=== PATIENT | female | born 1955 | race Caucasian/White ===

== ENCOUNTER 2021-10-27 07:44 | Outpatient (CLI) | payer MEDICARE, OTHER, SELFPAY ==
--- NOTE | 2021-10-27 07:52 | MM_ITS ---
WS: [email or web address] BILATERAL SCREENING DIGITAL MAMMOGRAM WITH CAD HISTORY: SCREENING COMPARISON: 12/07/2017 and 09/30/2015 Bilateral CC and MLO views submitted. Computer aided detection analyzed. Breast composition: There are scattered areas of fibroglandular density. No suspicious masses, microc alcifications or architectural distortion. There are multiple bilateral stable nodules within each br east. Prior biopsy clip in the upper-outer quadrant of the RIGHT breast. MM/[place] [id number] IMPRESSION: BI-RADS: 2-Benign FOLLOW UP: 1 Year Follow-up
== END 2021-10-27 07:45 | disposition home or self-care (01) ==
PROVIDERS: Visit Provider Electrodiagnostic Medicine
DX: Z12.31 Encounter for screening mammogram for malignant neoplasm of breast (principal)
CPT/HCPCS: 77067

== ENCOUNTER 2023-01-19 09:41 | Outpatient (CLI) | payer MEDICARE, OTHER, SELFPAY ==
--- NOTE | 2023-01-19 09:55 | MM_ITS ---
WS: [email or web address] BILATERAL SCREENING DIGITAL TOMOSYNTHESIS MAMMOGRAM WITH CAD HISTORY: SCREENING COMPARISON: 10/27/2021, 12/07/2017 Bilateral CC and MLO views with tomosynthesis and synthetic mammography submitted. Computer aided det ection analyzed. Breast composition: There are scattered areas of fibroglandular density. No suspicious masses, microc alcifications or architectural distortion. Biopsy clip upper outer quadrant RIGHT breast. Stable scat tered nodules and asymmetries since 2018. No new mass. No distortion. MM/[place] [id number] IMPRESSION: BI-RADS: 2-Benign FOLLOW UP: 1 Year Follow-up
== END 2023-01-19 09:42 | disposition home or self-care (01) ==
PROVIDERS: PCP Electrodiagnostic Medicine; Visit Provider Electrodiagnostic Medicine
DX: Z12.31 Encounter for screening mammogram for malignant neoplasm of breast (principal)
CPT/HCPCS: 77063; 77067

== ENCOUNTER 2023-04-16 10:27 | Emergency (ER) | payer MEDICARE, OTHER, SELFPAY ==
[2023-04-16 10:32] VITALS: PULSE 91; RESP 20; TEMP 36.8; O2SAT 95
--- NOTE | 2023-04-16 10:34 | XRR_ITS ---
PROCEDURE INFORMATION: Exam: XR Chest Exam date and time: 04/16/2023 10:40 AM Age: 68 years old Clinical indication: Cough and dyspnea; Additional info: Dyspnea/cough TECHNIQUE: Imaging protocol: Radiologic exam of the chest. Views: 1 view. COMPARISON: No relevant prior studies available. FINDINGS: Lungs: There is a 10 mm nodule in right mid lung. There is mild ill-defined opacity in the right lower lung. Pleural spaces: There is no pleural effusion or pneumothorax. Heart/Mediastinum: The cardiac silhouette is within normal limits of size given AP technique. Bones/joints: Bones are unremarkable. XR/XR chest 1V portable [id number] IMPRESSION: 1. Ill-defined opacity in the right lower lung consistent with atelectasis or infection. 2. 10 mm right lung nodule. Probable calcified granuloma. Radiographic findings are equivocal. Recommend nonemergent follow-up chest CT.
--- NOTE | 2023-04-16 10:34 | ECG_ITS ---
[facility] Test Date: 2023-04-16 Pat Name: Sebastián Sparks Department: Room: Gender: Female Space Officer: : 1955 Requested By: Juan Miguel Hutchison Order Number: [id number] Reading MD: Dale Mata M.D. Measurements Intervals [place] Rate: 83 P: 43 NC: 166 QRS: 64 QRSD: 89 T: 19 QT: 330 QTc: 388 Interpretive Statements SINUS RHYTHM POSSIBLE RIGHT VENTRICULAR CONDUCTION DELAY [RSR (QR) IN V1/V2] NONSPECIFIC ST & T-WAVE ABNORMALITY No previous ECG available for comparison Electronically Signed On 04-16-2023 11:33:14 CDT by Dale Mata M.D. [id number]
--- NOTE | 2023-04-16 10:58 | ED_ITS ---
HPI - COVID General: Chief Complaint: COVID symptoms Stated Complaint: SOB, covid + Time Seen by Provider: 04/16/23 10:29 Source: patient Mode of arrival: ambulatory Triage information: Has fever, cough or shortness of breath . Exposure to COVID + person last 14 days History of Present Illness: 68-year-old female who presents to the emergency room after having a positive COVID test at home. After developing symptoms 4 days ago having had come in contact with a known COVID-positive patient. She has cough myalgias headache and some loose stools. Patient has a history of end-stage renal disease and is on peritoneal dialysis. MD complaint: known COVID positive and reported COVID exposure Prior covid testing: yes, results known COVID 19 common symptoms: positive fever(s), chills, cough, dyspnea, fatigue, body aches, nasal congestion and nausea; negative vomiting COVID 19 other sytmptoms: negative chest pain Onset (ago): day(s) (4) Severity: mild Pertinent comorbid conditions: hypertension and chronic kidney disease Treatment prior to arrival: none COVID Results: No Data to Display Review of Systems Const: Reports: fever(s), chills, body aches and fatigue ENMT: Reports: nasal congestion Card: Denies: chest pain, edema, dyspnea on exertion or orthopnea Resp: Reports: dyspnea GI: Reports: nausea; Denies: abdominal pain or vomiting Musc: Denies: neck pain or back pain Skin/Breast: Denies: rash or pruritus PFSH ED PFSH: Medical History Chronic kidney disease Diabetes Hypertension Surgical History H/O knee surgery (~2001) L knee Hx of dilation and curettage (~1979) Hx of tonsillectomy (~1979) Hx of tubal ligation (~1982) Family History Mother Diabetes Brother Diabetes Heart disease Denies family history of Colon cancer Ovarian cancer Hypercholesteremia Breast cancer Hypertension Uterine cancer Thyroid disease Stroke Physical Exam Const: GENERAL APPEARANCE: cooperative ORIENTATION/CONSCIOUSNESS: Yes awake, Yes oriented to person, Yes oriented to place and Yes oriented to time HENMT: COMMON NORMALS: normocephalic, atraumatic and hearing grossly normal bilaterally HEAD & SCALP: normocephalic and atraumatic Resp: COMMON NORMALS: normal respiratory effort, No retractions, No use of accessory muscles and clear to auscultation bilaterally AUSCULTATION: clear to auscultation bilaterally Cardio: COMMON NORMALS: regular rate, regular rhythm and No murmurs present (Cardio) RATE: regular rate RHYTHM: regular rhythm GI: COMMON NORMALS: Soft to palpation and No hepatosplenomegaly present AUSCULTATION: Yes normoactive bowel sounds PALPATION: Yes Soft to palpation, No Tenderness to palpation present (GI), No Guarding due to palpation present (GI) and Yes No hepatosplenomegaly present Extremity: COMMON NORMALS: normal to inspection, capillary refill normal, no clubbing, cyanosis or edema, no calf tenderness and no pedal edema Neuro: SENSORIUM/ORIENTATION: Yes oriented to person, Yes oriented to place and Yes oriented to time Skin: COMMON NORMALS: no rashes or lesions noted GENERAL SKIN EXAM: no rashes or lesions noted Course Vital Signs: Vital signs: Vital Signs Temperature 98.3 F 04/16/23 10:32 Pulse Rate 91 04/16/23 10:32 Respiratory Rate 20 H 04/16/23 10:32 Pulse Oximetry 95 04/16/23 10:32 Oxygen Delivery Me thod Room Air 04/16/23 10:32 MDM - COVID Medical Decision Making Chest x-ray shows changes consistent with COVID and patient's history of vital signs are stable. She is not a candidate for Paxlovid based on her renal function. Discharge patient home supportive cares use [id number] cough cold remedies as needed. Return if is worsening of symptoms. Medical Records I reviewed the patient's medical records. Lab Data I reviewed the patient's lab results. No Data to Display Discharge Plan Discharge Patient Disposition: Home Clinical Impression: COVID-19 Condition: Stable Prescriptions: No Action valrubicin [Valstar] 40 mg/mL solution intravesical alprazolam 0.25 mg tablet 0.25 mg PO BID lisinopril 10 mg tablet 10 mg PO DAILY tramadol 50 mg tablet 50 mg PO BID PRN chlorpheniramine-pseudoephed 8-120 mg capsule,extended release 12 hr PO loratadine [Claritin Liqui-Gel] 10 mg capsule 10 mg PO DAILY senna 8.6 mg capsule 17.2 mg PO BID metoprolol succinate 25 mg tablet extended release 24 hr 12.5 mg PO DAILY trazodone 50 mg tablet 25 mg PO DAILY citalopram 10 mg tablet 10 mg PO DAILY Discharge Orders: Discharge ED (Routine); Ordered 04/16/23 Ordered By: Juan Miguel Lance Referrals: Wili Gonzalez, [Primary Care Provider] - Discharge Diet: Usual diet Discharge Activity: Resume usual activity Patient Instructions: COVID-19 (Coronavirus Disease 2019) (ED), Opioid Safety, Pain Management Coding Level of Care Code ED Felt Machine Mechanic for Albina Gomez
[2023-04-16 11:00] VITALS: O2SAT 96
[2023-04-16] MEDS: hyDRALAzine 20 mg/mL INJ 1 mL 10 MG IM (11:31)
[2023-04-16 12:06] VITALS: BP 209/99
[2023-04-16 12:40] VITALS: BP 181/78; PULSE 88; RESP 22
== END 2023-04-16 12:49 | disposition home or self-care (01) ==
PROVIDERS: Emergency Provider Family Medicine; PCP Electrodiagnostic Medicine
DX: U07.1 COVID-19 (principal)
CPT/HCPCS: 71045; 93005; 96372; 99284; J0360

== ENCOUNTER 2024-04-24 15:14 | Oncology outpatient (recurring) (ONCR) | payer MEDICARE, OTHER, SELFPAY ==
--- OUTSIDE RECORDS SUMMARY | 2024-04-24 15:11 | XMS_ITS ---
Author Name Unknown Organization Unknown ALLERGIES AND ADVERSE REACTIONS No information ASSESSMENT No information CHIEF COMPLAINT No information MEDICATIONS No information OBJECTIVE DATA No information PHYSICAL EXAMINATION No information TREATMENT PLAN Planned Care Start Date Provider Encounter for Check-up [phone] [facility] PROBLEMS No information RESULTS No information REVIEW OF SYSTEMS No information SUBJECTIVE DATA No information VITAL SIGNS No information
[2024-04-24 16:43] LABS: Basophils # 0.1 10^3/uL (0.0-0.1); Basophils % 0.5 %; Eosinophils # 0.7 10^3/uL (0.0-0.8); Eosinophils % 4.8 %; Hematocrit 35.3 % (36-47); Mean Corpuscular Hemoglobin 30.3 pg (27-33); Mean Corpuscular Volume 94.6 fl (85-98); Monocytes % 7.4 %; Neutrophils # 9.75 10^3/uL (1.8-7.7); Neutrophils % 71.7 %; Nucleated Red Blood Cells % 0 %; Platelet Count 211 10^3/cmm (157-399); Red Blood Count 3.73 10^6/uL (3.85-5.65); Red Cell Distribution Width 13.4 % (12.1-15.1); White Blood Count 13.59 10^3/uL (3.29-11.43)
[2024-04-24 16:46] LABS: Erythrocyte Sedimentation Rate 30 mm/hr (0-15)
[2024-04-24 17:13] LABS: LAB Peripheral Smear Sent for Review
[2024-04-24 17:26] LABS: Alanine Aminotransferase 23 U/L (0-33); Albumin Level 3.3 g/dL (3.5-5.2); Alkaline Phosphatase 132 U/L (35-105); Anion Gap 15.9 (5-19); Aspartate Amino Transferase 22 U/L (0-32); C Reactive Protein 16.3 mg/L (0.0-4.9); Calcium 8.5 mg/dL (8.5-10.5); Carbon Dioxide 26 mmol/L (22-29); Chloride 99 mmol/L (98-107); Creatinine Clr Calc Pharmacy 12.8675; Glucose 91 mg/dL (65-115); Lactate Dehydrogenase 195 U/L (135-214); Osmolality Calculated 313 mOsm/kg (285-295); Potassium 3.9 mmol/L (3.5-5.1); Sodium 137 mmol/L (136-145); Thyroid Stimulating Hormone 1.98 uIU/mL (0.27-4.20); Total Bilirubin 0.2 mg/dL (0.15-1.2); Total Protein 6.3 g/dL (6.6-8.7); Vitamin B12 879 pg/mL (232-1245)
[2024-04-24 17:31] LABS: Blood Urea Nitrogen 95 mg/dL (8-23)
== END 2024-05-04 23:55 | disposition home or self-care (01) ==
PROVIDERS: PCP Electrodiagnostic Medicine; Visit Provider Internal Medicine Medical Oncology
DX: D72.829 Elevated white blood cell count, unspecified (principal); C88.4 Extranodal marginal zone B-cell lymphoma of mucosa-associated lymphoid tissue [MALT-lymphoma]; U07.1 COVID-19; R53.83 Other fatigue; Z53.9 Procedure and treatment not carried out, unspecified reason
CPT/HCPCS: 36415; 80053; 82607; 83615; 84443; 85025; 85651; 86140; 88374; 99205

== ENCOUNTER → 2024-06-20 09:08 | Outpatient (BNVA) | payer MEDICARE, OTHER, SELFPAY | PROVIDERS: PCP Electrodiagnostic Medicine; Referring Provider Electrodiagnostic Medicine; Visit Provider Specialist | DX: G25.2 Other specified forms of tremor (principal); G81.94 Hemiplegia, unspecified affecting left nondominant side; E11.22 Type 2 diabetes mellitus with diabetic chronic kidney disease; E11.40 Type 2 diabetes mellitus with diabetic neuropathy, unspecified; N18.9 Chronic kidney disease, unspecified | CPT/HCPCS: 99204 ==

== ENCOUNTER → 2024-06-24 08:06 | Outpatient (BNVA) | payer MEDICARE, OTHER, SELFPAY | PROVIDERS: PCP Electrodiagnostic Medicine; Visit Provider Podiatrist Foot & Ankle Surgery | DX: L60.3 Nail dystrophy (principal); G62.9 Polyneuropathy, unspecified; E11.42 Type 2 diabetes mellitus with diabetic polyneuropathy; Z79.4 Long term (current) use of insulin | CPT/HCPCS: 11721; 99203 ==

== ENCOUNTER 2024-07-25 10:44 | Oncology outpatient (recurring) (ONCR) | payer MEDICARE, OTHER, SELFPAY ==
--- NOTE | 2024-07-11 14:30 | MR_ITS ---
WS: [email or web address] MRI BRAIN WITHOUT CONTRAST HISTORY: G81.94 - Hemiplegia, unspecified affecting left nondomina... COMPARISON: None available. TECHNIQUE: Diffusion imaging, multiplanar T1, T2 and FLAIR imaging obtained. No evidence for acute infarct or hemorrhage. Queen-white matter differentiation is normal. Mild small vessel disease and mild atrophy. Well-circumscribed mass of intermediate signal centered a t the RIGHT cerebellopontine angle with significant contact on the RIGHT middle cerebellar peduncle a nd keith. Mass extends into the internal auditory canal. Mass measures 1.9 x 2.8 cm and extends over a length of 2.8 cm. No additional mass or mass effect. Ventricles are normal size. There is no hydrocephalus. Mild volume loss in the cerebellum. Dural venous sinuses and skull [place] demonstrate no abnormality on this unenhanced studies. Paranasal sinuses: Clear. Mastoid air cells: Fluid in the LEFT mastoid air cells. Calvarium and scalp: Intact. MR/MR head wo con* [id number] IMPRESSION: 1. No acute infarct or hemorrhage. 2. Intermediate signal, well-circumscribed soft tissue mass centered at the RI GHT cerebellopontine angle with mass effect upon the middle cerebellar peduncle and keith with extension into the IAC. Mass measures 1.9 x 2.8 x 2.8 cm. Favor acoustic schwannoma. Differential would also include meningioma or metastatic l esion. Recommend follow-up MRI brain with contrast. 3. Mild small vessel disease. No prior infarct.
--- NOTE | 2024-07-11 15:15 | MR_ITS ---
WS: [email or web address] MRA ANGIOGRAPHY [place] HISTORY: G81.94 - Hemiplegia, unspecified affecting left nondomina... COMPARISON: None available. TECHNIQUE: 3-D MR angiography is performed of the [place]. All images are reviewed including source images. Distal vertebral and basilar arteries are intact with no significant stenosis or plaque. Posterior ce rebral arteries are normal course and caliber. Posterior communicating arteries are both patent. Intracranial portion of the internal carotid arteries are normal course and caliber. Middle cerebral arteries are both patent. Subtle area of enhancement at the RIGHT MCA trifurcation extending into the sylvian fissure measures 3.2 mm. This is only seen on the 3D [id number] imaging and not on the p ost processed imaging. Potentially this could represent a small aneurysm or arterial loop. No paucity of vessels distally. Anterior cerebral arteries are normal. MR/MR angio head wo con [id number] IMPRESSION: 1. Suspicious but indeterminate for 3.2 mm aneurysm involving the RIGHT MCA tr ifurcation extending into the sylvian fissure. This is only seen on the 3D time -of-flight imaging. Recommend follow-up [place] CT angiogram. 2. No additional areas of stenosis.
--- NOTE | 2024-07-11 16:00 | USCV_ITS ---
Sebastián Sparks Age: 69 Gender: F : 1955 Exam Date: 07/11/2024 16:00 Ordering Phys: Mami Darby MD Technologist: SONIA Exam Location: [facility] [place] Indication: hemiplegia Risk Factors: Previous Vascular Surgery: Right Brachial BP: / Left Brachial BP: / Right Left Velocity (cm/s) Spectral Plaque Velocity (cm/s) Spectral Plaque Syst/Diast Broadening Syst/Diast Broadening 74.10/ 16.40 Prox CCA 67.00 / 16.40 97.00/ 20.60 Mid CCA 66.30 / 18.20 84.10/ 15.40 Distal CCA 77.60 / 17.00 60.40/ 17.20 Prox ICA 78.80 / 17.30 72.00/ 17.70 Mid ICA 102.70/ 19.40 73.00/ 18.60 Distal ICA 68.40 / 17.80 57.50 ECA 68.90 0.90 ICA/CCA 1.30 Antegrade Vertebral Antegrade 80.10/ 17.20 cm/s 41.60/ 12.10 cm/s Tri Subclavian Tri 85.90 139.0 0 CONCLUSIONS Right ICA stenosis <50%. Mild atheromatous plaque right carotid bulb/ICA. Left ICA stenosis <50%. Mild atheromatous plaque left carotid bulb/ICA. Normal antegrade Doppler flow noted in the right vertebral artery. Normal antegrade Doppler flow noted in the left vertebral artery. Taqueria Nuñez MD (Electronically Signed) Final Date: 12 July 2024 10:23 S
[2024-07-25 11:27] LABS: Basophils # 0.1 10^3/uL (0.0-0.1); Basophils % 0.5 %; Eosinophils # 0.6 10^3/uL (0.0-0.8); Eosinophils % 4.2 %; Hematocrit 34.6 % (36-47); Lymphocytes # 1.6 10^3/uL (0.8-4.8); Lymphocytes % 10.5 %; Mean Corpuscular HGB Conc 32.7 g/dL (30-55); Mean Corpuscular Volume 95.1 fl (85-98); Mean Platelet Volume 10.2 fL (7.4-10.4); Monocytes # 0.9 10^3/uL (0.2-0.9); Monocytes % 5.9 %; Neutrophils # 11.65 10^3/uL (1.8-7.7); Neutrophils % 78.4 %; Nucleated Red Blood Cells % 0 %; Platelet Count 194 10^3/cmm (157-399); Red Blood Count 3.64 10^6/uL (3.85-5.65); Red Cell Distribution Width 12.4 % (12.1-15.1); White Blood Count 14.86 10^3/uL (3.29-11.43)
[2024-07-25 11:38] LABS: Alanine Aminotransferase 37 U/L (0-33); Albumin Level 3.3 g/dL (3.5-5.2); Alkaline Phosphatase 165 U/L (35-105); Anion Gap 14.3 (5-19); Aspartate Amino Transferase 33 U/L (0-32); C Reactive Protein 17.2 mg/L (0.0-4.9); Calcium 8.6 mg/dL (8.5-10.5); Carbon Dioxide 26 mmol/L (22-29); Chloride 100 mmol/L (98-107); Creatinine Clr Calc Pharmacy 12.6039; Globulin 2.9 g/dL (1.3-4.6); Glucose 167 mg/dL (65-115); Osmolality Calculated 313 mOsm/kg (285-295); Potassium 4.3 mmol/L (3.5-5.1); Sodium 136 mmol/L (136-145); Total Bilirubin 0.3 mg/dL (0.15-1.2); Total Protein 6.2 g/dL (6.6-8.7)
[2024-07-25 11:42] LABS: Blood Urea Nitrogen 89 mg/dL (8-23)
[2024-07-25 11:45] LABS: Erythrocyte Sedimentation Rate 13 mm/hr (0-15)
== END 2024-08-03 23:59 | disposition home or self-care (01) ==
PROVIDERS: PCP Electrodiagnostic Medicine; Visit Provider Internal Medicine Medical Oncology
DX: D72.829 Elevated white blood cell count, unspecified; C88.41 Extranodal marginal zone B-cell lymphoma of mucosa-associated lymphoid tissue [MALT-lymphoma], in remission; I12.0 Hypertensive chronic kidney disease with stage 5 chronic kidney disease or end stage renal disease; E11.22 Type 2 diabetes mellitus with diabetic chronic kidney disease; N18.6 End stage renal disease; Z99.2 Dependence on renal dialysis; Z79.4 Long term (current) use of insulin; Z79.899 Other long term (current) drug therapy; Z53.9 Procedure and treatment not carried out, unspecified reason
CPT/HCPCS: 36415; 70544; 70551; 80053; 85025; 85651; 86140; 93880; 99214

== ENCOUNTER 2024-07-31 12:30 | Outpatient (CLI) | payer MEDICARE, OTHER, SELFPAY ==
--- NOTE | 2024-07-31 13:00 | MR_ITS ---
WS: [email or web address] MRI HEAD WITH CONTRAST WITH ATTENTION TO THE INTERNAL AUDITORY CANALS TECHNIQUE: Sagittal T1, T2 axial, T2 axial flair, axial susceptibility weighted imaging, axial diffus ion weighted images, and coronal T2 images were obtained. Pre and post T1 axial and post T1 coronal i mages. ADC and FSPGR images. Post gadolinium images with attention to the internal auditory canals. A xial fiesta imaging. 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 Enhancing lesion measures approximat caleb 1.9 x 2.8 x 2.8 cm. No significant underlying edema. Small vessel changes in the keith. Mass appea rs separate from the RIGHT 7th and 8th cranial nerves and extends along the clivus. 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 This extends anteriorly along the RIGHT middle cranial fos sa with dural thickening. Diffuse involvement of the RIGHT trigeminal nerve root and cisternal segmen t. This extends into Meckel's cave and along V2 into the cavernous sinus. Small amount of dural enhan cement extends anteriorly near foramen rotundum. Cavernous carotid artery is encased but remains varela nt. This also involves the proximal RIGHT PARCEL POST DELIVERY. Basilar artery is patent. LEFT mastoid effusion. No other significant changes compared to the recent noncontrast MRI MR/MR iac's wo/w con* [id number] IMPRESSION: 1. Again seen is the previously described RIGHT cerebellopontine angle enhanc ing mass most compatible with retroclival meningioma. Schwannoma less likely. T his approaches but spares the IAC. This extends anteriorly into Meckel's cave a nd the RIGHT cavernous sinus described above. 2. Significant mass effect on the RIGHT midbrain and keith although minimal if any underlying edema in the keith. 3. Small vessel changes in the keith. 4. LEFT mastoid effusion. 5. No other changes from the recent noncontrast MRI.
== END 2024-07-31 12:31 | disposition home or self-care (01) ==
LOC: RAD 12:31
PROVIDERS: PCP Electrodiagnostic Medicine; Visit Provider Specialist
DX: D33.3 Benign neoplasm of cranial nerves (principal); I67.89 Other cerebrovascular disease; H70.92 Unspecified mastoiditis, left ear; G81.94 Hemiplegia, unspecified affecting left nondominant side; G25.2 Other specified forms of tremor
CPT/HCPCS: 70553; A9577

== ENCOUNTER → 2024-08-15 14:21 | Outpatient (BNVA) | payer MEDICARE, OTHER, SELFPAY | PROVIDERS: PCP Electrodiagnostic Medicine; Visit Provider Specialist | DX: G25.2 Other specified forms of tremor (principal); G81.94 Hemiplegia, unspecified affecting left nondominant side; D33.3 Benign neoplasm of cranial nerves | CPT/HCPCS: 99213; 99214; 99215 ==

== ENCOUNTER 2024-09-11 09:24 | Oncology outpatient (recurring) (ONCR) | payer MEDICARE, OTHER, SELFPAY ==
[2024-09-11 10:37] LABS: Alanine Aminotransferase 27 U/L (0-33); Albumin Level 3.4 g/dL (3.5-5.2); Alkaline Phosphatase 148 U/L (35-105); Aspartate Amino Transferase 24 U/L (0-32); Blood Urea Nitrogen 73 mg/dL (8-23); Calcium 8.6 mg/dL (8.5-10.5); Carbon Dioxide 25 mmol/L (22-29); Chloride 102 mmol/L (98-107); Globulin 2.9 g/dL (1.3-4.6); Glucose 110 mg/dL (65-115); Osmolality Calculated 310 mOsm/kg (285-295); Sodium 139 mmol/L (136-145); Total Bilirubin 0.3 mg/dL (0.15-1.2); Total Protein 6.3 g/dL (6.6-8.7)
== END 2024-10-04 23:59 | disposition home or self-care (01) ==
LOC: ONCMED 09:24
PROVIDERS: Nurse Practitioner; PCP Electrodiagnostic Medicine; Visit Provider Internal Medicine Medical Oncology
DX: G81.94 Hemiplegia, unspecified affecting left nondominant side (principal); G25.2 Other specified forms of tremor; I67.89 Other cerebrovascular disease; I67.1 Cerebral aneurysm, nonruptured; D72.829 Elevated white blood cell count, unspecified; C88.4 Extranodal marginal zone B-cell lymphoma of mucosa-associated lymphoid tissue [MALT-lymphoma]; U07.1 COVID-19; R53.83 Other fatigue; Z53.9 Procedure and treatment not carried out, unspecified reason
CPT/HCPCS: 36415; 80053

== ENCOUNTER → 2024-09-25 10:40 | Outpatient (BNVA) | payer MEDICARE, OTHER, SELFPAY | PROVIDERS: PCP Electrodiagnostic Medicine; Visit Provider Podiatrist Foot & Ankle Surgery | DX: L60.3 Nail dystrophy (principal); G62.9 Polyneuropathy, unspecified; E11.42 Type 2 diabetes mellitus with diabetic polyneuropathy; Z79.4 Long term (current) use of insulin | CPT/HCPCS: 11721 ==

== ENCOUNTER 2024-10-31 12:45 | Oncology outpatient (recurring) (ONCR) | payer MEDICARE, OTHER, SELFPAY ==
[2024-10-31 13:22] LABS: Basophils # 0.1 10^3/uL (0.0-0.1); Basophils % 0.4 %; Eosinophils # 0.5 10^3/uL (0.0-0.8); Eosinophils % 3.8 %; Hematocrit 31.7 % (36-47); Lymphocytes # 1.5 10^3/uL (0.8-4.8); Lymphocytes % 10.9 %; Mean Corpuscular HGB Conc 32.5 g/dL (30-55); Mean Corpuscular Volume 95.5 fl (85-98); Mean Platelet Volume 9.7 fL (7.4-10.4); Monocytes # 0.9 10^3/uL (0.2-0.9); Monocytes % 6.4 %; Neutrophils # 10.64 10^3/uL (1.8-7.7); Nucleated Red Blood Cells % 0 %; Platelet Count 189 10^3/cmm (157-399); Red Blood Count 3.32 10^6/uL (3.85-5.65); Red Cell Distribution Width 12.4 % (12.1-15.1); White Blood Count 13.64 10^3/uL (3.29-11.43)
[2024-10-31 13:34] LABS: Alanine Aminotransferase 31 U/L (0-33); Albumin Level 3.1 g/dL (3.5-5.2); Alkaline Phosphatase 137 U/L (35-105); Anion Gap 16.8 (5-19); Aspartate Amino Transferase 26 U/L (0-32); C Reactive Protein 13.3 mg/L (0.0-4.9); Calcium 8.4 mg/dL (8.5-10.5); Carbon Dioxide 22 mmol/L (22-29); Chloride 99 mmol/L (98-107); Creatinine Clr Calc Pharmacy 11.3485; Globulin 3.1 g/dL (1.3-4.6); Glucose 240 mg/dL (65-115); Osmolality Calculated 312 mOsm/kg (285-295); Potassium 3.8 mmol/L (3.5-5.1); Sodium 134 mmol/L (136-145); Total Bilirubin 0.2 mg/dL (0.15-1.2); Total Protein 6.2 g/dL (6.6-8.7)
[2024-10-31 14:06] LABS: Blood Urea Nitrogen 85 mg/dL (8-23)
== END 2024-11-01 23:59 | disposition home or self-care (01) ==
PROVIDERS: Internal Medicine; PCP Electrodiagnostic Medicine; Visit Provider Internal Medicine Medical Oncology
DX: D72.829 Elevated white blood cell count, unspecified (principal); Z85.72 Personal history of non-Hodgkin lymphomas; Z87.891 Personal history of nicotine dependence; N18.6 End stage renal disease; Z99.2 Dependence on renal dialysis
CPT/HCPCS: 36415; 80053; 85025; 86140; 99214

== ENCOUNTER 2024-12-11 13:02 | Outpatient (CLI) | payer MEDICARE, OTHER, SELFPAY ==
--- NOTE | 2024-12-11 13:05 | CT_ITS ---
WS: [email or web address] CT ABDOMEN WITHOUT CONTRAST HISTORY: REDNESS, PAIN TO MIDLINE OF ABDOMEN AROUND PD CATHETER Contiguous single phase 5 mm axial imaging performed to the abdomen. Oral contrast not been provided. Coronal and sagittal reformats are submitted. All CT scans at [facility] use at least one of these dose optimization techniques: automated exposure control; mA and/or kV adjustment per patient size (includes targeted exams where dose is matched to clinical indication); or iterative reconstruction. IV CONTRAST: None Oral contrast: No DLP: 500.13 mGy.cm COMPARISON: 02/18/2013 Lower thorax: Lung bases are clear. Mild cardiomegaly. No hiatal hernia. Liver/biliary system: Normal size with no intrahepatic dilatation. Gallbladder: Normal. No gallstones or wall thickening. No pericholecystic fluid. Pancreas: Normal size pancreas and pancreatic duct. No adjacent inflammation. Spleen: Normal size spleen. No mass or infarct. Adrenal glands: Normal. Right kidney: Mild atrophy no obstruction. Left kidney: Mild atrophy no obstruction. Aorta: Mild atherosclerosis. Additional atherosclerotic plaque and calcification within the mesenteric arteries. Peritoneal dialysis catheter is noted within the left abdominal wall. No fluid around the catheter. The entry site into the peritoneal cavity was not included as only an abdomen CT was requested. Lymphadenopathy: None. Free fluid: None. GI tract: Stomach is markedly distended with food products. There is air closely associated with the wall of the stomach. There is air within the stomach but not definite pneumatosis. Several of the air foci are closely associated with the wall of the stomach. Perforation is not excluded. Abdominal wall: Partially visualized peritoneal dialysis catheter on the LEFT. Visualized osseous structures: Mild scoliosis and degenerative disc disease in the lumbar spine. CT/CT abdomen wo con [id number] IMPRESSION: 1. Intraperitoneal free air centered in the upper abdomen and towards the midl ine. Free air is closely associated with the stomach. Possibility of a gastric perforation should be considered if there is no additional explanation for the free air. 2. Peritoneal dialysis catheter enters the LEFT abdomen. The entry into the pe ritoneum is not included on this CT of the abdomen. Free air could potentially be related to manipulation of the peritoneal dialysis catheter. 3. No ascites. 4. Extensive vascular calcifications. Notified Silvia Atwood MD at 12/12/2024 9:08 AM. Unsuccessful attempt at cont acting Dr. Atwood at the number provided. I reached out to Mrs. Sparks at 10:10 a.m. to discuss her C5 T findings as I was unable to contact her physician. Mrs. Sparks is not experiencin g any increased abdominal pain or bloating. She has been eating since the CT ex amination. This air may all be due to peritoneal dialysis catheter manipulation . I have encouraged her to seek urgent care if abdominal symptoms become appare nt.
== END 2024-12-11 13:03 | disposition home or self-care (01) ==
LOC: RAD 13:02
PROVIDERS: PCP Electrodiagnostic Medicine; Visit Provider Internal Medicine Nephrology
DX: N18.6 End stage renal disease (principal); R93.5 Abnormal findings on diagnostic imaging of other abdominal regions, including retroperitoneum; Z96.89 Presence of other specified functional implants; I70.90 Unspecified atherosclerosis; I51.7 Cardiomegaly; N26.1 Atrophy of kidney (terminal); K55.1 Chronic vascular disorders of intestine; M41.86 Other forms of scoliosis, lumbar region; M51.369 Other intervertebral disc degeneration, lumbar region without mention of lumbar back pain or lower extremity pain
CPT/HCPCS: 74150

== ENCOUNTER → 2024-12-24 10:31 | Outpatient (BNVA) | payer MEDICARE, OTHER, SELFPAY | PROVIDERS: PCP Electrodiagnostic Medicine; Visit Provider Podiatrist Foot & Ankle Surgery | DX: E11.42 Type 2 diabetes mellitus with diabetic polyneuropathy (principal); L60.3 Nail dystrophy; G62.9 Polyneuropathy, unspecified; Z79.4 Long term (current) use of insulin | CPT/HCPCS: 11721 ==

== ENCOUNTER → 2025-01-15 14:01 | Outpatient (BNVA) | payer MEDICARE, OTHER, SELFPAY | PROVIDERS: PCP Electrodiagnostic Medicine; Visit Provider Specialist | DX: G25.2 Other specified forms of tremor (principal); D33.3 Benign neoplasm of cranial nerves; I67.1 Cerebral aneurysm, nonruptured; G81.94 Hemiplegia, unspecified affecting left nondominant side; G47.10 Hypersomnia, unspecified | CPT/HCPCS: 99214 ==

== ENCOUNTER 2025-01-30 07:45 | Oncology outpatient (recurring) (ONCR) | payer MEDICARE, OTHER, SELFPAY ==
[2025-01-29 13:11] LABS: Basophils # 0.1 10^3/uL (0.0-0.1); Basophils % 0.3 %; Eosinophils # 0.6 10^3/uL (0.0-0.8); Eosinophils % 3.7 %; Hematocrit 29.7 % (36-47); Lymphocytes # 1.4 10^3/uL (0.8-4.8); Mean Corpuscular Hemoglobin 30.5 pg (27-33); Mean Corpuscular Volume 95.5 fl (85-98); Mean Platelet Volume 9.9 fL (7.4-10.4); Monocytes # 1.1 10^3/uL (0.2-0.9); Monocytes % 7.2 %; Neutrophils # 11.97 10^3/uL (1.8-7.7); Neutrophils % 78.8 %; Nucleated Red Blood Cells % 0 %; Platelet Count 203 10^3/cmm (157-399); Red Blood Count 3.11 10^6/uL (3.85-5.65); Red Cell Distribution Width 13.1 % (12.1-15.1); White Blood Count 15.18 10^3/uL (3.29-11.43)
[2025-01-29 13:20] LABS: Erythrocyte Sedimentation Rate 36 mm/hr (0-15)
[2025-01-29 13:31] LABS: Alanine Aminotransferase 38 U/L (0-33); Albumin Level 3.1 g/dL (3.5-5.2); Alkaline Phosphatase 170 U/L (35-105); Aspartate Amino Transferase 29 U/L (0-32); C Reactive Protein 43.2 mg/L (0.0-4.9); Calcium 8.2 mg/dL (8.5-10.5); Carbon Dioxide 21 mmol/L (22-29); Chloride 100 mmol/L (98-107); Creatinine Clr Calc Pharmacy 10.5379; Globulin 3.1 g/dL (1.3-4.6); Glucose 172 mg/dL (65-115); Osmolality Calculated 314 mOsm/kg (285-295); Sodium 136 mmol/L (136-145); Total Bilirubin 0.2 mg/dL (0.15-1.2); Total Protein 6.2 g/dL (6.6-8.7)
[2025-01-29 13:34] LABS: Blood Urea Nitrogen 92 mg/dL (8-23)
[2025-01-29 14:39] LABS: Iron 77 ug/dL (37-145); Lactate Dehydrogenase 222 U/L (135-214); Total Iron Binding Capacity 154 mcg/dl; Unsaturated Iron Binding 77 ug/dL (112-347)
[2025-01-29 14:50] LABS: Vitamin B12 845 pg/mL (232-1245)
[2025-01-29 14:52] LABS: Ferritin 2008 ng/mL (15-150)
[2025-01-29 15:07] LABS: Folate Level > 20.0 ng/mL (4.8-37.3)
--- NOTE | 2025-01-30 07:45 | MR_ITS ---
WS: [email or web address] MRI HEAD WITH CONTRAST WITH ATTENTION TO THE INTERNAL AUDITORY CANALS TECHNIQUE: Sagittal T1, T2 axial, T2 axial flair, axial susceptibility weighted imaging, axial diffusion weighted images, and coronal T2 images were obtained. Pre and post T1 axial and post T1 coronal images. ADC and FSPGR images. Post gadolinium images with attention to the internal auditory canals. Axial fiesta imaging. 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 This is unchanged in appearance compared to previous. 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 This extends anteriorly along the RIGHT middle cranial fossa with dural thickening. Diffuse involvement of the RIGHT trigeminal nerve root and cisternal segment. Again seen is extension into Meckel's cave and along V2 into the cavernous sinus. Small amount of dural enhancement extends anteriorly near foramen rotundum as previously described. Cavernous carotid artery is encased but remains patent. This also involves the proximal RIGHT MATERIAL CREW SUPERVISOR. Basilar artery is patent. Small vessel changes in the keith. LEFT mastoid effusion. No restricted diffusion to suggest acute ischemia. MR/MR iac's wo/w con* [id number] IMPRESSION: 1. No significant changes in the previously described RIGHT CP angle retrocliv al meningioma. Schwannoma less likely as previously discussed. 2. Stable extension anteriorly into Meckel's cave and RIGHT cavernous sinus. 3. Persistent mass effect on the RIGHT midbrain and keith is unchanged. Only a small amount of underlying edema is unchanged. 4. LEFT mastoid effusion. 5. No other significant changes.
[2025-01-30] MEDS: gadobenate dimeglumine 20 mL vial IV (08:21)
--- NOTE | 2025-01-30 08:30 | MR_ITS ---
WS: [email or web address] MRA HEAD TECHNIQUE: Axial 3-D TOF images obtained with axial images and axial, sagittal, and coronal 2-D reformatted images. CLINICAL INFORMATION: R51.9 - Headache, unspecified COMPARISON: 07/11/2024 FINDINGS: Basilar artery is patent. Near persistent LEFT FISHING ACCESSORIES MAKER. Patent RIGHT posterior communicating artery. Normal vascularity to the FISHING ACCESSORIES MAKER territory bilaterally. Both ICAs are patent at the skull base. Normal vascularity to the ENRIQUE territory. Normal vascularity to the MCA territory bilaterally. No evidence of proximal flow-limiting stenosis. No evidence of RIGHT MCA trifurcation aneurysm today. Previously described area of lobulation was probably venous in etiology and not seen today MR/MR angio head wo con [id number] IMPRESSION: Unremarkable intracranial MRA
[2025-01-30 13:19] LABS: Leukemia Profile (BBPL) See Report
[2025-02-03 16:46] LABS: Erythropoietin 6.7 mIU/mL (2.6-18.5)
== END 2025-02-01 23:59 | disposition home or self-care (01) ==
LOC: RAD 01-31 → ONCMED 01-31 08:57
PROVIDERS: Internal Medicine; PCP Electrodiagnostic Medicine; Visit Provider Specialist
DX: R51.9 Headache, unspecified; D33.3 Benign neoplasm of cranial nerves; I67.1 Cerebral aneurysm, nonruptured; G25.2 Other specified forms of tremor; G81.94 Hemiplegia, unspecified affecting left nondominant side; R93.0 Abnormal findings on diagnostic imaging of skull and head, not elsewhere classified; H74.8X2 Other specified disorders of left middle ear and mastoid; Z53.9 Procedure and treatment not carried out, unspecified reason
CPT/HCPCS: 36415; 70544; 70553; 80053; 82607; 82668; 82728; 82746; 83010; 83540; 83550; 83615; 85025; 85651; 86140; 88184; 88185; 99213

== ENCOUNTER 2025-02-11 12:00 | Outpatient (CLI) | payer MEDICARE, OTHER, SELFPAY ==
--- NOTE | 2025-02-11 12:00 | MM_ITS ---
WS: [email or web address] BILATERAL 3D TOMOSYNTHESIS DIGITAL SCREENING MAMMOGRAPHY WITH CAD CLINICAL INFORMATION: SCREENING HISTORY: Screening mammogram. No current complaints. COMPARISON: 2022 TECHNIQUE: Bilateral CC and MLO views. FINDINGS: Scattered fibroglandular densities bilaterally. No suspicious focal mass, asymmetry, calcifications, or architectural distortion. No evidence of malignancy. Vascular calcification. Stable small ovoid nodule anterior RIGHT breast MM/MM scr tomosynthesis [id number] IMPRESSION: DENSITY: There are scattered areas of fibroglandular density. BI-RADS: 2 - Benign. FOLLOW UP: 1 Year Follow-up Recommend return to annual screening mammography.
== END 2025-02-11 12:01 | disposition home or self-care (01) ==
LOC: MOBLMAM 12:01
PROVIDERS: PCP Electrodiagnostic Medicine; Visit Provider Electrodiagnostic Medicine
DX: Z12.31 Encounter for screening mammogram for malignant neoplasm of breast (principal); R92.323 Mammographic fibroglandular density, bilateral breasts; R92.1 Mammographic calcification found on diagnostic imaging of breast; N63.10 Unspecified lump in the right breast, unspecified quadrant
CPT/HCPCS: 77063; 77067

== ENCOUNTER 2025-02-18 10:41 | Inpatient (IN) | payer MEDICARE, OTHER, SELFPAY ==
[2025-02-18] VITALS (14 sets, daily range): BP systolic 96–159; BP diastolic 70–111; PULSE 74–133; RESP 15–20; TEMP 36.6; O2SAT 94–100
--- NOTE | 2025-02-18 10:54 | ECG_ITS ---
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 Measurements Intervals [place] Rate: 126 P: 0 SC: 0 QRS: 53 QRSD: 102 T: 207 QT: 313 QTc: 454 Interpretive Statements ATRIAL FIBRILLATION WITH RAPID VENTRICULAR RESPONSE NONSPECIFIC T-WAVE ABNORMALITY Compared to ECG 04/16/2023 10:46:17 Sinus rhythm no longer present T-wave abnormality still present Electronically Signed On 02-20-2025 06:18:49 CDT by Nhi Lindsay M.D. [email or web address] [id number]
--- NOTE | 2025-02-18 11:02 | XRR_ITS ---
PROCEDURE INFORMATION: Exam: XR Chest Exam date and time: 02/18/2025 11:05 AM Age: 69 years old Clinical indication: Wheezing and other: Weakness TECHNIQUE: Imaging protocol: Radiologic exam of the chest. Views: 1 view. COMPARISON: 1. CR XR chest 2V* [id number] 10/23/2023 3:15 PM 2. CR (CHEST, ) 04/16/2023 10:40 AM FINDINGS: Lungs: Evidence of prior calcified granulomatous disease right lung, right hemithorax. No new focal infiltrates seen of the lungs. Slight probable atelectasis and/or infiltrate left lung base. Pleural spaces: Possible tiny left pleural effusion. No large or obvious pneumothorax seen. Heart/Mediastinum: Heart size appears enlarged, increased in size compared to the prior studies. Bones/joints: Degenerative changes spine. Other findings: Patient appears rotated slightly to the right. XR/XR chest 1V portable [id number] IMPRESSION: 1. Heart size appears enlarged, increased. 2. Possible tiny left pleural effusion with slight probable atelectasis and/or infiltrate left lung base.
--- NOTE | 2025-02-18 11:08 | ECG_ITS ---
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 Measurements Intervals [place] Rate: 111 P: 0 AL: 0 QRS: 43 QRSD: 103 T: 195 QT: 342 QTc: 466 Interpretive Statements ATRIAL FIBRILLATION WITH RAPID VENTRICULAR RESPONSE NONSPECIFIC ST & T-WAVE ABNORMALITY Compared to ECG 04/16/2023 10:46:17 Sinus rhythm no longer present T-wave abnormality still present Electronically Signed On 02-20-2025 06:18:03 CDT by Nhi Lindsay M.D. [email or web address] [id number]
--- NOTE | 2025-02-18 11:09 | W.ED.ARRPALP ---
HPI - Arrhythmia/Palpitations General: Chief Complaint: Arrhythmia/Palpitations Stated Complaint: high HR Time Seen by Provider: 02/18/25 11:01 Source: patient Mode of arrival: ambulatory Limitations: no limitations History of Present Illness: 69-year-old female who states that over the last week she been having some nausea vomiting along with generalized weakness. Patient states she had went to her PCP today and was in A-fib. She is in A-fib with RVR here as well this is new onset A-fib she denies any chest pains had some mild dyspnea. Associated symptoms: Reports nausea and vomiting Related Data Home Medications ?Medication ?Instructions ?Recorded ?Confirmed alprazolam 0.25 mg tablet 0.25 mg PO TID PRN Anxiety 07/12/21 02/18/25 tramadol 50 mg tablet 50 mg PO BID PRN Pain 07/12/21 02/18/25 calcitriol 0.25 mcg capsule 0.25 mcg PO DAILY 04/24/24 02/18/25 ferric citrate 210 mg iron tablet 210 mg PO TID 04/24/24 02/18/25 (Auryxia) loratadine 10 mg tablet 10 mg PO DAILY 04/24/24 02/18/25 atorvastatin 80 mg tablet 80 mg PO DAILY 06/20/24 02/18/25 insulin glargine 100 unit/mL (3 70 unit SUBCUT .at bedtime 06/20/24 02/18/25 mL) subcutaneous pen (Basaglar KwikPen U-100 Insulin) lactulose 10 gram/15 mL oral 30 - 60 ml PO BID PRN Constipation 07/25/24 02/18/25 solution lisinopril 40 mg tablet 40 mg PO QPM 07/25/24 02/18/25 fluticasone propionate 50 1 spray intranasal DAILY 08/15/24 02/18/25 mcg/actuation nasal spray,suspension metoprolol succinate 100 mg 100 mg PO DAILY 08/15/24 02/18/25 tablet,extended release 24 hr nifedipine 30 mg tablet,extended 30 mg PO DAILY 01/15/25 02/18/25 release 24 hr nystatin 100,000 unit/gram topical 1 applic topical BID 01/29/25 02/18/25 cream trazodone 150 mg tablet 150 mg PO QPM 01/29/25 02/18/25 gentamicin 0.1 % topical cream 1 applic topical DAILY after 02/17/25 02/18/25 cleaning site citalopram 40 mg tablet 40 mg PO DAILY 02/18/25 02/18/25 dorzolamide 22.3 mg-timolol 6.8 1 drp ophthalmic (eye) BID 02/18/25 02/18/25 mg/mL eye drops sennosides 8.6 mg tablet (Senokot) 17.2 mg PO BID 02/18/25 02/18/25 vit B,C-folic ac 800 mcg-zinc 12.5 1 tab PO DAILY 02/18/25 02/18/25 mg-selen-D3 2,000 unit-vit E tablet (RenaPlex-D) Allergies Allergy/AdvReac Type Severity Reaction Status Date / Time meperidine (From Demerol) Allergy rash/itchin Verified 02/17/25 14:53 g Sulfa (Sulfonamide Allergy itching Verified 02/17/25 14:53 Antibiotics) Review of Systems Const: Reports: fatigue; Denies: fever(s), chills, body aches or change in appetite Eyes: Denies: blurry vision or eye discomfort ENMT: Denies: throat pain or dental pain Card: Reports: palpitations and irregular heart rhythm; Denies: chest pain Resp: Reports: dyspnea GI: Reports: nausea and vomiting; Denies: abdominal pain or diarrhea : Denies: dysuria Musc: Denies: neck pain or back pain Skin/Breast: Denies: rash Neuro: Denies: headache(s) PFSH ED PFSH: Medical History Iron deficiency anemia Anxiety MALT lymphoma End stage renal disease Type 2 diabetes mellitus Hypertension Surgical History H/O knee surgery (~2001) L knee Hx of tubal ligation (~1982) Hx of dilation and curettage (~1979) Hx of tonsillectomy (~1979) Family History Mother Diabetes Brother Diabetes Heart disease Father Hodgkin lymphoma Pulmonary fibrosis Denies family history of Colon cancer Ovarian cancer Hypercholesteremia Breast cancer Hypertension Uterine cancer Thyroid disease Stroke Social History Smoking and tobacco/nicotine status: former use of tobacco/nicotine Quit status (tobacco/nicotine): has quit using Year quit tobacco: 1970 Former quit date comment: some social smoking dring teenage years Second hand smoke exposure: Yes Physical Exam Const: COMMON NORMALS: patient oriented x3 HENMT: COMMON NORMALS: normocephalic and atraumatic HEAD & SCALP: normocephalic and atraumatic Eye: COMMON NORMALS: Equal, round and reactive pupils present and EOMs intact bilaterally PUPIL: Yes Equal, round and reactive pupils present Neck/C-Spine: COMMON NORMALS: full ROM and supple Chest: COMMONS NORMALS: normal inspection of the chest Resp: COMMON NORMALS: normal respiratory effort, No retractions, No use of accessory muscles and clear to auscultation bilaterally AUSCULTATION: clear to auscultation bilaterally Cardio: RATE: tachycardic RHYTHM: abnormal rhythm irregularly irregular GI: COMMON NORMALS: Normal to inspection, nondistended, normoactive bowel sounds present, Soft to palpation, non-tender and no masses PALPATION: Yes Soft to palpation Extremity: COMMON NORMALS: normal to inspection and full ROM Neuro: COMMON NORMALS: patient oriented x3, moves all extremities and no focal motor deficits Psych: COMMON NORMALS: mental status grossly normal, Normal thought process present and cooperative THOUGHT PROCESS: Normal thought process present Skin: COMMON NORMALS: no rashes or lesions noted and no wounds GENERAL SKIN EXAM: no rashes or lesions noted Course Vital Signs: Vital signs: Vital Signs Temperature 97.9 F 02/18/25 10:51 Pulse Rate 107 H 02/18/25 14:15 Respiratory Rate 15 02/18/25 13:46 Blood Pressure 144/105 02/18/25 14:15 Pulse Oximetry 94 02/18/25 14:15 Oxygen Delivery Me thod Room Air 02/18/25 14:15 MDM - Arrhythmia/Palpitations Medical Decision Making Patient presents here with new onset A-fib with RVR she also had some vomiting history of chronic renal failure on peritoneal dialysis. CT does show a large pericardial effusion she has no signs of tamponade here we will get an echo spoke to hospitalist along with the program advisor will admit Medical Records I reviewed the patient's medical records. Lab Data I reviewed the patient's lab results. 02/18/25 11:06 02/18/25 11:06 Radiology Impressions Chest X-Ray 02/18/25 11:02 IMPRESSION: 1. Heart size appears enlarged, increased. 2. Possible tiny left pleural effusion with slight probable atelectasis and/or infiltrate left lung base. Abdomen/Pelvis CT 02/18/25 12:06 IMPRESSION: No acute findings in the abdomen or pelvis. Laboratory Results WBC 18.61 10^3/uL (3.29-11.43) H 02/18/25 11:06 RBC 3.04 10^6/uL (3.85-5.65) L 02/18/25 11:06 Hgb 9.50 g/dL (11.27-16.99) L 02/18/25 11:06 Hct 29.8 % (36-47) L 02/18/25 11:06 MCV 98.0 fl (85-98) 02/18/25 11:06 MCH 31.3 pg (27-33) 02/18/25 11:06 MCHC 31.9 g/dL (30-55) 02/18/25 11:06 RDW 12.7 % (12.1-15.1) 02/18/25 11:06 Plt Count 254 10^3/cmm (157-399) 02/18/25 11:06 MPV 10.1 fL (7.4-10.4) 02/18/25 11:06 Neut % (Auto) 88.9 % 02/18/25 11:06 Lymph % (Auto) 4.4 % 02/18/25 11:06 Swain % (Auto) 5.1 % 02/18/25 11:06 Eos % (Auto) 0.4 % 02/18/25 11:06 Baso % (Auto) 0.2 % 02/18/25 11:06 Neut # (Auto) 16.55 10^3/uL (1.8-7.7) H 02/18/25 11:06 Lymph # (Auto) 0.8 10^3/uL (0.8-4.8) 02/18/25 11:06 Swain # (Auto) 1.0 10^3/uL (0.2-0.9) H 02/18/25 11:06 Eos # (Auto) 0.1 10^3/uL (0.0-0.8) 02/18/25 11:06 Baso # (Auto) 0.0 10^3/uL (0.0-0.1) 02/18/25 11:06 Nucleated RBC % (auto) 0 % 02/18/25 11:06 Nucleated RBCs # 0.0 /100WBC 02/18/25 11:06 PT 14.60 SECONDS (12.1-14.9) 02/18/25 11:06 INR 1.06 (0.8-1.2) 02/18/25 11:06 D-Dimer Cancelled 02/18/25 11:06 Sodium 131 mmol/L (136-145) L 02/18/25 11:06 Potassium 4.8 mmol/L (3.5-5.1) 02/18/25 11:06 Chloride 95 mmol/L (98-107) L 02/18/25 11:06 Carbon Dioxide 20 mmol/L (22-29) L 02/18/25 11:06 Anion Gap 20.8 (5-19) H 02/18/25 11:06 BUN 112 mg/dL (8-23) H* 02/18/25 11:06 Creatinine 7.1 mg/dL (0.5-0.9) H* 02/18/25 11:06 GFR Calculation Not Reportable 02/18/25 11:06 Glucose 166 mg/dL (65-115) H 02/18/25 11:06 Calculated Osmolality 311 mOsm/kg (285-295) H 02/18/25 11:06 Calcium 8.2 mg/dL (8.5-10.5) L 02/18/25 11:06 Total Bilirubin 0.3 mg/dL (0.15-1.2) 02/18/25 11:06 AST 38 U/L (0-32) H 02/18/25 11:06 ALT 55 U/L (0-33) H 02/18/25 11:06 Alkaline Phosphatase 267 U/L (35-105) H 02/18/25 11:06 Troponin T Baseline 44 ng/L (0-10) H 02/18/25 11:06 Troponin T 120 Minute 38.66 ng/L (0-10) H 02/18/25 13:26 Delta Troponin T -5.34 ABS# (0-10) L 02/18/25 13:26 NT-Pro-B Natriuret Pep 3890 pg/mL (0-125) H 02/18/25 11:06 Total Protein 5.7 g/dL (6.6-8.7) L 02/18/25 11:06 Albumin 3.2 g/dL (3.5-5.2) L 02/18/25 11:06 Globulin 2.5 g/dL (1.3-4.6) 02/18/25 11:06 Urine Color Yellow (Yellow) 02/18/25 12:20 Urine Appearance Clear (CLEAR) 02/18/25 12:20 Urine pH 5.5 (5-7) 02/18/25 12:20 Ur Specific [place] 1.014 (1.005-1.030) 02/18/25 12:20 Urine Protein 3+ (Negative) A 02/18/25 12:20 Urine Glucose (UA) Trace (Normal) H 02/18/25 12:20 Urine Ketones Negative (Negative) 02/18/25 12:20 Urine Blood Negative (Negative) 02/18/25 12:20 Urine Nitrate Negative (Negative) 02/18/25 12:20 Urine Bilirubin Negative (Negative) 02/18/25 12:20 Urine Urobilinogen 0.2 mg/dL (Negative) 02/18/25 12:20 Ur Leukocyte Esterase Negative (Negative) 02/18/25 12:20 Urine RBC 0-2 /hpf (0-2) 02/18/25 12:20 Urine WBC 0-5 /hpf (0-5) 02/18/25 12:20 Ur Squamous Epith Cells 11-20 /hpf (0-5) H 02/18/25 12:20 Amorphous Sediment Not Reportable 02/18/25 12:20 Urine Bacteria None seen /hpf (NONE) 02/18/25 12:20 Hyaline Casts 3.71 /lpf 02/18/25 12:20 All radiology interpretation(s) finalized by discharge EKG Data EKG 1: I personally reviewed and interpreted this EKG as follows: EKG interpretation date: 02/18/25 EKG interpretation time: 10:54 Interpretation: afib with rvr hr [address] elevation qrs 102 qtc 388 Other EKG comments: Chest X-Ray 02/18/25 11:02 IMPRESSION: 1. Heart size appears enlarged, increased. 2. Possible tiny left pleural effusion with slight probable atelectasis and/or infiltrate left lung base. Abdomen/Pelvis CT 02/18/25 12:06 IMPRESSION: No acute findings in the abdomen or pelvis. EKG 2: I personally reviewed and interpreted this EKG as follows: EKG interpretation date: 02/18/25 EKG interpretation time: 14:30 Interpretation: afib rvr hr [address] elevation qrs 103 qtc 403 Other EKG comments: Chest X-Ray 02/18/25 11:02 IMPRESSION: 1. Heart size appears enlarged, increased. 2. Possible tiny left pleural effusion with slight probable atelectasis and/or infiltrate left lung base. Abdomen/Pelvis CT 02/18/25 12:06 IMPRESSION: No acute findings in the abdomen or pelvis. Critical Care Time Critical Care Time: Critical Care Time: Yes Total Critical Care Time: 50 Attestation: The high probability of a clinically significant, sudden or life threatening deterioration of the patient's cv system(s) required my full and direct attention, intervention and personal management. The critical care time is as shown. This time is in addition to time spent performing any reported procedures but includes the following: [x] Data and vital sign review and interpretation [x] Patient assessment, examination and intervention [x] Documentation [x] Medication orders and management Discharge Plan Discharge Patient Disposition: Admitted As Inpatient Clinical Impression: Atrial fibrillation with RVR, Pericardial effusion, Vomiting, Chronic renal failure Condition: Stable Coding Level of Care Code ED Printing Engineer for Albina Gomez
[2025-02-18 11:26] LABS: Basophils % 0.2 %; Eosinophils # 0.1 10^3/uL (0.0-0.8); Eosinophils % 0.4 %; Hematocrit 29.8 % (36-47); Lymphocytes # 0.8 10^3/uL (0.8-4.8); Lymphocytes % 4.4 %; Mean Corpuscular HGB Conc 31.9 g/dL (30-55); Mean Corpuscular Hemoglobin 31.3 pg (27-33); Mean Platelet Volume 10.1 fL (7.4-10.4); Monocytes % 5.1 %; Neutrophils # 16.55 10^3/uL (1.8-7.7); Neutrophils % 88.9 %; Nucleated Red Blood Cells % 0 %; Platelet Count 254 10^3/cmm (157-399); Red Blood Count 3.04 10^6/uL (3.85-5.65); Red Cell Distribution Width 12.7 % (12.1-15.1); White Blood Count 18.61 10^3/uL (3.29-11.43)
[2025-02-18] MEDS: amiodarone 150 MG/100 ML PREMIX 400 MG IV (11:31)
[2025-02-18 11:44] LABS: Troponin(5th) Baseline 44 ng/L (0-10)
[2025-02-18 11:55] LABS: Alanine Aminotransferase 55 U/L (0-33); Albumin Level 3.2 g/dL (3.5-5.2); Alkaline Phosphatase 267 U/L (35-105); Anion Gap 20.8 (5-19); Aspartate Amino Transferase 38 U/L (0-32); Calcium 8.2 mg/dL (8.5-10.5); Carbon Dioxide 20 mmol/L (22-29); Chloride 95 mmol/L (98-107); Globulin 2.5 g/dL (1.3-4.6); Glucose 166 mg/dL (65-115); Osmolality Calculated 311 mOsm/kg (285-295); Potassium 4.8 mmol/L (3.5-5.1); Sodium 131 mmol/L (136-145); Total Bilirubin 0.3 mg/dL (0.15-1.2); Total Protein 5.7 g/dL (6.6-8.7)
[2025-02-18 12:01] LABS: Blood Urea Nitrogen 112 mg/dL (8-23)
--- NOTE | 2025-02-18 12:06 | CT_ITS ---
WS: [id number] CT ABDOMEN PELVIS TECHNIQUE: Noncontrast CT of the abdomen and pelvis with coronal and sagittal reformatted images. CLINICAL INFORMATION: vomiting COMPARISON: None. DLP: 947.[address] scans at [facility] use at least one of these dose optimization techniques: automated exposure control; mA and/or kV adjustment per patient size (includes targeted exams where dose is matched to clinical indication); or iterative reconstruction. FINDINGS: Large pericardial effusion. Small LEFT pleural effusion. Slight bibasilar atelectasis. Calcified granuloma RIGHT lower lobe. Hepatomegaly. Splenic artery calcification. Normal GE junction. Fatty atrophy of the pancreas. Normal caliber abdominal aorta. Vascular calcification. Gallbladder is contracted. Diffuse body wall anasarca. Fat-containing umbilical hernia. Moderate spondylitic changes lumbar spine. Advanced disc space narrowing throughout the lumbar spine. Adrenal glands are normal. No hydronephrosis in either kidney. Peritoneal catheter. No fluid collections. CT/CT kidney stone [id number] IMPRESSION: No acute findings in the abdomen or pelvis.
[2025-02-18] MEDS: sodium chloride 0.9% 1,000 ML 999 ML IV (12:28)
--- NOTE | 2025-02-18 12:31 | PC.NURSE ---
pt c/o bilat shoulder pain rated 5/6, states left hurts more today, pt states this has been ongoing for 5 days. Daughter in room states the pain is new and not to be dismissed.
[2025-02-18 12:42] LABS: Bilirubin Urine Negative (Negative); Blood Urine Negative (Negative); Glucose Urine UA Trace (Normal); Ketones Urine Negative (Negative); Leukocyte Esterase Urine Negative (Negative); Nitrate Urine Negative (Negative); Protein Urine 3+ (Negative); Specific Gravity, Urine 1.014 (1.005-1.030); Urine Appearance Clear (CLEAR); Urine Color Yellow (Yellow); Urobilinogen Urine 0.2 mg/dL (Negative); pH Urine 5.5 (5-7)
[2025-02-18 12:56] LABS: Add Urine Microscopic? YES; Bacteria Urine None Seen /hpf; Hyaline Casts Urine 3.71 /lpf; RBC Urine 0-2 /hpf (0-2); WBC Urine 0-5 /hpf (0-5)
[2025-02-18 13:08] LABS: NT Pro B Type Natriuretic Pept 3890 pg/mL (0-125)
--- NOTE | 2025-02-18 13:08 | ECG_ITS ---
[facility] Date: 2025-02-18 Pat Name: Sebastián Sparks Department: Room: Gender: Female Last Model Maker: : 1955 Requested By: Tj Hollins Order Number: [id number] Reading MD: Nhi Lindsay M.D. Measurements Intervals [place] Rate: 101 P: 0 GA: 0 QRS: 59 QRSD: 109 T: 180 QT: 345 QTc: 448 Interpretive Statements ATRIAL FIBRILLATION WITH RAPID VENTRICULAR RESPONSE NONSPECIFIC ST & T-WAVE ABNORMALITY Compared to ECG 02/18/2025 12:35:36 No significant changes Electronically Signed On 02-20-2025 06:30:52 CDT by Nhi Lindsay M.D. [email or web address]
[2025-02-18 13:18] LABS: INR 1.06 (0.8-1.2)
[2025-02-18 13:54] LABS: Troponin 5 2HR 38.66 ng/L (0-10)
--- NOTE | 2025-02-18 13:58 | CT_ITS ---
WS: [id number] CT CHEST TECHNIQUE: Noncontrast CT of the chest with coronal and sagittal reformatted images. CLINICAL INFORMATION: ABNORMAL CT COMPARISON: CT chest 2013 DLP: 487.[address] scans at [facility] use at least one of these dose optimization techniques: automated exposure control; mA and/or kV adjustment per patient size (includes targeted exams where dose is matched to clinical indication); or iterative reconstruction. FINDINGS: Large pericardial effusion is new compared to 12/11/2024 tiny LEFT pleural effusion. No acute pulmonary infiltrates. Normal caliber thoracic aorta. Aortic calcification. Coronary calcification. Small RIGHT thyroid nodule. No mediastinal or hilar lymphadenopathy. No axillary lymphadenopathy. Moderate thor acic kyphosis with ankylosis. Splenic artery calcifications. Small esophageal hiatal hernia. Adrenal glands are normal. CT/CT chest wo con [id number] IMPRESSION: 1. Large pericardial effusion. This appears new since 12/11/2024. 2. Tiny LEFT pleural effusion. 3. Lungs are otherwise well aerated. 4. No other acute chest findings. Notified Tj Hollins MD at 02/18/2025 2:37 PM.
[2025-02-18 14:09] LABS: Troponin 5 2HR Delta -5.34 ABS# (0-10)
--- NOTE | 2025-02-18 14:35 | USCV_ITS ---
Sebastián Sparks Age: 69 Gender: F : 1955 Exam Date: 02/18/2025 15:44 Ordering Phys: Tj Hollins MD Technologist: SONIA [place] [facility] [place]ication: Pericardial Effusion BP: 150 / 77 HR: 66 Rhythm: Sinus Technical Quality: Adequate MEASUREMENTS (Male / Female) Normal Values 2D ECHO LV Diastolic Diameter PLAX 5.4 cm 4.2 - 5.9 / 3.9 - 5.3 cm IVS Diastolic Thickness 1.2 cm 0.6 - 1.0 / 0.6 - 0.9 cm IVS Systolic Thickness 1.4 cm LVPW Diastolic Thickness 2.0 cm 0.6 - 1.0 / 0.6 - 0.9 cm LVPW Systolic Thickness 1.6 cm LVOT Diameter 2.0 cm LV Ejection Fraction 2D Teich 55.3 % LV Ejection Fraction MOD 4C 51.3 % LV Ejection Fraction MOD 2C 46.2 % LV Ejection Fraction 2C AL 43.6 % LA Diameter 3.4 cm RA Systolic Volume 4C AL 65.7 ml RA Systolic Volume 4C MOD 64.0 ml LA Sys Volume AL 70.8 cm cubed LA Sys Volume Index AL 31.7 cm cubed/m squared Aorta at Sinotubular Diameter 2.3 cm M-MODE LA Ao Ratio MM 1.9 AV Cusp Separation MM 2.1 cm DOPPLER AV Peak Velocity 97.0 cm/s LVOT Peak Velocity 61.0 cm/s AV Area Cont Eq vti 2.9 cm squared AV Area Cont Eq pk 2.0 cm squared MV Peak Velocity 129.0 cm/s MV Area PHT 4.2 cm squared Mitral E to A Ratio 1.0 TR Peak Velocity 75.0 cm/s TR Peak Gradient 2.3 mmHg TV Peak E Velocity 88.0 cm/s PV Peak Velocity 85.0 cm/s FINDINGS Left Ventricle Mild diffuse hypokinesis of the left ventricle with an ejection fraction of 51%. Mild left ventricular hypertrophy. Grade I/IV diastolic dysfunction (abnormal relaxation filling pattern), normal to mildly elevated filling pressures. Normal systolic motion of the interventricular septum Right Ventricle Normal right ventricular size and systolic function. Right Atrium Partial systolic collapse of the right atrium.mildly increased right atrial size. Left Atrium Mildly increased left atrial size. Mitral Valve Thickened mitral valve. Trace mitral valve regurgitation. Aortic Valve Thickened aortic valve. Tricuspid Valve No gross abnormalities noted Pulmonic Valve No gross abnormalities noted Pericardium Moderate echo-free space posteriorly. Minimal to moderate echo- free space anteriorly. Aorta Normal size aortic root and proximal ascending aorta. IVC Inferior vena cava not visualized. CONCLUSIONS Features suggestive of small to moderate pericardial effusion Mild diffuse hypokinesis of the left ventricle with an ejection fraction of 51%. Mild left ventricular hypertrophy. Grade I/IV diastolic dysfunction (abnormal relaxation filling pattern), normal to mildly elevated filling pressures. Normal systolic motion of the interventricular septum. Mildly increased left atrial size. Thickened mitral valve. Trace mitral valve regurgitation. Thickened aortic valve. There are no intracardiac masses. No similar previous studies are available for comparison Dr Nhi Lindsay MD [facility] (Electronically Signed) Final Date: 18 February 2025 16:25 S
[2025-02-18 15:09] LABS: Erythrocyte Sedimentation Rate 22 mm/hr (0-15)
[2025-02-18 15:24] LABS: C Reactive Protein 124.5 mg/L (0.0-4.9)
[2025-02-18 15:31] LABS: Procalcitonin 0.32 ng/mL (0-0.5)
--- NOTE | 2025-02-18 16:04 | PM.HP ---
Providers/Chief Complaint Admitting Physician: Nhi Lindsay MD Primary Care Provider: Wili Gonzalez DO Chief Complaint: high HR History of Present Illness Sebastián Sparks is a 69 year old female with a past medical history of end-stage renal disease on peritoneal dialysis, patient still reports urinating, type 2 diabetes, denies a history of atrial fibrillation, history of chronic leukocytosis, history of retroclival meningioma, CKD, history of brain aneurysm, history of MALT lymphoma who presents to [facility] due to shortness of breath, nausea, vomiting, palpitations. Currently patient is alert oriented x 3, following all commands, she reports shortness of breath with exertion, no chest pain, does report palpitations report generalized weakness, reports episodes of nausea and vomiting, or shortness of breath has been persisting for the last few days, denies a history of atrial fibrillation, in the emergency room she was found to be in A-fib with RVR, placed on amiodarone drip, currently on amiodarone drip at 1 -In the emergency room she did develop episode of hypotension blood pressure 96/70 -Currently blood pressure 145/102 -She is alert oriented x 3, following all commands -She is on room air, but is complaining of shortness of breath - Workup in the emergency room shows WBC count of 18.61, neutrophilic leukocytosis, with transaminitis, CRP 124.5 CT of the abdomen showed large pericardial effusion, followed up with chest CT which shows large pericardial effusion, which appears new since prior CT scan -Stat echocardiogram has been ordered -Patient tells me that she had bacterial peritonitis a few months ago, which was diagnosed at [facility], she denies being hospitalized, her PD catheter was not changed out according to patient, she received oral antibiotics and peritoneal antibiotic through peritoneal dialysis catheter, and she completed the antibiotics about a month ago Review of Systems Const: Reports: chills, fatigue and malaise Card: Denies: chest pain Resp: Reports: dyspnea GI: Reports: nausea and vomiting; Denies: abdominal pain Medications/Allergies Home Medications ?Medication ?Instructions ?Recorded ?Confirmed ?Last Taken ?Type alprazolam 0.25 mg tablet 0.25 mg PO TID PRN Anxiety 07/12/21 02/18/25 Unknown History tramadol 50 mg tablet 50 mg PO BID PRN Pain 07/12/21 02/18/25 Unknown History calcitriol 0.25 mcg capsule 0.25 mcg PO DAILY 04/24/24 02/18/25 02/18/25 History ferric citrate 210 mg iron tablet 210 mg PO TID 04/24/24 02/18/25 02/18/25 History (Auryxia) loratadine 10 mg tablet 10 mg PO DAILY 04/24/24 02/18/25 02/18/25 History atorvastatin 80 mg tablet 80 mg PO DAILY 06/20/24 02/18/25 02/18/25 History insulin glargine 100 unit/mL (3 70 unit SUBCUT .at bedtime 06/20/24 02/18/25 02/17/25 History mL) subcutaneous pen (Basaglar KwikPen U-100 Insulin) lactulose 10 gram/15 mL oral 30 - 60 ml PO BID PRN Constipation 07/25/24 02/18/25 Unknown History solution lisinopril 40 mg tablet 40 mg PO QPM 07/25/24 02/18/25 02/17/25 History fluticasone propionate 50 1 spray intranasal DAILY 08/15/24 02/18/25 02/18/25 History mcg/actuation nasal spray,suspension metoprolol succinate 100 mg 100 mg PO DAILY 08/15/24 02/18/25 02/18/25 History tablet,extended release 24 hr nifedipine 30 mg tablet,extended 30 mg PO DAILY 01/15/25 02/18/25 02/17/25 History release 24 hr nystatin 100,000 unit/gram topical 1 applic topical BID 01/29/25 02/18/25 02/18/25 History cream trazodone 150 mg tablet 150 mg PO QPM 01/29/25 02/18/25 02/17/25 History gentamicin 0.1 % topical cream 1 applic topical DAILY after 02/17/25 02/18/25 Unknown History cleaning site citalopram 40 mg tablet 40 mg PO DAILY 02/18/25 02/18/25 02/18/25 History dorzolamide 22.3 mg-timolol 6.8 1 drp ophthalmic (eye) BID 02/18/25 02/18/25 02/18/25 History mg/mL eye drops sennosides 8.6 mg tablet (Senokot) 17.2 mg PO BID 02/18/25 02/18/25 02/18/25 History vit B,C-folic ac 800 mcg-zinc 12.5 1 tab PO DAILY 02/18/25 02/18/25 02/18/25 History mg-selen-D3 2,000 unit-vit E tablet (RenaPlex-D) Allergies Allergy/AdvReac Type Severity Reaction Status Date / Time meperidine (From Demerol) Allergy rash/itchin Verified 02/17/25 14:53 g Sulfa (Sulfonamide Allergy itching Verified 02/17/25 14:53 Antibiotics) PFSH Acute PFSH: Medical History Iron deficiency anemia Anxiety MALT lymphoma End stage renal disease Type 2 diabetes mellitus Hypertension Surgical History H/O knee surgery (~2001) L knee Hx of tubal ligation (~1982) Hx of dilation and curettage (~1979) Hx of tonsillectomy (~1979) Family History Mother Diabetes Brother Diabetes Heart disease Father Hodgkin lymphoma Pulmonary fibrosis Denies family history of Colon cancer Ovarian cancer Hypercholesteremia Breast cancer Hypertension Uterine cancer Thyroid disease Stroke Social History Smoking and tobacco/nicotine status: former use of tobacco/nicotine Quit status (tobacco/nicotine): has quit using Year quit tobacco: 1970 Former quit date comment: some social smoking dring teenage years Second hand smoke exposure: Yes Vitals/I&O/Wt Last Vital Signs Temp 97.9 F 02/18/25 10:51 Pulse 74 02/18/25 15:00 Resp 15 02/18/25 13:46 BP 159/105 02/18/25 15:00 Pulse Ox 99 02/18/25 15:00 O2 Del Method Room Air 02/18/25 15:00 02/18/25 02/18/25 02/18/25 06:59 14:59 22:59 Intake Total 100 / 100 1000 / 1100 Balance 100 / 100 1000 / 1100 Weight last 48 hrs Weight 105.233 kg Physical Exam Const: COMMON NORMALS: no acute distress and patient oriented x3 HENMT: COMMON NORMALS: normocephalic HEAD & SCALP: normocephalic Eye: COMMON NORMALS: Equal, round and reactive pupils present Neck/C-Spine: COMMON NORMALS: no JVD Resp: COMMON NORMALS: normal respiratory effort, No retractions, No use of accessory muscles and clear to auscultation bilaterally AUSCULTATION: crackles and wheezes Cardio: COMMON NORMALS: no JVD, regular rate, regular rhythm, S1 normal heart sound present and S2 normal heart sound present RATE: regular rate RHYTHM: regular rhythm HEART SOUNDS: S1 normal heart sound present and S2 normal heart sound present GI: COMMON NORMALS: Normal to inspection, nondistended, normoactive bowel sounds present, Soft to palpation and non-tender Extremity: COMMON NORMALS: no calf tenderness NARRATIVE EXTREMITY EXAM: 1+ pitting edema Neuro: COMMON NORMALS: patient oriented x3, CN's II-XII intact bilaterally and moves all extremities Psych: COMMON NORMALS: mental status grossly normal Data 02/18/25 11:06 02/18/25 11:06 A&P Assessment and plan (1) Atrial fibrillation with RVR: (2) Pericardial effusion: (3) Leukocytosis: (4) Diastolic CHF: (5) Acute bacterial peritonitis: Plan Shortness of breath -Currently not requiring oxygen - Etiology - Multifactorial - Concerns for pericardial effusion - Concerns for diastolic CHF -A-fib with RVR - CT chest without contrast CT/CT chest wo con [id number] IMPRESSION: 1. Large pericardial effusion. This appears new since 12/11/2024. 2. Tiny LEFT pleural effusion. 3. Lungs are otherwise well aerated. 4. No other acute chest findings. Plan - Order D-dimer, venous ultrasound bilateral extremities - Cardiac echocardiogram pending, cardiology consulted for pericardial effusion, - 1 dose IV Lasix - Will start PD dialysis tonight - Patient might require switch over to hemodialysis based on clinical progress Atrial fibrillation with rapid ventricular response - Continue amiodarone drip - CHADS2 Vasc 4 - Start heparin drip Large pericardial effusion - Seen on CT chest and abdomen - Cardiac echo ordered -Cardiology consulted - Moved to ICU Recent history of bacterial peritonitis - Will obtain peritoneal studies - Given elevated CRP, leukocytosis will start on broad-spectrum antibiotics vancomycin, Zosyn - Monitor clinical status closely Acute on chronic leukocytosis - Could be from pericardial effusion, - Could be from bacterial peritonitis - Follow blood cultures - Follow-up peritoneal cultures Transaminitis, monitor Peritoneal dialysis - Nephrology consulted for PD dialysis Acute on chronic anemia - Will monitor closely - Recent iron studies show iron at 77, ferritin 2007 Type 2 diabetes mellitus, moderate dose sliding scale Full code Lovenox for DVT prophylaxis PDMP PDMP Reviewed: Not Reviewed Attestations Medical Necessity Statement*: Patient requires hospitalization, inpatient, greater than 2 midnights, for A-fib with RVR, shortness of breath, concern for pericardial effusion, concern for bacterial peritonitis, diastolic CHF, fluid overload Diagnoses Atrial fibrillation with RVR I48.91 Pericardial effusion I31.39 Leukocytosis D72.829 Diastolic CHF I50.30 Acute bacterial peritonitis K65.9
--- NOTE | 2025-02-18 16:25 | PC.NURSE ---
Patient arrived to ICU at approximately 1620.
--- NOTE | 2025-02-18 16:27 | PM.CONSULT ---
Providers/Reason For Consult Consulting Physician/Specialty*: saul pearce md/ telenephrology Reason for Consult*: ESRD care Requesting Physician: Dr Daniel Cabrera Attending Physician: Nhi Lindsay MD Primary Care Provider: Wili Gonzalez DO History of Present Illness History of Present Illness Sebastián Sparks is a 69 year old female 69-year-old woman admitted w/ a fib in RVR she has h/o : 1. a MALT lymphoma of the descending colon and for iron deficiency anemia. 2. ESRD on CCPD for over a year 3. hypertension 4. type 2 diabetes, 5. COVID 19 virus infection in April 2023. Following that illness there was further decline in her renal function, progressing to end-stage renal disease. As of November 2023 she began home peritoneal dialysis. 6. obesity 7. 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 Followed by Dr. Darby. Pt presents from doctors office where she c/on/v, weakness, palpitations, weakness, WERNER, orthopnea the last 4 nights and has slept in her recliner. In the ER she was sfound to have a fib w/ RVR and she was started on amiodarone. renal is called for ESRD care Review of Systems Narrative: Weak short of breath nausea vomiting palpitations. No edema no diarrhea no constipation. Poor appetite. Positive headaches lightheaded. Medications/Allergies Home Medications ?Medication ?Instructions ?Recorded ?Confirmed ?Last Taken ?Type alprazolam 0.25 mg tablet 0.25 mg PO TID PRN Anxiety 07/12/21 02/18/25 Unknown History tramadol 50 mg tablet 50 mg PO BID PRN Pain 07/12/21 02/18/25 Unknown History calcitriol 0.25 mcg capsule 0.25 mcg PO DAILY 04/24/24 02/18/25 02/18/25 History ferric citrate 210 mg iron tablet 210 mg PO TID 04/24/24 02/18/25 02/18/25 History (Auryxia) loratadine 10 mg tablet 10 mg PO DAILY 04/24/24 02/18/25 02/18/25 History atorvastatin 80 mg tablet 80 mg PO DAILY 06/20/24 02/18/25 02/18/25 History insulin glargine 100 unit/mL (3 70 unit SUBCUT .at bedtime 06/20/24 02/18/25 02/17/25 History mL) subcutaneous pen (Basaglar KwikPen U-100 Insulin) lactulose 10 gram/15 mL oral 30 - 60 ml PO BID PRN Constipation 07/25/24 02/18/25 Unknown History solution lisinopril 40 mg tablet 40 mg PO QPM 07/25/24 02/18/25 02/17/25 History fluticasone propionate 50 1 spray intranasal DAILY 08/15/24 02/18/25 02/18/25 History mcg/actuation nasal spray,suspension metoprolol succinate 100 mg 100 mg PO DAILY 08/15/24 02/18/25 02/18/25 History tablet,extended release 24 hr nifedipine 30 mg tablet,extended 30 mg PO DAILY 01/15/25 02/18/25 02/17/25 History release 24 hr nystatin 100,000 unit/gram topical 1 applic topical BID 01/29/25 02/18/25 02/18/25 History cream trazodone 150 mg tablet 150 mg PO QPM 01/29/25 02/18/25 02/17/25 History gentamicin 0.1 % topical cream 1 applic topical DAILY after 02/17/25 02/18/25 Unknown History cleaning site citalopram 40 mg tablet 40 mg PO DAILY 02/18/25 02/18/25 02/18/25 History dorzolamide 22.3 mg-timolol 6.8 1 drp ophthalmic (eye) BID 02/18/25 02/18/25 02/18/25 History mg/mL eye drops sennosides 8.6 mg tablet (Senokot) 17.2 mg PO BID 02/18/25 02/18/25 02/18/25 History vit B,C-folic ac 800 mcg-zinc 12.5 1 tab PO DAILY 02/18/25 02/18/25 02/18/25 History mg-selen-D3 2,000 unit-vit E tablet (RenaPlex-D) Allergies Allergy/AdvReac Type Severity Reaction Status Date / Time meperidine (From Demerol) Allergy rash/itchin Verified 02/17/25 14:53 g Sulfa (Sulfonamide Allergy itching Verified 02/17/25 14:53 Antibiotics) Current Medications Generic Name Dose Route Start Last Admin Trade Name Freq PRN Reason Stop Dose Admin Amiodarone HCl/Dextrose 360 mg in 200 mls @ 0 mls/hr 02/18/25 11:09 02/18/25 13:17 Nexterone IV 1 mg/min .Q0M TEJINDER 33.33 mls/hr Protocol Administration Per Protocol PFSH Acute PFSH: Medical History Iron deficiency anemia Anxiety MALT lymphoma End stage renal disease Type 2 diabetes mellitus Hypertension Surgical History H/O knee surgery (~2001) L knee Hx of tubal ligation (~1982) Hx of dilation and curettage (~1979) Hx of tonsillectomy (~1979) Family History Mother Diabetes Brother Diabetes Heart disease Father Hodgkin lymphoma Pulmonary fibrosis Denies family history of Colon cancer Ovarian cancer Hypercholesteremia Breast cancer Hypertension Uterine cancer Thyroid disease Stroke Social History Smoking and tobacco/nicotine status: former use of tobacco/nicotine Quit status (tobacco/nicotine): has quit using Year quit tobacco: 1970 Former quit date comment: some social smoking dring teenage years Second hand smoke exposure: Yes Vitals/I&O/Wt Last Vital Signs Temp 97.9 F 02/18/25 10:51 Pulse 75 02/18/25 16:22 Resp 15 02/18/25 13:46 BP 145/102 02/18/25 16:22 Pulse Ox 97 02/18/25 16:22 O2 Del Method Room Air 02/18/25 15:00 02/18/25 02/18/25 02/18/25 06:59 14:59 22:59 Intake Total 100 / 100 1000 / 1100 Balance 100 / 100 1000 / 1100 Weight last 48 hrs Weight 105.233 kg Physical Exam Narrative: Patient seen and examined using audiovisual equipment with the aid of a nurse. The patient is lying in bed no apparent distress. Vital signs noted blood pressure elevated heart rate controlled on amiodarone. HEENT normocephalic atraumatic. Neck is supple. Lungs clear to auscultation. Heart irregular with systolic murmur positive S1-S2. Abdomen soft positive bowel sounds. Positive peritoneal dialysis catheter clean dry and intact. Extremities no edema. Neuro awake alert oriented x 3. Data 02/18/25 11:06 02/18/25 11:06 A&P Assessment and plan (1) ESRD (end stage renal disease) on dialysis: 69-year-old lady history of MALT lymphoma that was treated by resection, obesity hypertension diabetes. Developed COVID over a year ago and then developed ESRD. The patient also has a brain tumor. The patient is here now with new onset A-fib with RVR. 1. Cardiology for A-fib 2. Diabetic control. 3. Hypertension monitor with better heart rate control. 4. ESRD the patient is on a cycler for what appears like 9 hours at night she says with low glucose dialysate. We do not have a cycle here. While she is here we will do dialysis 5 exchanes a day low 2.5% gluc, 2l fills We will check PD cell count and fluid for possible infection 6. anemia eval 7. check phos, vit d and pth The patient was seen and examined using A/V equipment with the aid of a nurse. The patient consented to peritoneal dialysis onto telehealth. Plan See above. PDMP PDMP Reviewed: Not Reviewed Consult Attestations Medical Necessity Statement: End-stage renal disease new onset A-fib with RVR, diabetes hypertension Time Spent in Patient Care: Greater than 35 minutes (>than 50% of time spent in counselling and/or direct pt care on unit). Coding Level of Care Code Acute Code for Chg Fwd Diagnoses ESRD (end stage renal disease) on dialysis N18.6; Z99.2
[2025-02-18 16:29] LABS: Lactic Sepsis W/Reflex 0.9 mmol/L (0.5-2.2)
--- NOTE | 2025-02-18 16:34 | USR_ITS ---
PROCEDURE INFORMATION: Exam: US Duplex Lower Extremity Veins, Bilateral Exam date and time: 02/18/2025 5:34 PM Age: 69 years old Clinical indication: Pain; Leg, lower; Bilateral; Additional info: Swelling TECHNIQUE: Imaging protocol: Real-time duplex ultrasound of the bilateral extremities with 2-D dejesus scale, color Doppler flow and spectral waveform analysis including responses to compression and other maneuvers (when performed) with image documentation. Complete exam focused on the lower extremity veins. COMPARISON: CT kidney stone [id number] 02/18/2025 1:52 PM FINDINGS: Limitations: Heavy Equipment Service Technician reports a technically limited study due to pain tolerance and body habitus. Right deep veins: Unremarkable. The common femoral, femoral, proximal profunda femoral and popliteal veins are patent without thrombus. Normal Doppler waveforms. Normal compressibility and/or augmentation response. Left deep veins: Unremarkable. The common femoral, femoral, proximal profunda femoral and popliteal veins are patent without thrombus. Normal Doppler waveforms. Normal compressibility and/or augmentation response. Superficial veins: Greater saphenous veins at the saphenofemoral junctions are patent bilaterally without thrombus. Soft tissues: Subcutaneous edema [place]. US/[place] [id number] IMPRESSION: No evidence of deep vein thrombosis.
[2025-02-18 17:05] LABS: D Dimer 4.21 ug/mLFEU (0-0.59)
[2025-02-18 18:07] LABS: Uric Acid 8.4 mg/dL (2.4-5.7)
--- NOTE | 2025-02-18 18:13 | PM.CONSULT ---
Providers/Reason For Consult Consulting Physician/Specialty*: MEIR Lindsay MD/cardiology Reason for Consult*: Patient with pericardial effusion, atrial fibrillation rapid ventricular rate, chronic kidney disease, on dialysis Attending Physician: Nhi Lindsay MD Primary Care Provider: Wili Gonzalez DO History of Present Illness History of Present Illness Sebastián Sparks is a 69 year old female with a history of hypertension, diabetes, chronic kidney disease, on peritoneal dialysis, presenting with complaints of nausea vomiting and shortness of breath. She was found to be in atrial fibrillation rapid ventricular rate. She also was found to have pericardial effusion by CT scan. Cardiology consult is requested for further cardiac evaluation and recommendations. This patient apparently has been in her baseline state of health up until 2 days ago when she started having some nausea and vomiting. The symptoms gradually got worse. She also started getting more short of breath. For these reasons, she was brought to the emergency room. She might have had a cough. No fever or chills. She had some vague abdominal discomfort. No other complaints. She has no previous history for any cardiac illness. No history for any cardiac arrhythmia. Never had any congestive heart failure. She has been on peritoneal dialysis for the last 1 year. Her kidney failure, as per the patient, was secondary to diabetes and hypertension She has no history for any CVA or peripheral artery disease. No history for any liver disease or bleeding disorders. Denies any history of smoking abuse or alcohol abuse. 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 Review of Systems Narrative: CONSTITUTIONAL: No fever or chills. EYES: No blurring of vision or other visual disturbances lately. ENT: No hoarseness of voice, auditory disturbances or sore throat. CARDIOVASCULAR: As mentioned above. RESPIRATORY: As mentioned above GASTROINTESTINAL: No hematemesis or melena. GENITOURINARY: As mentioned above INTEGUMENTARY: No skin rashes or history of skin cancer. NEURO: No transient ischemic attacks or amaurosis. PSYCHIATRIC: No history of psychosis or major depression. HEMATOLOGIC: Chronic anemia ENDOCRINE: No history of polyuria or polydipsia. MUSCULOSKELETAL: No recent joint pain or swelling. ALLERGY/IMMUNOLOGY: As mentioned above. Medications/Allergies Home Medications ?Medication ?Instructions ?Recorded ?Confirmed ?Last Taken ?Type alprazolam 0.25 mg tablet 0.25 mg PO TID PRN Anxiety 07/12/21 02/18/25 Unknown History tramadol 50 mg tablet 50 mg PO BID PRN Pain 07/12/21 02/18/25 Unknown History calcitriol 0.25 mcg capsule 0.25 mcg PO DAILY 04/24/24 02/18/25 02/18/25 History ferric citrate 210 mg iron tablet 210 mg PO TID 04/24/24 02/18/25 02/18/25 History (Auryxia) loratadine 10 mg tablet 10 mg PO DAILY 04/24/24 02/18/25 02/18/25 History atorvastatin 80 mg tablet 80 mg PO DAILY 06/20/24 02/18/25 02/18/25 History insulin glargine 100 unit/mL (3 70 unit SUBCUT .at bedtime 06/20/24 02/18/25 02/17/25 History mL) subcutaneous pen (Basaglar KwikPen U-100 Insulin) lactulose 10 gram/15 mL oral 30 - 60 ml PO BID PRN Constipation 07/25/24 02/18/25 Unknown History solution lisinopril 40 mg tablet 40 mg PO QPM 07/25/24 02/18/25 02/17/25 History fluticasone propionate 50 1 spray intranasal DAILY 08/15/24 02/18/25 02/18/25 History mcg/actuation nasal spray,suspension metoprolol succinate 100 mg 100 mg PO DAILY 08/15/24 02/18/25 02/18/25 History tablet,extended release 24 hr nifedipine 30 mg tablet,extended 30 mg PO DAILY 01/15/25 02/18/25 02/17/25 History release 24 hr nystatin 100,000 unit/gram topical 1 applic topical BID 01/29/25 02/18/25 02/18/25 History cream trazodone 150 mg tablet 150 mg PO QPM 01/29/25 02/18/25 02/17/25 History gentamicin 0.1 % topical cream 1 applic topical DAILY after 02/17/25 02/18/25 Unknown History cleaning site citalopram 40 mg tablet 40 mg PO DAILY 02/18/25 02/18/25 02/18/25 History dorzolamide 22.3 mg-timolol 6.8 1 drp ophthalmic (eye) BID 06/02/18/25 02/18/25 History mg/mL eye drops sennosides 8.6 mg tablet (Senokot) 17.2 mg PO BID 02/18/25 02/18/25 02/18/25 History vit B,C-folic ac 800 mcg-zinc 12.5 1 tab PO DAILY 02/18/25 02/18/25 02/18/25 History mg-selen-D3 2,000 unit-vit E tablet (RenaPlex-D) Allergies Allergy/AdvReac Type Severity Reaction Status Date / Time meperidine (From Demerol) Allergy rash/itchin Verified 02/17/25 14:53 g Sulfa (Sulfonamide Allergy itching Verified 02/17/25 14:53 Antibiotics) Current Medications Generic Name Dose Route Start Last Admin Trade Name Freq PRN Reason Stop Dose Admin Amiodarone HCl/Dextrose 360 mg in 200 mls @ 0 mls/hr 02/18/25 11:09 02/18/25 13:17 Nexterone IV 1 mg/min .Q0M TEJINDER 33.33 mls/hr Protocol Administration Per Protocol PFSH Acute PFSH: Medical History Iron deficiency anemia Anxiety MALT lymphoma End stage renal disease Type 2 diabetes mellitus Hypertension Surgical History H/O knee surgery (~2001) L knee Hx of tubal ligation (~1982) Hx of dilation and curettage (~1979) Hx of tonsillectomy (~1979) Family History Mother Diabetes Brother Diabetes Heart disease Father Hodgkin lymphoma Pulmonary fibrosis Denies family history of Colon cancer Ovarian cancer Hypercholesteremia Breast cancer Hypertension Uterine cancer Thyroid disease Stroke Social History Smoking and tobacco/nicotine status: former use of tobacco/nicotine Quit status (tobacco/nicotine): has quit using Year quit tobacco: 1970 Former quit date comment: some social smoking dring teenage years Second hand smoke exposure: Yes Vitals/I&O/Wt Last Vital Signs Temp 97.9 F 02/18/25 10:51 Pulse 75 02/18/25 16:22 Resp 15 02/18/25 13:46 BP 145/102 02/18/25 16:22 Pulse Ox 97 02/18/25 16:22 O2 Del Method Room Air 02/18/25 15:00 02/18/25 02/18/25 02/18/25 06:59 14:59 22:59 Intake Total 100 / 100 1000 / 1100 Balance 100 / 100 1000 / 1100 Weight last 48 hrs Weight 232 lb Physical Exam Narrative: GENERAL: The patient is alert and oriented times three. Not in any acute distress. Moderately obese HEENT: Mild pallor with no icterus or lymphadenopathy.Oral cavity: There are no mucous membrane lesions. NECK: Trachea appears to be central. No masses noted. No JVD or thyromegaly appreciated. RESPIRATORY: Chest is symmetrical. No intercostals muscle retraction or any accessory muscle activation. There is no chest wall tenderness. Breath sounds are heard bilaterally. No rales or rhonchi heard. No evidence of any consolidation. BREASTS: Deferred. HEART: The heart sounds are normal. No S3 or S4. No significant murmurs. No pericardial rub ABDOMEN: No vessel pulsations or distention. No tenderness. No organomegaly appreciated. Bowel sounds are normally heard. : Deferred. RECTAL: Deferred. LYMPHATIC: No lymphadenopathy noted in the neck. EXTREMITIES: 1+ edema with no cyanosis. MUSCULOSKELETAL: No acute joint deformities or swelling SKIN: There are no significant rashes or ecchymosis NEUROPSYCHIATRIC: The patient is alert and oriented x3. Appears to be in a good mood. No tremors or rigidity noted. Data 02/19/25 03:37 02/19/25 03:37 Other Labs: Laboratory Last Values WBC 18.61 10^3/uL (3.29-11.43) H 02/18/25 11:06 RBC 3.04 10^6/uL (3.85-5.65) L 02/18/25 11:06 Hgb 9.50 g/dL (11.27-16.99) L 02/18/25 11:06 Hct 29.8 % (36-47) L 02/18/25 11:06 MCV 98.0 fl (85-98) 02/18/25 11:06 MCH 31.3 pg (27-33) 02/18/25 11:06 MCHC 31.9 g/dL (30-55) 02/18/25 11:06 RDW 12.7 % (12.1-15.1) 02/18/25 11:06 Plt Count 254 10^3/cmm (157-399) 02/18/25 11:06 MPV 10.1 fL (7.4-10.4) 02/18/25 11:06 Neut % (Auto) 88.9 % 02/18/25 11:06 Lymph % (Auto) 4.4 % 02/18/25 11:06 Cannon % (Auto) 5.1 % 02/18/25 11:06 Eos % (Auto) 0.4 % 02/18/25 11:06 Baso % (Auto) 0.2 % 02/18/25 11:06 Neut # (Auto) 16.55 10^3/uL (1.8-7.7) H 02/18/25 11:06 Lymph # (Auto) 0.8 10^3/uL (0.8-4.8) 02/18/25 11:06 Cannon # (Auto) 1.0 10^3/uL (0.2-0.9) H 02/18/25 11:06 Eos # (Auto) 0.1 10^3/uL (0.0-0.8) 02/18/25 11:06 Baso # (Auto) 0.0 10^3/uL (0.0-0.1) 02/18/25 11:06 Nucleated RBC % (auto) 0 % 02/18/25 11:06 Nucleated RBCs # 0.0 /100WBC 02/18/25 11:06 ESR 22 mm/hr (0-15) H 02/18/25 11:06 PT 14.60 SECONDS (12.1-14.9) 02/18/25 11:06 INR 1.06 (0.8-1.2) 02/18/25 11:06 D-Dimer 4.21 ug/mLFEU (0-0.59) H 02/18/25 11:06 D-Dimer Cancelled 02/18/25 11:06 Sodium 131 mmol/L (136-145) L 02/18/25 11:06 Potassium 4.8 mmol/L (3.5-5.1) 02/18/25 11:06 Chloride 95 mmol/L (98-107) L 02/18/25 11:06 Carbon Dioxide 20 mmol/L (22-29) L 02/18/25 11:06 Anion Gap 20.8 (5-19) H 02/18/25 11:06 BUN 112 mg/dL (8-23) H* 02/18/25 11:06 Creatinine 7.1 mg/dL (0.5-0.9) H* 02/18/25 11:06 GFR Calculation Not Reportable 02/18/25 11:06 Glucose 166 mg/dL (65-115) H 02/18/25 11:06 Calculated Osmolality 311 mOsm/kg (285-295) H 02/18/25 11:06 Lactic Acid 0.9 mmol/L (0.5-2.2) 02/18/25 15:37 Uric Acid 8.4 mg/dL (2.4-5.7) H 02/18/25 11:06 Calcium 8.2 mg/dL (8.5-10.5) L 02/18/25 11:06 Total Bilirubin 0.3 mg/dL (0.15-1.2) 02/18/25 11:06 AST 38 U/L (0-32) H 02/18/25 11:06 ALT 55 U/L (0-33) H 02/18/25 11:06 Alkaline Phosphatase 267 U/L (35-105) H 02/18/25 11:06 Troponin T Baseline 44 ng/L (0-10) H 02/18/25 11:06 Troponin T 120 Minute 38.66 ng/L (0-10) H 02/18/25 13:26 Delta Troponin T -5.34 ABS# (0-10) L 02/18/25 13:26 C-Reactive Protein 124.5 mg/L (0.0-4.9) H 02/18/25 13:24 NT-Pro-B Natriuret Pep 3890 pg/mL (0-125) H 02/18/25 11:06 Total Protein 5.7 g/dL (6.6-8.7) L 02/18/25 11:06 Albumin 3.2 g/dL (3.5-5.2) L 02/18/25 11:06 Globulin 2.5 g/dL (1.3-4.6) 02/18/25 11:06 Procalcitonin 0.32 ng/mL (0-0.5) 02/18/25 13:24 Urine Color Yellow (Yellow) 02/18/25 12:20 Urine Appearance Clear (CLEAR) 02/18/25 12:20 Urine pH 5.5 (5-7) 02/18/25 12:20 Ur Specific [place] 1.014 (1.005-1.030) 02/18/25 12:20 Urine Protein 3+ (Negative) A 02/18/25 12:20 Urine Glucose (UA) Trace (Normal) H 02/18/25 12:20 Urine Ketones Negative (Negative) 02/18/25 12:20 Urine Blood Negative (Negative) 02/18/25 12:20 Urine Nitrate Negative (Negative) 02/18/25 12:20 Urine Bilirubin Negative (Negative) 02/18/25 12:20 Urine Urobilinogen 0.2 mg/dL (Negative) 02/18/25 12:20 Ur Leukocyte Esterase Negative (Negative) 02/18/25 12:20 Urine RBC 0-2 /hpf (0-2) 02/18/25 12:20 Urine WBC 0-5 /hpf (0-5) 02/18/25 12:20 Ur Squamous Epith Cells 11-20 /hpf (0-5) H 02/18/25 12:20 Amorphous Sediment Not Reportable 02/18/25 12:20 Urine Bacteria None seen /hpf (NONE) 02/18/25 12:20 Hyaline Casts 3.71 /lpf 02/18/25 12:20 Other data: Echocardiogram from today Features suggestive of small to moderate pericardial effusion Mild diffuse hypokinesis of the left ventricle with an ejection fraction of 51%. Mild left ventricular hypertrophy. Grade I/IV diastolic dysfunction (abnormal relaxation filling pattern), normal to mildly elevated filling pressures. Normal systolic motion of the interventricular septum. Mildly increased left atrial size. Thickened mitral valve. Trace mitral valve regurgitation. Thickened aortic valve. There are no intracardiac masses. No similar previous studies are available for comparison A&P Assessment and plan (1) Atrial fibrillation with RVR: patient was started on IV amiodarone. Currently she converted to sinus rhythm. May continue on the amiodarone for the time being. Switch to p.o. amiodarone 4 mg twice daily, once IV infusion is completed (2) Diastolic CHF: the equipment service associate to adjust her peritoneal dialysis to extract more fluid (3) Pericardial effusion: the pericardial effusion is small to moderate at this time. this need to be monitored closely by optimizing the dialysis and heart failure, I am hoping that this may improve Plan based on the patient clinical progress, further recommendations will be made. We may consider doing a Myocardial perfusion imaging to evaluate for any underlying coronary ischemia. Thank you for the opportunity to evaluate this patient and make these recommendations PDMP PDMP Reviewed: Not Reviewed Consult Attestations Medical Necessity Statement: patient requires continued hospital stay for close monitoring and further management Coding Level of Care Code 98590 Diagnoses Atrial fibrillation with RVR I48.91 Acute diastolic congestive heart failure I50.31 Heart failure chronicity: acute Pericardial effusion I31.39
[2025-02-18] MEDS: FUROsemide 10 mg/mL SDV 4mL 40 MG IVP (18:14)
[2025-02-18] MEDS: heparin drip 25,000 UNIT/500 ML PREMIX 29 UNIT IV (18:20)
[2025-02-18] MEDS: heparin 5,000 unit/mL INJ 1 mL IVP (18:36)
[2025-02-18 19:23] LABS: Glucose Point of Care 124 mg/dL (70-110)
[2025-02-18] MEDS: vancomycin 2,000 MG/400 ML PIGGYBACK 200 MG IV (19:26)
[2025-02-18] MEDS: trazodone 150 mg Tablet PO (19:26)
[2025-02-18] MEDS: piperacillin-tazobactam 3.375 GM in sodium chloride 0.9% (plus) 50 ML IV (19:26)
[2025-02-18 19:32] LABS: Troponin 5 6HR 37.35 ng/L (0-10)
[2025-02-18 19:34] LABS: Troponin 5 6HR Delta -6.65 ng/L (0-12)
--- NOTE | 2025-02-18 20:28 | PHA.VACGOAL ---
Vancomycin Goal - Goal Vancomycin Goal:: 15-20 mg/L Vancomycin Indication:: Other (bacterial peritonitis) - Therapy Current therapy:: Pip/Tazo Day of therpy:: Day [1]of [] . Actual body weight (kg): 111.402 kg - Data Labs: WBC 18.61 10^3/uL (3.29-11.43) H 02/18/25 11:06 RBC 3.04 10^6/uL (3.85-5.65) L 02/18/25 11:06 Hgb 9.50 g/dL (11.27-16.99) L 02/18/25 11:06 Hct 29.8 % (36-47) L 02/18/25 11:06 MCV 98.0 fl (85-98) 02/18/25 11:06 MCH 31.3 pg (27-33) 02/18/25 11:06 MCHC 31.9 g/dL (30-55) 02/18/25 11:06 RDW 12.7 % (12.1-15.1) 02/18/25 11:06 Sodium 131 mmol/L (136-145) L 02/18/25 11:06 Potassium 4.8 mmol/L (3.5-5.1) 02/18/25 11:06 Chloride 95 mmol/L (98-107) L 02/18/25 11:06 Carbon Dioxide 20 mmol/L (22-29) L 02/18/25 11:06 Anion Gap 20.8 (5-19) H 02/18/25 11:06 BUN 112 mg/dL (8-23) H* 02/18/25 11:06 Creatinine 7.1 mg/dL (0.5-0.9) H* 02/18/25 11:06 GFR Calculation Not Reportable 02/18/25 11:06 Treatment plan:: new consult Regimen:: New start vancomycin for bacterial peritonitis. No prior vancomycin history of found. Patient is on peritoneal dialysis. Load dose of 2000 mg ordered.
[2025-02-18] MEDS: lisinopril 20 mg Tablet 40 MG PO (20:33)
[2025-02-18] MEDS: TRAMadol 50 mg Tablet PO (20:36)
[2025-02-18] MEDS: dorzolamide/timolol Op Soln 10 mL Btl 1 DROP EYE-BOTH (20:36)
[2025-02-19] VITALS (162 sets, daily range): BP systolic 111–199; BP diastolic 58–135; PULSE 60–99; RESP 15–32; TEMP 36.1; O2SAT 89–100; BMI 43.0
[2025-02-19] MEDS: Dianeal low Ca w/2.5% dex 2,000 mL Bag 2000 ML INTRAPERIT ×6 (01:07→21:40)
[2025-02-19 01:19] LABS: Partial Thromboplastin Time 134.5 SECONDS (23.9-36.7)
[2025-02-19 04:13] LABS: Basophils # 0.1 10^3/uL (0.0-0.1); Basophils % 0.3 %; Eosinophils # 0.4 10^3/uL (0.0-0.8); Eosinophils % 2.4 %; Hematocrit 28.6 % (36-47); Lymphocytes # 1.3 10^3/uL (0.8-4.8); Lymphocytes % 7.6 %; Mean Corpuscular HGB Conc 32.5 g/dL (30-55); Mean Corpuscular Hemoglobin 31.2 pg (27-33); Mean Platelet Volume 10.5 fL (7.4-10.4); Monocytes # 1.7 10^3/uL (0.2-0.9); Monocytes % 9.7 %; Neutrophils # 13.89 10^3/uL (1.8-7.7); Nucleated Red Blood Cells % 0 %; Platelet Count 237 10^3/cmm (157-399); Red Blood Count 2.98 10^6/uL (3.85-5.65); Red Cell Distribution Width 12.7 % (12.1-15.1); White Blood Count 17.58 10^3/uL (3.29-11.43)
[2025-02-19 04:40] LABS: Alanine Aminotransferase 45 U/L (0-33); Albumin Level 2.7 g/dL (3.5-5.2); Alkaline Phosphatase 236 U/L (35-105); Anion Gap 23.5 (5-19); Aspartate Amino Transferase 27 U/L (0-32); Calcium 8.4 mg/dL (8.5-10.5); Carbon Dioxide 18 mmol/L (22-29); Chloride 98 mmol/L (98-107); Globulin 3.5 g/dL (1.3-4.6); Glucose 166 mg/dL (65-115); Iron 31 ug/dL (37-145); Magnesium 2.8 mg/dL (1.7-2.3); Osmolality Calculated 319 mOsm/kg (285-295); Percent Saturation 23.4 % (20-50); Phosphorus 6.3 mg/dL (2.5-4.5); Potassium 3.5 mmol/L (3.5-5.1); Sodium 136 mmol/L (136-145); Total Bilirubin 0.3 mg/dL (0.15-1.2); Total Iron Binding Capacity 132 mcg/dl; Total Protein 6.2 g/dL (6.6-8.7); Unsaturated Iron Binding 101 ug/dL (112-347)
[2025-02-19 04:48] LABS: Blood Urea Nitrogen 107 mg/dL (8-23)
[2025-02-19 04:51] LABS: 25 Hydroxy Vitamin D 50 ng/mL (30-100)
[2025-02-19 05:01] LABS: Ferritin 2754 ng/mL (15-150)
[2025-02-19 05:42] LABS: Calcium 8.1 mg/dL (8.5-10.5); Parathyroid Hormone 194.9 pg/mL (15-65)
[2025-02-19] MEDS: piperacillin-tazobactam 3.375 GM in sodium chloride 0.9% (plus) 50 ML IV ×2 (05:57→17:45)
--- NOTE | 2025-02-19 07:34 | P.PN_ITS ---
Subjective 2 Subjective: feels better. no n/v/f/c/cp/steele/d Medications: Reviewed: Yes Medication Review Details: Current Medications Atorvastatin Calcium (Atorvastatin 40 Mg Tablet) 80 mg PO DAILY [facility] Calcitriol (Calcitriol 0.25 Mcg Capsule) 0.25 mcg PO DAILY [facility] Citalopram Hydrobromide (Citalopram 20 Mg Tablet) 40 mg PO DAILY [facility] Dorzolamide/Timolol (Dorzolamide/Timolol Op Soln 10 Ml Btl) 1 drop EYE-BOTH BID [facility] Last Admin: 02/18/25 20:36 Dose: 1 drop Glucagon (Glucagon 1 Mg/Ml Kit 1 Ml) 1 mg IM ONCE PRN; Protocol PRN Reason: Adult Acute Hypoglycemia Nursing Prot. Heparin Sodium (Porcine) (Heparin 5,000 Unit/Ml Inj 1 Ml) 0 unit IVP PRN PRN; Protocol PRN Reason: Heparin Weight Based Protocol -Subsequent Bolus Amiodarone HCl/Dextrose (Nexterone) 360 mg in 200 mls @ 0 mls/hr IV .Q0M [facility]; Protocol Last Admin: 02/18/25 19:51 Dose: 0.5 mg/min, 16.67 mls/hr Dextrose (D5w) 500 mls @ 0 mls/hr IV ONCE PRN; Protocol PRN Reason: Adult Acute Hypoglycemia Prot Dextrose (D10w) 125 mls @ 750 mls/hr IV PRN PRN; Protocol PRN Reason: Adult Acute Hypoglycemia Nursing Protocol Dextrose (D10w) 250 mls @ 1,000 mls/hr IV PRN PRN; Protocol PRN Reason: Adult Acute Hypoglycemia Nursing Protocol Piperacillin Sod/Tazobactam (Sod 3.375 gm/ Sodium Chloride) 50 mls @ 12.5 mls/hr IV Q12H [facility] Last Admin: 02/19/25 05:57 Dose: 12.5 mls/hr Heparin Sodium/Sodium Chloride (Heparin Drip) 25,000 unit in 500 mls @ 0 mls/hr IV CONT [facility]; Protocol Last Titration: 02/19/25 01:51 Dose: 10.93 unit/kg/hr, 23 mls/hr Insulin Human Lispro (Insulin Lispro 100 Unit/1 Ml) 0 unit SUBCUT TIDWM [facility]; Protocol Last Admin: 02/18/25 19:27 Dose: Not Given Peritoneal Dialysis Solution (Dianeal Low Ca W/2.5% Dex 2,000 Ml Bag) 2,000 ml INTRAPERIT 5XD TEJINDER Last Admin: 02/19/25 05:57 Dose: 2,000 ml Peritoneal Dialysis Solution (Dianeal Low Ca W/2.5% Dex 2,000 Ml Bag) 2,000 ml INTRAPERIT 5XD TEJINDER Tramadol HCl (Tramadol 50 Mg Tablet) 50 mg PO BID PRN PRN Reason: PAIN Last Admin: 02/18/25 20:36 Dose: 50 mg Trazodone HCl (Trazodone 150 Mg Tablet) 150 mg PO QPM [facility] Last Admin: 02/18/25 19:26 Dose: 150 mg Vancomycin HCl (Vancomycin 1,000 Mg Sdv (Pharmacy Mix)) 0 mg XX PRN PRN PRN Reason: Pharmacy to Dose Vitals/I&O/Wt Last Vital Signs Temp 97.9 F 02/18/25 10:51 Pulse 75 02/18/25 16:22 Resp 15 02/18/25 13:46 BP 145/102 02/18/25 16:22 Pulse Ox 97 02/18/25 16:22 O2 Del Method Room Air 02/18/25 15:00 02/18/25 02/19/25 02/19/25 22:59 06:59 14:59 Intake Total 1600 / 1700 267.983 / 1967.983 Balance 1600 / 1700 267.983 / 1967.983 Weight last 48 hrs Weight 110.223 kg Weight 111.402 kg Weight 105.233 kg Physical Exam 2 Narrative: Patient seen and examined using audiovisual equipment with the aid of a nurse. The patient is lying in bed no apparent distress. Vital signs noted blood pressure elevated heart rate controlled on amiodarone. HEENT normocephalic atraumatic. Neck is supple. Lungs cdull bases. Heart -regular with systolic murmur positive S1-S2. Abdomen soft positive bowel sounds. Positive peritoneal dialysis catheter clean dry and intact. Extremities no edema. Neuro awake alert oriented x 3. Data 02/19/25 03:37 02/19/25 03:37 Micro: Microbiology 02/18/25 18:34 Blood Culture - Preliminary Blood SPECIMEN COLLECTED 02/18/25 18:37 Blood Culture - Preliminary Blood SPECIMEN COLLECTED A&P Assessment and plan (1) ESRD (end stage renal disease) on dialysis: 69-year-old lady history of MALT lymphoma that was treated by resection, obesity hypertension diabetes. Developed COVID over a year ago and then developed ESRD. The patient also has a brain tumor. The patient is here now with new onset A- fib with RVR. 1. Cardiology for A-fib 2. pericardial effusion- will be more aggressive w/ PD. we need to get in touch w/ Dr Atwood and see if pt is doing adequate PD at home. try to get her dialysis kt/v. if pericardial effusin persists- then consider changing her to HD 2. Diabetic control. 3. Hypertension monitor with better heart rate control. add amlodipine. -attempt to remove more fluids w/ PD 4. ESRD the patient is on a cycler for what appears like 9 hours at night she says with low glucose dialysate. We do not have a cycle here. While she is here we will do dialysis 5 exchanes a day low 2.5% gluc, 2l fills We will check PD cell count and fluid for possible infection 6. anemia - high ferritin. start epo 7. start a phos binder normal vit d and pth good for esrd- dec calcitriol The patient was seen and examined using A/V equipment with the aid of a nurse. The patient consented to peritoneal dialysis onto telehealth. Plan See above. PDMP PDMP Reviewed: Not Reviewed Attestations 2 Medical Necessity Statement*: needs more aggressive dialysis Time Spent in Patient Care: Greater than 35 minutes (>than 50% of time spent in counselling and/or direct pt care on unit) . Coding Level of Care Code Acute Code for Chg Fwd Diagnoses ESRD (end stage renal disease) on dialysis N18.6; Z99.2
[2025-02-19 07:46] LABS: Glucose Point of Care 188 mg/dL (70-110)
[2025-02-19 08:10] LABS: Mononuclear #, Pertinoneal Fl 0.008 10^3/uL; Polynuclear # Cells, Perit 0.001 10^3/uL; RBC Pertioneal Fluid 0 10^3/uL; WBC Peritoneal Fluid 9 /uL
[2025-02-19] MEDS: citalopram 20 mg Tablet 40 MG PO (08:12)
[2025-02-19] MEDS: atorvastatin 40 mg Tablet 80 MG PO (08:12)
[2025-02-19] MEDS: amlodipine 5 mg Tablet PO (08:12)
[2025-02-19] MEDS: epoetin alfa-epbx 10,000 unit/ml SDV (ESRD) 10000 UNIT SUBCUT (08:12)
[2025-02-19] MEDS: FUROsemide 40 mg Tablet PO ×2 (08:12→16:04)
[2025-02-19] MEDS: TRAMadol 50 mg Tablet PO ×2 (08:15→16:27)
[2025-02-19] MEDS: dorzolamide/timolol Op Soln 10 mL Btl 1 DROP EYE-BOTH ×2 (08:19→17:12)
[2025-02-19] MEDS: insulin lispro 100 unit/1 mL SUBCUT ×3 (08:20→17:45)
[2025-02-19 08:59] LABS: CENTROMERE B ANTIBODY <1.0 NEG AI (<1.0 NEG); JO-1 ANTIBODY <1.0 NEG AI (<1.0 NEG); RNP ANTIBODY <1.0 NEG AI (<1.0 NEG); SCL-70 ANTIBODY <1.0 NEG AI (<1.0 NEG); SJOGREN'S ANTIBODY (SS-A) <1.0 NEG AI (<1.0 NEG); SM ANTIBODY <1.0 NEG AI (<1.0 NEG); SS-B <1.0 NEG AI (<1.0 NEG)
[2025-02-19 09:07] LABS: Albumin Peritoneal Fluid 0.2 g/dL; LDH Peritoneal Fluid < 10.0 U/L; Total Protein Peritoneal Fluid < 0.2 g/dL
[2025-02-19 09:08] LABS: Color, Peritoneal Fluid Pale Yellow (Pale Yellow)
[2025-02-19 09:09] LABS: Appearance, Peritoneal Fluid Hazy (Clear); Cyto Order Verification No Order
--- NOTE | 2025-02-19 09:32 | P.PN_ITS ---
Subjective 2 Subjective: Patient is feeling okay. Stays in the sinus rhythm. Still on IV amiodarone No chest pain or chest tightness. No orthopnea PND. Continues on the peritoneal dialysis. Responding to IV Lasix Medications: Medication Review Details: Current Medications Amlodipine Besylate (Amlodipine 5 Mg Tablet) 5 mg PO DAILY [facility] Last Admin: 02/19/25 08:12 Dose: 5 mg Atorvastatin Calcium (Atorvastatin 40 Mg Tablet) 80 mg PO DAILY [facility] Last Admin: 02/19/25 08:12 Dose: 80 mg Calcitriol (Calcitriol 0.25 Mcg Capsule) 0.25 mcg PO QMWF [facility] Citalopram Hydrobromide (Citalopram 20 Mg Tablet) 40 mg PO DAILY [facility] Last Admin: 02/19/25 08:12 Dose: 40 mg Dorzolamide/Timolol (Dorzolamide/Timolol Op Soln 10 Ml Btl) 1 drop EYE-BOTH BID [facility] Last Admin: 02/19/25 08:19 Dose: 1 drop Furosemide (Furosemide 40 Mg Tablet) 40 mg PO BID@08,16 [facility] Last Admin: 02/19/25 08:12 Dose: 40 mg Glucagon (Glucagon 1 Mg/Ml Kit 1 Ml) 1 mg IM ONCE PRN; Protocol PRN Reason: Adult Acute Hypoglycemia Nursing Prot. Heparin Sodium (Porcine) (Heparin 5,000 Unit/Ml Inj 1 Ml) 0 unit IVP PRN PRN; Protocol PRN Reason: Heparin Weight Based Protocol -Subsequent Bolus Amiodarone HCl/Dextrose (Nexterone) 360 mg in 200 mls @ 0 mls/hr IV .Q0M [facility]; Protocol Last Admin: 02/19/25 08:09 Dose: 0.5 mg/min, 16.67 mls/hr Dextrose (D5w) 500 mls @ 0 mls/hr IV ONCE PRN; Protocol PRN Reason: Adult Acute Hypoglycemia Prot Dextrose (D10w) 125 mls @ 750 mls/hr IV PRN PRN; Protocol PRN Reason: Adult Acute Hypoglycemia Nursing Protocol Dextrose (D10w) 250 mls @ 1,000 mls/hr IV PRN PRN; Protocol PRN Reason: Adult Acute Hypoglycemia Nursing Protocol Piperacillin Sod/Tazobactam (Sod 3.375 gm/ Sodium Chloride) 50 mls @ 12.5 mls/hr IV Q12H [facility] Last Admin: 02/19/25 05:57 Dose: 12.5 mls/hr Heparin Sodium/Sodium Chloride (Heparin Drip) 25,000 unit in 500 mls @ 0 mls/hr IV CONT [facility]; Protocol Last Titration: 02/19/25 01:51 Dose: 10.93 unit/kg/hr, 23 mls/hr Insulin Human Lispro (Insulin Lispro 100 Unit/1 Ml) 0 unit SUBCUT TIDWM [facility]; Protocol Last Admin: 02/19/25 08:20 Dose: 6 unit Peritoneal Dialysis Solution (Dianeal Low Ca W/2.5% Dex 2,000 Ml Bag) 2,000 ml INTRAPERIT 5XD [facility] Last Admin: 02/19/25 05:57 Dose: 2,000 ml Peritoneal Dialysis Solution (Dianeal Low Ca W/2.5% Dex 2,000 Ml Bag) 2,000 ml INTRAPERIT 5XD [facility] Tramadol HCl (Tramadol 50 Mg Tablet) 50 mg PO BID PRN PRN Reason: PAIN Last Admin: 02/19/25 08:15 Dose: 50 mg Trazodone HCl (Trazodone 150 Mg Tablet) 150 mg PO QPM [facility] Last Admin: 02/18/25 19:26 Dose: 150 mg Vancomycin HCl (Vancomycin 1,000 Mg Sdv (Pharmacy Mix)) 0 mg XX PRN PRN PRN Reason: Pharmacy to Dose Vitals/I&O/Wt Last Vital Signs Temp 97.9 F 02/18/25 10:51 Pulse 75 02/18/25 16:22 Resp 15 02/18/25 13:46 BP 145/102 02/18/25 16:22 Pulse Ox 97 02/18/25 16:22 O2 Del Method Room Air 02/18/25 15:00 02/18/25 02/19/25 02/19/25 22:59 06:59 14:59 Intake Total 1600 / 1700 267.983 / 1967.983 200 / 200 Balance 1600 / 1700 267.983 / 1967.983 200 / 200 Weight last 48 hrs Weight 243 lb Weight 245 lb 9.6 oz Weight 232 lb Physical Exam 2 Narrative: GENERAL: The patient is alert and oriented times three. Not in any acute distress. Moderately obese HEENT: Mild pallor with no icterus or lymphadenopathy.Oral cavity: There are no mucous membrane lesions. NECK: Trachea appears to be central. No masses noted. No JVD or thyromegaly appreciated. RESPIRATORY: Chest is symmetrical. No intercostals muscle retraction or any accessory muscle activation. There is no chest wall tenderness. Breath sounds are heard bilaterally. No rales or rhonchi heard. No evidence of any consolidation. BREASTS: Deferred. HEART: The heart sounds are normal. No S3 or S4. No significant murmurs. No pericardial rub ABDOMEN: No vessel pulsations or distention. No tenderness. No organomegaly appreciated. Bowel sounds are normally heard. : Deferred. RECTAL: Deferred. LYMPHATIC: No lymphadenopathy noted in the neck. EXTREMITIES: 1+ edema with no cyanosis. MUSCULOSKELETAL: No acute joint deformities or swelling SKIN: There are no significant rashes or ecchymosis NEUROPSYCHIATRIC: The patient is alert and oriented x3. Appears to be in a good mood. No tremors or rigidity noted. Data 02/20/25 06:27 02/19/25 03:37 Micro: Microbiology 02/18/25 18:34 Blood Culture - Preliminary Blood SPECIMEN COLLECTED 02/18/25 18:37 Blood Culture - Preliminary Blood SPECIMEN COLLECTED A&P Assessment and plan (1) Atrial fibrillation with RVR: May be started on amiodarone 400 mg p.o. twice daily Discontinue the IV amiodarone once the 1gm is completed Continue on your current medications (2) Diastolic CHF: Seems to be responding to the diuresis and the dialysis (3) Pericardial effusion: Will continue on the current measures. Follow-up echocardiogram next week Plan Myocardial perfusion imaging tomorrow Continue on the other current medications. Based on the clinical progress, further recommendations will be made PDMP PDMP Reviewed: Not Reviewed Attestations 2 Medical Necessity Statement*: Patient requires continued hospital stay for close monitoring and further management Coding Level of Care Code 15240 Diagnoses Atrial fibrillation with RVR I48.91 Acute diastolic congestive heart failure I50.31 Heart failure chronicity: acute Pericardial effusion I31.39
[2025-02-19] MEDS: amiodarone 200 mg Tablet 400 MG PO ×2 (10:01→17:12)
[2025-02-19] MEDS: metoprolol succinate ER (24 HR) 100 mg Tablet PO (10:21)
[2025-02-19 12:03] LABS: Glucose Point of Care 204 mg/dL (70-110)
--- NOTE | 2025-02-19 12:43 | P.PN_ITS ---
Subjective 2 Subjective: Patient was seen this morning, she is alert oriented x 3, following all commands, she is converted to normal sinus rhythm, on amiodarone drip, on heparin drip, she does report shortness of breath, is on room air, does report edema she received peritoneal dialysis last night, no abdominal pain, no fevers, no chills, no chest discomfort, spoke to patient, spoke to the patient's family Vitals/I&O/Wt Last Vital Signs Temp 96.9 F L 02/19/25 10:25 Pulse 67 02/19/25 12:10 Resp 26 H 02/19/25 12:10 BP 137/110 02/19/25 12:15 Pulse Ox 96 02/19/25 12:10 O2 Del Method Room Air 02/18/25 15:00 02/18/25 02/19/25 02/19/25 22:59 06:59 14:59 Intake Total 1600 / 1700 267.983 / 1967.983 667.867 / 667.867 Balance 1600 / 1700 267.983 / 1967.983 667.867 / 667.867 Weight last 48 hrs Weight 110.223 kg Weight 111.402 kg Weight 105.233 kg Physical Exam 2 Const: COMMON NORMALS: no acute distress and patient oriented x3 Resp: COMMON NORMALS: normal respiratory effort, No retractions and No use of accessory muscles AUSCULTATION: crackles and wheezes Cardio: COMMON NORMALS: regular rate, regular rhythm, S1 normal heart sound present and S2 normal heart sound present RATE: regular rate RHYTHM: r egular rhythm HEART SOUNDS: S1 normal heart sound present and S2 normal heart sound present GI: COMMON NORMALS: Normal to inspection, nondistended, normoactive bowel sounds present and non-tender Extremity: NARRATIVE EXTREMITY EXAM: 1+ edema Neuro: COMMON NORMALS: patient oriented x3 Psych: COMMON NORMALS: mental status grossly normal Data 02/19/25 03:37 02/19/25 03:37 Micro: Microbiology 02/18/25 18:34 Blood Culture - Preliminary Blood SPECIMEN COLLECTED 02/18/25 18:37 Blood Culture - Preliminary Blood SPECIMEN COLLECTED A&P Assessment and plan (1) Atrial fibrillation with RVR: (2) Pericardial effusion: (3) Leukocytosis: (4) Diastolic CHF: (5) Acute bacterial peritonitis: Plan Shortness of breath -Currently not requiring oxygen - Etiology - Multifactorial - Concerns for pericardial effusion - Concerns for diastolic CHF -A-fib with RVR - CT chest without contrast CT/CT chest wo con [id number] IMPRESSION: 1. Large pericardial effusion. This appears new since 12/11/2024. 2. Tiny LEFT pleural effusion. 3. Lungs are otherwise well aerated. 4. No other acute chest findings. Cardiac echo CONCLUSIONS Features suggestive of small to moderate pericardial effusion Mild diffuse hypokinesis of the left ventricle with an ejection fraction of 51%. Mild left ventricular hypertrophy. Grade I/IV diastolic dysfunction (abnormal relaxation filling pattern), normal to mildly elevated filling pressures. Normal systolic motion of the interventricular septum. Mildly increased left atrial size. Thickened mitral valve. Trace mitral valve regurgitation. Thickened aortic valve. There are no intracardiac masses. No similar previous studies are available for comparison Plan - Order D-dimer 4.21 venous ultrasound bilateral extremities negative for DVT - Cardiac echocardiogram pending, cardiology consulted for pericardial effusion, - Lasix 40 twice daily - Achieving PD dialysis - Patient might require switch over to hemodialysis based on clinical progress Atrial fibrillation with rapid ventricular response -Converted to normal sinus rhythm - De-escalate to p.o. amiodarone - CHADS2 Vasc 4 - Start heparin drip Large pericardial effusion - Seen on CT chest and abdomen - Cardiac echo CONCLUSIONS Features suggestive of small to moderate pericardial effusion Mild diffuse hypokinesis of the left ventricle with an ejection fraction of 51%. Mild left ventricular hypertrophy. Grade I/IV diastolic dysfunction (abnormal relaxation filling pattern), normal to mildly elevated filling pressures. Normal systolic motion of the interventricular septum. Mildly increased left atrial size. Thickened mitral valve. Trace mitral valve regurgitation. Thickened aortic valve. There are no intracardiac masses. No similar previous studies are available for comparison Etiology potentially related to uremia Plan -Cardiology consulted - Moved to cardiac stepdown unit Recent history of bacterial peritonitis - Will obtain peritoneal studies, so far pending - Given elevated CRP, leukocytosis will start on broad-spectrum antibiotics vancomycin, Zosyn - Monitor clinical status closely Acute on chronic leukocytosis - Could be from pericardial effusion, - Could be from bacterial peritonitis - Follow blood cultures - Follow-up peritoneal cultures Transaminitis, monitor Peritoneal dialysis - Nephrology consulted for PD dialysis Acute on chronic anemia - Will monitor closely - Recent iron studies show iron at 77, ferritin 2007 Type 2 diabetes mellitus, moderate dose sliding scale Full code Heparin for DVT prophylaxis Plan for today peritoneal dialysis, continue heparin drip, continue IV antibiotics, de-escalate off amiodarone drip, moved to cardiac stepdown unit PDMP PDMP Reviewed: Not Reviewed Attestations 2 Medical Necessity Statement*: Patient requires hospitalization for pericardial effusion, fluid overload, requiring PD dialysis, concerns for peritonitis, leukocytosis Diagnoses Atrial fibrillation with RVR I48.91 Pericardial effusion I31.39 Leukocytosis D72.829 Acute diastolic congestive heart failure I50.31 Heart failure chronicity: acute Acute bacterial peritonitis K65.9
[2025-02-19 13:25] LABS: COMPLEMENT COMPONENT C3C 124 mg/dL (83-193); COMPLEMENT COMPONENT C4C 32 mg/dL (15-57); COMPLEMENT, TOTAL (CH50) 60 U/mL (31-60)
[2025-02-19] MEDS: calcitriol 0.25 mcg Capsule PO (14:05)
[2025-02-19 15:14] LABS: Pathology Referral Yes
[2025-02-19 15:36] LABS: ANA SCREEN, IFA NEGATIVE (NEGATIVE)
[2025-02-19] MEDS: heparin drip 25,000 UNIT/500 ML PREMIX 17 UNIT IV (16:05)
[2025-02-19 16:28] LABS: Partial Thromboplastin Time 60.7 SECONDS (23.9-36.7)
[2025-02-19 17:05] LABS: Glucose Point of Care 182 mg/dL (70-110)
[2025-02-19] MEDS: trazodone 150 mg Tablet PO (17:12)
[2025-02-19 17:22] LABS: Vancomycin Trough 19.1 ug/mL (10-15)
[2025-02-19] MEDS: lisinopril 20 mg Tablet 40 MG PO (21:40)
[2025-02-19 23:43] LABS: Partial Thromboplastin Time 53.7 SECONDS (23.9-36.7)
[2025-02-20] VITALS (94 sets, daily range): BP systolic 127–216; BP diastolic 59–159; PULSE 61–108; RESP 13–37; TEMP 36.5–37; O2SAT 88–100
--- NOTE | 2025-02-20 | ECG_ITS ---
[facility]: 2025-02[facility]20 Pat Name: Sebastián Sparks Department: Room: ICU10 Gender: Female [employer] Officer: : 1955 Requested By: Nhi Lindsay Order Number: [id number] Vasu MD: Nhi Lindsay M.D. Interpretive Statements Lung unchanged pre/post procedure; Intraprocedure shortess of breath; Symptoms resoled by discharge PROCEDURE: At the baseline, the EKG revealed normal sinus rhythm with a nonspecific T wave. The baseline heart was 74 bpm with a blood pressue of 143/77 mm of Hg Lexiscan was infused over a period of 20 seconds. A total of 0.4 milligrams of Lexiscan was infused. The stress phase was continued for a total of 5 minutes. Heart rate at the end of the stress phase was 81 bpm with a blood pressure 157/69 mm of Hg. The EKG at the peak infusion revealed no significant changes. Sestamibi was injected 20 seconds after the Lexiscan infusion. Heart rate at the end of the recovery phase was 82 bpm with a blood pressure of 153/73 mm of Hg. CONCLUSION: 1. No significant EKG changes with the LexiScan infusion 2. No LexiScan induced chest pain or cardiac arrhythmia 3. Normal blood pressure and heart rate response 4. Sestamibi/sestamibi perfusion scan pending; see separate report. Electronically Signed On 02-23-2025 21:36:47 CDT by Nhi Lindsay M.D. [email or web address]
[2025-02-20] MEDS: TRAMadol 50 mg Tablet PO ×3 (03:36→21:37)
[2025-02-20] MEDS: piperacillin-tazobactam 3.375 GM in sodium chloride 0.9% (plus) 50 ML IV ×2 (05:57→19:45)
[2025-02-20] MEDS: Dianeal low Ca w/2.5% dex 2,000 mL Bag 2000 ML INTRAPERIT ×4 (05:59→22:28)
[2025-02-20 06:36] LABS: Basophils # 0.1 10^3/uL (0.0-0.1); Basophils % 0.4 %; Eosinophils # 0.6 10^3/uL (0.0-0.8); Eosinophils % 3.6 %; Lymphocytes % 6.8 %; Mean Corpuscular HGB Conc 32.5 g/dL (30-55); Mean Corpuscular Hemoglobin 31.2 pg (27-33); Mean Corpuscular Volume 95.9 fl (85-98); Mean Platelet Volume 10.1 fL (7.4-10.4); Monocytes # 1.5 10^3/uL (0.2-0.9); Monocytes % 9.8 %; Neutrophils # 12.03 10^3/uL (1.8-7.7); Neutrophils % 78.9 %; Nucleated Red Blood Cells % 0 %; Platelet Count 229 10^3/cmm (157-399); Red Blood Count 2.92 10^6/uL (3.85-5.65); Red Cell Distribution Width 12.7 % (12.1-15.1); White Blood Count 15.24 10^3/uL (3.29-11.43)
--- NOTE | 2025-02-20 06:43 | NMCV_ITS ---
NM loretta perf SPECT r/s* [id number] Sebastián Sparks Age: 69 Gender: F : 1955 Exam Date: 02/20/2025 07:43 Ordering Phys: Nhi Lindsay MD ([email or web address]) Technologist: BURKE Finch Exam Location: [facility] Indications: cp STRESS TEST Please see separate stress test report in [facility] for full findings IMAGE PROTOCOL Rest/Stress 1 Lexiscan Day Radiopharmaceutical Dose (mCi) Administration Site Administered by Rest: Tc-99m 10.8 IV Wen Isaacs OBJECT ORIENTED DEVELOPER Sestamibi Stress:Tc-99m 32.8 IV Wen De La Cruzgle, OBJECT ORIENTED DEVELOPER Sestamibi Rest: 20-Feb-2025 60 Discovery 630 Stress: 20-Feb-2025 30 Discovery 630 0.4mg Lexiscan. Supine position only as patient was unable to lay prone. SPECT RESULTS Technical Quality: Good Raw Data Analysis: Normal Image Corrections: No attenuation or motion correction applied Summed Stress Score: 0 Summed Rest Score: 0 Summed Difference Score: 0 PERFUSION FINDINGS Uniform myocardial tracer uptake with no significant perfusion abnormalities FUNCTIONAL RESULTS (calculated via Gated SPECT) Stress Image LV EF (%): 67 Stress EDV (mL):114 TID: 1.18 Stress ESV (mL):38 FUNCTIONAL FINDINGS: Segmental wall motion analysis revealing no gross wall motion abnormalities IMPRESSIONS 1. Myocardial perfusion imaging revealing uniform myocardial tracer uptake with no significant Perfusion abnormalities 2. Normal LV ejection fraction of 67%. 3. LV wall motion analysis revealing no gross wall motion abnormalities. 4. Normal LV volume. Low probability for coronary ischemia, based on the above findings No similar previous studies are available for comparison Dr Nhi Lindsay MD [facility] (Electronically Signed) Final Date: 20 February 2025 12:26 S
[2025-02-20 06:52] LABS: Alanine Aminotransferase 62 U/L (0-33); Albumin Level 2.8 g/dL (3.5-5.2); Alkaline Phosphatase 235 U/L (35-105); Anion Gap 19.8 (5-19); Aspartate Amino Transferase 42 U/L (0-32); Calcium 8.2 mg/dL (8.5-10.5); Carbon Dioxide 23 mmol/L (22-29); Chloride 96 mmol/L (98-107); Globulin 3.1 g/dL (1.3-4.6); Glucose 139 mg/dL (65-115); Magnesium 2.3 mg/dL (1.7-2.3); Osmolality Calculated 311 mOsm/kg (285-295); Phosphorus 6.2 mg/dL (2.5-4.5); Potassium 3.8 mmol/L (3.5-5.1); Sodium 135 mmol/L (136-145); Total Bilirubin 0.2 mg/dL (0.15-1.2); Total Protein 5.9 g/dL (6.6-8.7)
[2025-02-20 06:53] LABS: Vancomycin Random 16.3 ug/mL (20.0-40.0)
[2025-02-20 06:57] LABS: Partial Thromboplastin Time 72.9 SECONDS (23.9-36.7)
[2025-02-20 07:04] LABS: Blood Urea Nitrogen 94 mg/dL (8-23)
[2025-02-20] MEDS: amiodarone 200 mg Tablet 400 MG PO ×2 (07:48→17:06)
[2025-02-20] MEDS: citalopram 20 mg Tablet 40 MG PO (07:48)
[2025-02-20] MEDS: amlodipine 5 mg Tablet PO (07:49)
[2025-02-20] MEDS: ondansetron 2 mg/ML SDV 2 mL 4 MG IVP (08:23)
[2025-02-20] MEDS: regadenoson 0.4 Mg/5 ml Syringe IVP (08:29)
[2025-02-20] MEDS: FUROsemide 40 mg Tablet PO ×2 (09:29→17:06)
[2025-02-20] MEDS: metoprolol succinate ER (24 HR) 100 mg Tablet PO (09:29)
[2025-02-20] MEDS: dorzolamide/timolol Op Soln 10 mL Btl 1 DROP EYE-BOTH ×2 (09:29→17:17)
[2025-02-20] MEDS: atorvastatin 40 mg Tablet 80 MG PO (09:29)
[2025-02-20] MEDS: insulin lispro 100 unit/1 mL SUBCUT ×3 (09:31→18:25)
[2025-02-20 09:37] LABS: Glucose Point of Care 178 mg/dL (70-110)
[2025-02-20] MEDS: ALPRAZolam 0.5 mg Tablet 0.25 MG PO (11:15)
[2025-02-20 12:00] LABS: Glucose Point of Care 157 mg/dL (70-110)
[2025-02-20 12:46] LABS: Partial Thromboplastin Time 59.5 SECONDS (23.9-36.7)
--- NOTE | 2025-02-20 13:00 | PM.PN ---
Subjective Subjective: seen and examined. no n/v/f/c/steele/d/sob/cp Medications: Reviewed: Yes Medication Review Details: Current Medications Alprazolam (Alprazolam 0.5 Mg Tablet) 0.25 mg PO TID PRN PRN Reason: ANXIETY Last Admin: 02/20/25 11:15 Dose: 0.25 mg Aminophylline (Aminophylline 25 Mg/Ml Sdv 20 Ml) 25 mg IVP Q2M PRN PRN Reason: see dose instructions Stop: 02/21/25 06:47 Amiodarone HCl (Amiodarone 200 Mg Tablet) 400 mg PO BID [facility] Last Admin: 02/20/25 07:48 Dose: 400 mg Amlodipine Besylate (Amlodipine 5 Mg Tablet) 5 mg PO DAILY [facility] Last Admin: 02/20/25 07:49 Dose: 5 mg Atorvastatin Calcium (Atorvastatin 40 Mg Tablet) 80 mg PO DAILY [facility] Last Admin: 02/20/25 09:29 Dose: 80 mg Calcitriol (Calcitriol 0.25 Mcg Capsule) 0.25 mcg PO QMWF [facility] Last Admin: 02/19/25 14:05 Dose: 0.25 mcg Citalopram Hydrobromide (Citalopram 20 Mg Tablet) 40 mg PO DAILY [facility] Last Admin: 02/20/25 07:48 Dose: 40 mg Clonidine HCl (Clonidine 0.1 Mg/24 Hr Patch) 0.1 patch TRANSDERMA Q12H [facility] Dorzolamide/Timolol (Dorzolamide/Timolol Op Soln 10 Ml Btl) 1 drop EYE-BOTH BID [facility] Last Admin: 02/20/25 09:29 Dose: 1 drop Furosemide (Furosemide 40 Mg Tablet) 40 mg PO BID@08,16 [facility] Last Admin: 02/20/25 09:29 Dose: 40 mg Glucagon (Glucagon 1 Mg/Ml Kit 1 Ml) 1 mg IM ONCE PRN; Protocol PRN Reason: Adult Acute Hypoglycemia Nursing Prot. Heparin Sodium (Porcine) (Heparin 5,000 Unit/Ml Inj 1 Ml) 0 unit IVP PRN PRN; Protocol PRN Reason: Heparin Weight Based Protocol -Subsequent Bolus Dextrose (D5w) 500 mls @ 0 mls/hr IV ONCE PRN; Protocol PRN Reason: Adult Acute Hypoglycemia Prot Dextrose (D10w) 125 mls @ 750 mls/hr IV PRN PRN; Protocol PRN Reason: Adult Acute Hypoglycemia Nursing Protocol Dextrose (D10w) 250 mls @ 1,000 mls/hr IV PRN PRN; Protocol PRN Reason: Adult Acute Hypoglycemia Nursing Protocol Piperacillin Sod/Tazobactam (Sod 3.375 gm/ Sodium Chloride) 50 mls @ 12.5 mls/hr IV Q12H [facility] Last Admin: 02/20/25 05:57 Dose: 12.5 mls/hr Heparin Sodium/Sodium Chloride (Heparin Drip) 25,000 unit in 500 mls @ 0 mls/hr IV CONT TEJINDER; Protocol Last Titration: 02/20/25 00:13 Dose: 9.03 unit/kg/hr, 19 mls/hr Insulin Human Lispro (Insulin Lispro 100 Unit/1 Ml) 0 unit SUBCUT TIDWM [facility]; Protocol Last Admin: 02/20/25 12:26 Dose: 2 unit Lisinopril (Lisinopril 20 Mg Tablet) 40 mg PO QPM [facility] Last Admin: 02/19/25 21:40 Dose: 40 mg Metoprolol Succinate (Metoprolol Succinate Er (24 Hr) 100 Mg Tablet) 100 mg PO DAILY [facility] Last Admin: 02/20/25 09:29 Dose: 100 mg Nitroglycerin (Nitroglycerin 0.4 Mg Sublingual Tablet) 0.4 mg SUBLINGUAL Q5M PRN PRN Reason: CHEST PAIN Stop: 02/21/25 06:47 Ondansetron HCl (Ondansetron 2 Mg/Ml Sdv 2 Ml) 4 mg IVP Q2M PRN PRN Reason: NAUSEA Last Admin: 02/20/25 08:23 Dose: 4 mg Peritoneal Dialysis Solution (Dianeal Low Ca W/2.5% Dex 2,000 Ml Bag) 2,000 ml INTRAPERIT 5XD [facility] Last Admin: 02/20/25 11:30 Dose: 2,000 ml Tramadol HCl (Tramadol 50 Mg Tablet) 50 mg PO TID PRN PRN Reason: PAIN Last Admin: 02/20/25 11:29 Dose: 50 mg Trazodone HCl (Trazodone 150 Mg Tablet) 150 mg PO QPM [facility] Last Admin: 02/19/25 17:12 Dose: 150 mg Vancomycin HCl (Vancomycin 1,000 Mg Sdv (Pharmacy Mix)) 0 mg XX PRN PRN PRN Reason: Pharmacy to Dose Vitals/I&O/Wt Last Vital Signs Temp 97.9 F 02/20/25 04:15 Pulse 72 02/20/25 12:00 Resp 20 H 02/20/25 12:00 BP 149/70 02/20/25 12:00 Pulse Ox 96 02/20/25 12:00 O2 Del Method Room Air 02/18/25 15:00 02/19/25 02/20/25 02/20/25 22:59 06:59 14:59 Intake Total 121.15 / 1109.589 171.267 / 1280.856 Output Total 300 / 300 Balance -178.85 / 809.589 171.267 / 980.856 Weight last 48 hrs Weight 110.223 kg Weight 111.402 kg Physical Exam Narrative: Patient seen and examined using audiovisual equipment with the aid of a nurse. The patient is lying in bed no apparent distress. Vital signs noted blood pressure and HT stable. HEENT normocephalic atraumatic. Neck is supple. Lungs good air movement b/l. Heart -regular with systolic murmur positive S1-S2. Abdomen soft positive bowel sounds. Positive peritoneal dialysis catheter clean dry and intact. Extremities no edema. Neuro awake alert oriented x 3. 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 Developed COVID over a year ago and then developed ESRD. The patient also has a brain tumor. The patient is here now with new onset A-fib with RVR. 1. Cardiology appreciated- she converted from a fib to NSR 2. pericardial effusion- will be more aggressive w/ PD. -I discussed w/ Dr Atwood -pt has a good kt/v on PD. she and the pt want to attempt to stay on PD -cont current CAPD- 5 exchanges a day of 2.5% glu, 2l fill 3. Diabetic control. 4. Hypertension monitor on current meds and NSR 5. anemia - high ferritin. start epo 7. start a phos binder normal vit d and pth good for esrd- dec calcitriol discharge as per PMD The patient was seen and examined using A/V equipment with the aid of a nurse. The patient consented to peritoneal dialysis onto telehealth. Plan See above. PDMP PDMP Reviewed: Not Reviewed Attestations Medical Necessity Statement*: a fib now nsr Time Spent in Patient Care: 16 - 35 minutes (>than 50% of time spent in counselling and/or direct pt care on unit). Coding Level of Care Code Acute Code for Chg Fwd Diagnoses ESRD (end stage renal disease) on dialysis N18.6; Z99.2
[2025-02-20] MEDS: cloNIDine 0.1 mg/24 hr Patch 0.1 PATCH TRANSDERMA (14:02)
[2025-02-20 14:24] LABS: THYROID PEROXIDASE ANTIBODIES 1 IU/mL (<9)
--- NOTE | 2025-02-20 16:49 | P.PN_ITS ---
Subjective 2 Subjective: Patient was seen this morning, she is come back from her stress test, denies any chest pain, palpitations, lightheadedness, dizziness, no nausea, no vomiting Vitals/I&O/Wt Last Vital Signs Temp 97.9 F 02/20/25 04:15 Pulse 72 02/20/25 15:00 Resp 28 H 02/20/25 15:00 BP 145/95 02/20/25 15:00 Pulse Ox 97 02/20/25 15:00 O2 Del Method Room Air 02/18/25 15:00 02/20/25 02/20/25 02/20/25 06:59 14:59 22:59 Intake Total 171.267 / 1280.856 240 / 240 Balance 171.267 / 980.856 240 / 240 Weight last 48 hrs Weight 110.223 kg Physical Exam 2 Const: COMMON NORMALS: no acute distress and patient oriented x3 Resp: COMMON NORMALS: normal respiratory effort, No retractions and No use of accessory muscles AUSCULTATION: crackles Cardio: COMMON NORMALS: regular rate, regular rhythm, S1 normal heart sound present and S2 normal heart sound present RATE: regular rate RHYTHM: r egular rhythm HEART SOUNDS: S1 normal heart sound present and S2 normal heart sound present GI: COMMON NORMALS: Normal to inspection, nondistended, normoactive bowel sounds present and non-tender Extremity: NARRATIVE EXTREMITY EXAM: 1+ edema Neuro: COMMON NORMALS: patient oriented x3 Psych: COMMON NORMALS: mental status grossly normal Data 02/20/25 06:27 02/20/25 06:27 Micro: Microbiology 02/19/25 00:15 Gram Stain - Final Peritoneal Fluid Body Fluid Culture - Preliminary 02/18/25 18:34 Blood Culture - Preliminary Blood NEGATIVE TO DATE 02/18/25 18:37 Blood Culture - Preliminary Blood NEGATIVE TO DATE A&P Assessment and plan (1) Atrial fibrillation with RVR: (2) Pericardial effusion: (3) Leukocytosis: (4) Diastolic CHF: (5) Acute bacterial peritonitis: Plan Shortness of breath -Currently not requiring oxygen - Etiology - Multifactorial - Concerns for pericardial effusion - Concerns for diastolic CHF -A-fib with RVR - CT chest without contrast CT/CT chest wo con [id number] IMPRESSION: 1. Large pericardial effusion. This appears new since 12/11/2024. 2. Tiny LEFT pleural effusion. 3. Lungs are otherwise well aerated. 4. No other acute chest findings. Cardiac echo CONCLUSIONS Features suggestive of small to moderate pericardial effusion Mild diffuse hypokinesis of the left ventricle with an ejection fraction of 51%. Mild left ventricular hypertrophy. Grade I/IV diastolic dysfunction (abnormal relaxation filling pattern), normal to mildly elevated filling pressures. Normal systolic motion of the interventricular septum. Mildly increased left atrial size. Thickened mitral valve. Trace mitral valve regurgitation. Thickened aortic valve. There are no intracardiac masses. No similar previous studies are available for comparison Plan - Order D-dimer 4.21 venous ultrasound bilateral extremities negative for DVT - Lasix 40 twice daily - Receiving PD dialysis - Patient might require switch over to hemodialysis based on clinical progress Atrial fibrillation with rapid ventricular response -Converted to normal sinus rhythm - De-escalate to p.o. amiodarone - CHADS2 Vasc 4 - Continue heparin drip - Status post stress test today IMPRESSIONS 1. Myocardial perfusion imaging revealing uniform myocardial tracer uptake with no significant Perfusion abnormalities 2. Normal LV ejection fraction of 67%. 3. LV wall motion analysis revealing no gross wall motion abnormalities. 4. Normal LV volume. Low probability for coronary ischemia, based on the above findings No similar previous studies are available for comparison Large pericardial effusion - Seen on CT chest and abdomen - Cardiac echo CONCLUSIONS Features suggestive of small to moderate pericardial effusion Mild diffuse hypokinesis of the left ventricle with an ejection fraction of 51%. Mild left ventricular hypertrophy. Grade I/IV diastolic dysfunction (abnormal relaxation filling pattern), normal to mildly elevated filling pressures. Normal systolic motion of the interventricular septum. Mildly increased left atrial size. Thickened mitral valve. Trace mitral valve regurgitation. Thickened aortic valve. There are no intracardiac masses. No similar previous studies are available for comparison Etiology potentially related to uremia Plan -Cardiology consulted - Moved to cardiac stepdown unit Recent history of bacterial peritonitis - Will obtain peritoneal studies, so far pending, Gram stain no organisms - Given elevated CRP, leukocytosis will start on broad-spectrum antibiotics vancomycin, Zosyn - Monitor clinical status closely Acute on chronic leukocytosis - Could be from pericardial effusion, - Could be from bacterial peritonitis - Follow blood cultures - Follow-up peritoneal cultures Transaminitis, monitor Peritoneal dialysis - Nephrology consulted for PD dialysis Acute on chronic anemia - Will monitor closely - Recent iron studies show iron at 77, ferritin 2007 Type 2 diabetes mellitus, moderate dose sliding scale Full code Heparin for DVT prophylaxis Plan for today peritoneal dialysis follow-up after stress test, continue IV antibiotics, continue p.o. amiodarone, PT OT continue peritoneal dialysis plan discharge in next 24 to 48 hours PDMP PDMP Reviewed: Not Reviewed Attestations 2 Medical Necessity Statement*: Patient requires hospitalization for concerns for recent history of bacterial peritonitis, fluid overload Diagnoses Atrial fibrillation with RVR I48.91 Pericardial effusion I31.39 Leukocytosis D72.829 Acute diastolic congestive heart failure I50.31 Heart failure chronicity: acute Acute bacterial peritonitis K65.9
[2025-02-20] MEDS: VANCOMYCIN ADD-Vantage 1,000 MG in 0.9% NaCl ADD-Vantage 250 ML 250 MG IV (17:05)
[2025-02-20] MEDS: lisinopril 20 mg Tablet 40 MG PO (17:06)
[2025-02-20] MEDS: heparin drip 25,000 UNIT/500 ML PREMIX 19 UNIT IV (17:06)
[2025-02-20] MEDS: trazodone 150 mg Tablet PO (17:06)
[2025-02-20 17:21] LABS: Glucose Point of Care 168 mg/dL (70-110)
[2025-02-20 18:55] LABS: Partial Thromboplastin Time 44.8 SECONDS (23.9-36.7)
--- NOTE | 2025-02-20 20:19 | PM.PN ---
Subjective Subjective: Patient is feeling better. Still has diffuse shortness of breath with activities. Had a Myocardial perfusion imaging today. She was found to have low probability for coronary ischemia Medications: Medication Review Details: Current Medications Alprazolam (Alprazolam 0.5 Mg Tablet) 0.25 mg PO TID PRN PRN Reason: ANXIETY Last Admin: 02/20/25 11:15 Dose: 0.25 mg Aminophylline (Aminophylline 25 Mg/Ml Sdv 20 Ml) 25 mg IVP Q2M PRN PRN Reason: see dose instructions Stop: 02/21/25 06:47 Amiodarone HCl (Amiodarone 200 Mg Tablet) 400 mg PO BID [facility] Last Admin: 02/20/25 17:06 Dose: 400 mg Amlodipine Besylate (Amlodipine 5 Mg Tablet) 5 mg PO DAILY [facility] Last Admin: 02/20/25 07:49 Dose: 5 mg Atorvastatin Calcium (Atorvastatin 40 Mg Tablet) 80 mg PO DAILY [facility] Last Admin: 02/20/25 09:29 Dose: 80 mg Calcitriol (Calcitriol 0.25 Mcg Capsule) 0.25 mcg PO QMWF [facility] Last Admin: 02/19/25 14:05 Dose: 0.25 mcg Citalopram Hydrobromide (Citalopram 20 Mg Tablet) 40 mg PO DAILY [facility] Last Admin: 02/20/25 07:48 Dose: 40 mg Clonidine HCl (Clonidine 0.1 Mg/24 Hr Patch) 0.1 patch TRANSDERMA Q12H [facility] Last Admin: 02/20/25 14:02 Dose: 0.1 patch Dorzolamide/Timolol (Dorzolamide/Timolol Op Soln 10 Ml Btl) 1 drop EYE-BOTH BID [facility] Last Admin: 02/20/25 17:17 Dose: 1 drop Furosemide (Furosemide 40 Mg Tablet) 40 mg PO BID@08,16 [facility] Last Admin: 02/20/25 17:06 Dose: 40 mg Glucagon (Glucagon 1 Mg/Ml Kit 1 Ml) 1 mg IM ONCE PRN; Protocol PRN Reason: Adult Acute Hypoglycemia Nursing Prot. Heparin Sodium (Porcine) (Heparin 5,000 Unit/Ml Inj 1 Ml) 0 unit IVP PRN PRN; Protocol PRN Reason: Heparin Weight Based Protocol -Subsequent Bolus Dextrose (D5w) 500 mls @ 0 mls/hr IV ONCE PRN; Protocol PRN Reason: Adult Acute Hypoglycemia Prot Dextrose (D10w) 125 mls @ 750 mls/hr IV PRN PRN; Protocol PRN Reason: Adult Acute Hypoglycemia Nursing Protocol Dextrose (D10w) 250 mls @ 1,000 mls/hr IV PRN PRN; Protocol PRN Reason: Adult Acute Hypoglycemia Nursing Protocol Piperacillin Sod/Tazobactam (Sod 3.375 gm/ Sodium Chloride) 50 mls @ 12.5 mls/hr IV Q12H [facility] Last Admin: 02/20/25 19:45 Dose: 12.5 mls/hr Heparin Sodium/Sodium Chloride (Heparin Drip) 25,000 unit in 500 mls @ 0 mls/hr IV CONT [facility]; Protocol Last Titration: 02/20/25 19:46 Dose: 10.93 unit/kg/hr, 23 mls/hr Insulin Human Lispro (Insulin Lispro 100 Unit/1 Ml) 0 unit SUBCUT TIDWM [facility]; Protocol Last Admin: 02/20/25 18:25 Dose: 4 unit Lisinopril (Lisinopril 20 Mg Tablet) 40 mg PO QPM [facility] Last Admin: 02/20/25 17:06 Dose: 40 mg Metoprolol Succinate (Metoprolol Succinate Er (24 Hr) 100 Mg Tablet) 100 mg PO DAILY [facility] Last Admin: 02/20/25 09:29 Dose: 100 mg Nitroglycerin (Nitroglycerin 0.4 Mg Sublingual Tablet) 0.4 mg SUBLINGUAL Q5M PRN PRN Reason: CHEST PAIN Stop: 02/21/25 06:47 Ondansetron HCl (Ondansetron 2 Mg/Ml Sdv 2 Ml) 4 mg IVP Q2M PRN PRN Reason: NAUSEA Last Admin: 02/20/25 08:23 Dose: 4 mg Peritoneal Dialysis Solution (Dianeal Low Ca W/2.5% Dex 2,000 Ml Bag) 2,000 ml INTRAPERIT 5XD [facility] Last Admin: 02/20/25 17:10 Dose: 2,000 ml Tramadol HCl (Tramadol 50 Mg Tablet) 50 mg PO TID PRN PRN Reason: PAIN Last Admin: 02/20/25 11:29 Dose: 50 mg Trazodone HCl (Trazodone 150 Mg Tablet) 150 mg PO QPM [facility] Last Admin: 02/20/25 17:06 Dose: 150 mg Vancomycin HCl (Vancomycin 1,000 Mg Sdv (Pharmacy Mix)) 0 mg XX PRN PRN PRN Reason: Pharmacy to Dose Vitals/I&O/Wt Last Vital Signs Temp 97.9 F 02/20/25 04:15 Pulse 74 02/20/25 18:00 Resp 23 H 02/20/25 18:00 BP 154/67 02/20/25 17:30 Pulse Ox 95 02/20/25 18:00 O2 Del Method Room Air 02/18/25 15:00 02/20/25 02/20/25 02/20/25 06:59 14:59 22:59 Intake Total 171.267 / 1280.856 290 / 290 621.450 / 911.450 Balance 171.267 / 980.856 290 / 290 621.450 / 911.450 Weight last 48 hrs Weight 243 lb Physical Exam Narrative: GENERAL: The patient is alert and oriented times three. Not in any acute distress. Moderately obese HEENT: Mild pallor with no icterus or lymphadenopathy.Oral cavity: There are no mucous membrane lesions. NECK: Trachea appears to be central. No masses noted. No JVD or thyromegaly appreciated. RESPIRATORY: Chest is symmetrical. No intercostals muscle retraction or any accessory muscle activation. There is no chest wall tenderness. Breath sounds are heard bilaterally. No rales or rhonchi heard. No evidence of any consolidation. BREASTS: Deferred. HEART: The heart sounds are normal. No S3 or S4. No significant murmurs. No pericardial rub ABDOMEN: No vessel pulsations or distention. No tenderness. No organomegaly appreciated. Bowel sounds are normally heard. : Deferred. RECTAL: Deferred. LYMPHATIC: No lymphadenopathy noted in the neck. EXTREMITIES: 1+ edema with no cyanosis. MUSCULOSKELETAL: No acute joint deformities or swelling SKIN: There are no significant rashes or ecchymosis NEUROPSYCHIATRIC: The patient is alert and oriented x3. Appears to be in a good mood. No tremors or rigidity noted. Data 02/20/25 06:27 02/20/25 06:27 Other Labs: Laboratory Last Values WBC 15.24 10^3/uL (3.29-11.43) H 02/20/25 06:27 RBC 2.92 10^6/uL (3.85-5.65) L 02/20/25 06:27 Hgb 9.10 g/dL (11.27-16.99) L 02/20/25 06:27 Hct 28.0 % (36-47) L 02/20/25 06: MCV 95.9 fl (85-98) 02/20/25 06:27 MCH 31.2 pg (27-33) 02/20/25 06: MCHC 32.5 g/dL (30-55) 02/20/25 06: RDW 12.7 % (12.1-15.1) 02/20/25 06:27 Plt Count 229 10^3/cmm (157-399) 02/20/25 06:27 MPV 10.1 fL (7.4-10.4) 02/20/25 06: Neut % (Auto) 78.9 % 02/20/25 06: Lymph % (Auto) 6.8 % 02/20/25 06:27 [place] % (Auto) 9.8 % 02/20/25 06:27 Eos % (Auto) 3.6 % 02/20/25 06:27 Baso % (Auto) 0.4 % 02/20/25 06:27 Neut # (Auto) 12.03 10^3/uL (1.8-7.7) H 02/20/25 06:27 Lymph # (Auto) 1.0 10^3/uL (0.8-4.8) 02/20/25 06:27 [place] # (Auto) 1.5 10^3/uL (0.2-0.9) H 02/20/25 06:27 Eos # (Auto) 0.6 10^3/uL (0.0-0.8) 02/20/25 06:27 Baso # (Auto) 0.1 10^3/uL (0.0-0.1) 02/20/25 06:27 Nucleated RBC % (auto) 0 % 02/20/25 06:27 Total Counted Cancelled 02/19/25 00:15 Nucleated RBCs # 0.0 /100WBC 02/20/25 06:27 ESR 22 mm/hr (0-15) H 02/18/25 11:06 PT 14.60 SECONDS (12.1-14.9) 02/18/25 11:06 INR 1.06 (0.8-1.2) 02/18/25 11:06 APTT 44.8 SECONDS (23.9-36.7) H 02/20/25 18:23 D-Dimer 4.21 ug/mLFEU (0-0.59) H 02/18/25 11:06 D-Dimer Cancelled 02/18/25 11:06 Sodium 135 mmol/L (136-145) L 02/20/25 06:27 Potassium 3.8 mmol/L (3.5-5.1) 02/20/25 06:27 Chloride 96 mmol/L (98-107) L 02/20/25 06:27 Carbon Dioxide 23 mmol/L (22-29) 02/20/25 06:27 Anion Gap 19.8 (5-19) H 02/20/25 06:27 BUN 94 mg/dL (8-23) H* 02/20/25 06:27 Creatinine 6.1 mg/dL (0.5-0.9) H* 02/20/25 06:27 GFR Calculation Not Reportable 02/20/25 06:27 Glucose 139 mg/dL (65-115) H 02/20/25 06:27 POC Glucose 168 mg/dL (70-110) H 02/20/25 17:17 Calculated Osmolality 311 mOsm/kg (285-295) H 02/20/25 06:27 Lactic Acid 0.9 mmol/L (0.5-2.2) 02/18/25 15:37 Uric Acid 8.4 mg/dL (2.4-5.7) H 02/18/25 11:06 Calcium 8.2 mg/dL (8.5-10.5) L 02/20/25 06:27 Phosphorus 6.2 mg/dL (2.5-4.5) H 02/20/25 06:27 Magnesium 2.3 mg/dL (1.7-2.3) 02/20/25 06:27 Iron 31 ug/dL (37-145) L 02/19/25 03:37 TIBC 132 mcg/dl 02/19/25 03:37 % Saturation 23.4 % (20-50) 02/19/25 03:37 Unsat Iron Binding 101 ug/dL (112-347) L 02/19/25 03:37 Ferritin 2754 ng/mL (15-150) H 02/19/25 03:37 Total Bilirubin 0.2 mg/dL (0.15-1.2) 02/20/25 06:27 AST 42 U/L (0-32) H 02/20/25 06:27 ALT 62 U/L (0-33) H 02/20/25 06:27 Alkaline Phosphatase 235 U/L (35-105) H 02/20/25 06:27 Troponin T Baseline 44 ng/L (0-10) H 02/18/25 11:06 Troponin T 120 Minute 38.66 ng/L (0-10) H 02/18/25 13:26 Delta Troponin T -5.34 ABS# (0-10) L 02/18/25 13:26 Troponin T Hi Sens 6Hr 37.35 ng/L (0-10) H 02/18/25 18:34 Troponin T Hi Sens 6Hr Delta -6.65 ng/L (0-12) L 02/18/25 18:34 C-Reactive Protein 124.5 mg/L (0.0-4.9) H 02/18/25 13:24 NT-Pro-B Natriuret Pep 3890 pg/mL (0-125) H 02/18/25 11:06 Total Protein 5.9 g/dL (6.6-8.7) L 02/20/25 06:27 Albumin 2.8 g/dL (3.5-5.2) L 02/20/25 06:27 Globulin 3.1 g/dL (1.3-4.6) 02/20/25 06:27 25-OH Vitamin D Total 50 ng/mL (30-100) 02/19/25 03:37 Procalcitonin 0.32 ng/mL (0-0.5) 02/18/25 13:24 PTH Intact 194.9 pg/mL (15-65) H 02/19/25 03:37 Calcium (PTH Intact) 8.1 mg/dL (8.5-10.5) L 02/19/25 03:37 Urine Color Yellow (Yellow) 02/18/25 12:20 Urine Appearance Clear (CLEAR) 02/18/25 12:20 Urine pH 5.5 (5-7) 02/18/25 12:20 Ur Specific [place] 1.014 (1.005-1.030) 02/18/25 12:20 Urine Protein 3+ (Negative) A 02/18/25 12:20 Urine Glucose (UA) Trace (Normal) H 02/18/25 12:20 Urine Ketones Negative (Negative) 02/18/25 12:20 Urine Blood Negative (Negative) 02/18/25 12:20 Urine Nitrate Negative (Negative) 02/18/25 12:20 Urine Bilirubin Negative (Negative) 02/18/25 12:20 Urine Urobilinogen 0.2 mg/dL (Negative) 02/18/25 12:20 Ur Leukocyte Esterase Negative (Negative) 02/18/25 12:20 Urine RBC 0-2 /hpf (0-2) 02/18/25 12:20 Urine WBC 0-5 /hpf (0-5) 02/18/25 12:20 Ur Squamous Epith Cells 11-20 /hpf (0-5) H 02/18/25 12:20 Amorphous Sediment Not Reportable 02/18/25 12:20 Urine Bacteria None seen /hpf (NONE) 02/18/25 12:20 Hyaline Casts 3.71 /lpf 02/18/25 12:20 Peritoneal Color Pale yellow (Pale Yellow) 02/19/25 00:15 Peritoneal Appearance Hazy (Clear) 02/19/25 00:15 Peritoneal pH 7.0 02/19/25 00:15 Peritoneal WBC 9 /uL 02/19/25 00:15 Peritoneal RBC 0 10^3/uL 02/19/25 00:15 Periton Mononu # Auto 0.008 10^3/uL 02/19/25 00:15 Mononuclear WBCs % 88.800 % 02/19/25 00:15 Polynuclear WBCs % 11.200 % 02/19/25 00:15 Perit Polynuc WBCs # 0.001 10^3/uL 02/19/25 00:15 Peritoneal Diff Commnt Yes 02/19/25 00:15 Peritoneal Tot Protein < 0.2 g/dL 02/19/25 00:15 Peritoneal Albumin 0.2 g/dL 02/19/25 00:15 Peritoneal LDH < 10.0 U/L 02/19/25 00:15 Peritoneal Glucose 553.0 mg/dL 02/19/25 00:15 Pleural Color Cancelled 02/19/25 00:15 Pleural Appearance Cancelled 02/19/25 00:15 Pleural WBC Cancelled 02/19/25 00:15 Pleural RBC Cancelled 02/19/25 00:15 Pleural Other Cells Cancelled 02/19/25 00:15 Pleural Polynuclear % Cancelled 02/19/25 00:15 Pleural Mononuclear % Cancelled 02/19/25 00:15 Vancomycin Trough 19.1 ug/mL (10-15) H 02/19/25 16:53 Random Vancomycin 16.3 ug/mL (20.0-40.0) L 02/20/25 06:27 JEFF IFA Animal Tis Res Negative (NEGATIVE) 02/18/25 15:37 PETER-1 Antibody <1.0 neg AI (<1.0 NEG) 02/18/25 15:37 SS-A Antibody <1.0 neg AI (<1.0 NEG) 02/18/25 15:37 SS-B Antibody <1.0 neg AI (<1.0 NEG) 02/18/25 15:37 Sm (Cook) Antibody <1.0 neg AI (<1.0 NEG) 02/18/25 15:37 DESIZING MACHINE BACK TENDER Antibody <1.0 neg AI (<1.0 NEG) 02/18/25 15:37 Scl-70 Antibody <1.0 neg AI (<1.0 NEG) 02/18/25 15:37 Centromere B Antibody <1.0 neg AI (<1.0 NEG) 02/18/25 15:37 Thyroid Peroxidase Ab 1 IU/mL (<9) 02/18/25 15:37 Complement C3c 124 mg/dL (83-193) 02/18/25 15:37 Complement C4c 32 mg/dL (15-57) 02/18/25 15:37 CH50 Classical Pathway 60 U/mL (31-60) 02/18/25 15:37 Path Cons w/Slide Cancelled 02/19/25 00:15 Micro: Microbiology 02/19/25 00:15 Gram Stain - Final Peritoneal Fluid Body Fluid Culture - Preliminary 02/18/25 18:34 Blood Culture - Preliminary Blood NEGATIVE TO DATE 02/18/25 18:37 Blood Culture - Preliminary Blood NEGATIVE TO DATE A&P Assessment and plan (1) Atrial fibrillation with RVR: Patient may be continued in the p.o. amiodarone 400 mg p.o. twice daily for a week followed by 400 mg p.o. daily for a week followed by 200 mg p.o. daily. (2) Diastolic CHF: Seems to be responding to the diuresis and the dialysis. I may give the Lasix IV. Lasix 40 mg IV every 12 hours and potassium 20 mEq p.o. twice daily (3) Pericardial effusion: Will continue on the current measures. Follow-up echocardiogram next week Plan The results of the Myocardial perfusion imaging at its implication were discussed with the patient. At this point, the patient will require any further investigations. Continue the amiodarone as mentioned above Also need to discuss about long-term oral anticoagulation PDMP PDMP Reviewed: Not Reviewed Attestations Medical Necessity Statement*: Deferred to the primary Coding Level of Care Code Acute Code for [facility] Diagnoses Atrial fibrillation with RVR I48.91 Acute diastolic congestive heart failure I50.31 Heart failure chronicity: acute Pericardial effusion I31.39
[2025-02-20] MEDS: potassium chloride ER 20 mEq Tablet PO (20:49)
[2025-02-20] MEDS: FUROsemide 10 mg/mL SDV 4mL 40 MG IVP (20:50)
--- NOTE | 2025-02-20 21:32 | PC.NURSE ---
Transfer Transferred patient to [facility] room 266. Nurse Amaris to bedside. All belongings taken with patient and patient transported on 2 L NC. Patient voicing no complaints at this time.
[2025-02-20 22:21] LABS: Glucose Point of Care 205 mg/dL (70-110)
[2025-02-21 01:12] LABS: Basophils # 0.1 10^3/uL (0.0-0.1); Basophils % 0.3 %; Eosinophils # 0.4 10^3/uL (0.0-0.8); Eosinophils % 2.3 %; Lymphocytes # 1.2 10^3/uL (0.8-4.8); Lymphocytes % 6.8 %; Mean Corpuscular HGB Conc 32.5 g/dL (30-55); Mean Corpuscular Hemoglobin 30.7 pg (27-33); Mean Corpuscular Volume 94.6 fl (85-98); Mean Platelet Volume 9.6 fL (7.4-10.4); Monocytes # 1.4 10^3/uL (0.2-0.9); Monocytes % 8.1 %; Neutrophils # 14.14 10^3/uL (1.8-7.7); Neutrophils % 81.7 %; Nucleated Red Blood Cells % 0 %; Platelet Count 244 10^3/cmm (157-399); Red Blood Count 2.96 10^6/uL (3.85-5.65); Red Cell Distribution Width 12.7 % (12.1-15.1); White Blood Count 17.31 10^3/uL (3.29-11.43)
[2025-02-21 01:27] LABS: Partial Thromboplastin Time 63.2 SECONDS (23.9-36.7)
[2025-02-21 01:34] LABS: Alanine Aminotransferase 57 U/L (0-33); Albumin Level 2.7 g/dL (3.5-5.2); Alkaline Phosphatase 231 U/L (35-105); Anion Gap 17.7 (5-19); Aspartate Amino Transferase 36 U/L (0-32); Blood Urea Nitrogen 77 mg/dL (8-23); Calcium 8.2 mg/dL (8.5-10.5); Carbon Dioxide 23 mmol/L (22-29); Chloride 95 mmol/L (98-107); Globulin 3.3 g/dL (1.3-4.6); Glucose 216 mg/dL (65-115); Magnesium 2.3 mg/dL (1.7-2.3); Osmolality Calculated 304 mOsm/kg (285-295); Phosphorus 5.9 mg/dL (2.5-4.5); Potassium 3.7 mmol/L (3.5-5.1); Sodium 132 mmol/L (136-145); Total Bilirubin 0.3 mg/dL (0.15-1.2)
[2025-02-21 01:42] VITALS: BP 125/80; PULSE 105; RESP 17; TEMP 36.9; O2SAT 95
--- NOTE | 2025-02-21 01:55 | PC.NURSE ---
Heparin Patient's heparin drip titration at approximately 1930 on 02/20 corrected in MAR by this nurse. Change in MAR reflects rate at time of transfer.
--- NOTE | 2025-02-21 02:06 | PC.NURSE ---
during report ICU nurse stated that pt hep gtt is set at 19ml/hr, when pt arrived on the floor pump for hep gtt is set at 19ml/hr. PTT drawn at 0102 and result was 63.2 and per protocol no change. when this nurse is documenting on NOV, nurse noticed that prior entry showed pt gtt rate was 23ml/hr. this nurse spoke with the ICU nurse to verify and ICU nurse verified that rate should have been changed. current rate now remains at 19 ml/hr. Dr. Duncan notified and this nurse instructed to follow protocol.
--- NOTE | 2025-02-21 02:37 | PC.NURSE ---
pt dwell time for HD is 4 hours. last HD admin was 2230 hence 0230 HD is drained. MAR shows that next HD admin is not until 0600. catapres patch due to be changed at 0200 but none available and tom says blocked by pharmacy. nurse will contact pharmacy in AM to change time and send patches up
[2025-02-21 04:56] VITALS: BP 164/82; PULSE 76; RESP 18; TEMP 36.6; O2SAT 96
[2025-02-21] MEDS: Dianeal low Ca w/2.5% dex 2,000 mL Bag 2000 ML INTRAPERIT ×5 (05:58→22:13)
[2025-02-21] MEDS: piperacillin-tazobactam 3.375 GM in sodium chloride 0.9% (plus) 50 ML IV ×2 (05:58→17:10)
[2025-02-21 06:38] LABS: Glucose Point of Care 233 mg/dL (70-110)
[2025-02-21 07:26] VITALS: BP 177/81; PULSE 74; RESP 17; TEMP 36.5; O2SAT 97
[2025-02-21 07:33] LABS: Partial Thromboplastin Time 74.5 SECONDS (23.9-36.7)
[2025-02-21] MEDS: amiodarone 200 mg Tablet 400 MG PO ×2 (07:48→17:09)
[2025-02-21] MEDS: atorvastatin 40 mg Tablet 80 MG PO (07:48)
[2025-02-21] MEDS: FUROsemide 10 mg/mL SDV 4mL 40 MG IVP ×2 (07:48→09:00)
[2025-02-21] MEDS: insulin lispro 100 unit/1 mL SUBCUT ×3 (07:48→17:09)
[2025-02-21] MEDS: TRAMadol 50 mg Tablet PO ×2 (07:48→17:09)
[2025-02-21] MEDS: citalopram 20 mg Tablet 40 MG PO (07:49)
[2025-02-21] MEDS: metoprolol succinate ER (24 HR) 100 mg Tablet PO (07:49)
[2025-02-21] MEDS: amlodipine 5 mg Tablet PO (07:49)
--- NOTE | 2025-02-21 08:00 | P.PN_ITS ---
Subjective 2 Subjective: seen and examined. feels better. dec nausea, sob. she is in NSR. no cp no steele no diarrhea Medications: Reviewed: Yes Medication Review Details: Current Medications Alprazolam (Alprazolam 0.5 Mg Tablet) 0.25 mg PO TID PRN PRN Reason: ANXIETY Last Admin: 02/20/25 11:15 Dose: 0.25 mg Amiodarone HCl (Amiodarone 200 Mg Tablet) 400 mg PO BID REPLACED BY [facility] Last Admin: 02/21/25 07:48 Dose: 400 mg Amlodipine Besylate (Amlodipine 5 Mg Tablet) 5 mg PO DAILY REPLACED BY [facility] Last Admin: 02/21/25 07:49 Dose: 5 mg Atorvastatin Calcium (Atorvastatin 40 Mg Tablet) 80 mg PO DAILY REPLACED BY [facility] Last Admin: 02/21/25 07:48 Dose: 80 mg Calcitriol (Calcitriol 0.25 Mcg Capsule) 0.25 mcg PO QMWF REPLACED BY [facility] Last Admin: 02/19/25 14:05 Dose: 0.25 mcg Citalopram Hydrobromide (Citalopram 20 Mg Tablet) 40 mg PO DAILY REPLACED BY [facility] Last Admin: 02/21/25 07:49 Dose: 40 mg Clonidine HCl (Clonidine 0.1 Mg/24 Hr Patch) 0.1 patch TRANSDERMA Th REPLACED BY [facility] Dorzolamide/Timolol (Dorzolamide/Timolol Op Soln 10 Ml Btl) 1 drop EYE-BOTH BID REPLACED BY [facility] Last Admin: 02/20/25 17:17 Dose: 1 drop Furosemide (Furosemide 10 Mg/Ml Sdv 4ml) 40 mg IVP Q12H REPLACED BY [facility] Last Admin: 02/21/25 07:48 Dose: 40 mg Glucagon (Glucagon 1 Mg/Ml Kit 1 Ml) 1 mg IM ONCE PRN; Protocol PRN Reason: Adult Acute Hypoglycemia Nursing Prot. Heparin Sodium (Porcine) (Heparin 5,000 Unit/Ml Inj 1 Ml) 0 unit IVP PRN PRN; Protocol PRN Reason: Heparin Weight Based Protocol -Subsequent Bolus Dextrose (D5w) 500 mls @ 0 mls/hr IV ONCE PRN; Protocol PRN Reason: Adult Acute Hypoglycemia Prot Dextrose (D10w) 125 mls @ 750 mls/hr IV PRN PRN; Protocol PRN Reason: Adult Acute Hypoglycemia Nursing Protocol Dextrose (D10w) 250 mls @ 1,000 mls/hr IV PRN PRN; Protocol PRN Reason: Adult Acute Hypoglycemia Nursing Protocol Piperacillin Sod/Tazobactam (Sod 3.375 gm/ Sodium Chloride) 50 mls @ 12.5 mls/hr IV Q12H REPLACED BY [facility] Last Admin: 02/21/25 05:58 Dose: 12.5 mls/hr Heparin Sodium/Sodium Chloride (Heparin Drip) 25,000 unit in 500 mls @ 0 mls/hr IV CONT REPLACED BY [facility]; Protocol Last Titration: 02/21/25 07:43 Dose: 9.03 unit/kg/hr, 19 mls/hr Insulin Human Lispro (Insulin Lispro 100 Unit/1 Ml) 0 unit SUBCUT TIDWM REPLACED BY [facility]; Protocol Last Admin: 02/21/25 07:48 Dose: 8 unit Lisinopril (Lisinopril 20 Mg Tablet) 40 mg PO QPM REPLACED BY [facility] Last Admin: 02/20/25 17:06 Dose: 40 mg Metoprolol Succinate (Metoprolol Succinate Er (24 Hr) 100 Mg Tablet) 100 mg PO DAILY REPLACED BY [facility] Last Admin: 02/21/25 07:49 Dose: 100 mg Ondansetron HCl (Ondansetron 2 Mg/Ml Sdv 2 Ml) 4 mg IVP Q2M PRN PRN Reason: NAUSEA Last Admin: 02/20/25 08:23 Dose: 4 mg Peritoneal Dialysis Solution (Dianeal Low Ca W/2.5% Dex 2,000 Ml Bag) 2,000 ml INTRAPERIT 5XD REPLACED BY [facility] Last Admin: 02/21/25 05:58 Dose: 2,000 ml Tramadol HCl (Tramadol 50 Mg Tablet) 50 mg PO TID PRN PRN Reason: PAIN Last Admin: 02/21/25 07:48 Dose: 50 mg Trazodone HCl (Trazodone 150 Mg Tablet) 150 mg PO QPM REPLACED BY [facility] Last Admin: 02/20/25 17:06 Dose: 150 mg Vancomycin HCl (Vancomycin 1,000 Mg Sdv (Pharmacy Mix)) 0 mg XX PRN PRN PRN Reason: Pharmacy to Dose Vitals/I&O/Wt Last Vital Signs Temp 97.7 F 02/21/25 07:26 Pulse 74 02/21/25 07:26 Resp 17 02/21/25 07:26 BP 177/81 02/21/25 07:26 Pulse Ox 97 02/21/25 07:26 O2 Del Method Nasal Cannula 02/21/25 07:26 O2 Flow Rate 1 02/21/25 07:01 02/20/25 02/21/25 02/21/25 22:59 06:59 14:59 Intake Total 2861.450 / 3151.450 2390.067 / 5541.517 126.983 / 126.983 Output Total 2750 / 2750 2700 / 5450 Balance 111.450 / 401.450 -309.933 / 91.517 126.983 / 126.983 Weight last 48 hrs Weight 124.284 kg Weight 124.284 kg Physical Exam 2 Narrative: Patient seen and examined using audiovisual equipment with the aid of a nurse. The patient is lying in bed no apparent distress. Vital signs noted blood pressure and HR stable. HEENT normocephalic atraumatic. Neck is supple. Lungs good air movement b/l. Heart -regular with systolic murmur positive S1-S2. Abdomen soft positive bowel sounds. Positive peritoneal dialysis catheter clean dry and intact. Extremities 1+ b/l edema. Neuro awake alert oriented x 3. 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 Developed COVID over a year ago and then developed ESRD. The patient also has a brain tumor. The patient is here now with new onset A- fib with RVR. 1. Cardiology appreciated- she converted from a fib to NSR- continue amiodarone 2. pericardial effusion- continue aggressive CAPD. -I discussed w/ Dr Atwood -pt has a good kt/v on PD. she and the pt want to attempt to stay on PD -cont current CAPD- 5 exchanges a day of 2.5% glu, 2l fill 3. Diabetic control. 4. Hypertension monitor on current meds and fluid removal w/ dialysis. increase furosemide 5. anemia - high ferritin. contt epo 7. inc phos binder normal vit d and pth good for esrd- low dose calcitriol discharge as per PMD The patient was seen and examined using A/V equipment with the aid of a nurse. The patient consented to peritoneal dialysis onto telehealth. Plan See above. PDMP PDMP Reviewed: Not Reviewed Attestations 2 Medical Necessity Statement*: per hospitalist Time Spent in Patient Care: 16 - 35 minutes (>than 50% of time sp ent in counselling and/or direct pt care on unit) . Coding Level of Care Code Acute Code for [facility] Diagnoses ESRD (end stage renal disease) on dialysis N18.6; Z99.2
[2025-02-21] MEDS: dorzolamide/timolol Op Soln 10 mL Btl 1 DROP EYE-BOTH ×2 (09:00→17:09)
--- NOTE | 2025-02-21 09:31 | P.PN_ITS ---
Subjective 2 Subjective: Patient is doing okay. The shortness of breath is improving. No chest pain or palpitations. No fever or chills. Medications: Medication Review Details: Current Medications Alprazolam (Alprazolam 0.5 Mg Tablet) 0.25 mg PO TID PRN PRN Reason: ANXIETY Last Admin: 02/20/25 11:15 Dose: 0.25 mg Amiodarone HCl (Amiodarone 200 Mg Tablet) 400 mg PO BID [facility] Last Admin: 02/21/25 07:48 Dose: 400 mg Amlodipine Besylate (Amlodipine 5 Mg Tablet) 5 mg PO DAILY [facility] Last Admin: 02/21/25 07:49 Dose: 5 mg Atorvastatin Calcium (Atorvastatin 40 Mg Tablet) 80 mg PO DAILY [facility] Last Admin: 02/21/25 07:48 Dose: 80 mg Calcitriol (Calcitriol 0.25 Mcg Capsule) 0.25 mcg PO QMWF [facility] Last Admin: 02/19/25 14:05 Dose: 0.25 mcg Citalopram Hydrobromide (Citalopram 20 Mg Tablet) 40 mg PO DAILY [facility] Last Admin: 02/21/25 07:49 Dose: 40 mg Clonidine HCl (Clonidine 0.1 Mg/24 Hr Patch) 0.1 patch TRANSDERMA Th [facility] Dorzolamide/Timolol (Dorzolamide/Timolol Op Soln 10 Ml Btl) 1 drop EYE-BOTH BID [facility] Last Admin: 02/21/25 09:00 Dose: 1 drop Furosemide (Furosemide 10 Mg/Ml Sdv 4ml) 80 mg IVP BID@0900,2100 [facility] Glucagon (Glucagon 1 Mg/Ml Kit 1 Ml) 1 mg IM ONCE PRN; Protocol PRN Reason: Adult Acute Hypoglycemia Nursing Prot. Heparin Sodium (Porcine) (Heparin 5,000 Unit/Ml Inj 1 Ml) 0 unit IVP PRN PRN; Protocol PRN Reason: Heparin Weight Based Protocol -Subsequent Bolus Dextrose (D5w) 500 mls @ 0 mls/hr IV ONCE PRN; Protocol PRN Reason: Adult Acute Hypoglycemia Prot Dextrose (D10w) 125 mls @ 750 mls/hr IV PRN PRN; Protocol PRN Reason: Adult Acute Hypoglycemia Nursing Protocol Dextrose (D10w) 250 mls @ 1,000 mls/hr IV PRN PRN; Protocol PRN Reason: Adult Acute Hypoglycemia Nursing Protocol Piperacillin Sod/Tazobactam (Sod 3.375 gm/ Sodium Chloride) 50 mls @ 12.5 mls/hr IV Q12H [facility] Last Admin: 02/21/25 05:58 Dose: 12.5 mls/hr Heparin Sodium/Sodium Chloride (Heparin Drip) 25,000 unit in 500 mls @ 0 mls/hr IV CONT [facility]; Protocol Last Titration: 02/21/25 07:43 Dose: 9.03 unit/kg/hr, 19 mls/hr Insulin Human Lispro (Insulin Lispro 100 Unit/1 Ml) 0 unit SUBCUT TIDWM TEJINDER; Protocol Last Admin: 02/21/25 07:48 Dose: 8 unit Lisinopril (Lisinopril 20 Mg Tablet) 40 mg PO QPM [facility] Last Admin: 02/20/25 17:06 Dose: 40 mg Metoprolol Succinate (Metoprolol Succinate Er (24 Hr) 100 Mg Tablet) 100 mg PO DAILY [facility] Last Admin: 02/21/25 07:49 Dose: 100 mg Ondansetron HCl (Ondansetron 2 Mg/Ml Sdv 2 Ml) 4 mg IVP Q2M PRN PRN Reason: NAUSEA Last Admin: 02/20/25 08:23 Dose: 4 mg Peritoneal Dialysis Solution (Dianeal Low Ca W/2.5% Dex 2,000 Ml Bag) 2,000 ml INTRAPERIT 5XD TEJINDER Last Admin: 02/21/25 05:58 Dose: 2,000 ml Peritoneal Dialysis Solution (Dianeal Low Ca W/2.5% Dex 2,000 Ml Bag) 2,000 ml INTRAPERIT 5XD TEJINDER Tramadol HCl (Tramadol 50 Mg Tablet) 50 mg PO TID PRN PRN Reason: PAIN Last Admin: 02/21/25 07:48 Dose: 50 mg Trazodone HCl (Trazodone 150 Mg Tablet) 150 mg PO QPM [facility] Last Admin: 02/20/25 17:06 Dose: 150 mg Vancomycin HCl (Vancomycin 1,000 Mg Sdv (Pharmacy Mix)) 0 mg XX PRN PRN PRN Reason: Pharmacy to Dose Vitals/I&O/Wt Last Vital Signs Temp 97.7 F 02/21/25 07:26 Pulse 74 02/21/25 07:26 Resp 17 02/21/25 07:26 BP 177/81 02/21/25 07:26 Pulse Ox 97 06/20/25 07:26 O2 Del Method Nasal Cannula 02/21/25 07:26 O2 Flow Rate 1 02/21/25 07:01 02/20/25 02/21/25 02/21/25 22:59 06:59 14:59 Intake Total 2861.450 / 3151.450 2390.067 / 5541.517 366.983 / 366.983 Output Total 2750 / 2750 2700 / 5450 Balance 111.450 / 401.450 -309.933 / 91.517 366.983 / 366.983 Weight last 48 hrs Weight 274 lb Weight 274 lb Physical Exam 2 Narrative: GENERAL: The patient is alert and oriented times three. Not in any acute distress. Moderately obese HEENT: Mild pallor with no icterus or lymphadenopathy.Oral cavity: There are no mucous membrane lesions. NECK: Trachea appears to be central. No masses noted. No JVD or thyromegaly appreciated. RESPIRATORY: Chest is symmetrical. No intercostals muscle retraction or any accessory muscle activation. There is no chest wall tenderness. Breath sounds are heard bilaterally. No rales or rhonchi heard. No evidence of any consolidation. BREASTS: Deferred. HEART: The heart sounds are normal. No S3 or S4. No significant murmurs. No pericardial rub ABDOMEN: No vessel pulsations or distention. No tenderness. No organomegaly appreciated. Bowel sounds are normally heard. : Deferred. RECTAL: Deferred. LYMPHATIC: No lymphadenopathy noted in the neck. EXTREMITIES: 1+ edema with no cyanosis. MUSCULOSKELETAL: No acute joint deformities or swelling SKIN: There are no significant rashes or ecchymosis NEUROPSYCHIATRIC: The patient is alert and oriented x3. Appears to be in a good mood. No tremors or rigidity noted. Data 02/21/25 01:02 02/21/25 01:02 Other Labs: Laboratory Last Values WBC 17.31 10^3/uL (3.29-11.43) H 02/21/25 01:02 RBC 2.96 10^6/uL (3.85-5.65) L 02/21/25 01:02 Hgb 9.10 g/dL (11.27-16.99) L 02/21/25 01:02 Hct 28.0 % (36-47) L 02/21/25 01:02 MCV 94.6 fl (85-98) 02/21/25 01:02 MCH 30.7 pg (27-33) 02/21/25 01:02 MCHC 32.5 g/dL (30-55) 02/21/25 01:02 RDW 12.7 % (12.1-15.1) 02/21/25 01:02 Plt Count 244 10^3/cmm (157-399) 02/21/25 01:02 MPV 9.6 fL (7.4-10.4) 02/21/25 01:02 Neut % (Auto) 81.7 % 02/21/25 01:02 Lymph % (Auto) 6.8 % 02/21/25 01:02 [place] % (Auto) 8.1 % 02/21/25 01:02 Eos % (Auto) 2.3 % 02/21/25 01:02 Baso % (Auto) 0.3 % 02/21/25 01:02 Neut # (Auto) 14.14 10^3/uL (1.8-7.7) H 02/21/25 01:02 Lymph # (Auto) 1.2 10^3/uL (0.8-4.8) 02/21/25 01:02 [place] # (Auto) 1.4 10^3/uL (0.2-0.9) H 02/21/25 01:02 Eos # (Auto) 0.4 10^3/uL (0.0-0.8) 02/21/25 01:02 Baso # (Auto) 0.1 10^3/uL (0.0-0.1) 02/21/25 01:02 Nucleated RBC % (auto) 0 % 02/21/25 01:02 Total Counted Cancelled 02/19/25 00:15 Nucleated RBCs # 0.0 /100WBC 02/21/25 01:02 ESR 22 mm/hr (0-15) H 02/18/25 11:06 PT 14.60 SECONDS (12.1-14.9) 02/18/25 11:06 INR 1.06 (0.8-1.2) 02/18/25 11:06 APTT 52.4 SECONDS (23.9-36.7) H 02/21/25 13:26 D-Dimer 4.21 ug/mLFEU (0-0.59) H 02/18/25 11:06 D-Dimer Cancelled 02/18/25 11:06 Sodium 132 mmol/L (136-145) L 02/21/25 01:02 Potassium 3.7 mmol/L (3.5-5.1) 02/21/25 01:02 Chloride 95 mmol/L (98-107) L 02/21/25 01:02 Carbon Dioxide 23 mmol/L (22-29) 02/21/25 01:02 Anion Gap 17.7 (5-19) 02/21/25 01:02 BUN 77 mg/dL (8-23) H 02/21/25 01:02 Creatinine 5.8 mg/dL (0.5-0.9) H* 02/21/25 01:02 GFR Calculation Not Reportable 02/21/25 01:02 Glucose 216 mg/dL (65-115) H 02/21/25 01:02 POC Glucose 229 mg/dL (70-110) H 02/21/25 12:53 Calculated Osmolality 304 mOsm/kg (285-295) H 02/21/25 01:02 Lactic Acid 0.9 mmol/L (0.5-2.2) 02/18/25 15:37 Uric Acid 8.4 mg/dL (2.4-5.7) H 02/18/25 11:06 Calcium 8.2 mg/dL (8.5-10.5) L 02/21/25 01:02 Phosphorus 5.9 mg/dL (2.5-4.5) H 02/21/25 01:02 Magnesium 2.3 mg/dL (1.7-2.3) 02/21/25 01:02 Iron 31 ug/dL (37-145) L 02/19/25 03:37 TIBC 132 mcg/dl 02/19/25 03:37 % Saturation 23.4 % (20-50) 02/19/25 03:37 Unsat Iron Binding 101 ug/dL (112-347) L 02/19/25 03:37 Ferritin 2754 ng/mL (15-150) H 02/19/25 03:37 Total Bilirubin 0.3 mg/dL (0.15-1.2) 02/21/25 01:02 AST 36 U/L (0-32) H 02/21/25 01:02 ALT 57 U/L (0-33) H 02/21/25 01:02 Alkaline Phosphatase 231 U/L (35-105) H 02/21/25 01:02 Troponin T Baseline 44 ng/L (0-10) H 02/18/25 11:06 Troponin T 120 Minute 38.66 ng/L (0-10) H 02/18/25 13:26 Delta Troponin T -5.34 ABS# (0-10) L 02/18/25 13:26 Troponin T Hi Sens 6Hr 37.35 ng/L (0-10) H 02/18/25 18:34 Troponin T Hi Sens 6Hr Delta -6.65 ng/L (0-12) L 02/18/25 18:34 C-Reactive Protein 124.5 mg/L (0.0-4.9) H 02/18/25 13:24 NT-Pro-B Natriuret Pep 3890 pg/mL (0-125) H 02/18/25 11:06 Total Protein 6.0 g/dL (6.6-8.7) L 02/21/25 01:02 Albumin 2.7 g/dL (3.5-5.2) L 02/21/25 01:02 Globulin 3.3 g/dL (1.3-4.6) 02/21/25 01:02 25-OH Vitamin D Total 50 ng/mL (30-100) 02/19/25 03:37 Procalcitonin 0.32 ng/mL (0-0.5) 02/18/25 13:24 PTH Intact 194.9 pg/mL (15-65) H 02/19/25 03:37 Calcium (PTH Intact) 8.1 mg/dL (8.5-10.5) L 02/19/25 03:37 Urine Color Yellow (Yellow) 02/18/25 12:20 Urine Appearance Clear (CLEAR) 02/18/25 12:20 Urine pH 5.5 (5-7) 02/18/25 12:20 Ur Specific [place] 1.014 (1.005-1.030) 02/18/25 12:20 Urine Protein 3+ (Negative) A 02/18/25 12:20 Urine Glucose (UA) Trace (Normal) H 02/18/25 12:20 Urine Ketones Negative (Negative) 02/18/25 12:20 Urine Blood Negative (Negative) 02/18/25 12:20 Urine Nitrate Negative (Negative) 02/18/25 12:20 Urine Bilirubin Negative (Negative) 02/18/25 12:20 Urine Urobilinogen 0.2 mg/dL (Negative) 02/18/25 12:20 Ur Leukocyte Esterase Negative (Negative) 02/18/25 12:20 Urine RBC 0-2 /hpf (0-2) 02/18/25 12:20 Urine WBC 0-5 /hpf (0-5) 02/18/25 12:20 Ur Squamous Epith Cells 11-20 /hpf (0-5) H 02/18/25 12:20 Amorphous Sediment Not Reportable 02/18/25 12:20 Urine Bacteria None seen /hpf (NONE) 02/18/25 12:20 Hyaline Casts 3.71 /lpf 02/18/25 12:20 Peritoneal Color Pale yellow (Pale Yellow) 02/19/25 00:15 Peritoneal Appearance Hazy (Clear) 02/19/25 00:15 Peritoneal pH 7.0 02/19/25 00:15 Peritoneal WBC 9 /uL 02/19/25 00:15 Peritoneal RBC 0 10^3/uL 02/19/25 00:15 Periton Mononu # Auto 0.008 10^3/uL 02/19/25 00:15 Mononuclear WBCs % 88.800 % 02/19/25 00:15 Polynuclear WBCs % 11.200 % 02/19/25 00:15 Perit Polynuc WBCs # 0.001 10^3/uL 02/19/25 00:15 Peritoneal Diff Commnt Yes 02/19/25 00:15 Peritoneal Tot Protein < 0.2 g/dL 02/19/25 00:15 Peritoneal Albumin 0.2 g/dL 02/19/25 00:15 Peritoneal LDH < 10.0 U/L 02/19/25 00:15 Peritoneal Glucose 553.0 mg/dL 02/19/25 00:15 Pleural Color Cancelled 02/19/25 00:15 Pleural Appearance Cancelled 02/19/25 00:15 Pleural WBC Cancelled 02/19/25 00:15 Pleural RBC Cancelled 02/19/25 00:15 Pleural Other Cells Cancelled 02/19/25 00:15 Pleural Polynuclear % Cancelled 02/19/25 00:15 Pleural Mononuclear % Cancelled 02/19/25 00:15 Vancomycin Trough 19.8 ug/mL (10-15) H 02/21/25 14:41 Random Vancomycin 16.3 ug/mL (20.0-40.0) L 02/20/25 06:27 JEFF IFA Animal Tis Res Negative (NEGATIVE) 02/18/25 15:37 PETER-1 Antibody <1.0 neg AI (<1.0 NEG) 02/18/25 15:37 SS-A Antibody <1.0 neg AI (<1.0 NEG) 02/18/25 15:37 SS-B Antibody <1.0 neg AI (<1.0 NEG) 02/18/25 15:37 Sm (Cook) Antibody <1.0 neg AI (<1.0 NEG) 02/18/25 15:37 COVER STITCH MACHINE OPERATOR Antibody <1.0 neg AI (<1.0 NEG) 02/18/25 15:37 Scl-70 Antibody <1.0 neg AI (<1.0 NEG) 02/18/25 15:37 Centromere B Antibody <1.0 neg AI (<1.0 NEG) 02/18/25 15:37 Thyroid Peroxidase Ab 1 IU/mL (<9) 02/18/25 15:37 Complement C3c 124 mg/dL (83-193) 02/18/25 15:37 Complement C4c 32 mg/dL (15-57) 02/18/25 15:37 CH50 Classical Pathway 60 U/mL (31-60) 02/18/25 15:37 Path Cons w/Slide Cancelled 02/19/25 00:15 Micro: Microbiology 02/19/25 00:15 Gram Stain - Final Peritoneal Fluid Body Fluid Culture - Preliminary A&P Assessment and plan (1) ESRD (end stage renal disease) on dialysis: (2) Atrial fibrillation with RVR: Patient may be continued in the p.o. amiodarone 400 mg p.o. twice daily for a week followed by 400 mg p.o. daily for a week followed by 200 mg p.o. daily. Will do a repeat EKG today to evaluate the QT Patient also need a baseline PFT as an outpatient mainly to evaluate for the baseline diffusion capacity Discussed with patient about the need for long-term oral anticoagulation. Patient understands the risks and benefits. She is agreeable. Discussed with Dr. Cabrera. may be started on Coumadin today (3) Diastolic CHF: Seems to be responding to the diuresis and the dialysis. I may give the Lasix IV. Lasix 40 mg IV every 12 hours and potassium 20 mEq p.o. twice daily. May continue on the current management (4) Pericardial effusion: Will continue on the current measures. Follow-up echocardiogram next week Plan Please arrange for outpatient echo, to follow-up on the pericardial effusion Also need to arrange for pro time management as outpatient. Appointment at [facility] to be seen 1 week by the nurse practitioner I may see her in the office in 1 month PDMP PDMP Reviewed: Not Reviewed Attestations 2 Medical Necessity Statement*: Disposition as per the primary Coding Level of Care Code 90345 Diagnoses ESRD (end stage renal disease) on dialysis N18.6; Z99.2 Atrial fibrillation with RVR I48.91 Acute diastolic congestive heart failure I50.31 Heart failure chronicity: acute Pericardial effusion I31.39
--- NOTE | 2025-02-21 10:17 | PC.NURSE ---
Pt hooked up to PD, draining at this time.
--- NOTE | 2025-02-21 10:27 | PC.SOCIAL ---
IMM Updated Updated pt on IMM. no questions voiced. Provided pt a copy. Initialed, dated, & timed a copy & placed in chart.
[2025-02-21 10:34] LABS: Glucose Point of Care 218 mg/dL (70-110)
[2025-02-21 11:20] VITALS: BP 140/73; PULSE 93; RESP 16; TEMP 36.4; O2SAT 93
[2025-02-21 12:56] LABS: Glucose Point of Care 229 mg/dL (70-110)
[2025-02-21 13:43] LABS: Partial Thromboplastin Time 52.4 SECONDS (23.9-36.7)
[2025-02-21] MEDS: calcitriol 0.25 mcg Capsule PO (14:02)
--- NOTE | 2025-02-21 14:10 | PC.NURSE ---
Pt hooked up to PD, draining at this time
[2025-02-21] MEDS: warfarin 5 mg Tablet PO (14:19)
[2025-02-21] MEDS: cyclobenzaprine 10 mg Tablet 5 MG PO (14:20)
--- NOTE | 2025-02-21 14:53 | P.PN_ITS ---
Subjective 2 Subjective: Patient was seen this morning, currently alert oriented x 3, following all commands, denies any fevers, no chills, no cough, her shortness of breath is improving, we discussed anticoagulation on Coumadin, given her chronic kidney disease on peritoneal dialysis, discussed risks and benefits, she voiced understanding, all questions answered, she is in agreement, patient is receiving inpatient peritoneal dialysis, continue IV diuresis, discussed once her peritoneal cultures are -48 hours will likely discontinue antibiotics as I think that the likelihood of her having spontaneous bacterial peritonitis fairly unlikely Vitals/I&O/Wt Last Vital Signs Temp 97.6 F 02/21/25 11:20 Pulse 93 02/21/25 11:20 Resp 16 02/21/25 11:20 BP 140/73 02/21/25 11:20 Pulse Ox 93 02/21/25 11:20 O2 Del Method Room Air 02/21/25 11:20 O2 Flow Rate 1 02/21/25 07:01 02/20/25 02/21/25 02/21/25 22:59 06:59 14:59 Intake Total 2861.450 / 3151.450 2390.067 / 5541.517 4476.983 / 4476.983 Output Total 2750 / 2750 2700 / 5450 5400 / 5400 Balance 111.450 / 401.450 -309.933 / 91.517 -923.017 / -923.017 Weight last 48 hrs Weight 124.284 kg Weight 124.284 kg Physical Exam 2 Const: COMMON NORMALS: no acute distress and patient oriented x3 Resp: COMMON NORMALS: normal respiratory effort, No retractions and No use of accessory muscles AUSCULTATION: crackles and wheezes Cardio: COMMON NORMALS: regular rate, regular rhythm, S1 normal heart sound present and S2 normal heart sound present RATE: regular rate RHYTHM: r egular rhythm HEART SOUNDS: S1 normal heart sound present and S2 normal heart sound present GI: COMMON NORMALS: Normal to inspection, nondistended, normoactive bowel sounds present and non-tender Extremity: COMMON NORMALS: no pedal edema Neuro: COMMON NORMALS: patient oriented x3 Psych: COMMON NORMALS: mental status grossly normal Data 02/21/25 01:02 02/21/25 01:02 Micro: Microbiology 02/19/25 00:15 Gram Stain - Final Peritoneal Fluid Body Fluid Culture - Preliminary A&P Assessment and plan (1) Atrial fibrillation with RVR: (2) Pericardial effusion: (3) Leukocytosis: (4) Diastolic CHF: (5) Acute bacterial peritonitis: Plan Shortness of breath -Currently not requiring oxygen - Etiology - Multifactorial - Concerns for pericardial effusion, not hemodynamically significant - Concerns for diastolic CHF, fluid overloaded receiving inpatient peritoneal dialysis -A-fib with RVR, converted to normal sinus rhythm - CT chest without contrast CT/CT chest wo con [id number] IMPRESSION: 1. Large pericardial effusion. This appears new since 12/11/2024. 2. Tiny LEFT pleural effusion. 3. Lungs are otherwise well aerated. 4. No other acute chest findings. Cardiac echo CONCLUSIONS Features suggestive of small to moderate pericardial effusion Mild diffuse hypokinesis of the left ventricle with an ejection fraction of 51%. Mild left ventricular hypertrophy. Grade I/IV diastolic dysfunction (abnormal relaxation filling pattern), normal to mildly elevated filling pressures. Normal systolic motion of the interventricular septum. Mildly increased left atrial size. Thickened mitral valve. Trace mitral valve regurgitation. Thickened aortic valve. There are no intracardiac masses. No similar previous studies are available for comparison Plan - Order D-dimer 4.21 venous ultrasound bilateral extremities negative for DVT - Continue IV Lasix - Receiving PD dialysis, 5 exchanges a day for 2.5 - Patient might require switch over to hemodialysis based on clinical progress Atrial fibrillation with rapid ventricular response -Converted to normal sinus rhythm - De-escalate to p.o. amiodarone - CHADS2 Vasc 4 - Discussed Coumadin, patient is in agreement will start Coumadin as inpatient - Status post stress test today IMPRESSIONS 1. Myocardial perfusion imaging revealing uniform myocardial tracer uptake with no significant Perfusion abnormalities 2. Normal LV ejection fraction of 67%. 3. LV wall motion analysis revealing no gross wall motion abnormalities. 4. Normal LV volume. Low probability for coronary ischemia, based on the above findings No similar previous studies are available for comparison Large pericardial effusion - Seen on CT chest and abdomen - Cardiac echo CONCLUSIONS Features suggestive of small to moderate pericardial effusion Mild diffuse hypokinesis of the left ventricle with an ejection fraction of 51%. Mild left ventricular hypertrophy. Grade I/IV diastolic dysfunction (abnormal relaxation filling pattern), normal to mildly elevated filling pressures. Normal systolic motion of the interventricular septum. Mildly increased left atrial size. Thickened mitral valve. Trace mitral valve regurgitation. Thickened aortic valve. There are no intracardiac masses. No similar previous studies are available for comparison Etiology potentially related to uremia Plan -Cardiology consulted - Moved to cardiac stepdown unit Recent history of bacterial peritonitis - Will obtain peritoneal studies, so farculture negative 24 hours, Gram stain no organisms - Given elevated CRP, leukocytosis will start on broad-spectrum antibiotics vancomycin, Zosyn - Monitor clinical status closely Acute on chronic leukocytosis - Could be from pericardial effusion, - Could be from bacterial peritonitis - Follow blood cultures - Follow-up peritoneal cultures Transaminitis, monitor Peritoneal dialysis - Nephrology consulted for PD dialysis Acute on chronic anemia - Will monitor closely - Recent iron studies show iron at 77, ferritin 2007 Type 2 diabetes mellitus, moderate dose sliding scale Full code Heparin for DVT prophylaxis Plan for today peritoneal dialysis, iv lasix, iv abx PDMP PDMP Reviewed: Not Reviewed Attestations 2 Medical Necessity Statement*: Patient requires hospitalization for fluid overload requiring inpatient PD Diagnoses Atrial fibrillation with RVR I48.91 Pericardial effusion I31.39 Leukocytosis D72.829 Acute diastolic congestive heart failure I50.31 Heart failure chronicity: acute Acute bacterial peritonitis K65.9
[2025-02-21 15:05] LABS: Vancomycin Trough 19.8 ug/mL (10-15)
[2025-02-21 15:38] VITALS: BP 153/80; PULSE 69; RESP 16; TEMP 36.4; O2SAT 91
--- NOTE | 2025-02-21 16:12 | ECG_ITS ---
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 Measurements Intervals [place] Rate: 69 P: 9 PA: 155 QRS: 47 QRSD: 112 T: 97 QT: 371 QTc: 398 Interpretive Statements SINUS RHYTHM MODERATE INTRAVENTRICULAR CONDUCTION DELAY [110+ ms QRS DURATION] NONSPECIFIC ST & T-WAVE ABNORMALITY Compared to ECG 02/18/2025 14:30:51 Intraventricular conduction delay now present Atrial fibrillation no longer present T-wave abnormality still present Electronically Signed On 02-23-2025 19:38:32 CDT by Sean Schroeder M.D. [email or web address]
[2025-02-21 16:48] LABS: Glucose Point of Care 207 mg/dL (70-110)
[2025-02-21] MEDS: lisinopril 20 mg Tablet 40 MG PO (17:09)
[2025-02-21] MEDS: trazodone 150 mg Tablet PO (17:09)
[2025-02-21] MEDS: polyethylene glycol 3350 Pkt 17 gm PO (18:03)
[2025-02-21] MEDS: sennosides-docusate Tablet 2 TAB PO (18:03)
--- NOTE | 2025-02-21 18:08 | PC.NURSE ---
PD started, pt now draining.
[2025-02-21 19:30] VITALS: BP 185/82; PULSE 77; RESP 18; TEMP 36.6; O2SAT 94
[2025-02-21] MEDS: FUROsemide 10 mg/mL SDV 4mL 80 MG IVP (20:26)
[2025-02-21 20:53] LABS: Glucose Point of Care 283 mg/dL (70-110)
[2025-02-21] MEDS: heparin 5,000 unit/mL INJ 1 mL 5000 UNIT SUBCUT (22:12)
[2025-02-22] VITALS: BP 149/78; PULSE 69; RESP 16; TEMP 36.7; O2SAT 93
[2025-02-22] MEDS: TRAMadol 50 mg Tablet PO ×2 (03:53→20:47)
[2025-02-22] MEDS: cyclobenzaprine 10 mg Tablet 5 MG PO (03:53)
[2025-02-22 04:00] VITALS: BP 146/81; PULSE 70; RESP 16; TEMP 36.7; O2SAT 96
[2025-02-22 04:37] LABS: Basophils # 0.1 10^3/uL (0.0-0.1); Basophils % 0.6 %; Eosinophils # 0.7 10^3/uL (0.0-0.8); Eosinophils % 4.6 %; Hematocrit 32.8 % (36-47); Lymphocytes # 1.1 10^3/uL (0.8-4.8); Lymphocytes % 7.8 %; Mean Corpuscular HGB Conc 29.9 g/dL (30-55); Mean Corpuscular Hemoglobin 30.8 pg (27-33); Mean Corpuscular Volume 103.1 fl (85-98); Mean Platelet Volume 9.9 fL (7.4-10.4); Monocytes # 1.4 10^3/uL (0.2-0.9); Monocytes % 9.8 %; Neutrophils % 76.3 %; Nucleated Red Blood Cells % 0 %; Platelet Count 188 10^3/cmm (157-399); Red Blood Count 3.18 10^6/uL (3.85-5.65); Red Cell Distribution Width 12.4 % (12.1-15.1); White Blood Count 14.05 10^3/uL (3.29-11.43)
[2025-02-22 04:50] LABS: INR 0.98 (0.8-1.2)
[2025-02-22 04:58] LABS: Alanine Aminotransferase 56 U/L (0-33); Albumin Level 2.6 g/dL (3.5-5.2); Alkaline Phosphatase 231 U/L (35-105); Aspartate Amino Transferase 37 U/L (0-32); Blood Urea Nitrogen 71 mg/dL (8-23); Calcium 8.2 mg/dL (8.5-10.5); Carbon Dioxide 23 mmol/L (22-29); Chloride 93 mmol/L (98-107); Globulin 3.6 g/dL (1.3-4.6); Glucose 175 mg/dL (65-115); Osmolality Calculated 297 mOsm/kg (285-295); Phosphorus 5.5 mg/dL (2.5-4.5); Sodium 131 mmol/L (136-145); Total Bilirubin 0.4 mg/dL (0.15-1.2); Total Protein 6.2 g/dL (6.6-8.7)
[2025-02-22] MEDS: piperacillin-tazobactam 3.375 GM in sodium chloride 0.9% (plus) 50 ML IV (05:50)
[2025-02-22] MEDS: Dianeal low Ca w/2.5% dex 2,000 mL Bag 2000 ML INTRAPERIT ×5 (05:52→22:12)
[2025-02-22 06:46] LABS: Glucose Point of Care 205 mg/dL (70-110)
[2025-02-22] MEDS: FUROsemide 10 mg/mL SDV 4mL 80 MG IVP ×2 (07:35→20:47)
[2025-02-22] MEDS: insulin lispro 100 unit/1 mL SUBCUT ×3 (07:35→17:22)
[2025-02-22] MEDS: amlodipine 5 mg Tablet PO (07:36)
[2025-02-22] MEDS: amiodarone 200 mg Tablet 400 MG PO ×2 (07:36→17:22)
[2025-02-22] MEDS: citalopram 20 mg Tablet 40 MG PO (07:36)
[2025-02-22] MEDS: atorvastatin 40 mg Tablet 80 MG PO (07:36)
[2025-02-22] MEDS: sennosides-docusate Tablet 2 TAB PO ×2 (07:36→17:23)
[2025-02-22] MEDS: metoprolol succinate ER (24 HR) 100 mg Tablet PO (07:36)
[2025-02-22] MEDS: dorzolamide/timolol Op Soln 10 mL Btl 1 DROP EYE-BOTH ×2 (07:37→17:23)
[2025-02-22] MEDS: polyethylene glycol 3350 Pkt 17 gm PO ×2 (07:37→17:23)
[2025-02-22 07:41] VITALS: BP 137/79; PULSE 75; RESP 17; TEMP 36.6; O2SAT 91
--- NOTE | 2025-02-22 10:08 | PM.PN ---
Subjective Subjective: The patient was seen and examined. The patient states that she still gets orthopnea and dyspnea has back pain while laying straight. She states she is feeling better with dialysis however is not on 100%. She is diuresing with PD. Medications: Reviewed: Yes Medication Review Details: Current Medications Alprazolam (Alprazolam 0.5 Mg Tablet) 0.25 mg PO TID PRN PRN Reason: ANXIETY Last Admin: 02/20/25 11:15 Dose: 0.25 mg Amiodarone HCl (Amiodarone 200 Mg Tablet) 400 mg PO BID [facility] Last Admin: 02/22/25 07:36 Dose: 400 mg Amlodipine Besylate (Amlodipine 5 Mg Tablet) 5 mg PO DAILY [facility] Last Admin: 02/22/25 07:36 Dose: 5 mg Atorvastatin Calcium (Atorvastatin 40 Mg Tablet) 80 mg PO DAILY [facility] Last Admin: 02/22/25 07:36 Dose: 80 mg Calcitriol (Calcitriol 0.25 Mcg Capsule) 0.25 mcg PO QMWF [facility] Last Admin: 02/21/25 14:02 Dose: 0.25 mcg Citalopram Hydrobromide (Citalopram 20 Mg Tablet) 40 mg PO DAILY [facility] Last Admin: 02/22/25 07:36 Dose: 40 mg Clonidine HCl (Clonidine 0.1 Mg/24 Hr Patch) 0.1 patch TRANSDERMA Th [facility] Cyclobenzaprine HCl (Cyclobenzaprine 10 Mg Tablet) 5 mg PO TID PRN PRN Reason: MUSCLE SPASMS Last Admin: 02/22/25 03:53 Dose: 5 mg Dorzolamide/Timolol (Dorzolamide/Timolol Op Soln 10 Ml Btl) 1 drop EYE-BOTH BID [facility] Last Admin: 02/22/25 07:37 Dose: 1 drop Furosemide (Furosemide 10 Mg/Ml Sdv 4ml) 80 mg IVP BID@0900,2100 [facility] Last Admin: 02/22/25 07:35 Dose: 80 mg Glucagon (Glucagon 1 Mg/Ml Kit 1 Ml) 1 mg IM ONCE PRN; Protocol PRN Reason: Adult Acute Hypoglycemia Nursing Prot. Heparin Sodium (Porcine) (Heparin 5,000 Unit/Ml Inj 1 Ml) 5,000 unit SUBCUT Q12H [facility] Last Admin: 02/21/25 22:12 Dose: 5,000 unit Dextrose (D5w) 500 mls @ 0 mls/hr IV ONCE PRN; Protocol PRN Reason: Adult Acute Hypoglycemia Prot Dextrose (D10w) 125 mls @ 750 mls/hr IV PRN PRN; Protocol PRN Reason: Adult Acute Hypoglycemia Nursing Protocol Dextrose (D10w) 250 mls @ 1,000 mls/hr IV PRN PRN; Protocol PRN Reason: Adult Acute Hypoglycemia Nursing Protocol Insulin Human Lispro (Insulin Lispro 100 Unit/1 Ml) 0 unit SUBCUT TIDWM [facility]; Protocol Last Admin: 02/22/25 07:35 Dose: 6 unit Lactulose (Lactulose Oral Liq 20 Gm/30 Ml Udc) 20 gm PO Q12H PRN PRN Reason: constipation Lisinopril (Lisinopril 20 Mg Tablet) 40 mg PO QPM [facility] Last Admin: 02/21/25 17:09 Dose: 40 mg Metoprolol Succinate (Metoprolol Succinate Er (24 Hr) 100 Mg Tablet) 100 mg PO DAILY [facility] Last Admin: 02/22/25 07:36 Dose: 100 mg Ondansetron HCl (Ondansetron 2 Mg/Ml Sdv 2 Ml) 4 mg IVP Q2M PRN PRN Reason: NAUSEA Last Admin: 02/20/25 08:23 Dose: 4 mg Peritoneal Dialysis Solution (Dianeal Low Ca W/2.5% Dex 2,000 Ml Bag) 2,000 ml INTRAPERIT 5XD [facility] Last Admin: 02/22/25 10:07 Dose: 2,000 ml Polyethylene Glycol (Polyethylene Glycol 3350 Pkt 17 Gm) 17 gm PO BID [facility] Last Admin: 02/22/25 07:37 Dose: 17 gm Senna/Docusate Sodium (Sennosides-Docusate Tablet) 2 tab PO BID [facility] Last Admin: 02/22/25 07:36 Dose: 2 tab Tramadol HCl (Tramadol 50 Mg Tablet) 50 mg PO TID PRN PRN Reason: PAIN Last Admin: 02/22/25 03:53 Dose: 50 mg Trazodone HCl (Trazodone 150 Mg Tablet) 150 mg PO QPM [facility] Last Admin: 02/21/25 17:09 Dose: 150 mg Warfarin Sodium (Warfarin 5 Mg Tablet) 5 mg PO DAILY@1400 [facility] Last Admin: 02/21/25 14:19 Dose: 5 mg Vitals/I&O/Wt Last Vital Signs Temp 97.8 F 02/22/25 07:41 Pulse 75 02/22/25 07:41 Resp 17 02/22/25 07:41 BP 137/79 02/22/25 07:41 Pulse Ox 91 02/22/25 07:41 O2 Del Method Room Air 02/22/25 07:41 O2 Flow Rate 1 02/21/25 07:01 02/21/25 02/22/25 02/22/25 22:59 06:59 14:59 Intake Total 3112.283 / 7589.266 300 / 7889.266 110 / 110 Output Total 2700 / 8100 Balance 412.283 / -510.734 300 / -210.734 110 / 110 Weight last 48 hrs Weight 109.497 kg Weight 124.284 kg Weight 124.284 kg Physical Exam Narrative: Patient seen and examined using audiovisual equipment with the aid of a nurse. The patient is sitting comfortably in the chair no apparent distress. Vital signs noted blood pressure and HR stable. HEENT normocephalic atraumatic. Neck is supple. Lungs good air movement b/l. Heart -regular with systolic murmur positive S1-S2. Abdomen soft positive bowel sounds. Positive peritoneal dialysis catheter clean dry and intact. Extremities 1+ b/l edema. Neuro awake alert oriented x 3. 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 Developed COVID over a year ago and then developed ESRD. The patient also has a brain tumor. The patient is here now with new onset A-fib with RVR. 1. Cardiology appreciated- she converted from a fib to NSR- continue amiodarone 2. pericardial effusion- continue aggressive CAPD. -I discussed w/ Dr Atwood -pt has a good kt/v on PD. she and the pt want to attempt to stay on PD -cont current CAPD- 5 exchanges a day of 2.5% glu, 2l fill Would repeat cardiac echo tomorrow or in a couple days to look for improvement in the infusion 3. Diabetic control. 4. Hypertension improved with current medications and dialysis. 5. anemia - high ferritin. cont epo 6. Phosphorus improved from 6.3 on admission to 5.5. Continue binders and dialysis. normal vit d and pth good for esrd- low dose calcitriol discharge as per PMD The patient was seen and examined using A/V equipment with the aid of a nurse. The patient consented to peritoneal dialysis onto telehealth. Plan See above. PDMP PDMP Reviewed: Not Reviewed Attestations Medical Necessity Statement*: Pericardial effusion ESRD continue daily PD. Time Spent in Patient Care: 16 - 35 minutes (>than 50% of time spent in counselling and/or direct pt care on unit). Coding Level of Care Code Acute Code for Chg Fwd Diagnoses ESRD (end stage renal disease) on dialysis N18.6; Z99.2
[2025-02-22] MEDS: heparin 5,000 unit/mL INJ 1 mL 5000 UNIT SUBCUT (10:21)
--- NOTE | 2025-02-22 10:28 | PC.NURSE ---
Stool sent for OB at this time.
[2025-02-22 11:03] LABS: Glucose Point of Care 198 mg/dL (70-110)
[2025-02-22] MEDS: pantoprazole 40 mg SDV IVP ×2 (11:54→22:13)
[2025-02-22] MEDS: sucralfate 1 gm/10 mL Oral Liq UDC PO ×3 (11:54→22:13)
[2025-02-22 12:29] VITALS: BP 130/77; PULSE 65; RESP 18; TEMP 36.4; O2SAT 95
[2025-02-22 13:14] LABS: Hematocrit 31.2 % (36-47)
[2025-02-22] MEDS: warfarin 5 mg Tablet PO (14:32)
--- NOTE | 2025-02-22 14:50 | P.PN_ITS ---
Subjective 2 Subjective: Patient was seen this morning, oriented x 3, following she is sitting up on the commode, she is having bowel movements, nurses report 1 episode of black tarry bowel movement, she denies a history of GI bleeds, no fevers, chills, she is still short of breath but improving her edema is improving, Vitals/I&O/Wt Last Vital Signs Temp 97.6 F 02/22/25 12:29 Pulse 65 02/22/25 12:29 Resp 18 02/22/25 12:29 BP 130/77 02/22/25 12:29 Pulse Ox 95 02/22/25 12:29 O2 Del Method Room Air 02/22/25 07:41 O2 Flow Rate 1 02/21/25 07:01 02/21/25 02/22/25 02/22/25 22:59 06:59 14:59 Intake Total 3112.283 / 7589.266 300 / 7889.266 2470 / 2470 Output Total 2700 / 8100 2100 / 2100 Balance 412.283 / -510.734 300 / -210.734 370 / 370 Weight last 48 hrs Weight 109.497 kg Weight 124.284 kg Weight 124.284 kg Physical Exam 2 Const: COMMON NORMALS: no acute distress and patient oriented x3 Resp: COMMON NORMALS: normal respiratory effort, No retractions and No use of accessory muscles AUSCULTATION: wheezes Cardio: COMMON NORMALS: regular rate, regular rhythm, S1 normal heart sound present and S2 normal heart sound present RATE: regular rate RHYTHM: r egular rhythm HEART SOUNDS: S1 normal heart sound present and S2 normal heart sound present GI: COMMON NORMALS: Normal to inspection, nondistended, normoactive bowel sounds present and non-tender Extremity: OTHER: 1+ edema, anasarca Neuro: COMMON NORMALS: patient oriented x3 Psych: COMMON NORMALS: mental status grossly normal Data 02/22/25 12:15 02/22/25 04:20 Micro: Microbiology 02/19/25 00:15 Gram Stain - Final Peritoneal Fluid Body Fluid Culture - Final 02/22/25 10:15 Occult Blood (FIT) - Final Stool Routine Collection A&P Assessment and plan (1) Atrial fibrillation with RVR: (2) Pericardial effusion: (3) Leukocytosis: (4) Diastolic CHF: (5) Acute bacterial peritonitis: Plan Shortness of breath -Currently not requiring oxygen - Etiology - Multifactorial - Concerns for pericardial effusion, not hemodynamically significant - Concerns for diastolic CHF, fluid overloaded receiving inpatient peritoneal dialysis -A-fib with RVR, converted to normal sinus rhythm - CT chest without contrast CT/CT chest wo con [id number] IMPRESSION: 1. Large pericardial effusion. This appears new since 12/11/2024. 2. Tiny LEFT pleural effusion. 3. Lungs are otherwise well aerated. 4. No other acute chest findings. Cardiac echo CONCLUSIONS Features suggestive of small to moderate pericardial effusion Mild diffuse hypokinesis of the left ventricle with an ejection fraction of 51%. Mild left ventricular hypertrophy. Grade I/IV diastolic dysfunction (abnormal relaxation filling pattern), normal to mildly elevated filling pressures. Normal systolic motion of the interventricular septum. Mildly increased left atrial size. Thickened mitral valve. Trace mitral valve regurgitation. Thickened aortic valve. There are no intracardiac masses. No similar previous studies are available for comparison Plan - Order D-dimer 4.21 venous ultrasound bilateral extremities negative for DVT - Continue IV Lasix 80 twice daily - Receiving PD dialysis, 5 exchanges a day for 2.5 - Patient might require switch over to hemodialysis based on clinical progress Atrial fibrillation with rapid ventricular response -Converted to normal sinus rhythm - De-escalate to p.o. amiodarone - CHADS2 Vasc 4 - Discussed Coumadin, patient is in agreement will start Coumadin as inpatient - Status post stress test today IMPRESSIONS 1. Myocardial perfusion imaging revealing uniform myocardial tracer uptake with no significant Perfusion abnormalities 2. Normal LV ejection fraction of 67%. 3. LV wall motion analysis revealing no gross wall motion abnormalities. 4. Normal LV volume. Low probability for coronary ischemia, based on the above findings No similar previous studies are available for comparison Large pericardial effusion - Seen on CT chest and abdomen - Cardiac echo CONCLUSIONS Features suggestive of small to moderate pericardial effusion Mild diffuse hypokinesis of the left ventricle with an ejection fraction of 51%. Mild left ventricular hypertrophy. Grade I/IV diastolic dysfunction (abnormal relaxation filling pattern), normal to mildly elevated filling pressures. Normal systolic motion of the interventricular septum. Mildly increased left atrial size. Thickened mitral valve. Trace mitral valve regurgitation. Thickened aortic valve. There are no intracardiac masses. No similar previous studies are available for comparison Etiology potentially related to uremia Plan -Cardiology consulted - Moved to cardiac stepdown unit Recent history of bacterial peritonitis - Will obtain peritoneal studies, so farculture negative 24 hours, Gram stain no organisms - Given elevated CRP, leukocytosis, peritoneal cultures negative, stopped IV antibiotics - Monitor clinical status closely Acute on chronic leukocytosis - Could be from pericardial effusion, - Could be from bacterial peritonitis, cultures negative, unlikely - Follow blood cultures - Follow-up peritoneal cultures Transaminitis, monitor Peritoneal dialysis - Nephrology consulted for PD dialysis Acute on chronic anemia - Will monitor closely - Recent iron studies show iron at 77, ferritin 2007 Type 2 diabetes mellitus, moderate dose sliding scale Acute on chronic anemia - Hemoccult stool positive - Is on Coumadin - INR 0.90 - Protonix, Carafate - Monitor hemoglobin every 6 hours Full code Heparin for DVT prophylaxis currently on hold, SCDs get off Plan for today peritoneal dialysis, iv lasix, iv abx discontinued PDMP PDMP Reviewed: Not Reviewed Attestations 2 Medical Necessity Statement*: Patient requires hospitalization for shortness of breath, fluid overload, requiring inpatient PD dialysis, multiple exchanges, IV Lasix Diagnoses Atrial fibrillation with RVR I48.91 Pericardial effusion I31.39 Leukocytosis D72.829 Acute diastolic congestive heart failure I50.31 Heart failure chronicity: acute Acute bacterial peritonitis K65.9
[2025-02-22 15:38] LABS: Glucose Point of Care 289 mg/dL (70-110)
[2025-02-22] MEDS: lisinopril 20 mg Tablet 40 MG PO (17:22)
[2025-02-22] MEDS: trazodone 150 mg Tablet PO (17:22)
--- NOTE | 2025-02-22 17:43 | P.PN_ITS ---
Subjective 2 Subjective: I saw this patient today, reviewed progress overnight, current vitals, lab data and medications. Clinically she feels better, no symptoms of angina or any active heart failure. Overall she is euvolemic Her A-fib heart rate is better controlled, with heart rate in the 60s to 70s. Vitals are stable otherwise Of note nurses report black stool earlier this morning. Noted patient is on Coumadin which was started recently as an anticoagulation for atrial fibrillation. Medications: Medication Review Details: Medication reviewed and adjusted. Vitals/I&O/Wt Last Vital Signs Temp 97.6 F 02/22/25 12:29 Pulse 65 02/22/25 12:29 Resp 18 02/22/25 12:29 BP 130/77 02/22/25 12:29 Pulse Ox 95 02/22/25 12:29 O2 Del Method Room Air 02/22/25 07:41 O2 Flow Rate 1 02/21/25 07:01 02/22/25 02/22/25 02/22/25 06:59 14:59 22:59 Intake Total 300 / 7889.266 4470 / 4470 Output Total 4600 / 4600 300 / 4900 Balance 300 / -210.734 -130 / -130 -300 / -430 Weight last 48 hrs Weight 241 lb 6.4 oz Weight 274 lb Weight 274 lb Physical Exam 2 Const: OTHER: Resting comfortably. Not in any respiratory distress. HENMT: OTHER: Unremarkable. Eye: OTHER: Normal Resp: OTHER: Good air entry bilaterally with mild rales at the bases. Cardio: OTHER: Atrial fibrillation rate controlled. Normal 1st and 2nd heart sounds. Mild systolic murmur at the apex. GI: OTHER: Mild tenderness over the abdominal likely secondary to regular PD. No signs suggestive of acute peritonitis. Bowel sounds audible Skin: OTHER: Warm and dry Data 02/22/25 12:15 02/22/25 04:20 Micro: Microbiology 02/19/25 00:15 Gram Stain - Final Peritoneal Fluid Body Fluid Culture - Final 02/22/25 10:15 Occult Blood (FIT) - Final Stool Routine Collection A&P Assessment and plan (1) Atrial fibrillation with RVR: 69-year-old female patient with chronic renal failure on peritoneal dialysis and with atrial fibrillation currently controlled rate. Vitals are stable. Overall stable cardiovascular status. Noted patient was recently started on warfarin as anticoagulation for atrial fibrillation. However last night/early this morning patient noted to have black stools. Hemodynamically she is stable. Her hemoglobin is also stable however considering this melena and especially overall high bleeding risk in the setting of CRF I am going to hold warfarin for now. Also reduce the dose of amiodarone to 400 mg once a day as atrial fibrillation rate is in the 60s to 70s. Discussed with the hospitalist with her current status and adjustment of management plan (2) End stage renal disease: (3) Hypertension: PDMP PDMP Reviewed: Not Reviewed Attestations 2 Medical Necessity Statement*: CRF, atrial fibrillation, hypertension Coding Level of Care Code 12011 Diagnoses Atrial fibrillation with RVR I48.91 End stage renal disease N18.6 Hypertension I10 Time Spent (min) 20
[2025-02-22 18:07] VITALS: BP 110/80; PULSE 97; RESP 18; TEMP 36.8; O2SAT 94
[2025-02-22 18:10] LABS: Hematocrit 30.6 % (36-47)
--- NOTE | 2025-02-22 18:15 | ECG_ITS ---
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 Measurements Intervals [place] Rate: 70 P: 35 SC: 185 QRS: 56 QRSD: 116 T: 94 QT: 379 QTc: 411 Interpretive Statements SINUS RHYTHM MODERATE INTRAVENTRICULAR CONDUCTION DELAY [110+ ms QRS DURATION] NONSPECIFIC ST & T-WAVE ABNORMALITY Compared to ECG 02/21/2025 18:19:51 No significant changes Electronically Signed On 02-23-2025 19:20:54 CDT by Sean Schroeder M.D. [id number]
--- NOTE | 2025-02-22 18:18 | PC.NURSE ---
Pt noted to have increased PAC's on telemetry. Dr. Cabrera advised. New orders received for EKG and troponin series ordered.
[2025-02-22 19:07] LABS: Troponin(5th) Baseline 33 ng/L (0-10)
[2025-02-22 19:29] LABS: DNA AB (DS) CRITHIDIA,IFA NEGATIVE (NEGATIVE)
--- NOTE | 2025-02-22 20:20 | ECG_ITS ---
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 Measurements Intervals [place] Rate: 72 P: 44 MO: 183 QRS: 72 QRSD: 107 T: 67 QT: 373 QTc: 410 Interpretive Statements SINUS RHYTHM NONSPECIFIC T-WAVE ABNORMALITY Compared to ECG 02/22/2025 18:18:23 Intraventricular conduction delay no longer present T-wave abnormality still present Electronically Signed On 02-23-2025 19:34:06 CDT by Sean Schroeder M.D. [email or web address]
[2025-02-22 20:54] LABS: Glucose Point of Care 233 mg/dL (70-110)
[2025-02-22 20:58] LABS: Troponin 5 2HR 32.55 ng/L (0-10)
[2025-02-22 21:00] LABS: Troponin 5 2HR Delta -0.45 ABS# (0-10)
[2025-02-22 21:11] VITALS: BP 173/71; PULSE 72; RESP 16; TEMP 36.6; O2SAT 94
--- NOTE | 2025-02-23 00:15 | ECG_ITS ---
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 Measurements Intervals [place] Rate: 102 P: 0 [place]: 0 QRS: 71 QRSD: 108 T: 0 QT: 319 QTc: 417 Interpretive Statements ATRIAL FIBRILLATION WITH RAPID VENTRICULAR RESPONSE NONSPECIFIC ST & T-WAVE ABNORMALITY ABNORMAL RHYTHM ECG Compared to ECG 02/22/2025 20:20:52 Sinus rhythm no longer present T-wave abnormality still present Electronically Signed On 02-23-2025 19:33:27 CDT by Sean Schroeder M.D. [email or web address]
[2025-02-23 00:53] VITALS: BP 149/72; PULSE 69; RESP 16; TEMP 36.7; O2SAT 93
--- NOTE | 2025-02-23 01:25 | PC.NURSE ---
I let the provider know about the EKG change, The EKG reads afib rvr at a rate of 102, the patient is currently bouncing between sinus rhythm with P waves, and Afib, I also let her know about the patients resulted troponins. . Provider said continue to monitor, no new orders at this time. Care ongoing.
[2025-02-23 01:43] LABS: Hematocrit 35.6 % (36-47)
[2025-02-23 03:54] LABS: Basophils # 0.1 10^3/uL (0.0-0.1); Basophils % 0.4 %; Eosinophils # 0.7 10^3/uL (0.0-0.8); Eosinophils % 4.8 %; Hematocrit 28.9 % (36-47); Lymphocytes % 7.7 %; Mean Corpuscular HGB Conc 32.5 g/dL (30-55); Mean Corpuscular Hemoglobin 31.4 pg (27-33); Mean Corpuscular Volume 96.7 fl (85-98); Mean Platelet Volume 9.8 fL (7.4-10.4); Monocytes # 1.3 10^3/uL (0.2-0.9); Monocytes % 9.9 %; Neutrophils # 10.37 10^3/uL (1.8-7.7); Neutrophils % 76.3 %; Nucleated Red Blood Cells % 0 %; Platelet Count 231 10^3/cmm (157-399); Red Blood Count 2.99 10^6/uL (3.85-5.65); Red Cell Distribution Width 12.3 % (12.1-15.1); White Blood Count 13.58 10^3/uL (3.29-11.43)
[2025-02-23 04:18] LABS: Alanine Aminotransferase 59 U/L (0-33); Albumin Level 2.7 g/dL (3.5-5.2); Alkaline Phosphatase 212 U/L (35-105); Anion Gap 19.7 (5-19); Aspartate Amino Transferase 39 U/L (0-32); Blood Urea Nitrogen 67 mg/dL (8-23); Calcium 7.9 mg/dL (8.5-10.5); Carbon Dioxide 23 mmol/L (22-29); Chloride 95 mmol/L (98-107); Globulin 3.1 g/dL (1.3-4.6); Glucose 185 mg/dL (65-115); Magnesium 1.9 mg/dL (1.7-2.3); Osmolality Calculated 302 mOsm/kg (285-295); Phosphorus 5.4 mg/dL (2.5-4.5); Potassium 3.7 mmol/L (3.5-5.1); Sodium 134 mmol/L (136-145); Total Bilirubin 0.3 mg/dL (0.15-1.2); Total Protein 5.8 g/dL (6.6-8.7)
[2025-02-23 05:51] VITALS: BP 144/78; PULSE 72; RESP 15; TEMP 36.6; O2SAT 94
[2025-02-23] MEDS: sucralfate 1 gm/10 mL Oral Liq UDC PO ×2 (06:06→11:01)
[2025-02-23] MEDS: Dianeal low Ca w/2.5% dex 2,000 mL Bag 2000 ML INTRAPERIT ×2 (06:06→09:58)
[2025-02-23 06:45] LABS: Glucose Point of Care 180 mg/dL (70-110)
[2025-02-23 07:53] VITALS: BP 158/82; PULSE 72; RESP 16; TEMP 36.7; O2SAT 95
[2025-02-23] MEDS: amiodarone 200 mg Tablet 400 MG PO (09:22)
[2025-02-23] MEDS: insulin lispro 100 unit/1 mL SUBCUT ×2 (09:22→12:19)
[2025-02-23] MEDS: metoprolol succinate ER (24 HR) 100 mg Tablet PO (09:22)
[2025-02-23] MEDS: FUROsemide 10 mg/mL SDV 4mL 80 MG IVP (09:23)
[2025-02-23] MEDS: citalopram 20 mg Tablet 40 MG PO (09:23)
[2025-02-23] MEDS: atorvastatin 40 mg Tablet 80 MG PO (09:23)
[2025-02-23] MEDS: amlodipine 5 mg Tablet PO (09:23)
[2025-02-23] MEDS: dorzolamide/timolol Op Soln 10 mL Btl 1 DROP EYE-BOTH (09:26)
--- NOTE | 2025-02-23 09:48 | P.PN_ITS ---
Subjective 2 Subjective: chest pain. no n/v/steele/d/fevers. + swelling Medications: Reviewed: Yes Medication Review Details: Current Medications Alprazolam (Alprazolam 0.5 Mg Tablet) 0.25 mg PO TID PRN PRN Reason: ANXIETY Last Admin: 02/20/25 11:15 Dose: 0.25 mg Amiodarone HCl (Amiodarone 200 Mg Tablet) 400 mg PO DAILY [facility] Last Admin: 02/23/25 09:22 Dose: 400 mg Amlodipine Besylate (Amlodipine 5 Mg Tablet) 5 mg PO DAILY [facility] Last Admin: 02/23/25 09:23 Dose: 5 mg Atorvastatin Calcium (Atorvastatin 40 Mg Tablet) 80 mg PO DAILY [facility] Last Admin: 02/23/25 09:23 Dose: 80 mg Calcitriol (Calcitriol 0.25 Mcg Capsule) 0.25 mcg PO QMWF [facility] Last Admin: 02/21/25 14:02 Dose: 0.25 mcg Citalopram Hydrobromide (Citalopram 20 Mg Tablet) 40 mg PO DAILY [facility] Last Admin: 02/23/25 09:23 Dose: 40 mg Clonidine HCl (Clonidine 0.1 Mg/24 Hr Patch) 0.1 patch TRANSDERMA Th [facility] Cyclobenzaprine HCl (Cyclobenzaprine 10 Mg Tablet) 5 mg PO TID PRN PRN Reason: MUSCLE SPASMS Last Admin: 02/22/25 03:53 Dose: 5 mg Dorzolamide/Timolol (Dorzolamide/Timolol Op Soln 10 Ml Btl) 1 drop EYE-BOTH BID [facility] Last Admin: 02/23/25 09:26 Dose: 1 drop Furosemide (Furosemide 10 Mg/Ml Sdv 4ml) 80 mg IVP BID@0900,2100 [facility] Last Admin: 02/23/25 09:23 Dose: 80 mg Glucagon (Glucagon 1 Mg/Ml Kit 1 Ml) 1 mg IM ONCE PRN; Protocol PRN Reason: Adult Acute Hypoglycemia Nursing Prot. Dextrose (D5w) 500 mls @ 0 mls/hr IV ONCE PRN; Protocol PRN Reason: Adult Acute Hypoglycemia Prot Dextrose (D10w) 125 mls @ 750 mls/hr IV PRN PRN; Protocol PRN Reason: Adult Acute Hypoglycemia Nursing Protocol Dextrose (D10w) 250 mls @ 1,000 mls/hr IV PRN PRN; Protocol PRN Reason: Adult Acute Hypoglycemia Nursing Protocol Insulin Human Lispro (Insulin Lispro 100 Unit/1 Ml) 0 unit SUBCUT TIDWM TEJINDER; Protocol Last Admin: 02/23/25 09:22 Dose: 4 unit Lactulose (Lactulose Oral Liq 20 Gm/30 Ml Udc) 20 gm PO Q12H PRN PRN Reason: constipation Lisinopril (Lisinopril 20 Mg Tablet) 40 mg PO QPM [facility] Last Admin: 02/22/25 17:22 Dose: 40 mg Metoprolol Succinate (Metoprolol Succinate Er (24 Hr) 100 Mg Tablet) 100 mg PO DAILY [facility] Last Admin: 02/23/25 09:22 Dose: 100 mg Ondansetron HCl (Ondansetron 2 Mg/Ml Sdv 2 Ml) 4 mg IVP Q2M PRN PRN Reason: NAUSEA Last Admin: 02/20/25 08:23 Dose: 4 mg Pantoprazole Sodium (Pantoprazole 40 Mg Sdv) 40 mg IVP Q12H [facility] Last Admin: 02/22/25 22:13 Dose: 40 mg Peritoneal Dialysis Solution (Dianeal Low Ca W/2.5% Dex 2,000 Ml Bag) 2,000 ml INTRAPERIT 5XD [facility] Last Admin: 02/23/25 06:06 Dose: 2,000 ml Peritoneal Dialysis Solution (Dianeal Low Ca W/2.5% Dex 2,000 Ml Bag) 2,000 ml INTRAPERIT 5XD [facility] Last Admin: 02/22/25 22:24 Dose: Not Given Polyethylene Glycol (Polyethylene Glycol 3350 Pkt 17 Gm) 17 gm PO BID [facility] Last Admin: 02/23/25 09:24 Dose: Not Given Senna/Docusate Sodium (Sennosides-Docusate Tablet) 2 tab PO BID [facility] Last Admin: 02/23/25 09:24 Dose: Not Given Sucralfate (Sucralfate 1 Gm/10 Ml Oral Liq Udc) 1 gm PO Q6H [facility] Last Admin: 02/23/25 06:06 Dose: 1 gm Tramadol HCl (Tramadol 50 Mg Tablet) 50 mg PO TID PRN PRN Reason: PAIN Last Admin: 02/22/25 20:47 Dose: 50 mg Trazodone HCl (Trazodone 150 Mg Tablet) 150 mg PO QPM [facility] Last Admin: 02/22/25 17:22 Dose: 150 mg Vitals/I&O/Wt Last Vital Signs Temp 98.0 F 02/23/25 07:53 Pulse 72 02/23/25 07:53 Resp 16 02/23/25 07:53 BP 158/82 02/23/25 07:53 Pulse Ox 95 02/23/25 07:53 O2 Del Method Room Air 02/23/25 07:53 O2 Flow Rate 1 02/21/25 07:01 02/22/25 02/23/25 02/23/25 22:59 06:59 14:59 Intake Total 1999 / 6469 240 / 240 Output Total 3400 / 8000 400 / 8400 150 / 150 Balance -1400 / -1530 -400 / -1930 90 / 90 Weight last 48 hrs Weight 109.316 kg Weight 109.497 kg Physical Exam 2 Narrative: Patient seen and examined using audiovisual equipment with the aid of a nurse. The patient is sitting comfortably in the chair no apparent distress. Vital signs noted blood pressure and HR stable. HEENT normocephalic atraumatic. Neck is supple. Lungs good air movement b/l. Heart -regular with systolic murmur positive S1-S2. Abdomen soft positive bowel sounds. Positive peritoneal dialysis catheter clean dry and intact. Extremities 1+ b/l edema. Neuro awake alert oriented x 3. 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 Developed COVID over a year ago and then developed ESRD. The patient also has a brain tumor. The patient is here now with new onset A- fib with RVR. 1. Cardiology appreciated- she converted from a fib to NSR- continue amiodarone replete k 2. pericardial effusion- continue aggressive CAPD. -I discussed w/ Dr Atwood -pt has a good kt/v on PD. she and the pt want to attempt to stay on PD -cont current CAPD- 5 exchanges a day of 2.5% glu, 2l fill Would repeat cardiac echo to look for improvement in the infusion 3. Diabetic control. 4. Hypertension improving with current medications and dialysis. 5. anemia - high ferritin. cont epo 6. Phosphorus improved from 6.3 on admission to 5.4. Continue binders and dialysis. normal vit d and pth good for esrd- low dose calcitriol discussed in detail w/ Dr Daniel Cabrera, her hospitalist The patient was seen and examined using A/V equipment with the aid of a nurse. The patient consented to peritoneal dialysis onto telehealth. Plan See above. PDMP PDMP Reviewed: Not Reviewed Attestations 2 Medical Necessity Statement*: as per hospitalist Time Spent in Patient Care: 16 - 35 minutes (>than 50% of time sp ent in counselling and/or direct pt care on unit) . Coding Level of Care Code Acute Code for Chg Fwd Diagnoses ESRD (end stage renal disease) on dialysis N18.6; Z99.2
--- NOTE | 2025-02-23 10:11 | USCV_ITS ---
Sebastián Sparks Age: 69 Gender: F : 1955 Exam Date: 02/23/2025 11:20 Ordering Phys: Terrence Cabrera MD Technologist: SONIA [place]am Location: [facility] [place] Indication: Pericardial Effusion BP: 158 / 82 HR: Rhythm: Sinus Technical Quality: Adequate MEASUREMENTS (Male / Female) Normal Values 2D ECHO LV Diastolic Diameter PLAX 4.8 cm 4.2 - 5.9 / 3.9 - 5.3 cm IVS Diastolic Thickness 1.4 cm 0.6 - 1.0 / 0.6 - 0.9 cm IVS Systolic Thickness 2.2 cm LVPW Diastolic Thickness 1.1 cm 0.6 - 1.0 / 0.6 - 0.9 cm LVPW Systolic Thickness 2.1 cm LVOT Diameter 2.0 cm LV Ejection Fraction 2D Teich 51.6 % LV Ejection Fraction MOD 4C 53.6 % LV Ejection Fraction MOD 2C 52.7 % LV Ejection Fraction 2C AL 53.7 % LA Diameter 3.5 cm RA Systolic Volume 4C AL 66.0 ml RA Systolic Volume 4C MOD 63.2 ml LA Sys Volume AL 53.9 cm cubed LA Sys Volume Index AL 23.8 cm cubed/m squared Aorta at Sinotubular Diameter 2.8 cm IVC Diameter 2.0 cm M-MODE LA Ao Ratio MM 1.9 AV Cusp Separation MM 1.7 cm FINDINGS Left Ventricle Mild left ventricle concentric hypertrophy. Mild global hypokinesis with mildly reduced LV systolic function. Estimated LVEF 50% Right Ventricle Right Atrium Left Atrium Dilated left atrium Mitral Valve Aortic Valve Tricuspid Valve Pulmonic Valve Pericardium Aorta Normal size aortic root and proximal ascending aorta. IVC Moderate size pericardial effusion in the inferior and inferoposterior surface. Small pericardial effusion around anterior surface. CONCLUSIONS Limited echo to assess LV function and pericardial effusion. Mild global hypokinesis of left ventricle. Estimated LVEF mildly reduced at 50%. Moderate size pericardial effusion around inferior and inferoposterior surface. Small pericardial effusion around anterior surface. Compared to echocardiogram last week there is no significant change in the status of pericardial effusion. Sean Schroeder MD (Electronically Signed) Final Date: 23 February 2025 12:41 S
--- NOTE | 2025-02-23 10:11 | USR_ITS ---
PROCEDURE INFORMATION: Exam: US Duplex Bilateral Lower Extremity Arteries Exam date and time: 02/23/2025 11:34 AM Age: 69 years old Clinical indication: Pain; Leg, lower; Bilateral; Additional info: [place], TECHNIQUE: Imaging protocol: Real-time ultrasound scan of the arteries of the bilateral lower extremities with 2-D dejesus scale, color Doppler flow and spectral waveform analysis. Images documented and saved. COMPARISON: [place] [id number] 02/18/2025 5:34 PM FINDINGS: Right common femoral artery: No occlusion or significant stenosis. Normal waveform. Right superficial femoral artery: No occlusion or significant stenosis. Normal waveform. Right popliteal artery: No occlusion or significant stenosis. Normal waveform. Right calf/foot arteries: No occlusion or significant stenosis in the visualized arteries. Normal waveforms. Dorsalis pedis artery is patent with an elevated PSV of 200 cm/sec suggesting a degree of stenosis.. Left common femoral artery: No occlusion or significant stenosis. Normal waveform. Left superficial femoral artery: No occlusion or significant stenosis. Normal waveform. Left popliteal artery: No occlusion or significant stenosis. Normal waveform. Left calf/foot arteries: No occlusion or significant stenosis in the visualized arteries. Normal waveforms. Dorsalis pedis artery is patent. US/[place] [id number] IMPRESSION: No occlusion. No significant stenosis based on PSV measurements except in the right dorsalis pedis artery.
--- NOTE | 2025-02-23 10:56 | PM.DCS ---
Discharge Providers Date of Admission: 02/18/25 14:48 Date of Discharge: February 23, 2025 Attending Provider at Admission: Terrence Cabrera MD Attending Provider at Discharge: Terrence Cabrera MD Primary Care Provider: Wili Gonzalez DO Diagnoses at Discharge Discharge Diagnosis (1) ESRD (end stage renal disease) on dialysis: Status: Acute Reason for Visit Reason for Visit: high HR Hospital Course Hospital Course Sebastián Sparks is a 69 year old female with a past medical history of end-stage renal disease on peritoneal dialysis, patient still reports urinating, type 2 diabetes, denies a history of atrial fibrillation, history of chronic leukocytosis, history of retroclival meningioma, CKD, history of brain aneurysm, history of MALT lymphoma who presents to [facility] due to shortness of breath, nausea, vomiting, palpitations. Currently patient is alert oriented x 3, following all commands, she reports shortness of breath with exertion, no chest pain, does report palpitations report generalized weakness, reports episodes of nausea and vomiting, or shortness of breath has been persisting for the last few days, denies a history of atrial fibrillation, in the emergency room she was found to be in A-fib with RVR, placed on amiodarone drip, currently on amiodarone drip at 1 -In the emergency room she did develop episode of hypotension blood pressure 96/70 -Currently blood pressure 145/102 -She is alert oriented x 3, following all commands -She is on room air, but is complaining of shortness of breath - Workup in the emergency room shows WBC count of 18.61, neutrophilic leukocytosis, with transaminitis, CRP 124.5 CT of the abdomen showed large pericardial effusion, followed up with chest CT which shows large pericardial effusion, which appears new since prior CT scan -Stat echocardiogram has been ordered -Patient tells me that she had bacterial peritonitis a few months ago, which was diagnosed at [facility] dialysis, she denies being hospitalized, her PD catheter was not changed out according to patient, she received oral antibiotics and peritoneal antibiotic through peritoneal dialysis catheter, and she completed the antibiotics about a month ago Patient was admitted to [facility] for shortness of breath, required ICU admission, cardiology and nephrology consultation Shortness of breath - Multifactorial - Concerns for pericardial effusion, however on cardiac echo not hemodynamically significant - Concerns for diastolic CHF, fluid overloaded receiving inpatient peritoneal dialysis -A-fib with RVR, converted to normal sinus rhythm - CT chest without contrast CT/CT chest wo con [id number] IMPRESSION: 1. Large pericardial effusion. This appears new since 12/11/2024. 2. Tiny LEFT pleural effusion. 3. Lungs are otherwise well aerated. 4. No other acute chest findings. Cardiac echo CONCLUSIONS Features suggestive of small to moderate pericardial effusion Mild diffuse hypokinesis of the left ventricle with an ejection fraction of 51%. Mild left ventricular hypertrophy. Grade I/IV diastolic dysfunction (abnormal relaxation filling pattern), normal to mildly elevated filling pressures. Normal systolic motion of the interventricular septum. Mildly increased left atrial size. Thickened mitral valve. Trace mitral valve regurgitation. Thickened aortic valve. There are no intracardiac masses. No similar previous studies are available for comparison Plan - Order D-dimer 4.21 venous ultrasound bilateral extremities negative for DVT - Continue IV Lasix 80 twice daily - Receiving PD dialysis, 5 exchanges a day, during her hospitalization - Patient overall clinically improved with inpatient PD dialysis - Will be discharged with resumption of her outpatient dialysis regimen Atrial fibrillation with rapid ventricular response -Managed with IV amiodarone -Converted to normal sinus rhythm - De-escalate to p.o. amiodarone - CHADS2 Vasc 4 - Discussed Coumadin, patient is in agreement will start Coumadin as inpatient, managed with Coumadin as inpatient, however hospitalization was complicated with acute anemia hemoglobin down to 9.1 with Hemoccult positive stools, thus however Coumadin was discontinued due to development of anemia -Discussed risk and benefits of all options with patient, shared decision making, she voiced understanding, all consents are, agreed to proceed - Status post stress test IMPRESSIONS 1. Myocardial perfusion imaging revealing uniform myocardial tracer uptake with no significant Perfusion abnormalities 2. Normal LV ejection fraction of 67%. 3. LV wall motion analysis revealing no gross wall motion abnormalities. 4. Normal LV volume. Low probability for coronary ischemia, based on the above findings No similar previous studies are available for comparison - Follow-up with cardiology as outpatient - If any stroke symptoms please immediately call 9 11 Large pericardial effusion - Seen on CT chest and abdomen - Cardiac echo CONCLUSIONS Features suggestive of small to moderate pericardial effusion Mild diffuse hypokinesis of the left ventricle with an ejection fraction of 51%. Mild left ventricular hypertrophy. Grade I/IV diastolic dysfunction (abnormal relaxation filling pattern), normal to mildly elevated filling pressures. Normal systolic motion of the interventricular septum. Mildly increased left atrial size. Thickened mitral valve. Trace mitral valve regurgitation. Thickened aortic valve. There are no intracardiac masses. No similar previous studies are available for comparison Etiology potentially related to uremia -Cardiology consulted -Monitored in the ICU, moved to cardiac stepdown unit overall clinically improved, then to medical floors -CONCLUSIONS Limited echo to assess LV function and pericardial effusion. Mild global hypokinesis of left ventricle. Estimated LVEF mildly reduced at 50%. Moderate size pericardial effusion around inferior and inferoposterior surface. Small pericardial effusion around anterior surface. Compared to echocardiogram last week there is no significant change in the status of pericardial effusion. - Plan on medical management, follow cardiology Recent history of bacterial peritonitis, initially managed with IV antibiotics - Will obtain peritoneal studies, so farculture negative 48 hours, Gram stain no organisms - Given elevated CRP, leukocytosis, peritoneal cultures negative, stopped IV antibiotics - Monitor clinical status closely as outpatient Acute on chronic leukocytosis - Could be from pericardial effusion, - Could be from bacterial peritonitis, cultures negative, unlikely - Follow blood cultures, so far no growth - Follow-up peritoneal cultures, so far no growth Transaminitis, monitor Peritoneal dialysis - As outpatient Acute on chronic anemia - Will monitor closely - Recent iron studies show iron at 77, ferritin 2007 Type 2 diabetes mellitus, moderate dose sliding scale Acute on chronic anemia, hemoglobin down to 9.4 - Hemoccult stool positive - Is on Coumadin - INR 0.90 - Protonix, Carafate - Discussed with patient the risk and benefits of anticoagulant therapy, after discussing risk benefits of all options, she voiced understanding, all consents are, agreed to hold Coumadin for now # Follow-up with cardiology as outpatient, decision if and when to resume anticoagulant therapy - Follow-up with general surgery in 1 month for consideration of EGD and colonoscopy - Discharged with Protonix, Carafate -Please monitor your blood sugars closely -Monitor your blood sugars 3 times daily as after meals -Please record your blood sugars, and a blood sugar log -For your NovoLog -Please inject blood sugar after meals based on sliding scale provided -Do not inject insulin if you do not eat as hypoglycemia kills -This is a NovoLog sliding scale -Insulin sliding ?fingerstick? Insulin ?141-180?0 units/sq 181-220?2 units/sq ?221-260?4 units/sq ?261-300 6 units/sq ?301-350?8 units/sq ?351-400 10 units/sq ?401-450?12 units/sq >450? 14units/sq -If your blood sugar is greater than 500 go to the emergency room -If your blood sugar is less than 60 or at anytime you feel lightheaded or dizzy or diaphoretic or have chest palpitations check your blood sugar, and eat a hard candy or drink orange juice and go immediately to the emergency room -Remember hypoglycemia kills, so if his blood sugar is less than 60 we have to increase it by taking in a sugary meal such as a hard candy or orange juice and go to the emergency room -If you have any questions please call us where here to help - For your anemia please monitor hemoglobin as outpatient through primary care, hemoglobin on discharge 9.4 - If any recurrent bloody black stools please come back to the emergency room - I have set up a follow-up appointment with general surgery in 1 month - For your pericardial effusion, please follow-up with cardiology in the next few weeks - If you have chest pain or shortness of breath go to emergency room - Follow-up with nephrology - For your atrial fibrillation, please use amiodarone as prescribed, use metoprolol as prescribed - If you develop any strokelike symptoms please immediately call 911 Physical Exam Const: COMMON NORMALS: no acute distress and patient oriented x3 Eye: COMMON NORMALS: Equal, round and reactive pupils present PUPIL: Yes Equal, round and reactive pupils present Resp: COMMON NORMALS: normal respiratory effort, No retractions, No use of accessory muscles and clear to auscultation bilaterally AUSCULTATION: clear to auscultation bilaterally Cardio: COMMON NORMALS: regular rate, regular rhythm, S1 normal heart sound present and S2 normal heart sound present RATE: regular rate RHYTHM: regular rhythm HEART SOUNDS: S1 normal heart sound present and S2 normal heart sound present GI: COMMON NORMALS: Normal to inspection, nondistended, normoactive bowel sounds present and non-tender Extremity: COMMON NORMALS: no pedal edema Neuro: COMMON NORMALS: patient oriented x3, CN's II-XII intact bilaterally and moves all extremities Psych: COMMON NORMALS: mental status grossly normal Discharge Data Studies Completed and Pending Completed Studies During Hospitalization Category Date Time Status CT abdomen renal stone [CT kidney stone [id number]] Stat Cat Scan 02/18/25 12:[address] chest wo con [id number] Stat Cat Scan 02/18/25 13:58 Completed Cardiac Stress Test MIBI [Sestamibi Stress Test Request Exams 02/20/25 06:43 Draft ] Routine XR chest 1V portable [id number] Stat Exams 02/18/25 11:02 Completed NM loretta perf SPECT r/s* [id number] Routine Nuc Med 02/20/25 06:43 [place] [id number] Stat Ultrasound 02/18/25 16:34 Completed CV. echo complete* [id number] Stat Ultrasound 02/18/25 14:35 Completed Pending at discharge Category Date Time Status Amylase, Peritoneal Fluid Routine Lab 02/18/25 16:24 Received Blood Culture Stat Lab 02/18/25 18:34 Results Body Fluid Culture & GS Stat Lab 02/18/25 14:50 Uncollected Complete Blood Count w/Auto AM LABS Lab 02/24/25 04:00 Ordered Complete Blood Count w/Auto AM LABS Lab 02/24/25 04:00 Ordered Complete Blood Count w/Auto AM LABS Lab 02/25/25 04:00 Ordered Complete Blood Count w/Auto AM LABS Lab 02/26/25 04:00 Ordered Comprehensive Metabolic Panel AM LABS Lab 02/24/25 04:00 Ordered Glucose Pericardial Fluid Routine Lab 02/18/25 14:50 Uncollected LDH Pericardial Fluid Routine Lab 02/18/25 14:50 Uncollected Magnesium AM LABS Lab 02/24/25 04:00 Ordered Pericardial Fluid Analysis Routine Lab 02/18/25 14:50 Uncollected Pericardial Fluid Total Prot Routine Lab 02/18/25 14:50 Uncollected Phosphorus AM LABS Lab 02/24/25 04:00 Ordered Prothrombin Time INR AM LABS Lab 02/24/25 04:00 Ordered pH Pericardial Fluid Routine Lab 02/18/25 14:50 Uncollected CV. echo limited [id number] Routine Ultrasound 02/23/25 10:11 Ordered US arterial duplex lower extremity bilat [CV arterial Ultrasound 02/23/25 10:11 [place] [id number]] Stat Radiology Impressions Chest X-Ray 02/18/25 11:02 IMPRESSION: 1. Heart size appears enlarged, increased. 2. Possible tiny left pleural effusion with slight probable atelectasis and/or infiltrate left lung base. Abdomen/Pelvis CT 02/18/25 12:06 IMPRESSION: No acute findings in the abdomen or pelvis. Chest CT 02/18/25 13:58 IMPRESSION: 1. Large pericardial effusion. This appears new since 12/11/2024. 2. Tiny LEFT pleural effusion. 3. Lungs are otherwise well aerated. 4. No other acute chest findings. Notified Tj Hollins MD at 02/18/2025 2:37 PM. Venous Duplex 02/18/25 16:34 IMPRESSION: No evidence of deep vein thrombosis. Laboratory Results WBC 13.58 10^3/uL (3.29-11.43) H 02/23/25 03:39 RBC 2.99 10^6/uL (3.85-5.65) L 02/23/25 03:39 Hgb 9.40 g/dL (11.27-16.99) L 02/23/25 03:39 Hct 28.9 % (36-47) L 02/23/25 03:39 MCV 96.7 fl (85-98) D 02/23/25 03:39 MCH 31.4 pg (27-33) 02/23/25 03:39 MCHC 32.5 g/dL (30-55) D 02/23/25 03:39 RDW 12.3 % (12.1-15.1) 02/23/25 03:39 Plt Count 231 10^3/cmm (157-399) 02/23/25 03:39 MPV 9.8 fL (7.4-10.4) 02/23/25 03:39 Neut % (Auto) 76.3 % 02/23/25 03:39 Lymph % (Auto) 7.7 % 02/23/25 03:39 [place] % (Auto) 9.9 % 02/23/25 03:39 Eos % (Auto) 4.8 % 02/23/25 03:39 Baso % (Auto) 0.4 % 02/23/25 03:39 Neut # (Auto) 10.37 10^3/uL (1.8-7.7) H 02/23/25 03:39 Lymph # (Auto) 1.0 10^3/uL (0.8-4.8) 02/23/25 03:39 [place] # (Auto) 1.3 10^3/uL (0.2-0.9) H 02/23/25 03:39 Eos # (Auto) 0.7 10^3/uL (0.0-0.8) 02/23/25 03:39 Baso # (Auto) 0.1 10^3/uL (0.0-0.1) 02/23/25 03:39 Nucleated RBC % (auto) 0 % 02/23/25 03:39 Total Counted Cancelled 02/19/25 00:15 Nucleated RBCs # 0.0 /100WBC 02/23/25 03:39 ESR 22 mm/hr (0-15) H 02/18/25 11:06 PT 15.00 SECONDS (12.1-14.9) H 02/23/25 03:39 INR 1.10 (0.8-1.2) 02/23/25 03:39 APTT 52.4 SECONDS (23.9-36.7) H 02/21/25 13:26 D-Dimer 4.21 ug/mLFEU (0-0.59) H 02/18/25 11:06 D-Dimer Cancelled 02/18/25 11:06 Sodium 134 mmol/L (136-145) L 02/23/25 03:39 Potassium 3.7 mmol/L (3.5-5.1) 02/23/25 03:39 Chloride 95 mmol/L (98-107) L 02/23/25 03:39 Carbon Dioxide 23 mmol/L (22-29) 02/23/25 03:39 Anion Gap 19.7 (5-19) H 02/23/25 03:39 BUN 67 mg/dL (8-23) H 02/23/25 03:39 Creatinine 5.8 mg/dL (0.5-0.9) H* 02/23/25 03:39 GFR Calculation Not Reportable 02/23/25 03:39 Glucose 185 mg/dL (65-115) H 02/23/25 03:39 POC Glucose 180 mg/dL (70-110) H 02/23/25 06:31 Calculated Osmolality 302 mOsm/kg (285-295) H 02/23/25 03:39 Lactic Acid 0.9 mmol/L (0.5-2.2) 02/18/25 15:37 Uric Acid 8.4 mg/dL (2.4-5.7) H 02/18/25 11:06 Calcium 7.9 mg/dL (8.5-10.5) L 02/23/25 03:39 Phosphorus 5.4 mg/dL (2.5-4.5) H 02/23/25 03:39 Magnesium 1.9 mg/dL (1.7-2.3) 02/23/25 03:39 Iron 31 ug/dL (37-145) L 02/19/25 03:37 TIBC 132 mcg/dl 02/19/25 03:37 % Saturation 23.4 % (20-50) 02/19/25 03:37 Unsat Iron Binding 101 ug/dL (112-347) L 02/19/25 03:37 Ferritin 2754 ng/mL (15-150) H 02/19/25 03:37 Total Bilirubin 0.3 mg/dL (0.15-1.2) 02/23/25 03:39 AST 39 U/L (0-32) H 02/23/25 03:39 ALT 59 U/L (0-33) H 02/23/25 03:39 Alkaline Phosphatase 212 U/L (35-105) H 02/23/25 03:39 Troponin T Baseline 33 ng/L (0-10) H 02/22/25 18:34 Troponin T 120 Minute 32.55 ng/L (0-10) H 02/22/25 20:35 Delta Troponin T -0.45 ABS# (0-10) L 02/22/25 20:35 Troponin T Hi Sens 6Hr 32.50 ng/L (0-10) H 02/23/25 00:48 Troponin T Hi Sens 6Hr Delta -0.50 ng/L (0-12) L 02/23/25 00:48 C-Reactive Protein 124.5 mg/L (0.0-4.9) H 02/18/25 13:24 NT-Pro-B Natriuret Pep 3890 pg/mL (0-125) H 02/18/25 11:06 Total Protein 5.8 g/dL (6.6-8.7) L 02/23/25 03:39 Albumin 2.7 g/dL (3.5-5.2) L 02/23/25 03:39 Globulin 3.1 g/dL (1.3-4.6) 02/23/25 03:39 25-OH Vitamin D Total 50 ng/mL (30-100) 02/19/25 03:37 Procalcitonin 0.32 ng/mL (0-0.5) 02/18/25 13:24 PTH Intact 194.9 pg/mL (15-65) H 02/19/25 03:37 Calcium (PTH Intact) 8.1 mg/dL (8.5-10.5) L 02/19/25 03:37 Urine Color Yellow (Yellow) 02/18/25 12:20 Urine Appearance Clear (CLEAR) 02/18/25 12:20 Urine pH 5.5 (5-7) 02/18/25 12:20 Ur Specific [place] 1.014 (1.005-1.030) 02/18/25 12:20 Urine Protein 3+ (Negative) A 02/18/25 12:20 Urine Glucose (UA) Trace (Normal) H 02/18/25 12:20 Urine Ketones Negative (Negative) 02/18/25 12:20 Urine Blood Negative (Negative) 02/18/25 12:20 Urine Nitrate Negative (Negative) 02/18/25 12:20 Urine Bilirubin Negative (Negative) 02/18/25 12:20 Urine Urobilinogen 0.2 mg/dL (Negative) 02/18/25 12:20 Ur Leukocyte Esterase Negative (Negative) 02/18/25 12:20 Urine RBC 0-2 /hpf (0-2) 02/18/25 12:20 Urine WBC 0-5 /hpf (0-5) 02/18/25 12:20 Ur Squamous Epith Cells 11-20 /hpf (0-5) H 02/18/25 12:20 Amorphous Sediment Not Reportable 02/18/25 12:20 Urine Bacteria None seen /hpf (NONE) 02/18/25 12:20 Hyaline Casts 3.71 /lpf 02/18/25 12:20 Peritoneal Color Pale yellow (Pale Yellow) 02/19/25 00:15 Peritoneal Appearance Hazy (Clear) 02/19/25 00:15 Peritoneal pH 7.0 02/19/25 00:15 Peritoneal WBC 9 /uL 02/19/25 00:15 Peritoneal RBC 0 10^3/uL 02/19/25 00:15 Periton Mononu # Auto 0.008 10^3/uL 02/19/25 00:15 Mononuclear WBCs % 88.800 % 02/19/25 00:15 Polynuclear WBCs % 11.200 % 02/19/25 00:15 Perit Polynuc WBCs # 0.001 10^3/uL 02/19/25 00:15 Peritoneal Diff Commnt Yes 02/19/25 00:15 Peritoneal Tot Protein < 0.2 g/dL 02/19/25 00:15 Peritoneal Albumin 0.2 g/dL 02/19/25 00:15 Peritoneal LDH < 10.0 U/L 02/19/25 00:15 Peritoneal Glucose 553.0 mg/dL 02/19/25 00:15 Pleural Color Cancelled 02/19/25 00:15 Pleural Appearance Cancelled 02/19/25 00:15 Pleural WBC Cancelled 02/19/25 00:15 Pleural RBC Cancelled 02/19/25 00:15 Pleural Other Cells Cancelled 02/19/25 00:15 Pleural Polynuclear % Cancelled 02/19/25 00:15 Pleural Mononuclear % Cancelled 02/19/25 00:15 Vancomycin Trough 19.8 ug/mL (10-15) H 02/21/25 14:41 Random Vancomycin 16.3 ug/mL (20.0-40.0) L 02/20/25 06:27 JEFF IFA Animal Tis Res Negative (NEGATIVE) 02/18/25 15:37 PETER-1 Antibody <1.0 neg AI (<1.0 NEG) 02/18/25 15:37 SS-A Antibody <1.0 neg AI (<1.0 NEG) 02/18/25 15:37 SS-B Antibody <1.0 neg AI (<1.0 NEG) 02/18/25 15:37 Sm (Cook) Antibody <1.0 neg AI (<1.0 NEG) 02/18/25 15:37 LOIN PULLER Antibody <1.0 neg AI (<1.0 NEG) 02/18/25 15:37 Scl-70 Antibody <1.0 neg AI (<1.0 NEG) 02/18/25 15:37 Anti-ds DNA IgG (Crith) Negative (NEGATIVE) 02/18/25 15:37 Centromere B Antibody <1.0 neg AI (<1.0 NEG) 02/18/25 15:37 Thyroid Peroxidase Ab 1 IU/mL (<9) 02/18/25 15:37 Complement C3c 124 mg/dL (83-193) 02/18/25 15:37 Complement C4c 32 mg/dL (15-57) 02/18/25 15:37 CH50 Classical Pathway 60 U/mL (31-60) 02/18/25 15:37 Path Cons w/Slide Cancelled 02/19/25 00:15 Vitals Last Vital Signs Temp 98.0 F 02/23/25 07:53 Pulse 72 02/23/25 07:53 Resp 16 02/23/25 07:53 BP 158/82 02/23/25 07:53 Pulse Ox 95 02/23/25 07:53 O2 Del Method Room Air 02/23/25 07:53 O2 Flow Rate 1 02/21/25 07:01 Discharge Plan Discharge Patient Disposition: Home Health Service Condition: Stable Prescriptions: New amiodarone [Pacerone] 200 mg Tablet See Rx Instructions .ROUTE .COMPLEX 30 Days Qty: 37 0RF Rx Instructions: 400 mg orally(2tabs) for 7 days, then 1 tab daily clonidine 0.1 mg/24 hr Patch Weekly 1 patch transdermal .weekly 30 Days Qty: 4 0RF insulin aspart U-100 [Novolog FlexPen U-100 Insulin] 100 unit/mL (3 mL) insulin pen See Rx Instructions .ROUTE .COMPLEX Qty: 15 0RF Rx Instructions: Inject, subcut, 3 times daily, after meals, based on low dose insulin sliding scale pantoprazole [Protonix] 40 mg tablet,delayed release (DR/EC) 40 mg PO BID 30 Days Qty: 60 0RF sucralfate [Carafate] 1 gram tablet 1 g PO BID 28 Days Qty: 56 0RF Continued alprazolam 0.25 mg tablet 0.25 mg PO TID PRN (Reason: Anxiety) tramadol 50 mg tablet 50 mg PO BID PRN (Reason: Pain) atorvastatin 80 mg tablet 80 mg PO DAILY loratadine 10 mg tablet 10 mg PO DAILY Auryxia 210 mg iron tablet 210 mg PO TID Rx Instructions: administer with a meal calcitriol 0.25 mcg capsule 0.25 mcg PO DAILY lactulose 10 gram/15 mL solution 30 - 60 ml PO BID PRN (Reason: Constipation) lisinopril 40 mg tablet 40 mg PO QPM metoprolol succinate 100 mg tablet extended release 24 hr 100 mg PO DAILY fluticasone propionate 50 mcg/actuation spray,suspension 1 spray intranasal DAILY trazodone 150 mg tablet 150 mg PO QPM nystatin 100,000 unit/gram cream 1 applic topical BID gentamicin 0.1 % cream 1 applic topical DAILY sennosides [Senokot] 8.6 mg Tablet 17.2 mg PO BID citalopram 40 mg tablet 40 mg PO DAILY dorzolamide-timolol 22.3-6.8 mg/mL drops 1 drp ophthalmic (eye) BID RenaPlex-D 800 mcg-12.5 mg -2,000 unit tablet 1 tab PO DAILY Changed insulin glargine [Basaglar KwikPen U-100 Insulin] 100 unit/mL (3 mL) insulin pen 10 unit SUBCUT DAILY 30 Days Qty: 15 0RF Discontinued nifedipine 30 mg tablet extended release 24hr 30 mg PO DAILY Discharge Orders: Discharge Order (Routine); Ordered 02/23/25 Ordered By: Terrence Cabrera Other Ambulatory Orders: DME: Commode (Order) Location: None Selected Ordered By: Terrence Cabrera DME: Miscellaneous (Order) Location: None Selected Ordered By: Terrence Cabrera DME: Wheelchair (Order) Location: None Selected Ordered By: Terrence Cabrera Referrals: [facility] [Outside] Rao Amaral MD [Physician, General Surgery] - 1 month Referral Note: egd and colonoscopy We have notified your physician's clinic of the need for a follow-up appointment to be scheduled. If you have not heard from them within the next 2 business days, please call them directly. Nhi Lindsay MD [Physician, Cardiology] - 2 weeks Referral Note: We have notified your physician's clinic of the need for a follow-up appointment to be scheduled. If you have not heard from them within the next 2 business days, please call them directly. Wili Gonzalez DO [Primary Care Provider, Family Practice] - 7-10 days Referral Note: Please call your PCP tomorrow to set up an appointment to see him within the next 7-10 days. Discharge Diet: Cardiac Discharge Activity: Resume usual activity Patient Instructions: Clonidine (By mouth), Sucralfate (By mouth) (Carafate), Amiodarone (By mouth) (Cordarone, Pacerone), Pantoprazole (By mouth) (Protonix), Insulin Aspart, Recombinant (By injection) (Novolog, Novolog..., A-fib (Atrial Fibrillation) (DC), Pericardial Effusion (DC), End Stage Kidney Disease (DC), Opioid Safety Activity Restrictions/Additional Instructions: -Please monitor your blood sugars closely -Monitor your blood sugars 3 times daily as after meals -Please record your blood sugars, and a blood sugar log -For your NovoLog -Please inject blood sugar after meals based on sliding scale provided -Do not inject insulin if you do not eat as hypoglycemia kills -This is a NovoLog sliding scale -Insulin sliding ?fingerstick? Insulin ?141-180?0 units/sq 181-220?2 units/sq ?221-260?4 units/sq ?261-300 6 units/sq ?301-350?8 units/sq ?351-400 10 units/sq ?401-450?12 units/sq >450? 14units/sq -If your blood sugar is greater than 500 go to the emergency room -If your blood sugar is less than 60 or at anytime you feel lightheaded or dizzy or diaphoretic or have chest palpitations check your blood sugar, and eat a hard candy or drink orange juice and go immediately to the emergency room -Remember hypoglycemia kills, so if his blood sugar is less than 60 we have to increase it by taking in a sugary meal such as a hard candy or orange juice and go to the emergency room -If you have any questions please call us where here to help - For your anemia please monitor hemoglobin as outpatient through primary care, hemoglobin on discharge 9.4 - If any recurrent bloody black stools please come back to the emergency room - I have set up a follow-up appointment with general surgery in 1 month - For your pericardial effusion, please follow-up with cardiology in the next few weeks - If you have chest pain or shortness of breath go to emergency room - Follow-up with nephrology - For your atrial fibrillation, please use amiodarone as prescribed, use metoprolol as prescribed - If you develop any strokelike symptoms please immediately call 911 Discharge Attestations Time Spent in Discharge Care*: greater than 30 min Quality Metrics Clinical Quality Measures [ No reported AMI, CVA or VTE this stay] Coding Level of Care Code 95887 Total time (in minutes) for Discharge: 45 Diagnoses ESRD (end stage renal disease) on dialysis N18.6; Z99.2
[2025-02-23] MEDS: potassium chloride ER 20 mEq Tablet PO (11:01)
[2025-02-23] MEDS: pantoprazole 40 mg SDV IVP (11:01)
[2025-02-23 11:31] VITALS: BP 130/67; PULSE 94; RESP 17; TEMP 36.4; O2SAT 95
[2025-02-23 12:12] LABS: Glucose Point of Care 274 mg/dL (70-110)
[2025-02-23 14:51] VITALS: BP 130/67; PULSE 94; RESP 17; TEMP 36.4; O2SAT 95
[2025-02-25 15:10] LABS: Amylase, Peritoneal Fluid <10 U/L
== END 2025-02-23 14:52 | disposition home health service (06) | DRG 314 ==
LOC: ER 14:56 → ICU 15:29 → MEDSURG 02-20 21:24
PROVIDERS: Internal Medicine; Internal Medicine Nephrology; Admitting Provider Family Medicine; Emergency Provider Emergency Medicine; PCP Electrodiagnostic Medicine; Visit Provider Family Medicine
DX: I31.39 Other pericardial effusion (noninflammatory) (principal); I50.31 Acute diastolic (congestive) heart failure; N18.6 End stage renal disease; I13.2 Hypertensive heart and chronic kidney disease with heart failure and with stage 5 chronic kidney disease, or end stage renal disease; C88.41 Extranodal marginal zone B-cell lymphoma of mucosa-associated lymphoid tissue [MALT-lymphoma], in remission; Z68.41 Body mass index [BMI] 40.0-44.9, adult; I48.91 Unspecified atrial fibrillation; E11.22 Type 2 diabetes mellitus with diabetic chronic kidney disease; F41.9 Anxiety disorder, unspecified; I95.9 Hypotension, unspecified; E66.9 Obesity, unspecified; Z99.2 Dependence on renal dialysis; Z79.4 Long term (current) use of insulin; Z79.891 Long term (current) use of opiate analgesic; Z87.891 Personal history of nicotine dependence; Z86.16 Personal history of COVID-19
CPT/HCPCS: 36415; 36416; 71045; 71250; 74176; 78452; 80053; 80202; 80503; 81001; 82042; 82150; 82274; 82306; 82310; 82728; 82945; 82962; 83540; 83550; 83605; 83615; 83735; 83880; 83970; 83986; 84100; 84145; 84157; 84484; 84550; 85014; 85018; 85025; 85378; 85610; 85651; 85730; 86140; 86160; 86162; 86235; 86255; 86376; 87040; 87070; 87075; 87205; 89050; 93005; 93017; 93306; 93308; 93925; 93970; 96365; 96372; 96374; 97110; 97116; 97163; 97530; 99214; 99285; A9500; J0283; J1644; J1815; J1938; J2405; J2470; J2543; J2785; J3370; J3372; J7030; J7050; J9999; Q3014; Q5105

== ENCOUNTER → 2025-02-25 10:22 | Outpatient (BNVA) | payer MEDICARE, OTHER, SELFPAY | PROVIDERS: PCP Electrodiagnostic Medicine; Visit Provider Podiatrist Foot & Ankle Surgery | DX: E11.42 Type 2 diabetes mellitus with diabetic polyneuropathy (principal); L60.3 Nail dystrophy; L84 Corns and callosities; G62.9 Polyneuropathy, unspecified; Z79.4 Long term (current) use of insulin | CPT/HCPCS: 11055; 11721 ==

== ENCOUNTER 2025-02-27 12:18 | Outpatient (CLI) | payer MEDICARE, OTHER, SELFPAY | END 2025-02-27 12:19 | disposition home or self-care (01) | LOC: SLEEP 12:19 | PROVIDERS: PCP Electrodiagnostic Medicine; Visit Provider Specialist | DX: G47.10 Hypersomnia, unspecified (principal) | CPT/HCPCS: G0399 ==

== ENCOUNTER → 2025-03-11 14:46 | Outpatient (BNVA) | payer MEDICARE, OTHER, SELFPAY | PROVIDERS: PCP Electrodiagnostic Medicine; Visit Provider Nurse Practitioner Family | DX: I13.2 Hypertensive heart and chronic kidney disease with heart failure and with stage 5 chronic kidney disease, or end stage renal disease (principal); E11.22 Type 2 diabetes mellitus with diabetic chronic kidney disease; N18.6 End stage renal disease; I50.31 Acute diastolic (congestive) heart failure; Z99.2 Dependence on renal dialysis; Z79.4 Long term (current) use of insulin; Z09 Encounter for follow-up examination after completed treatment for conditions other than malignant neoplasm; I31.39 Other pericardial effusion (noninflammatory); D64.9 Anemia, unspecified; K92.2 Gastrointestinal hemorrhage, unspecified; Z87.891 Personal history of nicotine dependence; I48.91 Unspecified atrial fibrillation | CPT/HCPCS: 99214 ==

== ENCOUNTER 2025-03-13 09:47 | Oncology outpatient (recurring) (ONCR) | payer MEDICARE, OTHER, SELFPAY ==
--- NOTE | 2025-03-13 10:00 | USCV_ITS ---
Sebastián Sparks Age: 69 Gender: F : 1955 Exam Date: 03/13/2025 10:06 Ordering Phys: Svetlana Garcia NP Technologist: SONIA Exam Location: [facility] Indication: Pericardial Effusion BP: 132 / 64 HR: Rhythm: Sinus Technical Quality: Adequate MEASUREMENTS (Male / Female) Normal Values 2D ECHO LV Diastolic Diameter PLAX 5.4 cm 4.2 - 5.9 / 3.9 - 5.3 cm IVS Diastolic Thickness 1.3 cm 0.6 - 1.0 / 0.6 - 0.9 cm IVS Systolic Thickness 1.8 cm LVPW Diastolic Thickness 1.6 cm 0.6 - 1.0 / 0.6 - 0.9 cm LVPW Systolic Thickness 2.0 cm LVOT Diameter 2.0 cm LV Ejection Fraction 2D Teich 57.3 % LV Ejection Fraction MOD 4C 51.4 % LV Ejection Fraction MOD 2C 52.1 % LV Ejection Fraction 2C AL 54.1 % LA Diameter 4.0 cm RA Systolic Volume 4C AL 51.4 ml RA Systolic Volume 4C MOD 50.6 ml LA Sys Volume AL 68.6 cm cubed LA Sys Volume Index AL 32.0 cm cubed/m squared Aorta at Sinotubular Diameter 2.6 cm IVC Diameter 1.7 cm M-MODE LA Ao Ratio MM 2.0 AV Cusp Separation MM 2.2 cm FINDINGS Left Ventricle Normal LV size with borderline low LV ejection fraction of 50- 55%.no regional wall motion abnormalities. Right Ventricle The right ventricle is normal in size and function. Right Atrium The right atrium is normal in size. Left Atrium Mildly increased left atrial size. Mitral Valve Moderate mitral annular calcification. Aortic Valve No gross abnormalities noted Tricuspid Valve No gross abnormalities noted Pulmonic Valve Pulmonic valve not well visualized. Pericardium No significant pericardial effusion Aorta Normal aortic annulus size. IVC Normal IVC dimension with <50% respiratory change of the inferior vena cava. CONCLUSIONS Normal LV size with borderline low ejection fraction of 50-55%. No regional wall motion abnormalities. Moderate mitral annular calcification. Mildly increased left atrial size. There is no pericardial effusion. There are no intracardiac masses. Compared to the study from 02/18/2025, there may not be a significant change Dr Nhi Lindsay MD FACC (Electronically Signed) Final Date: 14 March 2025 12:09 S
== END 2025-04-03 23:59 | disposition home or self-care (01) ==
PROVIDERS: PCP Electrodiagnostic Medicine; Visit Provider Nurse Practitioner Family
DX: C88.40 Extranodal marginal zone B-cell lymphoma of mucosa-associated lymphoid tissue [MALT-lymphoma] not having achieved remission (principal); D72.829 Elevated white blood cell count, unspecified; G81.94 Hemiplegia, unspecified affecting left nondominant side; G25.2 Other specified forms of tremor; I67.89 Other cerebrovascular disease; I67.1 Cerebral aneurysm, nonruptured; C88.4 Extranodal marginal zone B-cell lymphoma of mucosa-associated lymphoid tissue [MALT-lymphoma]; U07.1 COVID-19; R53.83 Other fatigue; Z53.9 Procedure and treatment not carried out, unspecified reason; Z85.72 Personal history of non-Hodgkin lymphomas; N18.6 End stage renal disease; R03.0 Elevated blood-pressure reading, without diagnosis of hypertension; Z99.2 Dependence on renal dialysis; Z87.891 Personal history of nicotine dependence; R63.5 Abnormal weight gain; Z68.41 Body mass index [BMI] 40.0-44.9, adult; I31.39 Other pericardial effusion (noninflammatory)
CPT/HCPCS: 93308

== ENCOUNTER 2025-03-22 19:59 | Emergency (ER) | payer MEDICARE, OTHER, SELFPAY ==
[2025-03-22 20:02] VITALS: BP 218/96; PULSE 64; RESP 16; TEMP 36.6; O2SAT 99; BMI 38.2
--- OUTSIDE RECORDS SUMMARY | 2025-03-22 20:14 | XMS_ITS | Encounter Summary ---
Author Organization [facility] Address [address] [address] Phone Care Team Providers Care Pressurised Container Filler Name Role Phone Wili Gonzalez DO Primary Care Provider [phone] Reason for Visit * Reason Comments Med Refill Encounter Details Date Type Department Care Team (Late st Contact Info) Description 03/08/2021 Refill [facility] [address] [address] Shyann Wilder NP [address] [place] [address] Social History Tobacco Use Types Packs/Day Years Used Date Smoking Tobacco: Never Smokeless Tobacco: Never Alcohol Use Standard Drinks/Week Comments Never 0 (1 standard drink = 0.6 oz pur e alcohol) AUDIT-C Answer Date Recorded Frequency of Alcohol Consumption Never 02/27/2019 Average Number of Drinks Not on file 019 Frequency of Binge Drinking Not on file 02/03 Comments Unknown Sex and Gender Information Value Date Recorded Sex Assigned at Not on file Legal Sex Female 10:50 AM EDT Gender Identity Not on file Sexual Orientation Not on file documented as of this encounter Plan of Treatment Not on file documented as of this encounter Visit Diagnoses Not on filedocumented in this encounter Care Teams Pressurised Container Filler Relationship Specialty Start Date End Date Wili Gonzalez DO [address] [place] [address] PCP - General Family Medicine 01/29/19 documented as of this encounter
--- OUTSIDE RECORDS SUMMARY | 2025-03-22 20:14 | XMS_ITS | Clinical Summary ---
Author Organization [facility] Address [address] [place] [address] Care Team Providers Care Manager Provider Relations Name Role Phone Unavailable Primary Care Provider Unavailabl e Allergies Active Allergy Reactions Criticality Noted Date Comments Meperidine Rash,Itching Low 02/01/2023 Sulfa (Sulfonamide Antibiotics) Itching Low 01/04 Medications atorvastatin 80 mg tablet Take 80 mg by mouth daily. Active insulin glargine (U-100) 100 unit/mL (3 mL) subcutaneous pen Inject 75 Units by subcutaneous injection daily at bedtime. Active citalopram 40 mg tablet Take 40 mg by mouth daily. Active dorzolamide 22.3 mg-timoloL 6.8 mg/mL eye drops Administer 1 Drop in both eyes 2 times daily. Active vit A/vit C/vit E/zinc/copper (EYE MULTIVITAMIN ORAL) Take by mouth. Activ e fluticasone propionate 50 mcg/actuation nasal spray,suspension Administer 1 [place] in each nostril daily. Active cholecalciferol (vitamin D3) 25 mcg (1,000 unit) tablet Take 4,000 Units by mouth daily. Active loratadine 10 mg tablet Take 10 mg by mouth daily. Active magnesium 250 mg (as magnesium oxide) tablet Take by mouth daily. Active metoprolol succinate ER 100 mg tablet,extended release 24 hr Take 100 mg by mouth daily. pm Active NIFEdipine ER 30 mg tablet,extended release 24 hr Take 30 mg by mouth daily. PM Active sennosides 8.6 mg tablet Take 8.6 mg by mouth 2 times daily. Active amLODIPine (NORVASC) 5 mg tablet Take 1 Tablet by mouth daily. 4 Active ALPRAZolam (XANAX) 0.25 mg tablet Take 1 Tablet by mouth 3 times daily. 4 Active Active Problems No known active problems Social History Tobacco Use Types Packs/Day Years Used Date Smoking Tobacco: Never Smokeless Tobacco: Never Tobacco Cessation:Counseling Given: Not Answered Alcohol Use Standard Drinks/Week Comments Not Currently 0 (1 standard drink = 0.6 oz pur e alcohol) Comments Unknown Sex and Gender Information Value Date Recorded Sex Assigned at Not on file Legal Sex Female 1:15 PM CDT Gender Identity Not on file Sexual Orientation Not on file Last Filed Vital Signs Vital Sign Reading Time Taken Comments Blood Pressure 152/68 11/01/2023 10:00 AM SECRETARY BOOK KEEPER Pulse 68 11/01/2023 10:00 AM SECRETARY BOOK KEEPER Temperature 36.1 C (97 F) 11/01/2023 10:00 AM SECRETARY BOOK KEEPER Respiratory Rate 18 11/01/2023 10:0 0 AM SECRETARY BOOK KEEPER Oxygen Saturation 97% 11/01/2023 10: 00 AM SECRETARY BOOK KEEPER Inhaled Oxygen Concentration - - Weight 110.3 kg (243 lb 2.7 oz) 11/01/2023 6:57 AM SECRETARY BOOK KEEPER Height 165.1 cm (5' 5 ) 11/01/2023 6:57 AM SECRETARY BOOK KEEPER Body Mass Index 40.47 11/01/2023 6:57 AM SECRETARY BOOK KEEPER Plan of Treatment Health Maintenance Due Date Last Done Comments DIABETES ANNUAL FOOT EXAM 1971 DIABETES ANNUAL RETINAL EXAM 1971 DIABETES MICROALBUMIN ANNUAL SCREEN 1971 LDL CHOLESTEROL ANNUAL 1971 DTAP/TDAP/TD VACCINES (1 - Tdap) 1972 PNEUMOCOCCAL VACCINE 50+ YEARS (1 of 2 - PCV) 03/17/19 72 BREAST CANCER SCREENING 1993 COLORECTAL SCREENING 1998 Colorectal Cancer Screening 1998 FIT-DNA Q 3 years 1998 FIT/FOBT Q 1 year 1998 Flex Sig/CT Colonography Q 5 years 1998 ZOSTER VACCINE (1 of 2) 2003 RSV VACCINE (60+ or ) (1 - Risk 60-74 years 1-dose series) 2013 OSTEOPOROSIS SCREENING 2018 DIABETES HBA1C Q 6 MONTHS 12/11/2019 06/11/2019 INFLUENZA VACCINE (#1) 2025 07/31/2023 Medical Devices Implanted Type Area Flatwork Catcher Device Identifier Shelf Expiration Date Model / Serial / Lot Cath Pd Cain Bermeo [id number] - [id number] Implanted:Qty : 1 on 03/09/2023 by Cliff Raza MD at [facility] Catheter N/A: Abdomen [employer] [id number] 06/14/2027 [id number] / / [id number] Insurance [employer] [facility] Address: [address] [address] MEDICARE PART A AND B Advance Directives For more information, please contact: [phone] Documents on File Type Date Recorded Patient Head Inspector And Center Marker Expl anation Advance Directive POA 10/31/2023 10:44 AM * Full Code (Latest Code Status on File) Date Activated Date Inactivated Comments 11/01/2023 8:41 AM 11/01/2023 1:04 PM * Full Code Date Activated Date Inactivated Comments 03/09/2023 10:44 AM 03/09/2023 5:13 PM * Full Code Date Activated Date Inactivated Comments 03/09/2023 10:28 AM 03/09/2023 10:44 AM
--- OUTSIDE RECORDS SUMMARY | 2025-03-22 20:14 | XMS_ITS | Clinical Summary ---
Author Organization [facility] Facility Address [address] [place] [id number] Care Team Providers Care Beverage Specialist Name Role Phone Wili Gonzalez Primary Care Provider [phone] Allergies Active Allergy Reactions Criticality Noted Date Comments Meperidine Rash Low 02/27/2019 Sulfa Antibiotics Itching Low 02/27/2019 Medications * This document contains information received from the source organization and may not represent a complete record from that organization. ALPRAZolam (XANAX) 0.25 MG tablet 2 (two) times a day 5 9 Active traMADol (ULTRAM) 50 MG tablet 2 (two) times a day 5 9 Active metoprolol succinate XL (TOPROL-XL) 100 MG 24 hr tablet Take 100 mg by mouth 1 (one) time each day Do not crush or chew. Active traZODone (DESYREL) 150 MG tablet Take 150 mg by mouth every night Active citalopram (CeleXA) 40 MG tablet Take 40 mg by mouth 1 (one) time each day Active fluticasone (FLONASE) 50 MCG/ACT nasal spray Administer 1 spray into each nostril 1 (one) time each day if needed for rhinitis Active senna (SENOKOT) 8.6 MG tablet Take 2 tablets by mouth 2 (two) times a day Active Multiple Vitamin (MULTIVITAMIN) tablet Take 1 tablet by mouth 1 (one) time each day Active Magnesium 250 MG tablet Take 1 tablet by mouth 1 (one) time each day Active atorvastatin (LIPITOR) 80 MG tablet Take 80 mg by mouth 1 (one) time each day Active insulin glargine (Basaglar KwikPen) 100 UNIT/ML injection Inject 75 Units under the skin every night Active Loratadine 10 MG capsule Take by mouth 1 (one) time each day Active dorzolamide-timolo l (COSOPT) 22.3-6.8 MG/ML ophthalmic solution Administer 1 drop into both eyes 2 Active Multiple Vitamins-Minerals (EYE MULTIVITAMIN PO) Take 1 tablet by mouth 1 (one) time each day Active NIFEdipine XL (PROCARDIA XL) 30 MG 24 hr tabletIndications: Hypertension Take 1 tablet (30 mg total) by mouth 1 (one) time each day Do not crush, chew, or split. 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 12/01/2023 Unsteady when walking 10/23/2023 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 02/07/2023 Fatigue 02/07/2023 Hyperlipidemia 02/07/2023 Morbid obesity 02/07/2023 Benign essential hypertension 10/10/2022 Overview (02/12/2024): Hypertension; 10/10/2022 1:39PM by Laura Benito, Office Visit; Promoted; acuity set as *; Hodgkin's disease, lymphocytic depletion (clinic al) 10/10/2022 Overview (02/12/2024): Hodgkin's Disease, Lymphocytic Depletion; 10/10/2022 1:39PM by Laura Benito, Office Visit; Promoted; acuity set as *; Lumbosacral radiculopathy 10/10/2022 Overview (02/12/2024): L-S RADICULOPATHY; Recorded 10/10/2022 1:39PM by Laura Benito, Office Visit; Promoted; acuity set as *; Vitamin D deficiency 07/20/2022 Secondary hyperparathyroidism of renal origin End stage renal disease 02/27/2019 Type 2 diabetes mellitus 02/27/2019 Hypertension 02/27/2019 Encounters Date Type Department Care Team Description 03/10/2025 Treatment [facility], [facility] [address] [place] [phone] Silvia Atwood MD End stage renal disease; Dependence on renal dialysis 03/04/2025 Orders Only [place] [facility], [facility] [address] [place] [phone] Silvia Atwood MD 02/10/2025 Treatment [facility], [facility] [address] [place] [address] Silvia Atwood MD End stage renal disease; Dependence on renal dialysis 02/03/2025 Orders Only [place] [facility], [facility] [address] [place] [address] Silvia Atwood MD 01/15/2025 Refill [facility], [facility] [address] [place] [address] Silvia Atwood MD 01/14/2025 Treatment [facility], [facility] [address] [place] [address] Silvia Atwood MD End stage renal disease; Dependence on renal dialysis 01/02/2025 Orders Only [place] [facility], [facility] [address] [place] [address] Silvia Atwood MD 12/23/2024 Orders Only [facility], [facility] [address] [place] [phone] Silvia Atwood MD from Last 3 Months Family History Medical History Relation Comments Cancer Father Dementia Mother Diabetes Mother Diabetes Sibling Heart disease Sibling Hypertension Sibling Relation Status Comments Father Mother Sibling Social History Tobacco Use Types Packs/Day Years Used Date Smoking Tobacco: Never Smokeless Tobacco: Never Tobacco Cessation:Counseling Given: Not Answered Alcohol Use Standard Drinks/Week Comments Never 0 (1 standard drink = 0.6 oz pur e alcohol) AUDIT-C Answer Date Recorded Frequency of Alcohol Consumption Never 02/27/2019 Average Number of Drinks Not on file 019 Frequency of Binge Drinking Not on file 02/03 Comments No Sex and Gender Information Value Date Recorded Sex Assigned at Not on file Legal Sex Female 10:50 AM EDT Gender Identity Not on file Sexual Orientation Not on file Last Filed Vital Signs Vital Sign Reading Time Taken Comments Blood Pressure 154/70 10/11/2023 2:23 PM [employer] [employer] Pulse 72 10/11/2023 2:23 PM [employer] Temperature 36.3 C (97.4 F) 01/27/2021 9:51 AM CDT Respiratory Rate - - Oxygen Saturation 97% 10/11/2023 2:23 PM [employer] Inhaled Oxygen Concentration - - Weight 113 kg (249 lb 3.2 oz) 10/11/2023 2:23 PM [employer] [employer] Height 165.1 cm (5' 5 ) 10/11/2023 2:23 PM [employer] Body Mass Index 41.47 10/11/2023 2:23 PM [employer] [employer] Plan of Treatment Health Maintenance Due Date Last Done Comments Breast Cancer Screening 1955 Pneumococcal Vaccine: 50+ Ye ars (1 of 2 - PCV) 1972 Hepatitis B Vaccine (1 of 5 - Risk Dialysis 4-dose series) 1973 Colorectal Cancer Screening: Annual FOBT 2002 Colorectal Cancer Screening: Colonoscopy 2002 Colorectal Cancer Screening: Sigmoidoscopy 2002 Diabetes: Ophthalmology Exam 02/27/2019 Diabetes: Pedal Pulse Checked 02/27/2019 Diabetes: Sensory Foot Exam 02/27/2019 Diabetes: Visual Foot Exam 02/27/2019 Influenza Vaccine (#1) 2025 07/10/2024, 2022 Diabetes: Hemoglobin A1C 06/04/2025 025, 12/03/2024, 09/05/2024, Additional history exists Procedures Procedure Name Priority Date/Time Associated Diagnosis Comments CHEMISTRY Routine 03/04/2025 SPECIAL CHEMISTRY Routine 03/04/2025 HEMATOLOGY Routine 03/04/2025 CHEMISTRY Routine 03/04/2025 URINE CLEARANCE Routine 02/03/2025 PD ADEQUACY Routine 02/03/2025 PDF CHEMISTRY Routine 02/03/2025 PD ADEQUACY Routine 02/03/2025 CHEMISTRY Routine 02/03/2025 HEMATOLOGY Routine 02/03/2025 PATIENT INFORMATION Routine 02/03/2025 PATIENT INFORMATION Routine 02/03/2025 PATIENT INFORMATION Routine 02/03/2025 CHEMISTRY Routine 01/02/2025 HEMATOLOGY Routine 01/02/2025 CELL COUNT W/DIFFERENTIAL Routine 12/23/2024 CULTURE,PD FLUID AEROBIC\ANAEROBIC Routine 12/23/2024 from Last 3 Months Results * (ABNORMAL) SPECIAL CHEMISTRY (03/04/2025) Hemoglobin A1C 6.2(H) 4.8 - 5.9 % [facility] 03/04/2025 03/05/2025 9:0 5 AM CDT Narrative [facility]EL[facility] - 03/05/2025 Unless otherwise specified, test(s) performed at: [facility], [address] [place] [id number] HAND BUFFER: Steve Potts M.D. For any questions, please call customer service at FREQUENCY:MONTHLY Resulting Agency Comment Specimen source: Blood us Silvia Atwood MD LAB BLOOD BANK TEST ORDERABLE S Final Result [facility] See order comments or contact performing lab Unknown, [place] * (ABNORMAL) HEMATOLOGY (03/04/2025) Only the most recent of3 resultswithin the time period is included. Neutrophils 83.4(H) 40.0 - 75.0 % [facility] Lymphocytes Relative 6.2(L) 19.0 - 48.0 % [facility] Monocytes 4.6 3.0 - 10.0 % [facility] Eosinophils Relative 3.8 0.0 - 7.0 % [facility] Basophils Relative 0.4 0.0 - 1.5 % [facility] JULIAN 1.6 0.0 - 4.0 % [facility] WBC 10.75 4.80 - 10.80 1000/mcL [facility] RBC 3.44(L) 4.20 - 5.40 mill/mcL [facility] Hematocrit 33.6(L) 37.0 - 47.0 % [facility] MCV 98 80 - 100 fl [facility] MCH 30.2 27.0 - 31.0 pg [facility] MCHC 30.9 30.0 - 36.0 g/dL [facility] RDW 12.9 11.5 - 14.5 % [facility] Hemoglobin 10.4(L) 12.0 - 16.0 g/dL [facility] Hemoglobin x 3 31.2(L) 36.0 - 48.0 % [facility] Platelets 268 130 - 400 1000/mcL [facility] Retic Ct Pct 2.41(H) 0.80 - 2.10 % [facility] Reticulocyte Hemoglobin 31.3 25.4 - 31.8 pg [facility] 03/04/2025 03/05/2025 9:0 5 AM CDT Narrative [facility] - 03/05/2025 Unless otherwise specified, test(s) performed at: [facility], [address] [place] [id number] HAND BUFFER: Steve Potts, M.D. For any questions, please call customer service at FREQUENCY:MONTHLY Resulting Agency Comment Specimen source: Blood us Silvia Atwood MD LAB BLOOD ORDERABLES Final Re sult [facility] See order comments or contact performing lab Unknown, [place] * (ABNORMAL) [facility] Chemistry (03/04/2025) Only the most recent of4 resultswithin the time period is included. BUN 88(H) 6 - 19 mg/dL [facility] Creatinine 6.60(H) 0.60 - 1.30 mg/dL [facility] BUN/Creatinine Ratio 13.3 10.0 - 20.0 [facility] Sodium 137 136 - 145 mEq/L [facility] Potassium 4.3 3.5 - 5.1 mEq/L [facility] Chloride 102 96 - 108 mEq/L [facility] Bicarbonate (CO2) 23 22 - 29 mEq/L [facility] Calcium 8.1(L) 8.4 - 10.2 mg/dL [facility] Corrected Calcium 9.0 8.4 - 10.2 mg/dL [facility] Comment: Corrected Calcium is not equivalent to measured Ionized Calcium. Phosphorus 4.8(H) 2.6 - 4.5 mg/dL [facility] Calcium Phosphorus Product 39 0 - 54 [facility] Calcium Phosporus Product, Cor 43 0 - 54 [facility] Alkaline Phosphatase 157(H) 35 - 104 U/L [facility] Total Protein 5.9(L) 6.0 - 8.5 g/dL [facility] Albumin 2.9(L) 3.5 - 5.2 g/dL [facility] Globulin, Total 3.0 2.0 - 4.0 g/dL [facility] A/G Ratio 1.0 1.0 - 2.0 [facility] Glucose 136(H) 70 - 100 mg/dL [facility] Magnesium 2.3 1.6 - 2.6 mg/dL [facility] Ferritin 1,479(H) 10 - 291 ng/mL [facility] Comment: Verified by repeat analysis. Iron 40 30 - 160 mcg/dL [facility] UIBC 142(L) 155 - 355 mcg/dL [facility] TIBC 182(L) 185 - 515 mcg/dL [facility] Iron Saturation (TSat) 22 20 - 55 % [facility] 03/04/2025 03/05/2025 10: 42 AM CDT Narrative [facility] - 03/05/2025 Unless otherwise specified, test(s) performed at: [facility], [address] [place] [id number] HAND BUFFER: Steve Potts M.D. For any questions, please call customer service at FREQUENCY:MONTHLY Resulting Agency Comment Specimen source: Serum Silvia Atwood MD LAB BLOOD ORDERABLES Final Re sult [facility] See order comments or contact performing lab Unknown, [place] * (ABNORMAL) URINE CLEARANCE (02/03/2025) Urea Nitrogen, Urine Timed 377 mg/dL [facility] Urea Nitrogen, Urine 24 Hr 8.7(L) 12.0 - 20.0 g/24 hr [facility] Urea Clear, Urine Norm 7.6(L) 64.0 - 99.0 mL/min [facility] Urea Clearance, Urine 7.0(L) 64.0 - 99.0 mL/min [facility] Urea Clear, Urine Norm Wkly 71 L/wk [facility] Creatinine, Urine Timed 43.8 mg/dL [facility] Creatinine, 24H Ur 1.0 0.5 - 1.6 g/24 hr [facility] Creatinine Clear, Urine 10.7 mL/min [facility] Creat Clear, Urine Norm 11.7(L) 77.0 - 94.0 mL/min [facility] Creat Clear, Urine Wkly 107.9 L/wk [facility] 02/03/2025 02/04/2025 11: 14 AM CDT Narrative Resulting Agency Comment Specimen source: Urine us Silvia Atwood MD LAB URINE ORDERABLES Final Re sult [facility] See order comments or contact performing lab Unknown, [place] * PDF CHEMISTRY (02/03/2025) Urea Nitrogen, PDF 24 Hr 3,220.0 mg/24 hr [facility] Urea Nitrogen, PDF Timed 92 mg/dL [facility] Urea Clearance, PD Fluid 2.6 mL/min [facility] Urea Clearance, PDF Norm 2.8 mL/min [facility] Urea Clear, Tot Norm Wkly 97 L/wk [facility] Urea Clear, PDF Norm Wkly 26 L/wk [facility] Creatinine, PDF Timed Uncor 5.1 mg/dL [facility] Creatinine, PDF Timed Cor 5.0 mg/dL [facility] Comment: Creatinine values have been corrected for glucose interference. [facility] glucose correction factor for creatinine is 0.0002. Creatinine, PDF 24 Hr 175.0 mg/24 hr [facility] Creatinine Clear, PDF 1.9 mL/min [facility] Creatinine Clear, PDF Norm 2.0 mL/min [facility] Creat Clear, PDF Norm Wkly 19 L/wk [facility] Creat Clear, Tot Wkly 127 L/wk [facility] Glucose, PDF Timed 441 mg/dL [facility] 02/03/2025 02/04/2025 10: 58 AM CDT Narrative Resulting Agency Comment Specimen source: PD Fluid us Silvia Atwood MD LAB BODY FLUIDS AND STOOLS OR DERABLES Final Result Performing Organization Address [facility] de Phone Number [facility] See order comments or contact performing lab Unknown, [place] * PD ADEQUACY (02/03/2025) Only the most recent of2 resultswithin the time period is included. Kt/V, Residual 2.35 [facility] Creat Clear, Urine Nor Wkly 118 L/wk [facility] 02/03/2025 02/04/2025 11: 14 AM CDT Narrative [facility] - 02/04/2025 Unless otherwise specified, test(s) performed at: [facility], [address] [place] [id number] HAND BUFFER: Steve Potts M.D. For any questions, please call customer service at FREQUENCY:MONTHLY Resulting Agency Comment Specimen source: Urine us Silvia Atwood MD LAB BODY FLUIDS AND STOOLS OR DERABLES Final Result Performing Organization Address [facility] Co de Phone Number [facility] See order comments or contact performing lab Unknown, [place] * PATIENT INFORMATION (02/03/2025) Only the most recent of3 resultswithin the time period is included. Patient BSA 1.59 sq. M. [facility] Comment: Normalized values are calculated using the patient's actual BSA and normalized to the average BSA of 1.73m2. 02/03/2025 02/04/2025 11: 17 AM CDT Narrative [facility] - 02/04/2025 Unless otherwise specified, test(s) performed at: [facility], [address] [place] [id number] HAND BUFFER: Steve Potts M.D. For any questions, please call customer service at FREQUENCY:MONTHLY Resulting Agency Comment Specimen source: PD Fluid us Silvia Atwood MD LAB BLOOD ORDERABLES Final Re sult Performing Organization Address [facility] de Phone Number [facility] See order comments or contact performing lab Unknown, [place] * CULTURE,PD FLUID AEROBIC\ANAEROBIC (12/23/2024) [facility] Culture result, PDF Aerobic/Anaero bic See below [facility] Comment: No Aerobic or Anaerobic Growth after 5 Days of Incubation. Gram Stain See below [facility] Comment: Rare WBC No Organisms Seen 12/23/2024 12/24/2024 9:2 4 AM CDT Narrative [facility] - 12/30/2024 Unless otherwise specified, test(s) performed at: [facility], [address] [place] [id number] HAND BUFFER: Steve Potts M.D. For any questions, please call customer service at FREQUENCY:OTHER Resulting Agency Comment Specimen source: PD Fluid/PD EFFLUENT us Silvia Atwood MD LAB MICROBIOLOGY - GENERAL OR DERABLES Final Result Performing Organization Address [facility] Co de Phone Number [facility] See order comments or contact performing lab Unknown, [place] * (ABNORMAL) CELL COUNT W/DIFFERENTIAL (12/23/2024) Source PD Effluent [facility] Color, Fluid Pinkish(A) Colorless [facility] Appearance, Fluid Hazy(A) Clear [facility] Fluid WBC Count 46 0 - 50 /mm3 [facility] Erythrocytes in Peritoneal Dialysis Fluid 3,416(H) 0 - 0 /mm3 [facility] Polymorph Cells 9 0 - 35 % [facility] Mononuclear Cells 70(L) 75 - 100 % [facility] Eosinophils in Peritoneal Dialysis Fluid 21(H) 0 - 2 % [facility] 12/23/2024 12/24/2024 10: 24 AM CDT Narrative [facility] - 12/24/2024 Unless otherwise specified, test(s) performed at: [facility], [address] [place] [id number] HAND BUFFER: Steve Potts M.D. For any questions, please call customer service at FREQUENCY:OTHER Resulting Agency Comment Specimen source: PD Fluid/PD Effluent us Silvia Atwood MD LAB BLOOD ORDERABLES Final Re sult [facility] See order comments or contact performing lab Unknown, [place] from Last 3 Months Insurance [place] [id number] Medicare Care Teams Beverage Specialist Relationship Specialty Start Date End Date Wili Gonzalez DO [address] [place] [phone] PCP - General Family Medicine 01/29/19
--- OUTSIDE RECORDS SUMMARY | 2025-03-22 20:14 | XMS_ITS | Encounter Summary ---
Author Organization [facility] Address [address] [address] Phone Care Team Providers Care Manager Utilization Name Role Phone Wili Gonzalez DO Primary Care Provider [phone] Reason for Visit * Reason Comments Med Refill Encounter Details Date Type Department Care Team (Late st Contact Info) Description 01/15/2025 Refill [facility] [address] [address] Silvia Atwood MD [address] [facility] [address] [place] [address] Social History Tobacco Use Types [...] on filedocumented in this encounter Care Teams Manager Utilization Relationship Specialty Start Date End Date Wili Gonzalez DO [address] [place] [address] PCP - General Family Medicine 01/29/19 documented as of this encounter
--- OUTSIDE RECORDS SUMMARY | 2025-03-22 20:15 | XMS_ITS | Encounter Summary ---
Author Organization [facility], [facility] Address [address] [facility] [address] [place] [address] Phone Care Team Providers Care Railroad Dining Car Steward/Stewardess Name Role Phone Wili Gonzalez DO Primary Care Provider [phone] Encounter Details Date Type Department Care Team (Late st Contact Info) Description 03/06/2019 [facility] [address] [place] [address] Chavez Kc, ТАТЬЯНА Chronic kidney disease, stage 4 (severe) ([facility]) Social History Tobacco Use Types Packs/Day Years [...] on file documented as of this encounter Progress Notes * Pierre Zavala MD - 03/06/2019 11:59 PM CDT Please let her know that her renal function is stable but the test looking for an abnormal protein was positive. We will need to follow up with a 24 hr urine protein electrophoresis with LAURA. Please call her and order. Renal ultrasound pending. documented in this encounter Plan of Treatment Not on file documented as of this encounter Procedures Procedure Name Priority Date/Time Associated Diagnosis Comments KAPPA/LAMBDA FREE LT CHAINS W/RATIO Routine 03/13/2019 1:26 PM CDT Chronic kidney disease, stage 4 (severe) (HCC) URINE ALBUMIN / CREATININE RATIO Routine 03/13/2019 1:26 PM CDT Chronic kidney disease, stage 4 (severe) (HCC) VITAMIN D 25 HYDROXY Routine 03/13/2019 1:26 PM CDT Chronic kidney disease, stage 4 (severe) (HCC) CBC AND DIFFERENTIAL Routine 03/13/2019 1:26 PM CDT Chronic kidney disease, stage 4 (severe) (HCC) PROTEIN ELECTROPHORESIS, SERUM Routine 03/13/2019 1:26 PM CDT Chronic kidney disease, stage 4 (severe) (HCC) PTH, INTACT Routine 03/13/2019 1:26 PM CDT Chronic kidney disease, stage 4 (severe) (HCC) RENAL FUNCTION PANEL Routine 03/13/2019 1:26 PM CDT Chronic kidney disease, stage 4 (severe) (HCC) documented in this encounter Results * Vitamin D 25 hydroxy (03/13/2019 1:26 PM CDT) Vitamin D, 25-OH, Total 30 ng/mL Blood specimen (specimen) Venous blood / Unknown 03/13/2019 1:26 PM CDT Narrative Felisa Vergara LPN - 03/18/2019 8:57 AM CDT As ordered [facility] [place] [address] [place] [address] Linesperson: Celso Li DO MPH CLIA: [id number] Chavez Kc MULLING MACHINE OPERATOR LAB BLOOD ORDERABLES Final Result * PTH, intact (03/13/2019 1:26 PM CDT) Pathologist [facility] Parathyroid Hormone, Intact 80 pg/mL Blood specimen (specimen) Venous blood / Unknown 03/13/2019 1:26 PM CDT Grazyna UrsulaFelisa LPN - 03/18/2019 8:57 AM CDT As ordered lab [facility] [place] [address] [facility] [address] Linesperson: Celso Li DO MPH CLIA: [id number] Chavez Kc NP LAB BLOOD ORDERABLES Final Result * (ABNORMAL) CBC and differential (03/13/2019 1:26 PM CDT) [facility] WBC 9.7 3.3 - 10.0 10*3/ML RBC 3.80(A) 4.00 - 5.20 10*6/ L Hemoglobin 10.5 g/dL Hematocrit 33.1 % MCV 87.1 MCH 27.6 MCHC 31.7 RDW 13.3 Platelets 300 150 - 399 10*3/UL MPV 9.7 Absolute Neutrophils 6,295 Absolute Lymphocytes 1,581 Absolute Monocytes 737 Absolute Eosinophils 999 Absolute Basophils 87 Neutrophils Relative 65 46 - 78 % Lymphocytes Relative 16(A) 18 - 52 % Monocytes 8 3 - 10 % Eosinophils Relative 10(A) 0 - 6 % Basophils Relative 1 0 - 3 % Blood specimen (specimen) Venous blood / Unknown 03/13/2019 1:26 PM CDT Narrative Felisa Vergara LPN - 03/18/2019 8:57 AM CDT As ordered [facility] [place] [address] [facility] [address] Linesperson: Celso Li DO MPH CLIA: [id number] Chavez Kc MULLING MACHINE OPERATOR LAB BLOOD ORDERABLES Final Result * [place]ora/Lambda free LT chains w/ratio (03/13/2019 1:26 PM CDT) [facility] [place]ora Free Light Chain 231 Lambda Free Light Chain 94 [place]/Lambda Light Chains Free w/Ratio, Urine 2.46 Blood specimen (specimen) Venous blood / Unknown 03/13/2019 1:26 PM CDT Narrative VergaraAutumnFelisa, LPN - 03/18/2019 8:57 AM CDT ordered [facility] [place] [address] [address] [place] [address] Linesperson: Celso Li DO, MPH CLIA: [id number] Result [facility] Chavez Kc NP LAB BLOOD ORDERABLES Final Result * Protein electrophoresis, serum (03/13/2019 1:26 PM CDT) Total Protein Electrophoresis 6.1 Albumin SPE 3.4 Ftsct-8-Yanhyszk 0.3 Sbnqg-2-Tdvonrmb 0.8 Beta 1 Globlin 0.4 Beta 2 Globulin 0.3 Protein Electrophoresis Gamma Globulin, Serum 0.9 Serum Protein Electrophoresis Interpretation Evaluation reveals an isolated decrease in albumin. This pattern may be suggestive of decreased protein synthesis or protein loss. Consider ordering prealbumin quantitation. Blood specimen (specimen) Venous blood / Unknown 03/13/2019 1:26 PM CDT Narrative Ursula FelisaTOMAS - 03/18/2019 8:57 AM CDT As ordered [facility] [place] [address] [place] [address] Linesperson: Celso Li DO, MPH CLIA: [id number] Result [facility] Chavez Kc NP LAB BLOOD ORDERABLES Final Result * Albumin / Creatinine Urine Ratio (03/13/2019 1:26 PM CDT) Creatinine, Ur 71 mg/dL Urine Microalbumin 78.3 mg/dL Microalbumin/Crea tinine Ratio 1,103 mcg/mg Urine specimen (specimen) Urine specimen obtained by clean catch procedure / Unknown 03/13/2019 1:26 PM CDT Narrative Ursula Felisa, LPN - 03/18/2019 8:57 AM CDT As ordered [facility] [place] [address] [facility] [address] Linesperson: Celso Li DO, MPH CLIA: [id number] Chavez Kc NP LAB URINE ORDERABLES Final Result * (ABNORMAL) Renal function panel (03/13/2019 1:26 PM CDT) Albumin 3.6 3.5 - 5.0 g/dL BUN 45(A) 4 - 21 mg/dL BUN/Creatinine Ratio 22.00 Calcium 9.0 8.7 - 10.7 mg/dL Chloride 103 99 - 108 Bicarbonate (CO2) 24 22 - 30 mmol/L Creatinine 2.08(A) 0.50 - 1.10 mg/dL eGFR 28.0 mL/min/1.7 3m*2 eGFR Non- 24.0 mL/min/1.7 3m*2 Glucose 122 Phosphorus, Serum 4.9 Potassium 4.9 3.4 - 5.5 Sodium 138 137 - 147 Blood specimen (specimen) Venous blood / Unknown 03/13/2019 1:26 PM CDT Narrative Felisa Vergara LPN - 03/18/2019 8:57 AM CDT As ordered [facility] [place] [address] [address] [facility] [place] [address] Linesperson: Celso Li DO MPH CLIA: [id number] us Chavez Kc MULLING MACHINE OPERATOR LAB BLOOD ORDERABLES Final Result documented in this encounter Visit Diagnoses Diagnosis Chronic kidney disease, stage 4 (severe) (HCC) documented in this encounter Care Teams Railroad Dining Car Steward/Stewardess Relationship Specialty Start Date End Date Wili Gonzalez DO [address] [place] [address] PCP - General Family Medicine 01/29/19 documented as of this encounter
--- OUTSIDE RECORDS SUMMARY | 2025-03-22 20:15 | XMS_ITS | Encounter Summary ---
Author Organization [place] [facility], [facility] Address [address] [place] [address] Phone Care Team Providers Care Civil Manager Name Role Phone Wili Gonzalez DO Primary Care Provider [phone] Encounter Details Date Type Department Care Team (Late st Contact Info) Description 01/16/2019 Orders Only [facility] [address] [place] [address] Chronic kidney disease, stage 4 (severe) (HCC) Social History Tobacco Use Types Packs/Day Years Used Date Smoking Tobacco: Never Assessed Comments Unknown Sex and Gender Information Value Date Recorded Sex Assigned at Not on file Legal Sex Female 10:50 AM EDT Gender Identity Not on file Sexual Orientation Not on file documented as of this encounter Plan of Treatment Not on file documented as of this encounter Visit Diagnoses Diagnosis Chronic kidney disease, stage 4 (severe) (HCC) documented in this encounter Care Teams Civil Manager Relationship Specialty Start Date End Date Wili Gonzalez DO [address] [place] [address] PCP - General Family Medicine 01/29/19 documented as of this encounter
--- OUTSIDE RECORDS SUMMARY | 2025-03-22 20:15 | XMS_ITS | Encounter Summary ---
Author Organization [facility], [employer] Address [address] [place] [address] Phone Care Team Providers Care Transferrer Name Role Phone Wili Gonzalez DO Primary Care Provider Encounter Details Date Type Department Care Team (Late st Contact Info) Description 03/20/2019 Orders Only [facility] [address] [place] [address] Nellie Cook MA Chronic kidney disease, Stage IV (severe) (HCC) Social History Tobacco Use Types [...] Progress Notes * Pierre Zavala MD - 03/20/2019 11:59 PM CDT I don't think the correct test was done. I wanted a 24 hr urine protein electrophoresis. UPEP with LAURA and this is just a 24 hr urine protein unless more results are pending. documented in this encounter Plan of Treatment Not on file documented as of this encounter Procedures Procedure Name Priority Date/Time Associated Diagnosis Comments PROTEIN ELECTROPHORESIS, URINE RANDOM Routine 03/21/2019 2:47 PM CDT Chronic kidney disease, Stage IV (severe) (HCC) documented in this encounter Results * Protein electrophoresis, urine (03/21/2019 2:47 PM CDT) Creatinine in 24 hour Urine 1.49 0.50 - 2.15 g/24h Protein/Creatini ne Ratio 24HR Urine 2,125 mg/g Protein,mg/24Hr Urine 3,162 mg/24 H Urine specimen (specimen) Urine specimen obtained by clean catch procedure / Unknown 03/21/2019 2:47 PM CDT Narrative Oksana Srinivasan MA - 03/25/2019 2:07 PM CDT [facility] [place] [address] [facility] [address] [employer] Test Engine Evaluator: Celso Li DO MPH CLIA: [id number] us Pierre Zavala MD LAB URINE ORDERABLES Fi nal Result documented in this encounter Visit Diagnoses Diagnosis Chronic kidney disease, Stage IV (severe) (HCC) Chronic kidney disease, Stage IV (severe) documented in this encounter Care Teams Transferrer Relationship Specialty Start Date End Date Wili Gonzalez DO [address] [place] [address] PCP - General Family Medicine 01/29/19 documented as of this encounter
--- OUTSIDE RECORDS SUMMARY | 2025-03-22 20:15 | XMS_ITS | Encounter Summary ---
Author Organization [facility], [employer] Address [address] [address] Phone Care Team Providers Care Garage Mechanic Name Role Phone Wili Gonzalez DO Primary Care Provider [phone] Encounter Details Date Type Department Care Team (Late st Contact Info) Description 05/30/2019 Orders Only [facility] [address] [place] [address] Chavez Kc, ТАТЬЯНА Chronic kidney disease stage 4 (HCC) Social History Tobacco Use Types Packs/Day [...] this encounter Visit Diagnoses Diagnosis Chronic kidney disease stage 4 (HCC) documented in this encounter Care Teams Garage Mechanic Relationship Specialty Start Date End Date Wili Gonzalez DO [address] [place] [id number] PCP - General Family Medicine 01/29/19 documented as of this encounter
--- OUTSIDE RECORDS SUMMARY | 2025-03-22 20:15 | XMS_ITS | Encounter Summary ---
Author Organization [facility] Address [address] [address] [address] [address] Phone Care Team Providers Care Bridge Carpenter Name Role Phone Wili Gonzalez DO Primary Care Provider [phone] Reason for Visit * Reason Comments Med Refill Encounter Details Date Type Department Care Team (Late st Contact Info) Description 09/24/2024 Refill [facility] [address] [address] Silvia Atwood MD [address] [facility] [address] [place] [address] Social History Tobacco Use Types [...] on filedocumented in this encounter Care Teams Bridge Carpenter Relationship Specialty Start Date End Date Wili Gonzalez DO [address] [place] [address] PCP - General Family Medicine 01/29/19 documented as of this encounter
--- OUTSIDE RECORDS SUMMARY | 2025-03-22 20:15 | XMS_ITS | Continuity of Care Document ---
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 I was present during interview and exam. I have reviewed and agree with above documentation . Dr. Forrest Apple. [email or web address] Not available 03/18/2025 12:20:58 Plan of Treatment Reminders Order Date Submit Date Provider Last Modified By Organization Details Last Modified Time Details Appointments RECHECK 10 2024 08:00A Daniel Apple, DO Not available Not available Not available RECHECK 10 2024 11:30A Daniel Apple, DO Not available Not available Not available Lab None recorded. Referral None recorded. Procedures None recorded. Surgeries None recorded. Imaging None recorded. Medication Orders tramadol 50 mg tablet 2024 025 COSMO [id number], [address], [facility] [address], [place], [address], 03/21/2025 15:58:40 nystatin 100,000 unit/gram topical cream 2024 025 [email or web address] [id number], [address], [place], [address], 03/18/2025 18:18:46 atorvasta tin 80 mg tablet 2024 025 [email or web address] [id number], [address] [address], [place], [address], 03/18/2025 18:18:46 Patient TargetsNo targets recorded. Patient InstructionsNo instructions recorded. Reason for Referral None Reported. Problems Name Problem SNOMED Code Status Onset Date Resolution Date Notes Provider Name and Address Organization Details Recorded Time Insomnia 002146483 Active 2022 Ale camacho [facility] 5 09:16:50 Allergic rhinitis 20320671 Active 2022 Ale camacho [facility] 5 09:16:51 Hodgkin's disease, lymphocyt ic depletion (clinical ) 589648907 Active 2022 Hodgkin's Disease, Lymphocyt ic Depletion Ale camacho [facility] 5 09:16:50 Benign essential hypertens ion 4573375 Active 2022 Ale camacho [facility] 5 09:16:50 Lumbosacr al radiculop athy 0042520 Active 2022 L-S RADICULOP ATHY Ale camacho [facility] 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 5 09:16:51 Diabetes mellitus 08222975 Active 2022 Ale camacho [facility] 5 09:16:51 Pain of bilateral knee joints 670490336773 104 Active 2022 Ale camacho [facility] 5 09:16:51 Vitamin D deficienc y 63901950 Active 2022 Alechaz camacho, [facility] 5 09:16:50 Anxiety 01661499 Active 2022 Ale Gambino doug, [facility] 5 09:16:51 Hyperpara thyroidis m due to renal insuffici ency 12995428 Active 2022 Ale camacho, [facility].L.CYuliana 5 09:16:50 Fatigue 96152046 Active 2022 Ale camacho, [facility].CY[facility]iana 5 09:16:51 Hyperlipi demia 54075189 Active 2022 Ale Gambino [facility], [facility] 5 09:16:51 Pain of left knee joint 414017153922 107 Active 2022 Ale camacho, [facility] 5 09:16:51 Electroca rdiogram abnormal 463242917 Active 2022 Ale camacho [facility] 5 09:16:50 Active or passive immunizat ion Active 2022 Ale camacho, [facility] 5 09:16:50 Unsteady when walking 78233902 Active 2023 Ale camacho, [facility].L.CYuliana 5 09:16:50 Dyspnea on exertion 42542733 Active 2023 Ale camacho [facility]CY[facility]iana 5 09:16:51 Abnormal movement 459521971 Active 2023 Ale Friedmane doug, [facility], LYulianaL.CYuliana 5 09:16:50 Depressiv e disorder 45795418 Active 2023 Ale Gambino null, [facility], LYulianaLYulianaCYuliana 5 09:16:51 Eczema 56342207 Active 2023 Ale Friedmane [facility], [facility], LYulianaL.CYuliana 5 09:16:51 Obesity 467815316 Active 2023 Ale Gambino [facility], [facility], TomasL.CYuliana 5 09:16:51 Leukocyto sis 705338063 Active 2024 Ale Gambino [facility], TomasLYulianaCYuliana 5 09:16:50 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) 073659713 Active 2024 Ale Gambino [facility], TomasLYulianaCYuliana 5 09:16:51 Acoustic neuroma 801160171 Active 2024 Ale Gambino [facility], TomasLYulianaCYuliana 5 09:16:50 Left hemipares is 973043030 Active 2024 Ale Gambino [facility], [facility], LYulianaL.CYuliana 5 09:16:50 Tremor 50805717 Active 2024 Ale Gambino [facility], [facility], LYulianaL.CYuliana 5 09:16:50 Dyspnea 217881626 Active 2024 Ale Gambino [facility].L.CYuliana 5 11:40:50 Atrial fibrillat ion 06149833 Active 2024 Ale Gambino [facility].L.CY[facility]iana 5 11:40:30 Black feces 111709227 Active 2024 Ale Gambino [facility], LYulianaLYulianaCYuliana 11:40:36 Spasm 97993328 Active [address], [address] , [facility], LShweta 12:22:12 Problem Notes None recorded. Procedures Surgical History Date Name Laterality Status Provider Name and Address Organization Details Recorded Time 02/21/2023 Joint Inj Kenalog- Shoulder, Hip, Knee completed Forrest Apple[address], [address], [facility], Claudia 02/21/2023 15:14:57 Imaging Results None recorded. Procedure Notes None recorded. Medical Equipment None Reported. Allergies Allergen ID Allergen Name Allergen Category Reaction Reaction Severity Criticality Documentation Date Start Date Code Code System Note Provider Name and Address Organization Details Recorded Time 2105 Substance with sulfonami de structure and antibacte rial mechanism of action (substanc e) medicatio n Not available Not available Not available 12/27/2022 51330 8003 SNOMED CINTHIARamona YOUNG [facility], Claudia 3 11:35:20 3953 Demerol medicatio n Not available Not available Not available 02/07/2023 47864 1 RxNorm CINTHIA YOUNG [facility], LYulianaLJonathon 3 10:11:32 Medications Name Sig Start Date Stop Date Status Note LastModified by Organization Details LastModified Time nifedipin e ER 30 mg tablet,ex tended release 24 hr TAKE 1 TABLET BY MOUTH DAILY 03/04 completed Not Available Not Available Not Available atorvasta tin 80 mg tablet TAKE 1 TABLET BY MOUTH EVERY DAY 2024 active Not Available Not Available Not Avai lable nystatin 100,000 unit/mL oral suspensio n TAKE 5 MILLILIT ERS BY MOUTH 4 TIMES A DAY active Not Available Not Available No t Available doxycycli ne hyclate 100 mg capsule TAKE 1 CAPSULE BY MOUTH TWICE A DAY 10 DAYS 01/22 completed Not Available Not Available Not Available clonidine 0.1 mg/24 hr weekly transderm al patch APPLY 1 PATCH TOPICALL Y ONCE A WEEK active Not Available Not Available No t Available citalopra m 40 mg tablet TAKE 1 TABLET BY MOUTH EVERY DAY active Not Available Not Available No t Available amiodaron e 200 mg tablet TAKE 2 TABLETS BY MOUTH ONCE DAILY FOR 7 DAYS THEN 1 TABLET DAILY THEREAFT ER active Not Available Not Available No t Available hydrocodo ne 5 mg-acetam inophen 325 mg tablet TAKE 1 TABLET BY MOUTH EVERY 4 HOURS NEEDED FOR PAIN, BREAK-TH ROUGH. MAX DAILY AMOUNT: 6 TABLETS 10/23 completed Not Available Not Available Not Available Claritin 10 mg tablet 1 mg as needed by oral route. active Not Available Not Available No t Available sucralfat e 1 gram tablet TAKE 1 TABLET BY MOUTH TWICE DAILY FOR 4 WEEKS active Not Available Not Available No t Available lisinopri l 20 mg tablet TAKE 1 TABLET BY MOUTH EVERYDAY AT BEDTIME 09/11 completed Not Available Not Available Not Available prednison e 20 mg tablet TAKE 1 TABLET BY MOUTH EVERY DAY IN THE MORNING FOR 7 DAYS 05/26 completed Not Available Not Available Not Available metoprolo l succinate ER 100 mg tablet,ex tended release 24 hr TAKE 1 TABLET BY MOUTH EVERY DAY active Not Available Not Available No t Available amoxicill in 250 mg-potass ium clavulana te 125 mg tablet TAKE 1 TABLET BY MOUTH TWICE A DAY FOR 10 DAYS 05/26 completed Not Available Not Available Not Available chlorthal idone 25 mg tablet every morning 07/31 completed 14651; Recorded 08/02/20 11:11AM by Cinthia Young (Authori jerilyn through Forrest Apple DO), Office Visit; Not Available Not Available Not Available amlodipin e 5 mg tablet TAKE 1 TABLET BY MOUTH EVERY DAY 02/13 completed Not Available Not Available Not Available ciproflox acin 500 mg tablet TAKE 1 TABLET BY MOUTH DAILY FOR 3 DAYS 01/22 completed Not Available Not Available Not Available aspirin 81 mg tablet,de layed release Take 1 tablet every day by oral route. active Not Available Not Available No t Available tramadol 50 mg tablet TAKE 1 TABLET BY MOUTH TWO TIMES DAILY NEEDED FOR SEVERE PAIN 2024 active Not Available Not Available Not Avai lable alprazola m 0.5 mg tablet active Not Available Not Available Not Available alprazola m 0.25 mg tablet TAKE 1 TABLET BY MOUTH THREE TIMES A DAY ONLY NEEDED active Not Available Not Available No t Available meclizine 25 mg tablet TAKE 1 TABLET BY MOUTH THREE TIMES A DAY NEEDED FOR NAUSEA/V ERTIGO 07/31 completed Not Available Not Available Not Available cephalexi n 500 mg capsule TAKE 1 CAPSULE BY MOUTH TWICE A DAY FOR 10 DAYS 01/22 completed Not Available Not Available Not Available pantopraz ole 40 mg tablet,de layed release TAKE 1 TABLET BY MOUTH TWICE DAILY active Not Available Not Available No t Available trazodone 150 mg tablet TAKE 1 TABLET BY MOUTH EVERY DAY IN THE EVENING active 1/2 tab Not Available Not Available No t Available nystatin 100,000 unit/gram topical cream APPLY TO THE AFFECTED AREA(S) BY TOPICAL ROUTE 2 TIMES PER DAY UNTIL IMPROVED . 2024 active Not Available Not Available Not Avai lable lisinopri l 10 mg tablet TAKE 1 TABLET BY MOUTH EVERY DAY 09/11 completed Not Available Not Available Not Available Senna-Plu s 8.6 mg-50 mg tablet 09/11 completed Not Available Not Available Not Available gentamici n 0.1 % topical cream APPLY DAILY AFTER CLEANING SITE active Not Available Not Available No t Available dorzolami de 22.3 mg-timolo l 6.8 mg/mL eye drops INSTILL 1 DROP INTO BOTH EYES TWICE A DAY active Not Available Not Available No t Available Daily Vitamins for Women tablet 1 tablet as needed by oral route. active Not Available Not Available No t Available Naprosyn 500 mg tablet two times daily 07/31 completed 0; Recorded 10/10/19 23 1:40PM by Laura Benito, Office Visit; Not Available Not Available Not Available lisinopri l 40 mg tablet TAKE 1 TABLET BY MOUTH EVERY DAY AT NIGHT active Not Available Not Available No t Available fluticaso ne propionat e 50 mcg/actua tion nasal spray,dandy pension SPRAY 1 SPRAY INTO EACH NOSTRIL EVERY DAY active Not Available Not Available No t Available doxycycli ne hyclate 100 mg tablet TAKE 1 TABLET BY MOUTH TWICE A DAY 01/22 completed Not Available Not Available Not Available calcitrio l 0.25 mcg capsule TAKE 1 CAPSULE BY MOUTH ONCE A DAY active Not Available Not Available No t Available amoxicill in 875 mg-potass ium clavulana te 125 mg tablet TAKE 1 TABLET BY MOUTH TWICE A DAY 02/07 completed Not Available Not Available Not Available amoxicill in 500 mg-potass ium clavulana te 125 mg tablet TAKE 1/2 TABLET BY MOUTH TWICE A DAY FOR 10 DAYS 05/26 completed Not Available Not Available Not Available Vitamin D3 25 mcg (1,000 unit) capsule 4 microgra ms as needed by oral route. active Not Available Not Available No t Available Novolog FlexPen U-100 Insulin aspart 100 unit/mL (3 mL) subcutane ous INJECT SUBCUTAN EOUSLY PER LOW DOSE SLIDING SCALE THREE TIMES DAILY AFTER MEALS. MAX DAILY DOSE IS 52 UNITS active Not Available Not Available No t Available lactulose 10 gram/15 mL oral solution TAKE 30-60 ML BY MOUTH TWICE DAILY NEEDED FOR CONSTIPA TION active Not Available Not Available No t Available atorvasta tin daily 07/31 completed DM/sd; 62224; Recorded 08/02/20 22 11:11AM by Cinthia Young (Authori jerilyn through Forrest Apple DO), Office Visit; Refill Quantity : 90; Tablet; Not Available Not Available Not Available citalopra m daily 07/31 completed DM/sd; Recorded 10/12/19 23 2:29PM by Cinthia Young, Historic al Summary; Refill Quantity : 90; Tablet; Not Available Not Available Not Available alprazola m two times daily 07/31 completed Recorded 08/02/20 22 11:11AM by Cinthia Young, Office Visit; Refill Quantity : 60; Tablet; Not Available Not Available Not Available lisinopri l daily 07/31 completed Recorded 08/02/20 22 11:11AM by Cinthia Young, Office Visit; Refill Quantity : 90; Tablet; Not Available Not Available Not Available metoprolo l succinate daily 07/31 completed DM/sd; Recorded 08/02/20 22 11:11AM by Cinthia Young, Office Visit; Refill Quantity : 90; Tablet; Not Available Not Available Not Available Vitamin D3 active Not Available Not Available Not Available Hillary daily 09/11 completed Not Available Not Available Not Available Trazodone every evening 07/31 completed DM/sd; 69036; Recorded 08/08/20 4:51PM by Cinthia Young (Authori nehald through Forrest Apple DO), Refill Request; Refill Quantity : 90; Tablet; Not Available Not Available Not Available magnesium oxide 500 mg capsule daily active Not Available Not Available Not Available Senna Laxative- Stool Softener 8.6 mg-50 mg tablet 4 tablets as needed by oral route. active Not Available Not Available No t Available Accu-Chek Active three times daily 02/13 completed 0; Recorded 10/10/19 23 1:39PM by Laura Benito, Office Visit; Not Available Not Available Not Available PreserVis ion AREDS-2 250 mg-90 mg-40 mg-1 mg capsule active Not Available Not Available Not Available Auryxia 210 mg iron tablet TAKE 1 TABLET BY MOUTH THREE TIMES A DAY WITH MEALS. (SWALLOW WHOLE, DO NOT CHEW OR CRUSH MEDICATI ON) active Not Available Not Available No t Available Basaglar KwikPen U-100 Insulin 100 unit/mL (3 mL) subcutane ous INJECT 10 UNITS SUBCUTAN EOUSLY EVERY NIGHT active Not Available Not Available No t Available Basaglar KwikPen U-100 Insulin every night 07/31 completed DM/sd; 40825; Recorded 09/06/19 23 9:45AM by Cinthia Young (Authori zed through Forrest Apple DO), Annotati on/Adden dum; Refill Quantity : 8; Each; Not Available Not Available Not Available RenaPlex- D 800 mcg-12.5 mg-2,000 unit tablet TAKE 1 TABLET BY MOUTH EVERY DAY active Not Available Not Available No t Available Dexcom G7 Sensor use to check gluocse 3 times a day 2022 active Not Available Not Available Not Avai lable Vero 2nd Gen Pen Needle 32 gauge x USE DIRECTED TO GIVE INSULIN DAILY active Not Available Not Available No t Available Vitals Date Recorded Body height Body mass index (BMI) Body weight Oxygen saturation Oxygen saturation in Arterial blood by Pulse oximetry Heart rate Respiratory rate Systolic And Diastolic Provider Name and Address Organization Details Last Updated DateTime 5 165.1 cm 36.4 kg/m2 76228.9 4 g 96 % 96 % 69 /min 18 /min 120/70 mm[Hg] Ale Gambino [facility] L.L.CYuliana 5 12:00:02 Social History None recorded. Functional Status None recorded. Mental Status None recorded. Family History Nothing Reported. Medical History No medical history recorded. Gynecological HistoryNo gynecological history recorded. Obstetrics History GPAL:G 0 P 0 0 0 0 Immunizations Vaccine Type Date Status Note Provider Nam e and Address Organization Details Recorded Time COVID-19, mRNA, LNP-S, PF, 30 mcg/0.3 mL dose 1 completed LAURA camacho [facility] 11/07/2023 17:04:30 Influenza, split virus, quadrivalent, PF 3 completed LAURA camacho [facility].L.CYuliana 07/31/2023 15:22:16 Pneumococcal conjugate PCV20, polysaccharide [id number] conjugate, adjuvant, PF 4 completed Forrest Apple DO [address] [place] [address], [address], [facility] 08/26/2024 08:36:25 Past Encounters Encounter ID Performer Location Encounter Start Date Encounter Closed Date Diagnosis/Indication Diagnosis SNOMED-CT Code Diagnosis ICD10 Code Diagnosis Note [id number] Forrest Apple DO [facility] ([facility]) [address] [place] [address] 02/18/2025 10:11:26 02/19/2025 12:32:35 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 5967109531 00 N18.5 N18.6 01/22/25: Continue with Nephrology , dialysis, abx for port infection at this time, counseled on symptoms to monitor for, for worsening infection, we want to avoid Peritoniti s.09/11/24- continue following with Nephrology .06/11/24- following with Nephrology , using home dialysis, this is going well, monitoring renal function. Dyspnea 898869042 R06.02 02/18/25: Acute, worsening, heart irregularl y irregular today, with no prior h/o Afib, pt with ESRD on peritoneal dialysis, advised pt see ER immediatel y for evaluation and tx, I am concerned for infection, grandson drove her to clinic this am, will take her to ER. [id number] Forrest Apple DO [facility] ([facility]) [address] [place] [address] 03/04/2025 10:51:27 03/04/2025 12:13:38 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 7561457206 00 N18.5 N18.6 03/04/25: Continue with Nephrology , dialysis,: Continue with Nephrology , dialysis, abx for port infection at this time, counseled on symptoms to monitor for, for worsening infection, we want to avoid Peritoniti s.09/11/24- continue following with Nephrology .06/11/24- following with Nephrology , using home dialysis, this is going well, monitoring renal function. Diabetes mellitus 981878 09 E11.69 E11.22 03/04/25: Counseled keep a log of glucose and bring to next appt, would like to avoid meal time insulin. F/u 2 weeks. I reviewed most recent labs with pt as per above. A1c 6.5, down 6.9 on 09/05/24.We reconciled medication s. We discussed diet, exercise, weight management . We discussed routine eye care and foot care. Pt to monitor glucose regularly. Continue Basaglar, adjusting some according to glucose readings, 60-80u, advised we don't want her to need adjusting frequently , let us know if this is happening. Atrial fibrillation 3450 9640 I48.91 03/04/25: new dx. Coumadin stopped when in the hospital d/t black stools. Counseled keep trying and schedule f/u with Dr. Lindsay. Black feces 149566221 K9 2.1 03/04/25: pt is very high risk for colonoscop y. Concerned blood got too thin on Coumadin for Afib. I recommend she cancel colonoscop y scheduled with FABIÁN for 03/25/25, will consider scoping if black stools are recurrent. Spasm 92835532 M62.838 neck, counseled obtain massage to get her relaxed. [id number] Forrest Apple DO [facility] ([facility]) [address] [place] [address] 03/18/2025 11:34:01 03/21/2025 15:58:43 Chronic low back pain 120826689 M54.50 Hyperlipidemia 67318020 E78.5 Stable. Continue Atorvastat in. Counseled on diet and exercise. Diabetes mellitus 824134 09 E11.69 E11.22 03/18/25: Reviewed and discussed glucose log, continue current tx, Novolog and Lantus, if not needing to use short acting, we may need to consider decreasing her Lantus, to prevent lows. 5: Counseled keep a log of glucose and bring to next appt, would like to avoid meal time insulin. F/u 2 weeks. I reviewed most recent labs with pt as per above. A1c 6.5, down 6.9 on 09/05/24.We reconciled medication s. We discussed diet, exercise, weight management . We discussed routine eye care and foot care. Pt to monitor glucose regularly. Continue Basaglar, adjusting some according to glucose readings, 60-80u, advised we don't want her to need adjusting frequently , let us know if this is happening. Atrial fibrillation 4943 6004 I48.91 03/18/25: Wearing heart monitor per Cardiology , who has recommende d Watchmen procedure. Counseled on diagnosis, treatment options. Taking Asa 81mg right now. Keep upcoming Cardio appt in Jun.03/04/25 : new dx. Coumadin stopped when in the hospital d/t black stools. Counseled keep trying and schedule f/u with Dr. Lindsay. Candidiasis of skin 4988 3006 B37.2 01/22/25: Nystatin cream, counseled. Health Concerns Section Related Observation LastModified by Organization Detai ls LastModified Time None Recorded Concern Status LastModified by Organization Details LastModified Time None Recorded Payers Encounter Date Sequence Insurance Name Policy Number Policy Swann Covered Member ID Swann Member ID Guarantor Name 03/18/2025 2 [employer] (MEDICARE SUPPLEMENT) Sebastián meza [id number] Sebastián Sanchez [place] 03/18/2025 1 MEDICARE [place]: [employer] Sebastián Hinton [id number] 4 Sebastián Sanchez Bridger Notes Date Note Type Note Provider Name and Address Organization Details Recorded Time 03/18/2025 text/html Pt presents for recheck, 2 weeks, DM. Her glucose has been running between 103 to 263She has been using 0-4 units on avg of s/s Novolog, one time she had to use 6units ( she has only had to give herself short acting insulin 3 times in the am since 02/23/25, in the evening she is taking 2-6u just over half the time).She has not had any problems with the insulinNo new feet or vision problems. She seen cardiology PA and has to wear heart monitor d/t arrhythmia. Recommended for her to get watchman procedure and she would like to discuss this todayStarted baby Aspirin daily for protection in the meantime.Scheduled f/u with Dr. Evans in Jun. Requesting refill on Nystatin cream for rash. Forrest Apple, DO [address] [place] [address], [phone], [facility] 03/21/2025 15:58:41 OBGyn Episode No OBEpisode recorded.
--- OUTSIDE RECORDS SUMMARY | 2025-03-22 20:15 | XMS_ITS | Encounter Summary ---
Author Organization [facility] Address [address] [address] Phone Care Team Providers Care Cell Coverer Name Role Phone Wili Gonzalez DO Primary Care Provider [phone] Reason for Visit * Reason Comments Med Refill Encounter Details Date Type Department Care Team (Late st Contact Info) Description 09/13/2024 Refill [facility] [address] [address] Silvia Atwood MD [address] [facility] [address] [place] [address] Social History Tobacco Use Types [...] on filedocumented in this encounter Care Teams Cell Coverer Relationship Specialty Start Date End Date Wili Gonzalez DO [address] [place] [address] PCP - General Family Medicine 01/29/19 documented as of this encounter
--- OUTSIDE RECORDS SUMMARY | 2025-03-22 20:15 | XMS_ITS | Data Portability ---
Author Organization [facility] Mathew [facility], [facility], [facility] Address [address] [address] Care Team Providers Care Runner Man Name Role Phone FORREST APPLE Primary Care Provider Unavailabl e Assessment Encounter Date Assessment Date Assessment LastModified by Organization Details LastModified Time 01/22/2025 01/22/2025 Document scribed by Cheyenne Ranlde Scribe. I was present during interview and exam. I have reviewed and agree with above documentation . Dr. Forrest Apple. [email or web address] Not available 01/22/2025 09:25:11 02/18/2025 02/18/2025 Document scribed by Cheyenne Randle Scribe. I was present during interview and exam. I have reviewed and agree with above documentation . Dr. Forrest Apple. [email or web address] Not available 02/18/2025 11:22:29 03/04/2025 03/04/2025 Document scribed by Cheyenne Randle Scribe. I was present during interview and exam. I have reviewed and agree with above documentation . Dr. Forrest Apple. dkiest Not available 03/04/2025 12:02:41 03/18/2025 03/18/2025 Document scribed by Cheyenne Randleibe. I was present during interview and exam. I have reviewed and agree with above documentation . Dr. Forrest Apple. [email or web address] Not available 03/18/2025 12:20:58 Plan of Treatment Reminders Order Date Submit Date Provider Last Modified By Organization Details Last Modified Time Details Appointments RECHECK 10 2024 08:00A Daniel Apple, DO Not available Not available Not available RECHECK 10 2024 11:30A M Forrest Apple, DO Not available Not available Not available Lab hemoglobi n A1C/hemog lobin total, QN, blood 2024 025 [facility], [address], [address], [place], [address], 01/20/2025 10:50:07 CMP, serum or plasma 2024 025 [facility], [address], [address], [place], [address], 01/20/2025 15:25:11 Referral None recorded. Procedures None recorded. Surgeries None recorded. Imaging None recorded. Medication Orders tramadol 50 mg tablet 2024 025 [facility][id number], [address], [address], [place], [address], 03/21/2025 15:58:40 nystatin 100,000 unit/gram topical cream 2024 025 [email or web address] [id number], [address], [address], [place], [address], 03/18/2025 18:18:46 atorvasta tin 80 mg tablet 2024 025 [email or web address] [id number], [address], [address], [place], [address], 03/18/2025 18:18:46 nystatin 100,000 unit/gram topical cream 2024 025 [email or web address] [id number], [address], [address], [place], [address], 01/22/2025 09:55:56 Basaglar KwikPen U-100 Insulin 100 unit/mL (3 mL) subcutane ous 2024 025 [email or web address] [facility] #[id number], [address], [address], [place], [address], 03/04/2025 11:34:46 Patient TargetsNo targets recorded. Patient InstructionsNo instructions recorded. Reason for Referral None Reported. Results Created Date Observation Date Name Description Value Unit Range Abnormal Flag Note LastModifiedBy Organization Detail LastModifiedTime 01/21/2001/20/2025 HBA1C hemaglobin A1C 6.5 4.2-6. 5 Not Available [facility] [address] [facility] 1, [place], [address], 01/20/2025 10:50:07 01/21/2001/20/2025 CMP (FEMA LE) glucose 96.0 mg/dL 60.0-9 9.0 Not Available [facility] [address] [facility] 1, [place], [address], 01/20/2025 15:25:11 01/21/20 25 01/20/2025 CMP (FEMA LE) BUN (blood urea nitrogen) 109.0 mg/dL 10.0-2 6.0 high Not Available [facility] [address] [facility], [place], [address], 01/20/2025 15:25:11 01/21/20 25 01/20/2025 CMP (FEMA LE) creatinine (serum) 6.9 mg/dL 0.4-1. 5 high Not Available [facility] [address] [facility], [place], [address], 01/20/2025 15:25:11 01/21/20 25 01/20/2025 CMP (FEMA LE) BUN/creatini ne ratio 15.80 ratio Not Available [facility] [address] [facility] [address] [facility] 1, [place], [address], 01/20/2025 15:25:11 01/21/20 25 01/20/2025 CMP (FEMA LE) eGFR calculated 6.3 Not Available [facility] [address] [facility] [address], [place], [address], 01/20/2025 15:25:11 01/21/20 25 01/20/2025 CMP (FEMA LE) total protein 6.8 g/dL 6.0-8. 5 Not Available [facility] [address] [facility] [address], [place], [address], 01/20/2025 15:25:11 01/21/20 25 01/20/2025 CMP (FEMA LE) total bilirubin 0.4 mg/dL 0.2-1. 3 Not Available [facility] [address] [address], [place], [address], 01/20/2025 15:25:11 01/21/20 25 01/20/2025 CMP (FEMA LE) albumin 3.7 g/dL 3.5-5. 5 Not Available [facility] [address] [address], [place], [address], 01/20/2025 15:25:11 01/21/20 25 01/20/2025 CMP (FEMA LE) globulin 3.1 calc Not Available [facility] [address] [address], [place], [address], 01/20/2025 15:25:11 01/21/20 25 01/20/2025 CMP (FEMA LE) AST (SGOT) 32.0 U/L 0.0-46 .0 Not Available [facility] [address] [facility] [address], [place], [address], 01/20/2025 15:25:11 01/21/20 25 01/20/2025 CMP (FEMA LE) altv (SGPT) 49.0 U/L 13.0-6 9.0 normal Not Available [facility] [address] [facility] 1, [place], [address], 01/20/2025 15:25:11 01/21/20 25 01/20/2025 CMP (FEMA LE) A/G ratio 1.2 ratio Not Available [facility] [address] [facility] [address], [place], [address], 01/20/2025 15:25:11 01/21/20 25 01/20/2025 CMP (FEMA LE) ALP phos 151.0 U/L 30.0-1 40.0 abnormal Not Available [facility] [place] [address] [facility] [address], [place], [address], 01/20/2025 15:25:11 01/21/20 25 01/20/2025 CMP (FEMA LE) calcium 8.8 mg/dL 8.4-10 .5 Not Available [facility] [address] [facility] 1, [place], [address], 01/20/2025 15:25:11 01/21/20 25 01/20/2025 CMP (FEMA LE) sodium 138.0 mmol/ L 136.0- 145.0 Not Available [facility] [place] [address] [facility] [address], [place], [address], 01/20/2025 15:25:11 01/21/20 25 01/20/2025 CMP (FEMA LE) potassium 4.0 mmol/ L 3.5-5. 1 Not Available [facility] [address] [facility] [address], [place], [address], 01/20/2025 15:25:11 01/21/20 25 01/20/2025 CMP (FEMA LE) chloride 104.0 mmol/ L 98.0-1 10.0 normal Not Available [facility] [place] [address] [facility] [address], [place], [address], 01/20/2025 15:25:11 01/21/20 25 01/20/2025 CMP (FEMA LE) C02 23.0 mmol/ L 22.0-3 1.0 Not Available [facility] [place] [address] [facility] 1, [place], [address], 01/20/2025 15:25:11 01/21/20 25 01/20/2025 CMP (FEMA LE) anion gap 11.0 calc Not Available [facility] [address] [facility] 1, [place], [address], 01/20/2025 15:25:11 01/21/20 25 01/20/2025 CMP (FEMA LE) osmolality 317.1 calc Not Available [facility] [address] [facility] 1, [place], [address], 01/20/2025 15:25:11 02/13/20 25 02/11/2025 MAMMO , scree amy, digit al, bilat eral No observ ation record ed. [email or web address] [facility] [address] [facility], [place], [address], 02/18/2025 12:03:14 Result Notes None recorded. Problems Name Problem SNOMED Code Status Onset Date Resolution Date Notes Provider Name and Address Organization Details Recorded Time Insomnia 727023000 Active 2022 Ale camacho [facility], Claudia 5 09:16:50 Allergic rhinitis 08378138 Active 2022 Ale camacho [facility], [place] 5 09:16:51 Hodgkin's disease, lymphocyt ic depletion (clinical ) 889625969 Active 2022 Hodgkin's Disease, Lymphocyt ic Depletion Ale camacho [facility] 5 09:16:50 Benign essential hypertens ion 0334188 Active 2022 Ale camacho, [facility] 5 09:16:50 Lumbosacr al radiculop athy 4557422 Active 2022 L-S RADICULOP ATHY Ale camacho, [facility] 5 09:16:50 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 731501270823 Active 2022 Ale camacho, [facility] 5 09:16:51 Diabetes mellitus 88523612 Active 2022 Ale camacho, [facility] 5 09:16:51 Pain of bilateral knee joints 118990602210 104 Active 2022 Ale camacho, [facility] 5 09:16:51 Vitamin D deficienc y 65143121 Active 2022 Ale camacho, [facility] 5 09:16:50 Anxiety 39692271 Active 2022 Ale Gambino [facility], [facility] 5 09:16:51 Hyperpara thyroidis m due to renal insuffici ency 66292238 Active 2022 Ale camacho, [facility] 5 09:16:50 Fatigue 96987115 Active 2022 Ale camacho, [facility], L.L.CYuliana 5 09:16:51 Hyperlipi demia 15624362 Active 2022 Ale camacho, [facility], [facility]CY[facility]iana 5 09:16:51 Pain of left knee joint 815983313345 107 Active 2022 Ale camacho, [facility], TomasLYulianaCYuliana 5 09:16:51 Electroca rdiogram abnormal 891033964 Active 2022 Ale Friedmane doug, [facility], LYulianaLYulianaCYuliana 5 09:16:50 Active or passive immunizat ion Active 2022 Ael Gambino doug, [facility], TomasL.CYuliana 5 09:16:50 Unsteady when walking 89778643 Active 2023 [facility] 5 09:16:50 Dyspnea on exertion 95227506 Active 2023 Alechaz Friedmane [facility], L.L.CYuliana 5 09:16:51 Abnormal movement 464697120 Active 2023 Ale Gambino [facility] 5 09:16:50 Depressiv e disorder 01083650 Active 2023 Ale Gambino [facility], LYulianaL.CYuliana 5 09:16:51 Eczema 39233921 Active 2023 Ale Gambino doug, [facility], L.L.CYuliana 5 09:16:51 Obesity 109758021 Active 2023 Ale Gambino [facility] 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 5 09:16:51 Acoustic neuroma 363590368 Active 2024 Ale camacho, [facility] 5 09:16:50 Left hemipares is 477072408 Active 2024 Ale camacho, [facility] 5 09:16:50 Tremor 73608682 Active 2024 Ale camacho, [facility] 5 09:16:50 Dyspnea 810151155 Active 2024 Ale camacho [facility] 5 11:40:50 Atrial fibrillat ion 20636685 Active 2024 Ale Gambino [facility], [facility] 11:40:30 Black feces 598900810 Active 2024 Ale Gambino [facility], [facility] 11:40:36 Spasm 87938132 Active 2024 Forrest Apple DO [address] [place] [address], [phone], [facility], L.L.CYuliana 12:22:12 Problem Notes None recorded. Procedures Surgical History Date Name Laterality Status Provider Name and Address Organization Details Recorded Time 02/21/2023 Joint Inj Kenalog- Shoulder, Hip, Knee completed Forrest Apple DO [address] [place] [address], [phone], [facility], L.L.CYuliana 02/21/2023 15:14:57 Imaging Results None recorded. Procedure [...] Not available Not available Not available 12/27/2022 41200 8003 SNOMED CINTHIA camacho [facility], L.L.CYuliana 3 11:35:20 3953 Demerol medicatio n Not available Not available Not available 02/07/2023 22260 1 RxNorm CINTHIARamona camacho [facility], L.L.CYuliana 3 10:11:32 Medications Name Sig Start Date [...] 25 mg tablet every morning 07/31 completed 77361; Recorded 08/02/20 11:11AM by Cinthia Young (Authori [...] Available atorvasta tin daily 07/31 completed DM/sd; 26463; Recorded 08/02/20 22 11:11AM by Cinthia Young (Authori zed through Forrest Apple DO), Office Visit; Refill [...] Available Trazodone every evening 07/31 completed DM/sd; 04148; Recorded 08/08/20 22 4:51PM by Cinthia Young (Authori zemiko through Forrest Apple DO), Refill Request; Refill Quantity : 90; Tablet; Not Available Not Available Not Available magnesium oxide 500 mg capsule daily active Not Available Not Available Not Available Senna Laxative- Stool Softener 8.6 mg-50 mg tablet 4 tablets as needed by oral route. active Not Available Not Available No t Available Accu-Chek Active three times daily 02/13 completed 0; Recorded 10/10/19 1:39PM by Laura Benito, Office Visit; Not [...] U-100 Insulin every night 07/31 completed DM/sd; 28679; Recorded 09/06/19 9:45AM by Cinthia Young (Authori jerilyn through Forrest Apple DO), Annotati on/Adden dum; [...] 2nd Gen Pen Needle 32 gauge x 5/32 USE DIRECTED TO GIVE INSULIN DAILY active Not Available Not Available No t Available Vitals Date Recorded Body height Body mass index (BMI) Body weight Oxygen saturation Oxygen saturation in Arterial blood by Pulse oximetry Heart rate Systolic And Diastolic Provider Name and Address Organization Details Last Updated DateTime 5 165.1 cm 37.5 kg/m2 847648. 98 g 97 % 97 % 67 /min 124/76 mm[Hg] Ale Gambino [facility] 5 09:16:44 Date Recorded Body height Body mass index (BMI) Body weight Oxygen saturation Oxygen saturation in Arterial blood by Pulse oximetry Heart rate Respiratory rate Body temperature Systolic And Diastolic Provider Name and Address Organization Details Last Updated DateTime 5 165.1 cm 38.8 kg/m2 431986. 02 g 99 % 99 % 85 /min 20 /min 98 [degF] 100/70 mm[Hg] Ale Community [facility], L.L[facility]CY[facility]iana 5 10:54:51 Date Recorded Body height Body mass index (BMI) Body weight Oxygen saturation Oxygen saturation in Arterial blood by Pulse oximetry Heart rate Respiratory rate Systolic And Diastolic Provider Name and Address Organization Details Last Updated DateTime 5 165.1 cm 37.1 kg/m2 029146. 1 g 97 % 97 % 72 /min 20 /min 126/74 mm[Hg] LAURA BENITO [facility], [facility].L[facility] 5 11:40:01 Date Recorded Body height Body mass index (BMI) Body weight Oxygen saturation Oxygen saturation in Arterial blood by Pulse oximetry Heart rate Respiratory rate Systolic And Diastolic Provider Name and Address Organization Details Last Updated DateTime 5 165.1 cm 36.4 kg/m2 90322.9 4 g 96 % 96 % 69 /min 18 /min 120/70 mm[Hg] [facility], [facility] 5 12:00:02 Social History None recorded. [...] mcg/0.3 mL dose 1 completed LAURA camacho [facility], L.L.CYuliana 11/07/2023 17:04:30 Influenza, split virus, quadrivalent, PF 3 completed LAURA camacho [facility], LYulianaLYulianaCYuliana 07/31/2023 15:22:16 Pneumococcal conjugate PCV20, polysaccharide UCB896 conjugate, adjuvant, PF 4 completed Forrest Apple [address], [address], [facility], LYulianaLYulianaCYuliana 08/26/2024 08:36:25 Past Encounters Encounter ID Performer Location Encounter Start Date Encounter Closed Date Diagnosis/Indication Diagnosis SNOMED-CT Code Diagnosis ICD10 Code Diagnosis Note [id number] [facility] ([facility]) [address] [place] [id number] 12/27/2022 11:14:10 12/27/2022 12:15:20 Bursitis of knee 131608831 M70.52 M70.51 traumatic. will give prednisone for 10 days. if not better consider injection. continue tramadol and tylenol Dysequilib rium syndrome 980797789 R42 concern for inner ear issue. will refer. Hearing loss 66504113 H9 1.92 will send to ENT for further eval [id number] Forrest Apple DO [facility]) [address] [place] [phone] 02/07/2023 09:57:44 02/07/2023 16:59:28 Diabetes mellitus 33081440 E11.69 E11.22 continue basaglar at 70u qhs. Essential hypertension 74217103 I10 stab Hyperlipidemia 02801182 E78.5 Stable. Will repeat labs. Continue Atorvastat in. Counseled on diet and exericse. Chronic ki dney disease stage 5 due to type 2 diabetes mellitus 9363193378 00 N18.5 N18.6 not yet on dialysis. pt to continue with Nephrology . I agree with placement of PD cath for likely impending need for dialysis. counseled Hyperparat hyroidism due to renal insufficiency 35778031 N25.81 continue with Nephrology care. Fatigue 65144445 R53.83 stable. Anxiety 62600927 F41.9 conitnue with prn xanax Moderate r ecurrent major depression 51318705 F33.1 continue citalopram Morbid obesity 461218296 E66.01 Z68.41 I counseled pt on obesity. We discussed risks and ways to loose weight. Pt will work on diet, exercise. Pain of bi lateral knee joints 0466091148 56711 M25.561 M25.562 Vitamin D deficiency 347 83781 E55.9 continue with daily vit D and nephrology monitoring . Forrest Apple DO [facility] ([facility]) [address] [place] [id number] 02/21/2023 14:35:09 02/21/2023 17:26:32 Pain of left knee joint 8806597449 54919 M25.562 I counseled pt on DX and treatment options. Pt desires to proceed with Joint injection today. Performed as documented . Pt tolerated well. counseled on limiting activity the next 24 hrs. return if problems. Seasonal allergy 1420169 04 J30.2 Diabetes mellitus 208690 E11. continue basaglar at 70u qhs. Pain of bi lateral knee joints 1345210179 30504 M25.561 M25.562 reviewed xray findings of severe arthritis with pt. continue mobic, prn joint injections . [id number] [facility] ([facility]) [address] [place] [id number] 03/21/2023 10:36:04 03/21/2023 14:48:10 Diabetes mellitus 444896311008 E11. decrease basaglar from 90u to 85. counseled Electrocar diogram abnormal 485867607 R94.31 HAD SURGERY MARCH 09 @ [facility], THEY PUT IN A dialysis CATH TO START DIALYSIS AT SOME POINT. SHE ALSO HAD AN EKG, HER REPORT ONLINE STATES ' T WAVES OF ABNORMALIT Y' UNDER THAT, LATERAL ISCHEMIA AND THEM ABNORMAL EKG. will get repreat today. no current CP. consider cardiology referral. [id number] Forrest Apple DO [facility] ([facility]) [address] [place] [id number] 07/31/2023 13:27:28 07/31/2023 14:34:29 Anxiety 24592425 F41.9 continue with prn xanax Benign ess ential hypertension 4401001 I10 stable: continue lisinopril , metoprolol , nifedipine . Diabetes mellitus 352988 E11. I reviewed most recent labs with pt as per above. A1c much improved at 7.3We reconciled medication s. We discussed diet, exercise, weight management . We discussed routine eye care and foot care. Pt to monitor glucose regularly. current medication s: basaglar-d ecrease to 75u at night. . counseledr epeat labs 3 mts with appt after. Hyperlipidemia 97551928 E78.5 Stable. Continue Atorvastat in. Counseled on diet and exercise. Chronic ki dney disease stage 5 due to type 2 diabetes mellitus 6951301345 00 N18.5 N18.6 not yet on dialysis. pt to continue with Nephrology .labs on 07/24/23 worse with cr 4.4 and GFR 10. electrolyt es ok, still making urine. pt has already had placement of PD cath for likely impending need for dialysis. counseledw ill send labs to Dr. Atwood. Active or passive immunization 999356118 Z23 I counseled pt on vaccinatio ns. pt given fluvax today as above per pt request. [id number] JOJO MARTINEZ PA-C [facility] ([facility]) [address] [place] [phone] 08/25/2023 10:25:13 08/25/2023 14:12:35 Acute bronchitis 71694839 J20.9 Chronic ki dney disease stage 4 974639605 N18.4 stop the lisinopril cr is 4.[id number] [facility] ([facility]) [address] [place] [address] 10/23/2023 15:02:35 10/23/2023 16:02:37 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 0559175575 00 N18.5 N18.6 not yet on dialysis. pt continues with Nephrology , Dr. Atwood.labs on 09/05/23wors e with cr 4.4 and GFR 10. electrolyt es ok, then still making urine. pt has already had placement of PD cath for likely impending need for dialysis. concern for cardiorena l, will check labs and cxr today. counseled. pt needs quick f/u with nephrology Unsteady when walking 22 895275 R26.89 counseled on fall prevention . recommend shower chair and 4wheel walker. Dyspnea on exertion 6084 5006 R06.09 CXR today shows some possible mild fluid overload/c hf. counseled on salt intake. need Diabetes mellitus 948593 09 E11.69 E11.22 I reviewed most recent labs with pt as per above. Has improved from 9.3-7.4.A1 c it appears her Dexcom 7 is a definite contributi ng factor. She is utilizing her continuous glucose monitoring system without difficulty and it is improving her daily blood sugar. We reconciled medication s. We discussed diet, exercise, weight management . We discussed routine eye care and foot care. Pt to monitor glucose regularly. current medication s: basaglar-d ecrease to 75u at night. . counseledr epeat labs 3 mts with appt after. [id number] Forrest Apple DO [facility] ([facility]) [address] [place] [id number] 11/02/2023 09:40:26 11/03/2023 09:52:41 Benign essential hypertension 9869955 I10 stable: continue lisinopril , metoprolol , nifedipine . Chronic ki dney disease stage 5 due to type 2 diabetes mellitus 5023371327 00 N18.5 N18.6 not yet on dialysis. pt continues with Nephrology , Dr. Atwood.labs on 09/05/23wors e with cr 4.4 and GFR 10. electrolyt es ok, then still making urine. pt has already had placement of PD cath for likely impending need for dialysis. concern for cardiorena l, will check labs and cxr today. counseled Diabetes mellitus 839319 09 E11.69 E11.22 I reviewed most recent labs with pt as per above. A1c much improved at 7.3We reconciled medication s. We discussed diet, exercise, weight management . We discussed routine eye care and foot care. Pt to monitor glucose regularly. current medication s: basaglar-d ecrease to 75u at night. . counseledr epeat labs 3 mts with appt after. Hyperlipidemia 47772794 E78.5 Stable. Continue Atorvastat in. Counseled on diet and exercise. [id number] Forrest Apple DO [facility] ([facility]) [address] [place] [id number] 02/14/2024 11:46:11 02/14/2024 12:55:23 Eczema 03108290 L30.9 02/14/24- counseled Eczema patch left breast, reassured not concerning for cancer, Hydrocorti sone cream. Benign ess ential hypertension 0489365 I10 02/14/24- Per Nephro stopped Nifedipine , Lisinopril changed to 10mg, continues Metoprolol . Abnormal movement 716618 002 R29.898 unclear etiology. Lab today, B12, Folate, Vit D, TSH. consider neurology referral. Hyperlipidemia 67695787 E78.5 Stable. Continue Atorvastat in. Counseled on diet and exercise. Vitamin D deficiency 347 83109 E55.9 continue with daily vit D and nephrology monitoring . Anxiety 91895640 F41.9 continue with prn xanax Fatigue 01197729 R53.83 stable. Obesity 647350834 E66.9 Counseled on diet, activity. Hyperparat hyroidism due to renal insufficiency 02279116 N25.81 continue with Nephrology care. Depressive disorder 3548 9007 F33.1 Continue Citalopram 40mg daily. [id number] Forrest Apple DO [facility] ([facility]) [address] [place] [address] 05/14/2024 11:08:17 05/14/2024 13:12:49 Acute sinusitis 02161322 J01.90 Abx, Prednisone , reassured safe to take with peritoneal dialysis. [id number] Forrest Apple DO [facility] ([facility]) [address] [place] [id number] 06/06/2024 08:49:07 06/06/2024 17:58:42 Benign essential hypertension 9230178 I10 02/14/24- Per Nephro stopped Nifedipine , Lisinopril changed to 10mg, continues Metoprolol . Diabetes mellitus 138221 09 E11.69 E11.22 I reviewed most recent labs with pt as per above. A1c much improved at 7.3We reconciled medication s. We discussed diet, exercise, weight management . We discussed routine eye care and foot care. Pt to monitor glucose regularly. current medication s: basaglar-d ecrease to 75u at night. . counseledr epeat labs 3 mts with appt after. Hyperlipidemia [id number] E78.5 Stable. Continue Atorvastat in. Counseled on diet and exercise. [id number] Forrest Apple DO [facility] ([facility]) [address] [place] [address] 06/11/2024 11:29:09 06/11/2024 16:21:02 Benign essential hypertension 7346384 I10 02/14/24- Per Nephro stopped Nifedipine , Lisinopril changed to 10mg, continues Metoprolol . Depressive disorder 0668 9007 F33.1 Continue Citalopram 40mg daily. Diabetes mellitus 418704 09 E11.69 E11.22 I reviewed most recent labs with pt as per above. A1c improved to 6.6We reconciled medication s. We discussed diet, exercise, weight management . We discussed routine eye care and foot care. Pt to monitor glucose regularly. Continue Basaglar, adjusting some according to glucose readings, 60-80u, advised we don't want her to need adjusting frequently , let us know if this is happening. Chronic ki dney disease stage 5 due to type 2 diabetes mellitus 4362212323 00 N18.5 N18.6 06/11/24- following with Nephrology , using home dialysis, this is going well, monitoring renal function. Active or passive immunization [id number] Z23 I counseled pt on vaccinatio ns. pt given Pneumovax today as above per pt request. Fluvax scheduled elsewhere. [id number] Forrest Apple DO [facility] ([facility]) [address] [place] [phone] 09/05/2024 09:27:56 09/06/2024 07:46:43 Benign essential hypertension 8053056 I10 02/14/24- Per Nephro stopped Nifedipine , Lisinopril changed to 10mg, continues Metoprolol . Chronic ki dney disease stage 5 due to type 2 diabetes mellitus 2494951397 00 N18.5 N18.6 06/11/24- following with Nephrology , using home dialysis, this is going well, monitoring renal function. Hyperlipidemia 95915738 E78.5 Stable. Continue Atorvastat in. Counseled on diet and exercise. [id number] Forrest Apple DO [facility] ([facility]) [address] [place] [address] 09/11/2024 08:44:17 09/12/2024 13:46:24 Benign essential hypertension 3691360 I10 09/11/24- stable, continue current tx, Metoprolol , Lisinopril at 40mg daily right now per Nephrology .02/14/24- Per Nephro stopped Nifedipine , Lisinopril changed to 10mg, continues Metoprolol . Depressive disorder 0823 6330 F33.1 Continue Citalopram 40mg daily. Diabetes mellitus 834079 09 E11.69 E11.22 I reviewed most recent labs with pt as per above. A1c 6.9 on 09/05/24, increased from 6.6 on 06/06/24.We reconciled medication s. We discussed diet, exercise, weight management . We discussed routine eye care and foot care. Pt to monitor glucose regularly. Continue Basaglar, adjusting some according to glucose readings, 60-80u, advised we don't want her to need adjusting frequently , let us know if this is happening. Chronic ki dney disease stage 5 due to type 2 diabetes mellitus 1434681759 00 N18.5 N18.6 09/11/24- continue following with Nephrology .06/11/24- following with Nephrology , using home dialysis, this is going well, monitoring renal function. Anxiety 27764709 F41.9 continue with prn xanax Hyperlipidemia 71758982 E78.5 Stable. Continue Atorvastat in. Counseled on diet and exercise. Fatigue 27339602 R53.83 stable. Unsteady when walking 22 167186 R26.89 counseled on fall prevention . Obesity 743178921 E66.9 Counseled on diet, activity. Leukocytosis 309589128 D 72.829 Following with Hem/ Onc every 3 months last 07/25/24, stable, plan to continue Observatio n. 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 Acoustic neuroma 6229979 07 D33.3 09/11/24: Reviewed and discussed recent imaging and Neuro note, they will monitor, planning f/u in Spring. Pt has chose not to see Estefania for Radiation or treatment at this time. Left hemiparesis 5031028 00 G81.94 Following with Neurology. Tremor 77725319 G25.2 Following with Neurology. Injury of foot 562524360 S99.922A 09/11/24- recent fall resulting in injury and wound to the left foot, does not appear infected today, counseled ok to apply RODRIGO. Keep upcoming appt with Podiatry. [id number] Forrest Apple DO [facility] ([facility]) [address] [place] [phone] 01/22/2025 09:03:05 01/22/2025 13:02:38 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 0914710036 00 N18.5 N18.6 01/22/25: Continue with Nephrology , dialysis, abx for port infection at this time, counseled on symptoms to monitor for, for worsening infection, we want to avoid Peritoniti s.09/11/24- continue following with Nephrology .06/11/24- following with Nephrology , using home dialysis, this is going well, monitoring renal function. Diabetes mellitus 426056 E11.69 E11.22 I reviewed most recent labs with pt [...] let us know if this is happening. Candidiasis of skin 4988 3006 B37.2 01/22/25: Nystatin cream, counseled. [id number] Forrest Apple DO [facility] ([facility]) [address] [place] [phone] 01/20/2025 10:25:33 01/20/2025 15:24:32 Benign essential hypertension 3824119 I10 09/11/24- stable, continue current tx, Metoprolol , Lisinopril at 40mg daily right now per Nephrology .02/14/24- Per Nephro stopped Nifedipine , Lisinopril changed to 10mg, continues Metoprolol . Diabetes mellitus 516224 E11.69 E11.22 I reviewed most recent labs with pt as per above. A1c 6.9 on 09/05/24, increased from 6.6 on 06/06/24.We reconciled medication s. We discussed diet, exercise, weight management . We discussed routine eye care and foot care. Pt to monitor glucose regularly. Continue Basaglar, adjusting some according to glucose readings, 60-80u, advised we don't want her to need adjusting frequently , let us know if this is happening. [id number] Forrest Apple DO [facility] ([facility]) [address] [place] [phone] 02/18/2025 10:11:26 02/19/2025 12:32:35 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 7523482110 00 N18.5 N18.6 01/22/25: Continue with Nephrology , dialysis, abx for port infection at this time, counseled on symptoms to monitor for, for worsening infection, we want to avoid Peritoniti s.09/11/24- continue following with Nephrology .06/11/24- following with Nephrology , using home dialysis, this is going well, monitoring renal function. Dyspnea 424561237 R06.02 02/18/25: Acute, worsening, heart irregularl y irregular today, with no prior h/o Afib, pt with ESRD on peritoneal dialysis, advised pt see ER immediatel y for evaluation and tx, I am concerned for infection, grandson drove her to clinic this am, will take her to ER. [id number] Forrest Apple DO [facility] ([facility]) [address] [place] [phone] 03/04/2025 10:51:27 03/04/2025 12:13:38 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 4045731243 00 N18.5 N18.6 03/04/25: Continue with Nephrology , dialysis,: Continue with Nephrology , dialysis, abx for port infection at this time, counseled on symptoms to monitor for, for worsening infection, we want to avoid Peritoniti s.09/11/24- continue following with Nephrology .06/11/24- following with Nephrology , using home dialysis, this is going well, monitoring renal function. Diabetes mellitus 127750 09 E11.69 E11.22 03/04/25: Counseled keep a [...] is happening. Atrial fibrillation 4943 6004 I48.91 03/04/25: new dx. Coumadin stopped when in the hospital d/t black stools. Counseled keep trying and schedule f/u with Dr. Lindsay. Black feces 667524335 K9 2.1 03/04/25: pt is very high risk for colonoscop y. Concerned blood got too thin on Coumadin for Afib. I recommend she cancel colonoscop y scheduled with FABIÁN for 03/25/25, will consider scoping if black stools are recurrent. Spasm 56865894 M62.838 neck, counseled obtain massage to get her relaxed. [id number] Forrest Apple DO [facility] ([facility]) [address] [place] [phone] 03/18/2025 11:34:01 03/21/2025 15:58:43 Chronic low back pain 508340182 M54.50 Hyperlipidemia 29157895 E78.5 Stable. Continue Atorvastat in. Counseled on diet and exercise. Diabetes mellitus 159036 09 E11.69 E11.22 03/18/25: Reviewed and discussed [...] by Organization Details LastModified Time None Recorded Advance Directives Directive None Recorded Payers Insurance Date Sequence Insurance Name Policy Number Policy Swann Covered Member ID Swann Member ID Guarantor Name 03/15/2025 2 [employer] (MEDICARE SUPPLEMENT) Sebastián meza [id number] Sebastián Sparks 03/04/2025 1 [place]ICARE [place]: [place] Sebastián Hinton [id number] Sebastián Sparks 03/04/2025 [place] - PART A - [facility] (MEDICARE) Sebastián Hinton [id number] 4 Sebastián Sparks Notes Date Note Type Note Provider Name and Address Organization Details Recorded Time 01/22/2025 text/html Pt presents for recheck 4 months DM, HTN, HLD, CKD. She brings with her lab today from [facility] ( Dialysis clinic) Our lab 01/20/25:A1c 6.5, down from 6.9 on 09/05/24.Glucose 96. BUN 109. CR 6.9, Alk Phos 151. She has itching to her right side that wakes her up in the middle of the night. She thought it was dry skin, has been present for 1 month. She has used lotions and anti-itch cream and nothing is helping. She has been on Cephalexin for infection around her port, she has 3 days left of med Scheduled next week for MRI. Forrest Apple, DO [address] [place] [address], [phone], [facility], Ryann. 02/05/2025 08:40:27 02/18/2025 text/html Pt presents for increased SOB, onset 1 week ago, worsening, significantly worse the last 1-2 days. She had to attempt multiple times to get dressed this am d/t being SOB. She c/o runny nose and cough, she coughs so hard she is vomiting her food upShe is very weak and has no energy. She denies any fever but has had chills, c/o itchy ears She's had an 8lb weight gain in the last 3 weeks. BP low at 100/70 today. H/o DM, glucose so so , was 197 this am, pt unsure why. She has had readings < 100 in the last 1 week, nothing <70. She continues dialysis, reports her abd feels full when she puts her solution in. One day she put 2500mL fluid in, got 2495mL fluid out. She continues voiding, denies any urinary symptoms, pain/burning/hematu kari/ frequencty/ urgency/ decreased output. No increased swelling of ankles. Forrest Apple, DO [address] [place] [address], [phone], [facility], Claudia 02/18/2025 22:20:39 03/04/2025 text/html Pt was seen in office on 02/18/25 was then sent to ER DC Summary is not complete yet.Prescriptions:N ewamiodarone [Pacerone] 200 mg TabletSee Rx Instructions .ROUTE .COMPLEX 30 Days Qty: 37 0RFRx Instructions:400 mg orally(2tabs) for 7 days, then 1 tab dailypantoprazole [Protonix] 40 mg tablet,delayed release (DR/EC)40 mg PO BID 30 Days Qty: 60 0RFclonidine 0.1 mg/24 hr Patch Weekly1 patch transdermal .weekly 30 Days Qty: 4 0RFinsulin aspart U-100 [Novolog FlexPen U-100 Insulin] 100 unit/mL (3 mL) insulin penSee Rx Instructions .ROUTE .COMPLEX Qty: 15 0RFRx Instructions:Inject , subcut, 3 times daily, after meals, based on low dose insulin sliding scalesucralfate [Carafate] 1 gram tablet1 g PO BID 28 Days Qty: 56 0RF She was treated with Heparin IV. Taken off Coumadin. Tolerating medications, taking as directed.She is still short of breath, however states she feels so much better all over. She had black stools in the hospital, Warfarin was held, colonoscopy scheduled with Dr. Amaral 03/25/25. Pt concerned about this.She reports she has black stools because she is taking Auryxia iron tablets.Hgb 9.4 on 02/23/25 when last checked at the hospital. No f/u scheduled with Cardio yet, she has been calling trying to get through to schedule. Having some chills, no fever.Denies nausea, admits decreased appetite. Glucose running mid 100's in the am, upper 100's-lower 200's at noon and in the evening.Using moderate SS short acting insulin, Basaglar 10u at hs. She still c/o neck and shoulder pain. She received a muscle relaxer when in the hospital. Reports pain present even when she adjusts her pillow.She sleeps on her right side chronically. Forrest Apple, DO [address] [place] [address], [phone], [facility], Shweta 03/18/2025 12:23:11 03/18/2025 text/html Pt presents for recheck, 2 [...] on Nystatin cream for rash. Forrest Apple, [address], [phone], [facility], Claudia 03/21/2025 15:58:41 OBGyn Episode No OBEpisode recorded.
--- OUTSIDE RECORDS SUMMARY | 2025-03-22 20:15 | XMS_ITS ---
Author Organization Unknown Medications Date Medication Dosage DosageUnit StartDate StopDate StopReason Active DoseQuantity DoseUnit Dispense DispenseUnit Refills NdcCode DrugCode PharmacyId IsPrescription MappedMedication Srcstatus Custom 025 12:00 :00 AM vitamin d3 25 mcg (1,000 unit) capsule 1 371294 14 770 549039 M ACTIVE 2024 12:00 :00 AM alprazolam 0.25 mg tablet 60.0000 00 02/20/2025 12:00:00 AM 1 60.163783 4 874639 02 710 [id number] [facility], TomasLYulianaC. P ACTIVE 2023 12:00 :00 AM amoxicillin 500 mg-potassiu clavulanate 125 mg tablet 10.0000 00 05/14/2024 12:00:00 AM 05/26/2024 12:00:00 AM 0 10.277827 0 94016853 434 [id number] [facility], LYulianaLYulianaC. P HISTORICAL 2024 12:00 :00 AM tramadol 50 mg tablet 60.0000 00 02/20/2025 12:00:00 AM 1 60.475509 0 397644 30 101 [id number] [facility], LYulianaL.C. P ACTIVE 2024 12:00 :00 AM chinmay 2nd gen pen needle 32 gauge x 100.000 000 02/24/2025 12:00:00 AM 1 100.74757 0 1 [id number] [facility] P ACTIVE 2024 12:00 :00 AM cephalexin 500 mg capsule 20.0000 00 01/14/2025 12:00:00 AM 01/22/2025 12:00:00 AM 0 20.061745 0 84894532 701 [id number] [facility] L[facility]C. P HISTORICAL 025 12:00 :00 AM nystatin 100,000 unit/gram topical cream 30.0000 00 01/22/2025 12:00:00 AM 1 30.748791 1 562044 67 815 [id number] [facility], Claudia P ACTIVE 2024 12:00 :00 AM amiodarone 200 mg tablet 37.0000 00 02/23/2025 12:00:00 AM 1 37.229260 0 726770 35 [id number] [facility] -04894 P ACTIVE 2023 12:00 :00 AM prednisone 20 mg tablet 7.68654 0 05/14/2024 12:00:00 AM 05/26/2024 12:00:00 AM 0 7.736597 0 89251171 825 [id number] [facility], Claudia P HISTORICAL 2024 12:00 :00 AM nystatin 100,000 unit/ml oral suspension 180.000 000 02/27/2025 12:00:00 AM 1 180.07831 0 0 30272603 802 015530 [facility], Claudia P ACTIVE 2024 12:00 :00 AM pantoprazol e 40 mg tablet,zeus yed release 60.0000 00 02/23/2025 12:00:00 AM 1 60.737623 0 970763 68 910 [id number] [facility] -74461 P ACTIVE 2024 12:00 :00 AM clonidine 0.1 mg/24 hr weekly transdermal patch 4.46400 0 02/23/2025 12:00:00 AM 1 4.700929 0 5320866 7 116 044586 [facility] -38561 P ACTIVE 2023 12:00 :00 AM fluticasone propionate 50 mcg/actuati on nasal spray,suspe nsion 3.50329 0 1 3.037944 3 927880 P ACTIVE 025 12:00 :00 AM lisinopril 10 mg tablet 90.0000 00 08/17/2024 12:00:00 AM 09/11/2024 12:00:00 AM 0 90.378180 0 62525238 701 984774 [facility], Claudia P HISTORICAL 2024 12:00 :00 AM nifedipine er 30 mg tablet,exte nded release 24 hr 90.0000 00 12/31/2024 12:00:00 AM 03/04/2025 12:00:00 AM 0 90.518068 10 48212935 325 [id number] [facility], Claudia P HISTORICAL 2024 12:00 :00 AM nystatin 100,000 unit/ml oral suspension 180.000 000 1 180.99438 0 414824 P ACTIVE 2024 12:00 :00 AM sucralfate 1 gram tablet 56.0000 00 02/23/2025 12:00:00 AM 1 56.977544 0 064824 21 001 [id number] [facility] 2024 12:00 :00 AM doxycycline hyclate 100 mg tablet 20.0000 00 11/19/2024 12:00:00 AM 01/22/2025 12:00:00 AM 0 20.877821 0 17285174 991 [id number] [facility], RyCYuliana P HISTORICAL 025 12:00 :00 AM preservisio n areds-2 250 mg-90 mg-40 mg-1 mg capsule 1 242 19996 760 M ACTIVE 025 12:00 :00 AM lisinopril 20 mg tablet 90.0000 00 07/11/2024 12:00:00 AM 09/11/2024 12:00:00 AM 0 90.943517 2 92695535 801 [id number] [facility], RyCYuliana P HISTORICAL 2024 12:00 :00 AM bd chinmay 2nd gen pen needle 32 gauge x 100.000 000 11/20/2024 12:00:00 AM 1 100.41846 0 2 69640477 550 [facility], Claudia P ACTIVE 2024 12:00 :00 AM trazodone 150 mg tablet 90.0000 00 12/23/2024 12:00:00 AM 1 90.580154 2 415720 08 101 397930 [facility], LYulianaLYulianaCYuliana P ACTIVE 08/27 12:00 :00 AM bd chinmay 2nd gen pen needle 32 gauge x 100.000 000 1 100.37058 0 3 110762 P ACTIVE 2024 12:00 :00 AM tramadol 50 mg tablet 60.0000 00 1 60.682113 0 877494 P ACTIVE 2024 12:00 :00 AM auryxia 210 mg iron tablet 90.0000 00 03/10/2025 12:00:00 AM 1 90.510856 4 526976 63 [id number] [facility] P ACTIVE 2024 12:00 :00 AM citalopram 40 mg tablet 90.0000 00 1 90.574230 3 652900 P ACTIVE 2024 12:00 :00 AM aspirin 81 mg tablet,zeus yed release 1 00 821843 441 084072 M ACTIVE 2024 12:00 :00 AM atorvastati n 80 mg tablet 90.0000 00 02/27/2025 12:00:00 AM 1 90.102684 0 684989 05 705 718122 [facility], LStephanieCYuliana P ACTIVE 2024 12:00 :00 AM basaglcole murillo u-100 insulin 100 unit/ml (3 ml) subcutaneou s 60.0000 00 1 60.597227 5 654581 P ACTIVE 2024 12:00 :00 AM atorvastati n 80 mg tablet 90.0000 00 1 90.660781 3 906996 P ACTIVE 025 12:00 :00 AM claritin 10 mg tablet 1 1152 3716 001 996455 M ACTIVE 2024 12:00 :00 AM lactulose 10 gram/15 ml oral solution 1419.00 0000 12/30/2024 12:00:00 AM 1 1419.0000 00 8 93336357 508 565372 [facility], L.LYulianaC. P ACTIVE 2024 12:00 :00 AM alprazolam 0.25 mg tablet 60.0000 00 1 60.217285 5 373952 P ACTIVE 2024 12:00 :00 AM metoprolol succinate er 100 mg tablet,exte nded release 24 hr 90.0000 00 02/12/2025 12:00:00 AM 1 90.517935 1 079289 59 710 432372 [facility], Claudia P ACTIVE 2024 12:00 :00 AM novolog flexpen u-100 insulin aspart 100 unit/ml (3 ml) subcutaneou s 15.0000 02/23/2025 12:00:00 AM 1 15.359165 0 796037 33 916 0949156 [facility] -49039 P ACTIVE 025 12:00 :00 AM calcitriol 0.25 mcg capsule 90.0000 00 02/03/2025 12:00:00 AM 1 90.663184 3 595905 00 713 976200 [facility] P ACTIVE 025 12:00 :00 AM senna laxative-st ool softener 8.6 mg-50 mg tablet 1 733363 M ACT EVANS 2024 12:00 :00 AM nystatin 100,000 unit/gram topical cream 1.19510 0 1 1.459846 6 136247 P ACTIVE 025 12:00 :00 AM daily vitamins for women tablet 1 M ACTIVE 025 12:00 :00 AM gentamicin 0.1 % topical cream 45.0000 00 02/03/2025 12:00:00 AM 1 45.812434 2 915708 68 315 [id number] [facility] P [facility] 2023 12:00 :00 AM amoxicillin 250 mg-teenau m clavulanate 125 mg tablet 20.0000 00 05/26/2024 12:00:00 AM 0 20.564123 0 284724 P HISTORIC AL 2024 12:00 :00 AM ciprofloxac in 500 mg tablet 3.35927 0 10/07/2024 12:00:00 AM 01/22/2025 12:00:00 AM 0 3.344170 0 63409207 395 [id number] [facility], LShweta P HISTORICAL 2024 12:00 :00 AM fluticasone propionate 50 mcg/actuati on nasal spray,suspe nsion 32.0000 00 02/06/2025 12:00:00 AM 1 32.287939 0 999635 27 413 9354069 [facility], RyCYuliana P ACTIVE 07/16 12:00 :00 AM trazodone 150 mg tablet 90.0000 00 1 90.310557 3 991124 P ACTIVE 025 12:00 :00 AM basparker marcumcoreen u-100 insulin 100 unit/ml (3 ml) subcutaneou s 60.0000 00 01/22/2025 12:00:00 AM 1 60.140853 5 985037 71 501 465049 [facility], Claudia P ACTIVE 2024 12:00 :00 AM lisinopril 40 mg tablet 90.0000 00 01/14/2025 12:00:00 AM 1 90.615505 3 276234 40 901 972419 [facility], RyCYuliana P ACTIVE 2023 12:00 :00 AM prednisone 20 mg tablet 7.59908 0 0 7.634164 0 291419 P HISTORIC [place] 2023 12:00 :00 AM metoprolol succinate er 100 mg tablet,exte nded release 24 hr 90.0000 00 1 90.841836 3 688626 P ACTIVE 2024 12:00 :00 AM dorzolamide 22.3 mg-timolol 6.8 mg/ml eye drops 10.0000 03/08/2025 12:00:00 AM 1 10.416749 4 808270 48 298 [id number] [facility], RyCYuliana P ACTIVE 025 12:00 :00 AM citalopram 40 mg tablet 90.0000 00 03/05/2025 12:00:00 AM 1 90.238589 2 518047 23 301 385618 [facility], RyCYuliana P ACTIVE 025 12:00 :00 AM renaplex-d 800 mcg-12.5 mg-2,000 unit tablet 90.0000 00 01/27/2025 12:00:00 AM 1 90.452256 2 521030 61 601 [facility] P ACTIVE 2024 12:00 :00 AM doxycycline hyclate 100 mg capsule 20.0000 00 11/05/2024 12:00:00 AM 01/22/2025 12:00:00 AM 0 20.696368 0 88523822 062 [id number] [facility], Claudia P HISTORICAL
--- OUTSIDE RECORDS SUMMARY | 2025-03-22 20:15 | XMS_ITS | Encounter Summary ---
Author Organization [facility] Address [address] [address] Phone Care Team Providers Care Escrow Officer Name Role Phone Wili Gonzalez DO Primary Care Provider [phone] Reason for Visit * Reason Comments Med Refill Encounter Details Date Type Department Care Team (Late st Contact Info) Description 08/26/2024 Refill [facility] [address] [address] Silvia Atwood MD [address] [facility] [address] [place] [address] Social History Tobacco Use Types [...] on filedocumented in this encounter Care Teams Escrow Officer Relationship Specialty Start Date End Date Wili Gonzalez DO [address] [place] [address] PCP - General Family Medicine 01/29/19 documented as of this encounter
--- NOTE | 2025-03-22 20:17 | W.ED.GENADLT ---
HPI - General Adult General: Chief complaint: General Medical Stated complaint: high bp, neck pain Time Seen by Provider: 03/22/25 20:17 History of Present Illness: Patient is a female with history of atrial fibrillation (diagnosed in February), end-stage renal disease on peritoneal dialysis, congestive heart failure, and diabetes who presents to the ED with multiple complaints. She reports not feeling well all day with discomfort in her chest area. Patient notes respiratory symptoms including cough productive of yellow phlegm. She reports some shortness of breath currently. Patient also complains of ear discomfort and neck pain at the base where her shoulders are, without history of trauma. Patient reports feeling fatigued, wanting to sleep most of the day, and lacking energy. Denies headache or visual changes. Patient states her blood pressure is typically in the 130s-140s, but has noticed it running in the 150s over the past couple weeks despite medication compliance. Per patient and improvement engineer, she was hospitalized 3 weeks ago for atrial fibrillation and was in the ICU. During that admission, she was diagnosed with congestive heart failure with fluid around her heart/lungs and underwent peritoneal dialysis six times daily. She was started on multiple cardiac medications including amiodarone. Patient reports she is running out of these medications and has been unable to get refills despite calling her electric tripper machine operator's office twice. She was seen by a PA at her last cardiology visit and has selected Dr. Evans as her electric tripper machine operator but won't see him until June. Patient states she normally does peritoneal dialysis 6 days per week (previously 7 days) and has Saturdays off. Related Data Home Medications ?Medication ?Instructions ?Recorded ?Confirmed alprazolam 0.25 mg tablet 0.25 mg PO TID PRN Anxiety 07/12/21 03/11/25 tramadol 50 mg tablet 50 mg PO BID PRN Pain 07/12/21 03/11/25 calcitriol 0.25 mcg capsule 0.25 mcg PO DAILY 04/24/24 03/11/25 ferric citrate 210 mg iron tablet 210 mg PO TID 04/24/24 03/11/25 (Auryxia) loratadine 10 mg tablet 10 mg PO DAILY 04/24/24 03/11/25 atorvastatin 80 mg tablet 80 mg PO DAILY 06/20/24 03/11/25 lactulose 10 gram/15 mL oral 30 - 60 ml PO BID PRN Constipation 07/25/24 03/11/25 solution fluticasone propionate 50 1 spray intranasal DAILY 08/15/24 03/11/25 mcg/actuation nasal spray,suspension metoprolol succinate 100 mg 100 mg PO DAILY 08/15/24 03/11/25 tablet,extended release 24 hr nystatin 100,000 unit/gram topical 1 applic topical BID 01/29/25 03/11/25 cream trazodone 150 mg tablet 150 mg PO QPM 01/29/25 03/11/25 gentamicin 0.1 % topical cream 1 applic topical DAILY after 02/17/25 03/11/25 cleaning site citalopram 40 mg tablet 40 mg PO DAILY 02/18/25 03/11/25 dorzolamide 22.3 mg-timolol 6.8 1 drp ophthalmic (eye) BID 02/18/25 03/11/25 mg/mL eye drops sennosides 8.6 mg tablet (Senokot) 17.2 mg PO BID 02/18/25 03/11/25 vit B,C-folic ac 800 mcg-zinc 12.5 1 tab PO DAILY 02/18/25 03/11/25 mg-selen-D3 2,000 unit-vit E tablet (RenaPlex-D) Previous Rx's ?Medication ?Instructions ?Recorded insulin aspart U-100 100 unit/mL See Rx Instructions .Route 02/23/25 (3 mL) subcutaneous pen (Novolog .COMPLEX #15 mL FlexPen U-100 Insulin aspart) insulin glargine 100 unit/mL (3 10 unit (0.1 mL) SUBCUT DAILY 30 02/23/25 mL) subcutaneous pen (Basaglar days #15 mL KwikPen U-100 Insulin) pantoprazole 40 mg tablet,delayed 40 mg PO BID 30 days #60 tabs 02/23/25 release (Protonix) amiodarone 200 mg tablet (Pacerone) 200 mg PO DAILY #90 tabs 03/22/25 clonidine 0.1 mg/24 hr weekly 1 patch transdermal .weekly #4 ea 03/22/25 transdermal patch lisinopril 40 mg tablet 40 mg PO QPM #30 tabs 03/22/25 Allergies Allergy/AdvReac Type Severity Reaction Status Date / Time meperidine (From Demerol) Allergy rash/itchin Verified 03/11/25 15:11 g Sulfa (Sulfonamide Allergy itching Verified 03/11/25 15:11 Antibiotics) Review of Systems General: Reports: 10 or more systems reviewed and unremarkable except in HPI and below PFSH ED PFSH: Medical History (Updated 03/22/25 @ 22:07 by Jason Cade DO) Iron deficiency anemia Anxiety MALT lymphoma End stage renal disease Type 2 diabetes mellitus with other specified complication, unspecified whether superintendent container terminal insulin use Primary hypertension Surgical History H/O knee surgery (~2001) L knee Hx of tubal ligation (~1982) Hx of dilation and curettage (~1979) Hx of tonsillectomy (~1979) Family History Mother Diabetes Brother Diabetes Heart disease Father Hodgkin lymphoma Pulmonary fibrosis Denies family history of Colon cancer Ovarian cancer Hypercholesteremia Breast cancer Hypertension Uterine cancer Thyroid disease Stroke Social History Smoking and tobacco/nicotine status: former use of tobacco/nicotine Quit status (tobacco/nicotine): has quit using Year quit tobacco: 1970 Former quit date comment: some social smoking dring teenage years Second hand smoke exposure: Yes Physical Exam Const: COMMON NORMALS: no acute distress, patient oriented x3, alert and well nourished HENMT: COMMON NORMALS: normocephalic HEAD & SCALP: normocephalic Eye: COMMON NORMALS: Equal, round and reactive pupils present, EOMs intact bilaterally and conjunctivae normal CONJUNCTIVA: Yes conjunctivae normal PUPIL: Yes Equal, round and reactive pupils present Neck/C-Spine: COMMON NORMALS: full ROM, no lymphadenopathy, supple, no meningeal signs, no JVD and Thyroid normal THYROID: Thyroid normal Chest: COMMONS NORMALS: normal inspection of the chest and normal palpation of entire chest wall Resp: COMMON NORMALS: normal respiratory effort, No retractions, No use of accessory muscles, clear to auscultation bilaterally and percussion normal AUSCULTATION: clear to auscultation bilaterally PERCUSSION: percussion normal Cardio: COMMON NORMALS: no JVD GI: COMMON NORMALS: Normal to inspection, nondistended, normoactive bowel sounds present, Soft to palpation, non-tender, No hepatosplenomegaly present, no masses and no bruits PALPATION: Yes Soft to palpation and Yes No hepatosplenomegaly present Extremity: COMMON NORMALS: normal to inspection, full ROM, capillary refill normal, no joint enlargement, no clubbing, cyanosis or edema, no calf tenderness and no pedal edema Neuro: COMMON NORMALS: patient oriented x3 SENSORIUM/ORIENTATION: Yes alert MENINGEAL SIGNS: Yes no meningeal signs Skin: COMMON NORMALS: no rashes or lesions noted, turgor normal and no jaundice GENERAL SKIN EXAM: no rashes or lesions noted and turgor normal Course Vital Signs: Vital signs: Vital Signs Temperature 97.8 F 03/22/25 20:02 Pulse Rate 62 03/22/25 22:17 Respiratory Rate 16 03/22/25 22:17 Blood Pressure 238/92 03/22/25 22:17 Pulse Oximetry 95 03/22/25 22:17 Oxygen Delivery Me thod Room Air 03/22/25 20:02 MDM - General Adult Medical Decision Making 1. Hypertension - Elevated from patient's baseline of 130-140s to 150s - Blood pressure needs to be reduced to a more reasonable range before discharge - Will review current antihypertensive regimen and consider adjustments - Recommend additional peritoneal dialysis session tonight despite it being patient's usual day off to help with fluid removal and BP control 2. Atrial Fibrillation - Recent hospitalization for A-fib 3 weeks ago requiring ICU admission - Currently on amiodarone which is running low - Will review and refill necessary cardiac medications including amiodarone to ensure no interruption in therapy - Will attempt to coordinate with cardiology for ongoing management 3. Congestive Heart Failure - Evidence of fluid retention contributing to current symptoms and BP elevation - Recommend additional dialysis session to remove excess fluid - Will review heart failure medications and ensure appropriate therapy 4. Respiratory Symptoms - Productive cough with yellow sputum concerning for possible respiratory infection - Will assess need for antibiotics based on further examination and testing 5. Neck/Shoulder Pain - Likely musculoskeletal in nature, no trauma reported - Will recommend conservative management with analgesics as appropriate 6. Medication Management - Will review all current medications and provide necessary refills - Will attempt to coordinate with cardiology to ensure continuity of care - Patient needs follow-up with Dr. Evans (cardiology) before June appointment if possible Patient remained asymptomatic throughout her stay we talked about contemporaneous treatment of asymptomatic hypertension. Labs for a dialysis patient were reasonable are largely unchanged though blood pressure cuff was on her left forearm and she said it hurts too much to take it on her upper arm and she also has a Dexcom on one of her upper arm send I am not sure that the readings were exactly accurate but likely falsely elevated. The patient is going to go home and take her home medication and do dialysis again tonight even though she was not scheduled for tonight to help remove some fluid at get some further blood pressure reduction. If she develops symptoms then she is to return otherwise have refilled some of her cardiac medications and ask her to call her electric tripper machine operator on Monday. Lab Data 03/22/25 21:16 03/22/25 21:16 Radiology Impressions Chest X-Ray 03/22/25 20:18 IMPRESSION: 1. Negative for infiltrate. 2. Right mid lung calcified benign granuloma. 3. Cardiomegaly. 4. Trace right pleural effusion. Laboratory Results WBC 10.44 10^3/uL (3.29-11.43) 03/22/25 21:16 RBC 3.68 10^6/uL (3.85-5.65) L 03/22/25 21:16 Hgb 11.10 g/dL (11.27-16.99) L 03/22/25 21:16 Hct 34.3 % (36-47) L 03/22/25 21:16 MCV 93.2 fl (85-98) 03/22/25 21:16 MCH 30.2 pg (27-33) 03/22/25 21:16 MCHC 32.4 g/dL (30-55) 03/22/25 21:16 RDW 12.5 % (12.1-15.1) 03/22/25 21:16 Plt Count 196 10^3/cmm (157-399) 03/22/25 21:16 MPV 9.5 fL (7.4-10.4) 03/22/25 21:16 Neut % (Auto) 76.7 % 03/22/25 21:16 Lymph % (Auto) 9.2 % 03/22/25 21:16 Levy % (Auto) 8.0 % 03/22/25 21:16 Eos % (Auto) 4.9 % 03/22/25 21:16 Baso % (Auto) 0.6 % 03/22/25 21:16 Neut # (Auto) 8.02 10^3/uL (1.8-7.7) H 03/22/25 21:16 Lymph # (Auto) 1.0 10^3/uL (0.8-4.8) 03/22/25 21:16 Levy # (Auto) 0.8 10^3/uL (0.2-0.9) 03/22/25 21:16 Eos # (Auto) 0.5 10^3/uL (0.0-0.8) 03/22/25 21:16 Baso # (Auto) 0.1 10^3/uL (0.0-0.1) 03/22/25 21:16 Nucleated RBC % (auto) 0 % 03/22/25 21:16 Nucleated RBCs # 0.0 /100WBC 03/22/25 21:16 Sodium 137 mmol/L (136-145) 03/22/25 21:16 Potassium 3.1 mmol/L (3.5-5.1) L 03/22/25 21:16 Chloride 99 mmol/L (98-107) 03/22/25 21:16 Carbon Dioxide 26 mmol/L (22-29) 03/22/25 21:16 Anion Gap 15.1 (5-19) 03/22/25 21:16 BUN 48 mg/dL (8-23) H 03/22/25 21:16 Creatinine 5.3 mg/dL (0.5-0.9) H 03/22/25 21:16 GFR Calculation Not Reportable 03/22/25 21:16 Glucose 151 mg/dL (65-115) H 03/22/25 21:16 Calculated Osmolality 300 mOsm/kg (285-295) H 03/22/25 21:16 Calcium 8.5 mg/dL (8.5-10.5) 03/22/25 21:16 Total Bilirubin 0.2 mg/dL (0.15-1.2) 03/22/25 21:16 AST 32 U/L (0-32) 03/22/25 21:16 ALT 37 U/L (0-33) H 03/22/25 21:16 Alkaline Phosphatase 200 U/L (35-105) H 03/22/25 21:16 Total Protein 6.3 g/dL (6.6-8.7) L 03/22/25 21:16 Albumin 2.9 g/dL (3.5-5.2) L 03/22/25 21:16 Globulin 3.4 g/dL (1.3-4.6) 03/22/25 21:16 All radiology interpretation(s) finalized by discharge ED provider radiology interpretation(s): Small pleural effusion Discharge Plan Discharge Patient Disposition: Home Clinical Impression: End stage renal disease, Primary hypertension Diastolic CHF Qualifiers: Heart failure chronicity: acute Qualified Code(s): I50.31 - Acute diastolic (congestive) heart failure Condition: Stable Prescriptions: Continued clonidine 0.1 mg/24 hr patch weekly 1 patch transdermal .weekly Qty: 4 1RF amiodarone [Pacerone] 200 mg tablet 200 mg PO DAILY Qty: 90 0RF Rx Instructions: 200 mg orally daily; lisinopril 40 mg tablet 40 mg PO QPM Qty: 30 0RF No Action alprazolam 0.25 mg tablet 0.25 mg PO TID PRN (Reason: Anxiety) tramadol 50 mg tablet 50 mg PO BID PRN (Reason: Pain) atorvastatin 80 mg tablet 80 mg PO DAILY loratadine 10 mg tablet 10 mg PO DAILY Auryxia 210 mg iron tablet 210 mg PO TID Rx Instructions: administer with a meal calcitriol 0.25 mcg capsule 0.25 mcg PO DAILY lactulose 10 gram/15 mL solution 30 - 60 ml PO BID PRN (Reason: Constipation) metoprolol succinate 100 mg tablet extended release 24 hr 100 mg PO DAILY fluticasone propionate 50 mcg/actuation spray,suspension 1 spray intranasal DAILY trazodone 150 mg tablet 150 mg PO QPM nystatin 100,000 unit/gram cream 1 applic topical BID gentamicin 0.1 % cream 1 applic topical DAILY sennosides [Senokot] 8.6 mg Tablet 17.2 mg PO BID citalopram 40 mg tablet 40 mg PO DAILY dorzolamide-timolol 22.3-6.8 mg/mL drops 1 drp ophthalmic (eye) BID RenaPlex-D 800 mcg-12.5 mg -2,000 unit tablet 1 tab PO DAILY insulin glargine [Basaglar KwikPen U-100 Insulin] 100 unit/mL (3 mL) insulin pen 10 unit SUBCUT DAILY 30 Days Qty: 15 0RF insulin aspart U-100 [Novolog FlexPen U-100 Insulin] 100 unit/mL (3 mL) insulin pen See Rx Instructions .ROUTE .COMPLEX Qty: 15 0RF Rx Instructions: Inject, subcut, 3 times daily, after meals, based on low dose insulin sliding scale pantoprazole [Protonix] 40 mg tablet,delayed release (DR/EC) 40 mg PO BID 30 Days Qty: 60 0RF Discharge Orders: Discharge ED (Routine); Ordered 03/22/25 Ordered By: Jason Cade Referrals: Wili Gonzalez DO [Primary Care Provider, [facility]] Discharge Diet: Diabetic Discharge Activity: Limit activity as instructed Patient Instructions: Opioid Safety, Pain Management, Patient Portal & Krys Instructions Activity Restrictions/Additional Instructions: 1. Do dialysis tonight. Take Rx as directed. 2. Follow up with cardiology next week. 3. Return to ED for new or worsening symptoms. Print Language: Marshallese Coding Level of Care Code ED Blacksmith Supervisor for Albina Gomez
--- NOTE | 2025-03-22 20:18 | XRR_ITS ---
PROCEDURE INFORMATION: Exam: XR Chest Exam date and time: 03/22/2025 8:26 PM Age: 70 years old Clinical indication: Other: Hypertensive; C/O hypertension; Additional info: HTN TECHNIQUE: Imaging protocol: Radiologic exam of the chest. Views: 1 view. COMPARISON: CT chest wo con [id number] 02/18/2025 1:59 PM FINDINGS: Lungs: Right mid lung calcified benign granuloma. Pleural spaces: Trace right pleural effusion. Heart/Mediastinum: Cardiomegaly. Bones/joints: Unremarkable. XR/XR chest 1V portable [id number] IMPRESSION: 1. Negative for infiltrate. 2. Right mid lung calcified benign granuloma. 3. Cardiomegaly. 4. Trace right pleural effusion.
[2025-03-22 20:32] VITALS: BP 225/100; O2SAT 96
[2025-03-22 20:39] VITALS: BP 225/100
[2025-03-22 21:22] LABS: Hematocrit 34.3 % (36-47); Hemoglobin 11.10 g/dL (11.27-16.99); Mean Corpuscular HGB Conc 32.4 g/dL (30-55); Mean Corpuscular Hemoglobin 30.2 pg (27-33); Mean Corpuscular Volume 93.2 fl (85-98); Nucleated Red Blood Cells % 0 %; Platelet Count 196 10^3/cmm (157-399); Red Blood Count 3.68 10^6/uL (3.85-5.65); White Blood Count 10.44 10^3/uL (3.29-11.43)
[2025-03-22 21:42] LABS: Alanine Aminotransferase 37 U/L (0-33); Albumin Level 2.9 g/dL (3.5-5.2); Alkaline Phosphatase 200 U/L (35-105); Anion Gap 15.1 (5-19); Aspartate Amino Transferase 32 U/L (0-32); Blood Urea Nitrogen 48 mg/dL (8-23); Calcium 8.5 mg/dL (8.5-10.5); Carbon Dioxide 26 mmol/L (22-29); Chloride 99 mmol/L (98-107); Creatinine Clr Calc Pharmacy 10.6982; Globulin 3.4 g/dL (1.3-4.6); Glucose 151 mg/dL (65-115); Osmolality Calculated 300 mOsm/kg (285-295); Potassium 3.1 mmol/L (3.5-5.1); Sodium 137 mmol/L (136-145); Total Protein 6.3 g/dL (6.6-8.7)
[2025-03-22] MEDS: LORazepam 1 MG/0.5 ML injection 2 MG IVP (22:10)
[2025-03-22 22:17] VITALS: BP 238/92; PULSE 62; RESP 16; O2SAT 95
--- OUTSIDE RECORDS SUMMARY | 2025-04-24 19:00 | XMS_ITS | Clinical Summary ---
Author Organization Unknown Care Team Providers Care Otr Owner Operator Name Role Phone FORREST APPLE DO Unavailable Unavailable MALACHI RN, BUD Unavailable Unavailable RICA RN, COLIN Unavailable Unavailable DIONISIO ORTEGA, MARY Unavailable Unavailable GARCIA PT, RAVINDER Unavailable Unavailable Payers Payer Name Policy Type Policy Number Effective Date Expira tion Date MEDICARE - 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 Active 09-04 00:00: 00 ACUTE ON CHRONIC DIASTOLIC (CONGESTIVE) HEART FAILURE Active 09-04 00:00: 00 TYPE 2 DIABETES MELLITUS W DIABETIC CHRONIC KIDNEY DISEASE Active 09-04 00:00: 00 END STAGE RENAL DISEASE Active 09-04 00:00: 00 IRON DEFICIENCY ANEMIA, UNSPECIFIED Active 09-04 00:00: 00 GENERALIZED (ACUTE) PERITONITIS Active 09-04 00:00: 00 OTHER PERICARDIAL EFFUSION (NONINFLAMMA TORY) Active 09-04 00:00: 00 ELEVATED WHITE BLOOD CELL COUNT, UNSPECIFIED Active 09-04 00:00: 00 METAL MIXER (CURRENT) USE OF INSULIN Active 09-04 00:00: 00 OTHER SENIOR CARE (CURRENT) DRUG THERAPY Active 09-04 00:00: 00 DEPENDENCE ON RENAL DIALYSIS Active 09-04 00:00: 00 PERSONAL HISTORY OF NICOTINE DEPENDENCE Active 09-04 00:00: 00 Allergies, Adverse Reactions, Alerts Allergy Name Allergy Type Status Severity Reaction(s) Onset Date Inactive Date Treating Clinician Comments SULFA (SULFONAM SOLOMON ANTIBIOTI CS) Propensity to adverse reactions Active 2025-02 14:34:4 6 DEMEROL Propensity to adverse reactions Active 2025-02 14:34:5 5 Medications Ordered Medication Name Filled Medication Name Start Date Stop Date Current Medication? Ordering Clinician Indication Dosage Frequency Signature (SIG) Comments Components alprazolam 0.25 mg tablet 02-25 00:00: 00 Yes [id number] 1 tablet 3 TIMES DAILY 1 tablet 3 TIMES DAILY (route: oral) Med Classific ation: Central Nervous System Agents amiodarone 200 mg tablet 02-25 00:00: 00 Yes [id number] 1 tablet DAILY 1 tablet DAILY (route: oral) Med Classific ation: Cardiovas cular Therapy Agents atorvastati n 80 mg tablet 02-25 00:00: 00 Yes [id number] 1 tablet DAILY 1 tablet DAILY (route: oral) Med Classific ation: Cardiovas cular Therapy Agents Auryxia 210 mg iron tablet 02-25 00:00: 00 Yes [id number] 1 tablet 3 TIMES DAILY 1 tablet 3 TIMES DAILY (route: oral) Med Classific ation: Genitouri nary Therapy Basaglar KwikPen U-100 Insulin 100 unit/mL (3 mL) [facility] 02-25 00:00: 00 Yes [id number] 10 unit EVERY PM 10 unit EVERY PM (route: subcutaneo ) Med Classific ation: Endocrine calcitriol 0.25 mcg capsule 02-25 00:00: 00 Yes [id number] 1 capsule DAILY 1 capsule DAILY (route: oral) Med Classific ation: Electroly te Balance-N utritiona l Products citalopram 40 mg tablet 02-25 00:00: 00 Yes [id number] 1 tablet DAILY 1 tablet DAILY (route: oral) Med Classific ation: Central Nervous System Agents clonidine 0.1 mg/24 hr weekly transdermal patch 02-25 00:00: 00 Yes [id number] 1 patch, transde rmal weekly WEEKLY 1 patch, transderma l weekly WEEKLY (route: transderma l) Med Classific ation: Cardiovas cular Therapy Agents dorzolamide 22.3 mg-timolol 6.8 mg/mL eye drops 02-25 00:00: 00 Yes [id number] 1 drops 2 TIMES DAILY 1 drops 2 TIMES DAILY (route: ophthalmic (eye)) Med Classific ation: Ophthalmi c Agents fluticasone propionate 50 mcg/actuati on nasal spray,suspe nsion 02-25 00:00: 00 Yes [id number] 1 spray DAILY 1 spray DAILY (route: nasal) Med Classific ation: Respirato ry Therapy Agents gentamicin 0.1 % topical cream 02-25 00:00: 00 Yes [id number] 1 cm DAILY 1 cm DAGOBERTO Y (route: topical) Med Classific ation: Dermatolo gical lactulose 10 gram/15 mL (15 mL) oral solution 02-25 00:00: 00 Yes [id number] Per instruc tions 2 TIMES DAILY Per instructio ns 2 TIMES DAILY (route: oral) Med Classific ation: Gastroint estinal Therapy Agents lisinopril 40 mg tablet 02-25 00:00: 00 Yes [id number] 1 tablet EVERY PM 1 tablet EVERY PM (route: oral) Med Classific ation: Cardiovas cular Therapy Agents loratadine 10 mg tablet 02-25 00:00: 00 Yes [id number] 1 tablet DAILY 1 tablet DAILY (route: oral) Med Classific ation: Respirato ry Therapy Agents magnesium 200 mg tablet 02-25 00:00: 00 Yes [id number] 1 tablet DAILY 1 tablet DAILY (route: oral) Med Classific ation: Electroly te Balance-N utritiona l Products metoprolol succinate ER 100 mg tablet,exte nded release 24 hr 02-25 00:00: 00 Yes [id number] 1 tablet DAILY 1 tablet DAILY (route: oral) Med Classific ation: Cardiovas cular Therapy Agents Novolog FlexPen U-100 Insulin aspart 100 unit/mL (3 mL) subcutaneou s 02-25 00:00: 00 Yes [id number] Per instruc tions 3 TIMES DAILY Per instructio ns 3 TIMES DAILY (route: subcutaneo us) Med Classific ation: Endocrine nystatin 100,000 unit/gram topical cream 02-25 00:00: 00 Yes [id number] 1 cm 2 TIMES DAILY 1 cm 2 TIMES DAILY (route: topical) Med Classific ation: Dermatolo gical pantoprazol e 40 mg tablet,zeus yed release 02-25 00:00: 00 Yes [id number] 1 tablet 2 TIMES DAILY 1 tablet 2 TIMES DAILY (route: oral) Med Classific ation: Gastroint estinal Therapy Agents PreserVisio n AREDS 2 Plus Multivit 200 mcg-15 mcg-5 mg-1 mg capsule 02-25 00:00: 00 Yes [id number] 1 capsule DAILY 1 capsule DAILY (route: oral) Med Classific ation: Electroly te Balance-N utritiona l Products RenaPlex 800 mcg-12.5 mg tablet 02-25 00:00: 00 Yes [id number] 1 tablet DAILY 1 tablet DAILY (route: oral) Med Classific ation: Electroly te Balance-N utritiona l Products sennosides 8.6 mg tablet 02-25 00:00: 00 Yes [id number] 2 tablet 2 TIMES DAILY 2 tablet 2 TIMES DAILY (route: oral) Med Classific ation: Gastroint estinal Therapy Agents sucralfate 1 gram tablet 02-25 00:00: 00 Yes [id number] 1 tablet 2 TIMES DAILY 1 tablet 2 TIMES DAILY (route: oral) Med Classific ation: Gastroint estinal Therapy Agents tramadol 50 mg tablet 02-25 00:00: 00 Yes [id number] 1 tablet 2 TIMES DAILY 1 tablet 2 TIMES DAILY (route: oral) Med Classific ation: Analgesic , Anti-infl ammatory or Antipyret ic trazodone 150 mg tablet 02-25 00:00: 00 Yes [id number] 1 tablet EVERY PM 1 tablet EVERY PM (route: oral) Med Classific ation: Central Nervous System Agents Vitamin D3 50 mcg (2,000 unit) capsule 2025-0 6-24 00:00: 00 Yes [id number] 2 capsule DAILY 2 capsule DAILY (route: oral) Med Classific ation: Electroly te Balance-N utritiona l Products Vital Signs Vital Name Observation Time Observation Value Commen ts Temperature 2025-03-18 14:53:00.000 97.5 [degF] Temperature 2025-03-18 14:19:00.000 98.7 [degF] Temperature 2025-03-13 14:00:00.000 97.5 [degF] Temperature 2025-03-11 12:45:00.000 97.2 [degF] Temperature 2025-03-11 12:39:00.000 97 [degF] Temperature 2025-03-07 10:32:00.000 97.5 [degF] Temperature 2025-03-05 13:07:00.000 97.6 [degF] Temperature 2025-03-04 15:46:00.000 97.1 [degF] Temperature 2025-02-28 15:47:00.000 96.8 [degF] Temperature 2025-02-25 14:28:00.000 96.7 [degF] BMI (%) 2025-02-25 14:28:00.000 39 kg/m2 Height 2025-02-25 14:28:00.000 63 [in_us] Pulse 2025-03-18 14:53:00.000 69 /min Pulse 2025-03-18 14:19:00.000 68 /min Pulse 2025-03-13 14:00:00.000 76 /min Pulse 2025-03-11 12:45:00.000 63 /min Pulse 2025-03-11 12:39:00.000 65 /min Pulse 2025-03-07 10:32:00.000 78 /min Pulse 2025-03-05 13:07:00.000 64 /min Pulse 2025-03-04 15:46:00.000 63 /min Pulse 2025-02-28 15:47:00.000 75 /min Pulse 2025-02-25 14:28:00.000 67 /min O2 Saturation (%) 2025-03-18 14:53:00.000 96 % O2 Saturation (%) 2025-03-18 14:19:00.000 96 % O2 Saturation (%) 2025-03-13 14:00:00.000 95 % O2 Saturation (%) 2025-03-11 12:45:00.000 93 % O2 Saturation (%) 2025-03-11 12:39:00.000 97 % O2 Saturation (%) 2025-03-07 10:32:00.000 93 % O2 Saturation (%) 2025-03-05 13:07:00.000 98 % O2 Saturation (%) 2025-03-04 15:46:00.000 93 % O2 Saturation (%) 2025-02-28 15:47:00.000 92 % O2 Saturation (%) 2025-02-25 14:28:00.000 98 % Respirations 2025-03-18 14:53:00.000 18 /min Respirations 2025-03-18 14:19:00.000 18 /min Respirations 2025-03-13 14:00:00.000 18 /min Respirations 2025-03-11 12:45:00.000 18 /min Respirations 2025-03-11 12:39:00.000 18 /min Respirations 2025-03-07 10:32:00.000 18 /min Respirations 2025-03-05 13:07:00.000 16 /min Respirations 2025-03-04 15:46:00.000 18 /min Respirations 2025-02-28 15:47:00.000 16 /min Respirations 2025-02-25 14:28:00.000 16 /min Weight (lbs) 2025-03-18 14:54:00.000 217 [lb_av] Weight (lbs) 2025-03-11 12:41:00.000 217 [lb_av] Weight (lbs) 2025-03-05 13:08:00.000 219 [lb_av] Weight (lbs) 2025-02-25 14:28:00.000 224 [lb_av] Systolic Blood Pressure 2025-03-18 14:53:00.000 142 mm [Hg] Systolic Blood Pressure 2025-03-18 14:19:00.000 136 mm [Hg] Systolic Blood Pressure 2025-03-13 14:00:00.000 132 mm [Hg] Systolic Blood Pressure 2025-03-11 12:45:00.000 132 mm [Hg] Systolic Blood Pressure 2025-03-11 12:40:00.000 164 mm [Hg] Systolic Blood Pressure 2025-03-07 10:32:00.000 127 mm [Hg] Systolic Blood Pressure 2025-03-05 13:07:00.000 163 mm [Hg] Systolic Blood Pressure 2025-03-04 15:46:00.000 136 mm [Hg] Systolic Blood Pressure 2025-02-28 15:47:00.000 149 mm [Hg] Systolic Blood Pressure 2025-02-25 14:28:00.000 157 mm [Hg] Diastolic Blood Pressure 2025-03-18 14:53:00.000 76 mm [Hg] Diastolic Blood Pressure 2025-03-18 14:19:00.000 71 mm [Hg] Diastolic Blood Pressure 2025-03-13 14:00:00.000 66 mm [Hg] Diastolic Blood Pressure 2025-03-11 12:45:00.000 65 mm [Hg] Diastolic Blood Pressure 2025-03-11 12:40:00.000 74 mm [Hg] Diastolic Blood Pressure 2025-03-07 10:32:00.000 62 mm [Hg] Diastolic Blood Pressure 2025-03-05 13:07:00.000 79 mm [Hg] Diastolic Blood Pressure 2025-03-04 15:46:00.000 68 mm [Hg] Diastolic Blood Pressure 2025-02-28 15:47:00.000 65 mm [Hg] Diastolic Blood Pressure 2025-02-25 14:28:00.000 63 mm [Hg] Plan of Treatment Planned Activity Planned Date Details Comments Future Scheduled Test SKILLED NU RSE TO EVALUATE PATIENT, IDENTIFY PRIMARY AND CO-MORBID CONDITIONS CODED PER CODING GUIDELINES INCLUDING UNSPECIFIED ATRIAL FIBRILLATION, TYPE 2 DIABETES MELLITUS WITH DIABETIC NEUROPATHY, UNSP, 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 IF OBTAINED BY PATIENT/CAREGIVER PRIOR TO VISIT AND PATIENT IS NOT SYMPTOMATIC, SKILLED NURSE TO RECORD READING FROM PATIENT LOG. [code = SKILLED NURSE TO OBTAIN BLOOD SUGAR PRN FOR SIGNS AND SYMPTOMS OF HYPO/HYPERGLYCEMIA. IF OBTAINED BY PATIENT/CAREGIVER PRIOR TO VISIT AND PATIENT IS NOT SYMPTOMATIC, SKILLED NURSE TO RECORD READING FROM PATIENT LOG.] Future Scheduled Test SKILLED NU RSE FOR O/A AND TEACHING OF ENDOCRINE SYSTEM TO IDENTIFY CHANGES ASSOCIATED WITH EXACERBATION OF DM) FOR EARLY INTERVENTION OF COMPLICATIONS. [code = SKILLED NURSE FOR O/A AND TEACHING OF ENDOCRINE SYSTEM TO IDENTIFY CHANGES ASSOCIATED WITH EXACERBATION OF DM) FOR EARLY INTERVENTION OF COMPLICATIONS.] Future Scheduled Test SKILLED NU RSE TO INSTRUCT PATIENT/CAREGIVER ON SIGNS AND SYMPTOMS, RISK FACTORS, COMPLICATIONS, AND MANAGEMENT OF ATRIAL FIBRILLATION. [code = SKILLED NURSE TO INSTRUCT PATIENT/CAREGIVER ON SIGNS AND SYMPTOMS, RISK FACTORS, COMPLICATIONS, AND MANAGEMENT OF ATRIAL FIBRILLATION.] Future Scheduled Test SKILLED NU RSE FOR O/A, TEACHING AND SELF-MANAGEMENT RELATED TO HEART FAILURE. INSTRUCT PATIENT/CAREGIVER ON SIGNS AND SYMPTOMS OF EXACERBATION TO REPORT AND IMPORTANCE OF OBTAINING AND RECORDING DAILY WEIGHT AND/OR MEASUREMENTS. SN OR TRAINED PATIENT/CAREGIVER TO OBTAIN WEIGHT DAILY AND WEIGHT GAIN OF 2 LBS OVERNIGHT OR 5 LBS IN 1 WEEK TO BE REPORTED TO PHYSICIAN/PROVIDER. IF UNABLE TO WEIGH PATIENT, SN OR TRAINED PATIENT/CAREGIVER TO OBTAIN MEASUREMENT OF RT THIGH IN CM DAILY AND REPORT AN INCREASE OF 2 CM TO PHYSICIAN/PROVIDER. [code = SKILLED NURSE FOR O/A, TEACHING AND SELF-MANAGEMENT RELATED TO HEART FAILURE. INSTRUCT PATIENT/CAREGIVER ON SIGNS AND SYMPTOMS OF EXACERBATION TO REPORT AND IMPORTANCE OF OBTAINING AND RECORDING DAILY WEIGHT AND/OR MEASUREMENTS. SN OR TRAINED PATIENT/CAREGIVER TO OBTAIN WEIGHT DAILY AND WEIGHT GAIN OF 2 LBS OVERNIGHT OR 5 LBS IN 1 WEEK TO BE REPORTED TO PHYSICIAN/PROVIDER. IF UNABLE TO WEIGH PATIENT, SN OR TRAINED PATIENT/CAREGIVER TO OBTAIN MEASUREMENT OF RT THIGH IN CM DAILY AND REPORT AN INCREASE OF 2 CM TO PHYSICIAN/PROVIDER.] Future Scheduled Test SKILLED NU RSE FOR O/A AND TEACHING OF DIABETIC MANAGEMENT INCLUDING BLOOD SUGAR MONITORING/USE OF GLUCOMETER, DIABETIC DIET, LOWER EXTREMITY SKIN INSPECTION, PROPER SKIN/FOOT CARE, AND SIGNS AND SYMPTOMS HYPO/HYPERGLYCEMIA TO REPORT. [code = SKILLED NURSE FOR O/A AND TEACHING OF DIABETIC MANAGEMENT INCLUDING BLOOD SUGAR MONITORING/USE OF GLUCOMETER, DIABETIC DIET, LOWER EXTREMITY SKIN INSPECTION, PROPER SKIN/FOOT CARE, AND SIGNS AND SYMPTOMS HYPO/HYPERGLYCEMIA TO REPORT.] Future Scheduled Test VIRTUAL SIT FREQUENCY: 12 PRN VIRTUAL VISITS MAY BE PERFORMED UTILIZING TELECOMMUNICATIONS SYSTEM TO OPTIMIZE SKILLED SERVICES FURNISHED ON THE PLAN OF CARE. SKILLED NURSE TO ESTABLISH SUPPORT MEASURES TO MINIMIZE RISK OF REHOSPITALIZATION, AND INSTRUCT PATIENT/CAREGIVER ON METHODS TO REDUCE AVOIDABLE HOSPITALIZATION. [code = VIRTUAL VISIT FREQUENCY: 12 PRN VIRTUAL VISITS MAY BE PERFORMED UTILIZING TELECOMMUNICATIONS SYSTEM TO OPTIMIZE SKILLED SERVICES FURNISHED ON THE PLAN OF CARE. SKILLED NURSE TO ESTABLISH SUPPORT MEASURES TO MINIMIZE RISK OF REHOSPITALIZATION, AND INSTRUCT PATIENT/CAREGIVER ON METHODS TO REDUCE AVOIDABLE HOSPITALIZATION.] Future Scheduled Test PATIENT LAURA S A RISK OF HOSPITALIZATION AND ED USE. SKILLED NURSE TO ESTABLISH SUPPORT MEASURES TO MINIMIZE RISK OF HOSPITALIZATION AND ED USE, AND INSTRUCT PATIENT/CAREGIVER ON METHODS TO REDUCE AVOIDABLE HOSPITALIZATION AND ED USE. [code = PATIENT HAS A RISK OF HOSPITALIZATION AND ED USE. SKILLED NURSE TO ESTABLISH SUPPORT MEASURES TO MINIMIZE RISK OF HOSPITALIZATION AND ED USE, AND INSTRUCT PATIENT/CAREGIVER ON METHODS TO REDUCE AVOIDABLE HOSPITALIZATION AND ED USE.] Future Scheduled Test SKILLED NU RSE TO PROVIDE INSTRUCTION TO PATIENT/CAREGIVER RELATED TO DISCHARGE PLANNING. [code = SKILLED NURSE TO PROVIDE INSTRUCTION TO PATIENT/CAREGIVER RELATED TO DISCHARGE PLANNING.] Future Scheduled Test SKILLED NU RSE TO PERFORM ENVIRONMENTAL SAFETY RISK ASSESSMENT AND FALL RISK ASSESSMENT AND PROVIDE INSTRUCTION TO IMPLEMENT ENVIRONMENTAL SAFETY AND FALL PREVENTION STRATEGIES THROUGHOUT THE CERTIFICATION PERIOD. SKILLED NURSE WILL MAINTAIN SITUATIONAL AWARENESS AND WILL NOTIFY CLINICAL TRACK MOVING MACHINE OPERATOR AND PHYSICIAN/PROVIDER WITH ANY CHANGE IN CONDITION. [code = SKILLED NURSE TO PERFORM ENVIRONMENTAL SAFETY RISK ASSESSMENT AND FALL RISK ASSESSMENT AND PROVIDE INSTRUCTION TO IMPLEMENT ENVIRONMENTAL SAFETY AND FALL PREVENTION STRATEGIES THROUGHOUT THE CERTIFICATION PERIOD. SKILLED NURSE WILL MAINTAIN SITUATIONAL AWARENESS AND WILL NOTIFY CLINICAL TRACK MOVING MACHINE OPERATOR AND PHYSICIAN/PROVIDER WITH ANY CHANGE IN CONDITION.] Future Scheduled Test SKILLED NU RSE FOR OBSERVATION AND ASSESSMENT OF PATIENTS PAIN LEVEL AND EFFECTIVENESS OF PAIN MANAGEMENT REGIMEN. SKILLED NURSE TO INSTRUCT PATIENT/CAREGIVER REGARDING PHARMACOLOGIC AND NON-PHARMACOLOGIC PAIN CONTROL MEASURES. SKILLED NURSE TO REPORT TO PHYSICIAN IF PAIN LEVEL IS OUTSIDE OF ESTABLISHED PARAMETERS. [code = SKILLED NURSE FOR OBSERVATION AND ASSESSMENT OF PATIENTS PAIN LEVEL AND EFFECTIVENESS OF PAIN MANAGEMENT REGIMEN. SKILLED NURSE TO INSTRUCT PATIENT/CAREGIVER REGARDING PHARMACOLOGIC AND NON-PHARMACOLOGIC PAIN CONTROL MEASURES. SKILLED NURSE TO REPORT TO PHYSICIAN IF PAIN LEVEL IS OUTSIDE OF ESTABLISHED PARAMETERS.] Future Scheduled Test SKILLED NU RSE TO ASSESS PATIENT'S SKIN INTEGRITY AND INSTRUCT PATIENT/CAREGIVER ON MEASURES TO PREVENT PRESSURE ULCERS. [code = SKILLED NURSE TO ASSESS PATIENT'S SKIN INTEGRITY AND INSTRUCT PATIENT/CAREGIVER ON MEASURES TO PREVENT PRESSURE ULCERS.] Future Scheduled Test SKILLED NU RSE TO REVIEW PATIENT MEDICATIONS (PRESCRIPTION/OTC). INSTRUCT PATIENT/CAREGIVER ON ALL MEDICATIONS INCLUDING PURPOSE, WHEN TO TAKE, IMPORTANCE OF MEDICATION ADHERENCE, MONITORING OF EFFECTIVENESS, ADVERSE DRUG REACTIONS, POSSIBLE SIDE EFFECTS, AND WHEN TO NOTIFY AGENCY OR PHYSICIAN/PROVIDER OF ANY CONCERNS. [code = SKILLED NURSE TO REVIEW PATIENT MEDICATIONS (PRESCRIPTION/OTC). INSTRUCT PATIENT/CAREGIVER ON ALL MEDICATIONS INCLUDING PURPOSE, WHEN TO TAKE, IMPORTANCE OF MEDICATION ADHERENCE, MONITORING OF EFFECTIVENESS, ADVERSE DRUG REACTIONS, POSSIBLE SIDE EFFECTS, AND WHEN TO NOTIFY AGENCY OR PHYSICIAN/PROVIDER OF ANY CONCERNS.] Future Scheduled Test PHYSICAL T HERAPIST TO EVALUATE PATIENT SECONDARY TO FUNCTIONAL DEFICITS/SAFETY CONCERNS. PHYSICAL THERAPY TO ESTABLISH /UPGRADE/DOWNGRADE THERAPEUTIC EXERCISE PROGRAM AND INSTRUCT PATIENT/CAREGIVER ON EXERCISE PRECAUTIONS WITH WRITTEN HOME PROGRAM. MAY INCLUDE PROM, AAROM, AROM, RROM APPROPRIATE TO IMPROVE FUNCTIONAL STRENGTH AND RANGE OF MOTION. PHYSICAL THERAPY TO INSTRUCT PATIENT/CAREGIVER ON SAFE TRANSFER TECHNIQUES USING PROPER BODY MECHANICS AND EQUIPMENT. PHYSICAL THERAPY TO INSTRUCT PATIENT/CAREGIVER ON GAIT TRAINING TECHNIQUES USING APPROPRIATE ASSISTIVE DEVICE, PROPER BODY MECHANICS TO IMPROVE MOBILITY, AND PREVENT INJURY OF PATIENT AND/OR CAREGIVER. PHYSICAL THERAPY TO INSTRUCT PATIENT/CAREGIVER ON BALANCE AND BALANCE STRATEGIES TO IMPROVE SAFE MOBILITY AND REDUCE RISK FOR FALL AND INJURY [code = PHYSICAL THERAPIST TO EVALUATE PATIENT SECONDARY TO FUNCTIONAL DEFICITS/SAFETY CONCERNS. PHYSICAL THERAPY TO ESTABLISH /UPGRADE/DOWNGRADE THERAPEUTIC EXERCISE PROGRAM AND INSTRUCT PATIENT/CAREGIVER ON EXERCISE PRECAUTIONS WITH WRITTEN HOME PROGRAM. MAY INCLUDE PROM, AAROM, AROM, RROM APPROPRIATE TO IMPROVE FUNCTIONAL STRENGTH AND RANGE OF MOTION. PHYSICAL THERAPY TO INSTRUCT PATIENT/CAREGIVER ON SAFE TRANSFER TECHNIQUES USING PROPER BODY MECHANICS AND EQUIPMENT. PHYSICAL THERAPY TO INSTRUCT PATIENT/CAREGIVER ON GAIT TRAINING TECHNIQUES USING APPROPRIATE ASSISTIVE DEVICE, PROPER BODY MECHANICS TO IMPROVE MOBILITY, AND PREVENT INJURY OF PATIENT AND/OR CAREGIVER. PHYSICAL THERAPY TO INSTRUCT PATIENT/CAREGIVER ON BALANCE AND BALANCE STRATEGIES TO IMPROVE SAFE MOBILITY AND REDUCE RISK FOR FALL AND INJURY] Goal Patient Goal - G ET STRONGER AVOID HOSPITALIZATION Goal Provider Goal - A PLAN OF CARE WILL BE ESTABLISHED THAT MEETS PATIENT'S PRISON NEEDS AND INCLUDES PATIENT GOAL FOR HOME HEALTH. Goal Provider Goal - ADDITIONAL ORDERS WILL BE RECEIVED FROM ALTERNATE PHYSICIAN IN A TIMELY MANNER THROUGHOUT THE CERTIFICATION PERIOD. Goal Provider Goal - BLOOD SUGAR READING WILL BE OBTAINED ORDERED THROUGHOUT CERTIFICATION PERIOD. Goal Provider Goal - PATIENT/CAREGIVER WILL VERBALIZE SIGNS AND SYMPTOMS OF EXACERBATION OF ENDOCRINE DIAGNOSIS) TO REPORT TO NURSE/PHYSICIAN THROUGHOUT THE CERTIFICATION PERIOD. Goal Provider Goal - PATIENT/CAREGIVER WILL VERBALIZE UNDERSTANDING OF SIGNS AND SYMPTOMS, COMPLICATIONS, AND MANAGEMENT OF ATRIAL FIBRILLATION THROUGHOUT THE CERTIFICATION PERIOD. Goal Provider Goal - PATIENT/CAREGIVER WILL VERBALIZE/DEMONSTRATE KNOWLEDGE AND MANAGEMENT OF HEART FAILURE DISEASE PROCESS BY END OF EPISODE. Goal Provider Goal - PATIENT/CAREGIVER WILL VERBALIZE/DEMONSTRATE KNOWLEDGE OF DIABETIC MANAGEMENT. CHANGES IN DIABETIC STATUS WILL BE IDENTIFIED AND REPORTED TO PHYSICIAN FOR PROMPT INTERVENTION THROUGHOUT THE CERTIFICATION PERIOD. Goal Provider Goal - PATIENT/CAREGIVER WILL UTILIZE VIRTUAL VISITS TO ACHIEVE GOALS OUTLINED ON THE PLAN OF CARE. PATIENT WILL HAVE SUPPORT MEASURES ESTABLISHED TO PREVENT HOSPITALIZATION AND PATIENT/CAREGIVER WILL VERBALIZE/DEMONSTRATE METHODS TO REDUCE AVOIDABLE HOSPITALIZATION THROUGHOUT THE CERTIFICATION PERIOD. Goal Provider Goal - PATIENT WILL HAVE SUPPORT MEASURES ESTABLISHED TO PREVENT HOSPITALIZATION AND ED USE AND PATIENT/CAREGIVER WILL VERBALIZE/DEMONSTRATE METHODS TO REDUCE AVOIDABLE HOSPITALIZATION AND ED USE BY END OF EPISODE. Goal Provider Goal - PATIENT/CAREGIVER WILL VERBALIZE UNDERSTANDING OF DISCHARGE PLANNING INSTRUCTIONS BY DATE OF DISCHARGE. Goal Provider Goal - PATIENT/CAREGIVER WILL VERBALIZE/DEMONSTRATE EFFECTIVE ENVIRONMENTAL SAFETY AND FALL PREVENTION STRATEGIES, WILL REMAIN SAFE IN THE COMMUNITY, AND WILL BE FREE OF DANGER TO SELF AND OTHERS THROUGHOUT THE CERTIFICATION PERIOD. Goal Provider Goal - PATIENT/CAREGIVER WILL DEMONSTRATE UNDERSTANDING OF PHARMACOLOGIC AND NONPHARMACOLOGIC PAIN CONTROL MEASURES AND PATIENT WILL HAVE IMPROVEMENT IN PAIN INTERFERING WITH ACTIVITY EVIDENCED BY PAIN AT A LEVEL THAT IS ACCEPTABLE TO THE PATIENT AND PAIN LEVEL WITHIN ESTABLISHED PARAMETERS BY END OF CERTIFICATION PERIOD. Goal Provider Goal - PATIENT/CAREGIVER WILL VERBALIZE UNDERSTANDING OF PRESSURE ULCER PREVENTION BY END OF THE EPISODE. Goal Provider Goal - PATIENT/CAREGIVER WILL VERBALIZE UNDERSTANDING OF EDUCATION PROVIDED ON MEDICATIONS BY THE END OF THE CERTIFICATION PERIOD. Goal Provider Goal - PHYSICAL THERAPY EVALUATION TO BE COMPLETED WITH RECOMMENDATIONS AND/OR WRITTEN TREATMENT PLAN OF CARE ESTABLISHED FOR THE PHYSICIANS SIGNATURE PATIENT/CAREGIVER WILL PERFORM THERAPEUTIC EXERCISE/S AND DEMONSTRATE PARTICIPATION IN A HOME PROGRAM. PATIENT/CAREGIVER WILL DEMONSTRATE SAFE TRANSFERS USING APPROPRIATE ASSISTIVE DEVICE, BODY MECHANICS AND EQUIPMENT. PATIENT/CAREGIVER WILL DEMONSTRATE IMPROVED GAIT TECHNIQUES TO MINIMIZE RISK OF INJURY. PATIENT/CAREGIVER WILL DEMONSTRATE IMPROVED BALANCE AND REDUCE THE RISK OF FALLS AND INJURY. Progress Notes Progress Notes <paragraph>[Visit Date: 2024 by BUD LY RN]:</paragraph><paragraph>LATE ENTRY FOR 03/18/25 PATIENT SITTING UP IN RECLINER WITH FAMILY PRESENT UPON ARRIVAL. PATIENT ALERT AND ORIENTED X3. VITAL SIGNS ASSESSED AND WITHIN NORMAL LIMITS. LUNGS CTA WITH NO RESPIRATORY DISTRESS NOTED. HEART RRR, NO EDEMA NOTED. ABDOMEN SOFT, NONTENDER WITH BOWEL SOUNDS ACTIVE X4 QUADS. PATIENT PERFORMS PERITONEAL DIALYSIS IN THE HOME. SKIN WARM, DRY, AND INTACT. PATIENT DENIES ANY FALLS SINCE PREVIOUS VISIT. MEDICATIONS REVIEWED WITH NO NEW ORDERS NOTED. EDUCATED PATIENT ON FALL SAFETY MEASURES. PATIENT EDUCATED TO CONTACT [facility] FIRST FOR ANY NONEMERGENT ISSUES WITH VOICED UNDERSTANDING. NO VOICED NEEDS AT THIS TIME. LEFT PATIENT CARE OF SELF AND FAMILY UPON DEPARTURE WITH NO FURTHER QUESTIONS OR CONCERNS.</paragraph> <paragraph>[Visit Date: 2024 by MARY NICHOLE PTA]:</paragraph><paragraph>PROVIDED CARE: THEREX - BLE STANDING AND SUPINE X15EA : [place] I SQUATS, HIP ABDADD, HIP FLECION, HSCS, HIP EXT, SLR, BRIDGES, HIP ABDADD SUPINE GAIT TRAINING W SC ON LEVEL SURFACES X200FT W SBA AND MIN VC FOR INCREASED STRIDE LENGTHS AND HEEL STRIKE</paragraph> Encounters Start Date/Time End Date/Time Encounter Type Admission Type Attending Clinicians Care Facility Care Department Encounter ID Discharge Date Discharge Status Discharge Condition Discharge Reason Percent Goals Met 2025-02-25 00:00:00 2025-04-25 00:00:00 Outpatient NEW ADMISSION [facility] [id number] 36.84
--- OUTSIDE RECORDS SUMMARY | 2025-04-24 19:00 | XMS_ITS | Clinical Summary ---
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 09-04 00:00: 00 OTHER RETIREMENT (CURRENT) DRUG THERAPY Active 09-04 00:00: 00 [...] 0.25 mg tablet 02-25 00:00: 00 Yes [id number] 1 tablet 3 TIMES DAILY 1 tablet 3 TIMES DAILY (route: oral) Med Classific ation: Central Nervous System Agents amiodarone 200 mg tablet 02-25 00:00: 00 Yes [id number] 1 tablet DAILY 1 tablet DAILY (route: oral) Med Classific ation: Cardiovas cular Therapy Agents atorvastati n 80 mg tablet 02-25 00:00: 00 Yes [id number] 1 tablet DAILY 1 tablet DAILY (route: oral) Med Classific ation: Cardiovas cular Therapy Agents Auryxia 210 mg iron tablet 02-25 00:00: 00 Yes [id number] 1 tablet 3 TIMES DAILY 1 tablet 3 TIMES DAILY (route: oral) Med Classific ation: Genitouri nary Therapy Basaglar KwikPen U-100 Insulin 100 unit/mL (3 mL) [facility] 02-25 00:00: 00 Yes [id number] 10 unit EVERY PM 10 unit EVERY PM (route: subcutaneo ) Med Classific ation: Endocrine calcitriol 0.25 mcg capsule 02-25 00:00: 00 Yes [id number] 1 capsule DAILY 1 capsule DAILY (route: oral) Med Classific ation: Electroly te Balance-N utritiona l Products citalopram 40 mg tablet 02-25 00:00: 00 Yes [id number] 1 tablet DAILY 1 tablet DAILY (route: oral) Med Classific ation: Central Nervous System Agents clonidine 0.1 mg/24 hr weekly transdermal patch 02-25 00:00: 00 Yes [id number] 1 patch, transde rmal weekly WEEKLY 1 patch, transderma l weekly WEEKLY (route: transderma l) Med Classific ation: Cardiovas cular Therapy Agents dorzolamide 22.3 mg-timolol 6.8 mg/mL eye drops 02-25 00:00: 00 Yes [id number] 1 drops 2 TIMES DAILY 1 drops 2 TIMES DAILY (route: ophthalmic (eye)) Med Classific ation: Ophthalmi c Agents fluticasone propionate 50 mcg/actuati on nasal spray,suspe nsion 02-25 00:00: 00 Yes [id number] 1 spray DAILY 1 spray DAILY (route: nasal) Med Classific ation: Respirato ry Therapy Agents gentamicin 0.1 % topical cream 02-25 00:00: 00 Yes [id number] 1 cm DAILY 1 cm DAGOBERTO Y (route: topical) Med Classific ation: Dermatolo gical lactulose 10 gram/15 mL (15 mL) oral solution 02-25 00:00: 00 Yes [id number] Per instruc tions 2 TIMES DAILY Per instructio ns 2 TIMES DAILY (route: oral) Med Classific ation: Gastroint estinal Therapy Agents lisinopril 40 mg tablet 02-25 00:00: 00 Yes [id number] 1 tablet EVERY PM 1 tablet EVERY PM (route: oral) Med Classific ation: Cardiovas cular Therapy Agents loratadine 10 mg tablet 02-25 00:00: 00 Yes [id number] 1 tablet DAILY 1 tablet DAILY (route: oral) Med Classific ation: Respirato ry Therapy Agents magnesium 200 mg tablet 02-25 00:00: 00 Yes [id number] 1 tablet DAILY 1 tablet DAILY (route: oral) Med Classific ation: Electroly te Balance-N utritiona l Products metoprolol succinate ER 100 mg tablet,exte nded release 24 hr 02-25 00:00: 00 Yes [id number] 1 tablet DAILY 1 tablet DAILY (route: oral) Med Classific ation: Cardiovas cular Therapy Agents Novolog FlexPen U-100 Insulin aspart 100 unit/mL (3 mL) subcutaneou s 02-25 00:00: 00 Yes [id number] Per instruc tions 3 TIMES DAILY Per instructio ns 3 TIMES DAILY (route: subcutaneo us) Med Classific ation: Endocrine nystatin 100,000 unit/gram topical cream 02-25 00:00: 00 Yes [id number] 1 cm 2 TIMES DAILY 1 cm 2 TIMES DAILY (route: topical) Med Classific ation: Dermatolo gical pantoprazol e 40 mg tablet,zeus yed release 02-25 00:00: 00 Yes [id number] 1 tablet 2 TIMES DAILY 1 tablet 2 TIMES DAILY (route: oral) Med Classific ation: Gastroint estinal Therapy Agents PreserVisio n AREDS 2 Plus Multivit 200 mcg-15 mcg-5 mg-1 mg capsule 02-25 00:00: 00 Yes [id number] 1 capsule DAILY 1 capsule DAILY (route: oral) Med Classific ation: Electroly te Balance-N utritiona l Products RenaPlex 800 mcg-12.5 mg tablet 02-25 00:00: 00 Yes [id number] 1 tablet DAILY 1 tablet DAILY (route: oral) Med Classific ation: Electroly te Balance-N utritiona l Products sennosides 8.6 mg tablet 02-25 00:00: 00 Yes [id number] 2 tablet 2 TIMES DAILY 2 tablet 2 TIMES DAILY (route: oral) Med Classific ation: Gastroint estinal Therapy Agents sucralfate 1 gram tablet 02-25 00:00: 00 Yes [id number] 1 tablet 2 TIMES DAILY 1 tablet 2 TIMES DAILY (route: oral) Med Classific ation: Gastroint estinal Therapy Agents tramadol 50 mg tablet 02-25 00:00: 00 Yes [id number] 1 tablet 2 TIMES DAILY 1 tablet 2 TIMES DAILY (route: oral) Med Classific ation: Analgesic , Anti-infl ammatory or Antipyret ic trazodone 150 mg tablet 02-25 00:00: 00 Yes [id number] 1 tablet EVERY PM 1 tablet EVERY PM (route: oral) Med Classific ation: Central Nervous System Agents Vitamin D3 50 mcg (2,000 unit) capsule 2025-0 6-24 00:00: 00 Yes [id number] 2 capsule DAILY 2 capsule DAILY (route: [...] MAINTAIN SITUATIONAL AWARENESS AND WILL NOTIFY CLINICAL BILL CUTTER AND PHYSICIAN/PROVIDER WITH ANY CHANGE IN CONDITION. [code = SKILLED NURSE TO PERFORM ENVIRONMENTAL SAFETY RISK ASSESSMENT AND FALL RISK ASSESSMENT AND PROVIDE INSTRUCTION TO IMPLEMENT ENVIRONMENTAL SAFETY AND FALL PREVENTION STRATEGIES THROUGHOUT THE CERTIFICATION PERIOD. SKILLED NURSE WILL MAINTAIN SITUATIONAL AWARENESS AND WILL NOTIFY CLINICAL BILL CUTTER AND PHYSICIAN/PROVIDER WITH ANY CHANGE IN CONDITION.] [...] CARE WILL BE ESTABLISHED THAT MEETS PATIENT'S RETIREMENT NEEDS AND INCLUDES PATIENT GOAL FOR HOME [...] - BLE STANDING AND SUPINE [id number] : NM I SQUATS, HIP ABDADD, HIP FLECION, HSCS, [...] 2025-04-25 00:00:00 Outpatient NEW ADMISSION MALACHI [facility] [id number] 36.84
== END 2025-03-22 22:36 | disposition home or self-care (01) ==
PROVIDERS: Emergency Provider Family Medicine; PCP Electrodiagnostic Medicine
DX: I13.2 Hypertensive heart and chronic kidney disease with heart failure and with stage 5 chronic kidney disease, or end stage renal disease (principal); N18.6 End stage renal disease; I50.31 Acute diastolic (congestive) heart failure; I48.91 Unspecified atrial fibrillation; Z99.2 Dependence on renal dialysis
CPT/HCPCS: 36415; 71045; 80053; 85025; 96374; 99284; J2060; J9999

== ENCOUNTER → 2025-03-27 13:49 | Outpatient (BNVA) | payer MEDICARE, OTHER, SELFPAY | PROVIDERS: PCP Electrodiagnostic Medicine; Visit Provider Nurse Practitioner Family | DX: I13.2 Hypertensive heart and chronic kidney disease with heart failure and with stage 5 chronic kidney disease, or end stage renal disease (principal); E11.22 Type 2 diabetes mellitus with diabetic chronic kidney disease; N18.6 End stage renal disease; I50.31 Acute diastolic (congestive) heart failure; Z99.2 Dependence on renal dialysis; Z79.4 Long term (current) use of insulin; K92.2 Gastrointestinal hemorrhage, unspecified; D64.89 Other specified anemias; Z87.891 Personal history of nicotine dependence | CPT/HCPCS: 99213 ==

== ENCOUNTER 2025-04-30 09:48 | Oncology outpatient (recurring) (ONCR) | payer MEDICARE, OTHER, SELFPAY ==
[2025-04-30 10:20] LABS: Hematocrit 35.2 % (36-47); Hemoglobin 11.30 g/dL (11.27-16.99); Mean Corpuscular HGB Conc 32.1 g/dL (30-55); Mean Corpuscular Hemoglobin 29.7 pg (27-33); Mean Corpuscular Volume 92.6 fl (85-98); Nucleated Red Blood Cells % 0 %; Platelet Count 252 10^3/cmm (157-399); Red Blood Count 3.80 10^6/uL (3.85-5.65); White Blood Count 9.85 10^3/uL (3.29-11.43)
[2025-04-30 10:46] LABS: Alanine Aminotransferase 24 U/L (0-33); Albumin Level 3.0 g/dL (3.5-5.2); Alkaline Phosphatase 190 U/L (35-105); Anion Gap 12.5 (5-19); Aspartate Amino Transferase 20 U/L (0-32); Blood Urea Nitrogen 70 mg/dL (8-23); Calcium 8.5 mg/dL (8.5-10.5); Carbon Dioxide 28 mmol/L (22-29); Chloride 97 mmol/L (98-107); Globulin 3.0 g/dL (1.3-4.6); Glucose 253 mg/dL (65-115); Iron 70 ug/dL (37-145); Osmolality Calculated 307 mOsm/kg (285-295); Potassium 3.5 mmol/L (3.5-5.1); Sodium 134 mmol/L (136-145); Total Iron Binding Capacity 144 mcg/dl; Total Protein 6.0 g/dL (6.6-8.7); Unsaturated Iron Binding 74 ug/dL (112-347)
[2025-04-30 10:55] LABS: Creatinine Clr Calc Pharmacy 9.7508
[2025-04-30 10:58] LABS: Vitamin B12 893 pg/mL (232-1245)
[2025-04-30 11:09] LABS: Ferritin 1695 ng/mL (15-150)
== END 2025-05-04 23:59 | disposition home or self-care (01) ==
PROVIDERS: Internal Medicine; PCP Electrodiagnostic Medicine; Visit Provider Nurse Practitioner Family
DX: D72.829 Elevated white blood cell count, unspecified (principal); Z85.72 Personal history of non-Hodgkin lymphomas; D33.3 Benign neoplasm of cranial nerves; Z87.891 Personal history of nicotine dependence; D64.9 Anemia, unspecified; N18.6 End stage renal disease; Z99.2 Dependence on renal dialysis
CPT/HCPCS: 36415; 80053; 82607; 82668; 82728; 82746; 83010; 83540; 83550; 83615; 85025; 99213

== ENCOUNTER → 2025-05-14 09:48 | Outpatient (BNVA) | payer MEDICARE, OTHER, SELFPAY | PROVIDERS: PCP Electrodiagnostic Medicine; Visit Provider Podiatrist Foot & Ankle Surgery | DX: E11.8 Type 2 diabetes mellitus with unspecified complications (principal); L60.3 Nail dystrophy; E11.9 Type 2 diabetes mellitus without complications; G62.9 Polyneuropathy, unspecified; L84 Corns and callosities; E11.42 Type 2 diabetes mellitus with diabetic polyneuropathy; Z79.4 Long term (current) use of insulin | CPT/HCPCS: 11721 ==

== ENCOUNTER → 2025-06-04 12:43 | Outpatient (BNVA) | payer MEDICARE, OTHER, SELFPAY | PROVIDERS: PCP Electrodiagnostic Medicine; Visit Provider Internal Medicine Cardiovascular Disease | DX: I13.2 Hypertensive heart and chronic kidney disease with heart failure and with stage 5 chronic kidney disease, or end stage renal disease (principal); E11.22 Type 2 diabetes mellitus with diabetic chronic kidney disease; N18.6 End stage renal disease; Z99.2 Dependence on renal dialysis; Z87.891 Personal history of nicotine dependence; Z79.4 Long term (current) use of insulin; I50.30 Unspecified diastolic (congestive) heart failure; I48.91 Unspecified atrial fibrillation; C88.40 Extranodal marginal zone B-cell lymphoma of mucosa-associated lymphoid tissue [MALT-lymphoma] not having achieved remission; I67.1 Cerebral aneurysm, nonruptured | CPT/HCPCS: 99214 ==

== ENCOUNTER 2025-07-07 09:46 | Outpatient (CLI) | payer MEDICARE, OTHER, SELFPAY ==
--- NOTE | 2025-07-07 09:50 | US_ITS ---
WS: [id number] ULTRASOUND RENAL TECHNIQUE: Ultrasound examination of both kidneys. CLINICAL INFORMATION: DECREASED URINE OUTPUT COMPARISON: CT 02/18/2025 FINDINGS: RIGHT: Right kidney is normal in size and appearance. Echogenicity: Normal. Cortical thickness: 1.2 cm; Normal. Hydronephrosis: None. Right kidney measures: 9.0 cm x 4.4 cm x 6.1 cm. LEFT: Left kidney is normal in size and appearance. Echogenicity: Normal. Cortical thickness: 0.8 cm; Normal. Hydronephrosis: None. Left kidney measures: 10.2 cm x 5.3 cm x 4.1 cm. Normal visualized aorta. Urinary bladder: The urinary bladder is morphologically normal. No free fluid is seen in the pelvis. Bladder volume Prevoid bladder: 11.5 cm x 9.1 cm x 8.0 cm; estimated volume 433.5 ml. Postvoid bladder: 8.0 cm x 7.9 cm x 5.5 cm; estimated volume 181.3 ml. US/US renal BI w/PV bladder [id number] IMPRESSION: 1. Post void bladder volume 181 cc 2. Bilateral perinephric edema. No hydronephrosis in either kidney. 3. Small LEFT renal cyst measuring 10 x 8 mm 4. LEFT ureteral jet visualized.
== END 2025-07-07 09:47 | disposition home or self-care (01) ==
LOC: RAD 09:47
PROVIDERS: PCP Electrodiagnostic Medicine; Visit Provider Internal Medicine Nephrology
DX: R34 Anuria and oliguria (principal); N28.1 Cyst of kidney, acquired
CPT/HCPCS: 76770; 76857

== ENCOUNTER → 2025-07-23 11:14 | Outpatient (BNVA) | payer MEDICARE, OTHER, SELFPAY | PROVIDERS: PCP Electrodiagnostic Medicine; Visit Provider Specialist | DX: D32.0 Benign neoplasm of cerebral meninges (principal); I67.1 Cerebral aneurysm, nonruptured; G25.2 Other specified forms of tremor; G81.94 Hemiplegia, unspecified affecting left nondominant side; G47.10 Hypersomnia, unspecified | CPT/HCPCS: 99215 ==

== ENCOUNTER 2025-08-12 11:31 | Oncology outpatient (recurring) (ONCR) | payer MEDICARE, OTHER, SELFPAY ==
--- NOTE | 2025-08-12 11:45 | MR_ITS ---
WS: [id number] MRI HEAD WITHOUT CONTRAST TECHNIQUE: Sagittal T1, T2 axial, T2 axial FLAIR, axial and coronal T1 images, axial susceptibility weighted imaging, axial diffusion weighted images, and coronal T2 images were obtained. CLINICAL INFORMATION: I67.1 - Cerebral aneurysm, nonruptured COMPARISON: MRI 01/30/2025 FINDINGS: Previously described RIGHT CP angle/retroclival extra-axial mass is stable in appearance. Stable mass effect on the midbrain and keith with mild underlying edema. Involvement of the RIGHT trigeminal nerve root and cisternal segment. Again seen is extension anteriorly along Meckel's cave and cavernous sinus. Extension into Meckel's cave and along V2 into the cavernous sinus better evaluated previously on the contrast study. Dural enhancement previously extended anteriorly near foramen rotundum. Soft tissue thickening extends along the RIGHT middle cranial fossa. Diffuse encasement of cavernous carotid artery which remains patent. 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 Basilar artery is patent. Small vessel changes in the keith. LEFT mastoid effusion. No restricted diffusion to suggest acute ischemia. Mild small vessel changes. Moderate parenchymal volume loss. MR/MR head wo con* [id number] IMPRESSION: Contrast not administered today. 1. 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 This measures approximately 2.4 x 1.5 cm AP by transverse 2. Stable extension anteriorly into Meckel's cave and the RIGHT cavernous sinu s. Cavernous carotid appears patent. 3. Stable mass effect on the RIGHT midbrain and keith with a small amount of un derlying edema appears stable.
== END 2025-09-03 23:59 | disposition home or self-care (01) ==
LOC: ONCMED 11:32
PROVIDERS: PCP Electrodiagnostic Medicine; Visit Provider Nurse Practitioner Family
DX: I67.1 Cerebral aneurysm, nonruptured (principal); G25.2 Other specified forms of tremor; D32.0 Benign neoplasm of cerebral meninges; R93.0 Abnormal findings on diagnostic imaging of skull and head, not elsewhere classified; R60.0 Localized edema; M79.89 Other specified soft tissue disorders; H74.8X2 Other specified disorders of left middle ear and mastoid
CPT/HCPCS: 70551